=== PATIENT | male | born 1955 | race Caucasian/White ===

== ENCOUNTER → 2019-12-06 08:43 | Outpatient (CLI) | payer OTHER, SELFPAY ==
--- NOTE | ~2019-12-06 | CT_ITS ---
EXAMINATION: CT lung screening DATE: 12/06/2019 09:27 INDICATION: Personal history of tobacco dependence, prior smoker with 30 pack year history TECHNIQUE: Computed tomography (CT) of the chest was performed without intravenous contrast. The dose -length product (DLP) was 319.01 mGy-cm. Automated exposure control and iterative reconstruction tech [employer] were employed. COMPARISON: 01/05/2015 FINDINGS: There is mild emphysema. Multiple nodules are scattered throughout the lungs with an upper lobe predominance. The largest measures 4 mm in the right upper lobe on image 50. There is no pleural effusion or pneumothorax. No pathologically enlarged thoracic lymph nodes are identified. The heart size is normal. The gallbladder is surgically absent. A 1.5 cm area of low attenuation in the right u pper back has the appearance of a sebaceous cyst. There is mild thoracic spondylosis. IMPRESSION: 1. Lung-RADS category 2: Benign appearance or behavior. Continue annual screening with noncontrast lo w-dose chest CT in 12 months. Reviewed, dictated and finalized at location A. IMPRESSION: 1. Lung-RADS category 2: Benign appearance or behavior. Continue annual screeni ng with noncontrast low-dose chest CT in 12 months.
== END ==
PROVIDERS: PCP Internal Medicine; Visit Provider Internal Medicine
DX: Z12.2 Encounter for screening for malignant neoplasm of respiratory organs (principal); Z87.891 Personal history of nicotine dependence
CPT/HCPCS: G0297

== ENCOUNTER → 2020-08-29 13:18 | Outpatient (CLI) | payer OTHER, SELFPAY ==
--- NOTE | ~2020-08-29 | CT_ITS ---
EXAMINATION: CT lung screening DATE: 08/29/2020 13:42 INDICATION: Personal history of nicotine dependence, prior smoker with 30 pack year history TECHNIQUE: Computed tomography (CT) of the chest was performed without intravenous contrast. The dose -length product (DLP) was 250.87 mGy-cm. Automated exposure control and iterative reconstruction tech [employer] were employed. COMPARISON: 12/06/2019 FINDINGS: Again noted are multiple nodules scattered throughout the lungs with the largest measuring 4 mm in the right upper lobe on image 54. No new pulmonary nodule is identified. There is mild emphys janell. The lungs are free of focal airspace opacities. No pathologically enlarged thoracic lymph nodes are identified. The heart size is normal. Calcified coronary artery atherosclerosis is noted. There i s mild thoracic spondylosis. IMPRESSION: 1. Lung-RADS category 2: Benign appearance or behavior. Continue annual screening with noncontrast lo w-dose chest CT in 12 months. Reviewed, dictated and finalized at location B. IMPRESSION: 1. Lung-RADS category 2: Benign appearance or behavior. Continue annual screeni ng with noncontrast low-dose chest CT in 12 months.
== END ==
PROVIDERS: PCP Internal Medicine; Visit Provider Internal Medicine
DX: Z12.2 Encounter for screening for malignant neoplasm of respiratory organs (principal); Z87.891 Personal history of nicotine dependence
CPT/HCPCS: 71271

== ENCOUNTER → 2021-09-05 08:02 | Outpatient (CLI) | payer OTHER, SELFPAY ==
--- NOTE | ~2021-09-05 | CT_ITS ---
EXAMINATION: CT lung screening DATE: 09/05/2021 08:20 INDICATION: Personal history of nicotine dependence, current smoker with 45 pack year history TECHNIQUE: Computed tomography (CT) of the chest was performed without intravenous contrast. The dose -length product (DLP) was 259.54 mGy-cm. Automated exposure control and iterative reconstruction tech [employer] were employed. COMPARISON: 08/29/2020 FINDINGS: Multiple nodules are again seen scattered throughout the lungs. The largest measures 4 mm i n the right upper lobe. No new pulmonary nodules are identified. The lungs are free of acute opacitie s. No pleural effusion or pneumothorax. No pathologically enlarged thoracic lymph nodes are identifie d. The heart size is normal. Calcified coronary artery atherosclerosis is noted. The gallbladder is s urgically absent. There is mild thoracic spondylosis. IMPRESSION: 1. Lung-RADS category 2: Benign appearance or behavior. Continue annual screening with noncontrast lo w-dose chest CT in 12 months. Reviewed, dictated and finalized at location B. IMPRESSION: 1. Lung-RADS category 2: Benign appearance or behavior. Continue annual screeni ng with noncontrast low-dose chest CT in 12 months.
== END ==
PROVIDERS: PCP Internal Medicine; Visit Provider Internal Medicine
DX: Z12.2 Encounter for screening for malignant neoplasm of respiratory organs (principal); Z87.891 Personal history of nicotine dependence
CPT/HCPCS: 71271

== ENCOUNTER 2022-03-22 20:34 | Inpatient (IN) | payer MEDICARE, SELFPAY ==
--- NOTE | ~2022-03-22 | CT_ITS ---
EXAMINATION: CT abdomen pelvis w con DATE: 03/23/2022 06:42 INDICATION: Umbilical and lower abdominal pain. Fever. TECHNIQUE: Computed tomography (CT) of the abdomen and pelvis was performed with 100 mL Omnipaque 350 intravenous contrast. Automated exposure control and iterative reconstruction technique were employe d. The dose-length product was 1264.78 mGy-cm. COMPARISON: CT abdomen and pelvis 11/11/2014 FINDINGS: The visualized portions of the lung bases demonstrate minimal atelectasis. No pleural effus ion. The heart size is normal. No pericardial effusion. There are cysts in the liver measuring up to 8 mm. There are changes of cholecystectomy. The spleen, pancreas, and adrenal glands are normal. Ther e are cysts in the kidneys measuring up to 3.3 cm on the left. The prostate is mildly enlarged. There are scattered diverticula in the colon. There is wall thickening of the sigmoid colon with fat stran ding around a sigmoid diverticulum and foci of free intraperitoneal gas. There are no dilated loops o f bowel. The appendix is normal. There is an umbilical hernia containing fat. There is mild periporta l lymphadenopathy, likely reactive. There is a left inguinal hernia containing fat. There is no free intraperitoneal fluid. There is moderate thoracic spondylosis and mild lumbar spondylosis. IMPRESSION: 1. Sigmoid diverticulitis with microperforation. Reviewed, dictated and finalized at location A. [employer]
[2022-03-22 20:54] VITALS: BP 147/64; PULSE 118; RESP 18; TEMP 36.3; O2SAT 99
[2022-03-23] VITALS (21 sets, daily range): BP systolic 105–164; BP diastolic 57–91; PULSE 66–113; RESP 16–20; TEMP 36.7–37.1; O2SAT 93–100; BMI 33.2
[2022-03-23] MEDS: SODIUM CHLORIDE 0.9% IV 1,000 ML 999 ML IV CONT (04:40)
[2022-03-23 04:59] LABS: Basophils Absolute Auto 0.1 K/mm3 (0.0-0.1); Basophils Percent Auto 0.5 % (0.2-1.2); Eosinophils Absolute Auto 0.4 K/mm3 (0-0.3); Eosinophils Percent Auto 3.6 % (0-4.4); Hematocrit 42.3 % (42.0-52.0); Hemoglobin 14.4 g/dL (14.0-18.0); Immature Granulocyte Absolute 0.04 K/mm3 (0.00-0.031); Immature Granulocyte Percent A 0.3 % (0-0.5); Lymphocytes Absolute Auto 2.24 K/mm3 (0.9-3.2); Lymphocytes Percent Auto 19.5 % (18.3-44.2); Mean Corpuscular Hemoglobin 30.6 pg (26-34); Mean Platelet Volume 9.3 fl (7.4-10.4); Monocytes Absolute Auto 1.1 K/mm3 (0.1-0.6); Monocytes Percent Auto 9.5 % (2.6-8.5); Neutrophils Absolute Auto 7.7 K/mm3 (1.3-6.7); Neutrophils Percent Auto 66.6 % (45.5-73.1); Platelet Count Result 186 k/mm3 (150-375); Red Cell Distribution Width 12.6 % (11.5-14.5); White Blood Count 11.5 K/mm3 (4.5-10.0)
--- NOTE | 2022-03-23 05:04 | ED.GENADULT ---
HPI - General Adult General Chief complaint: Abdominal Pain <Rodolfo Galan MD - Last Filed: 03/23/22 05:06> Stated complaint: abd pain <Rodolfo Galan MD - Last Filed: 03/23/22 05:06> Time Seen by Provider: 03/23/22 04:20 <Rodolfo Galan MD - Last Filed: 03/23/22 05:06> History of Present Illness HPI narrative: Patient 67-year-old gentleman who presents to the emergency department with chief complaint of abdominal pain. The patient reports that on Thursday he went to get some blood drawn and reported that once he got back home he started having this generalized malaise the patient states that he started having periumbilical pain that then moved down to his lower quadrants and reports that he had some feeling as though he needed to urinate fairly rapidly the patient denies testicular pain denies flank pain. The patient reports he took 2 home COVID test that were negative the patient states that he was concerned that there may be appendicitis developing the patient does report that he has had a prior cholecystectomy. <Rodolfo Galan MD - Last Filed: 03/23/22 05:06> Related Data Allergies/adverse reactions: Allergies Allergy/AdvReac Type Severity Reaction Status Date / Time No Known Allergies Allergy Verified 03/22/22 20:35 <Rodolfo Galan MD - Last Filed: 03/23/22 05:06> Review of Systems Review of Systems: A 10 system review of systems was completed on the patient and is negative except for what is stated in the HPI. Nursing and ancillary documentation was reviewed. <Rodolfo Galan MD - Last Filed: 03/23/22 05:06> Exam Narrative: GENERAL: Well-appearing, well-nourished, and in no acute distress. HEAD: Normocephalic, atraumatic. EYES: PERRLA and EOMI. ENT: Nares clear, no rhinorrhea or epistaxis. Mucous membranes moist. NECK: Supple. CHEST: Clear to auscultation. No respiratory distress. HEART: Regular rate and rhythm. No murmur heard. Normal peripheral pulses. ABDOMEN: Soft, tenderness to palpation in the periumbilical area and lower quadrants of the abdomen., nondistended, normal active bowel sounds. EXTREMITIES: Normal range of motion. No edema. SKIN: Warm, dry, no rash. NEURO: No focal deficits. Alert and oriented x3. PSYCH: Normal mood and affect. <Rodolfo Galan MD - Last Filed: 03/23/22 05:06> Course Course Emergency Course: Patient informed of imaging results. I discussed the case with Dr. Cuba who is excepted the patient to his service. Patient will be kept n.p.o. with ice chips and will receive IV Zosyn. <Jose Alejandro Ramirez MD - Last Filed: 03/23/22 08:08> Vital Signs Vital signs: Vital Signs Temperature 97.4 F L 03/22/22 20:54 Pulse Rate 118 H 03/22/22 20:54 Respiratory Rate 18 03/22/22 20:54 Blood Pressure 147/64 H 03/22/22 20:54 Pulse Oximetry 99 03/22/22 20:54 Temperature 97.4 F L 03/22/22 20:54 Pulse Rate 82 03/23/22 07:48 Respiratory Rate 18 03/23/22 07:48 Blood Pressure 110/80 03/23/22 07:48 Pulse Oximetry 97 03/23/22 07:48 <Rodolfo Galan MD - Last Filed: 03/23/22 05:06> Vital Signs Temperature 97.4 F L 03/22/22 20:54 Pulse Rate 118 H 03/22/22 20:54 Respiratory Rate 18 03/22/22 20:54 Blood Pressure 147/64 H 03/22/22 20:54 Pulse Oximetry 99 03/22/22 20:54 Temperature 97.4 F L 03/22/22 20:54 Pulse Rate 82 03/23/22 07:48 Respiratory Rate 18 03/23/22 07:48 Blood Pressure 110/80 03/23/22 07:48 Pulse Oximetry 97 03/23/22 07:48 <Jose Alejandro Ramirez MD - Last Filed: 03/23/22 08:08> Medical Decision Making Vital Signs Vital Signs: Vital Signs Temperature 97.4 F L 03/22/22 20:54 Pulse Rate 118 H 03/22/22 20:54 Respiratory Rate 18 03/22/22 20:54 Blood Pressure 147/64 H 03/22/22 20:54 Pulse Oximetry 99 03/22/22 20:54 Temperature 97.4 F L 03/22/22 20:54 Pulse Rate 82
[2022-03-23 05:07] LABS: Lactic Acid Reflex 0.6 mmol/L (0.7-2.0)
[2022-03-23 05:23] LABS: Appearance Urine Clear (Clear); Bilirubin Urine 1+ (Negative); Blood Urine 2+ (Negative); Color Urine Yellow (Yellow); Glucose Urine UA Negative (Negative); Ketones Urine Negative (Negative); Leukocyte Esterase Ur Negative LEU/UL (Negative); Nitrate Urine Negative (Negative); Protein Urine Negative (Negative); Specific Grav Ur 1.015 (1.001-1.035); Urobilinogen Urine 0.2 mg/dL (<2.0); pH Urine 5.5 (5.0-9.0)
[2022-03-23 05:24] LABS: Influenza A QL RT-PCR Negative (Negative); Influenza B QL RT-PCR Negative (Negative); RSV RNA, RT-PCR Negative (Negative); SARS-CoV-2 RNA PCR Negative
[2022-03-23 05:30] LABS: Mucus Urine Few /lpf; WBC Urine 0-3 /hpf
[2022-03-23 05:57] LABS: Alanine Aminotransferase 18 U/L (6-50); Albumin Level 4.2 g/dL (3.5-5.1); Alkaline Phosphatase 56 U/L (38-126); Anion Gap 5 mmol/L (8-16); Aspartate Amino Transferase 17 U/L (17-59); Blood Urea Nitrogen 8 mg/dL (9-20); Calcium 8.3 mg/dL (8.4-10.2); Carbon Dioxide 25 mmol/L (22-30); Chloride 103 mmol/L (98-107); Estimated CRCL calculation 127 ml/min; Estimated Glomerular Filt Rate > 60; Glucose 120 mg/dL (65-110); Lipase 35 U/L (23-300); Potassium 3.6 mmol/L (3.4-5.0); Sodium 133 mmol/L (137-145)
[2022-03-23 05:58] LABS: Add Urine Microscopic? YES
--- NOTE | 2022-03-23 09:50 | PM.IMHP ---
H&P: HPI History of Present Illness Date/Time: 03/23/22 09:50 Chief Complaint: Abdominal pain Narrative: Patient is a 67-year-old man who 2 days ago went to get some blood drawn. Following this, he felt some periumbilical discomfort and a pressure to urinate. Later that day, he developed more severe abdominal pain going across the suprapubic area and both quadrants of the lower abdomen. He noted some fever and chills. He came to the emergency room last night. He was noted to have periumbilical and lower abdominal tenderness. His white blood cell count was elevated to 11,500. He had a CT scan which showed acute diverticulitis with several foci of free intraperitoneal air localized around the sigmoid colon but predominantly on the lower right side just anterior to the urinary bladder. He has received antibiotics and some analgesics in the emergency room. His pain is much better. He is admitted now for acute diverticulitis with perforation. No abscess is noted at present but this is high risk for development of an abscess. He has never had diverticulitis before. He has had colonoscopies in the past but not our facility. His last evaluation for malignancy was a negative Cologuard 2 years ago. He had surgery for a perforated ulcer many years ago through an upper abdominal midline incision. He has also had a laparoscopic cholecystectomy. He is admitted now for diverticulitis with perforation as noted above. He does smoke about a pack per day. Review of Systems Review of Systems: All systems reviewed & are unremarkable except as noted in HPI and below (HPI and those items noted below) Constitutional: Constitutional: Reports as per HPI, Reports body ache(s), Reports chills, Reports fever(s) and Reports malaise Cardiovascular: Cardiovascular: Denies chest pain, Denies diaphoresis, Denies dyspnea and Denies paroxysmal nocturnal dyspnea Respiratory: Respiratory: Denies chest congestion, Denies cough and Denies dyspnea Gastrointestinal: Gastrointestinal: Reports as per HPI, Reports abdominal pain and Reports GI cramping Genitourinary: Genitourinary: Reports as per HPI, Denies hematuria, Denies dysuria and Denies flank pain Integumentary/Breasts: Skin/Breast: Denies lesions and Denies rash [facility] Past Medical History Medical History (Updated 03/23/22 @ 10:04 by Cedric Cuba MD) Essential hypertension Hyperlipidemia Surgical History Surgical History (Updated 03/23/22 @ 10:04 by Cedric Cuba MD) History of laparoscopic cholecystectomy Peptic ulcer with perforation Surgery for perforated ulcer years ago, midline incision. Meds Home Medications and Allergies Home Medications Medication Instructions Recorded Confirmed Type atorvastatin 20 mg tablet 20 mg PO DAILY 03/23/22 03/23/22 History lansoprazole 30 mg capsule,delayed 30 mg PO DAILY 03/23/22 03/23/22 History release lisinopril 20 mg tablet 20 mg PO DAILY 03/23/22 03/23/22 History Allergies Allergy/AdvReac Type Severity Reaction Status Date / Time No Known Allergies Allergy Verified 03/22/22 20:35 Vital Signs Vital Signs - 24 hr 03/22/22 20:54 03/23/22 00:22 03/23/22 04:31 Temperature 36.3 C L Pulse Rate 118 H 113 H Respiratory Rate 18 16 Blood Pressure 147/64 H 164/85 H Pulse Oximetry 99 97 97 03/23/22 04:32 03/23/22 04:45 03/23/22 05:12 Temperature Pulse Rate 84 Respiratory Rate 17 Blood Pressure 108/77 133/75 Pulse Oximetry 97 96 94 03/23/22 05:15 03/23/22 05:30 03/23/22 05:52 Temperature Pulse Rate Respiratory Rate Blood Pressure Pulse Oximetry 97 98 100 03/23/22 06:00 03/23/22 06:01 03/23/22 06:15 Temperature Pulse Rate Respiratory Rate Blood Pressure 105/60 Pulse Oximetry 93 96 96 03/23/22 07:48 Temperature Pulse Rate 82 Respiratory Rate 18 Blood Pressure 110/80 Pulse Oximetry 97 Exam Const: General: cooperative, healthy appearing, comfortable, no a
[2022-03-23] MEDS: SODIUM CHLORIDE 0.9% IV 1,000 ML 125 ML IV CONT ×2 (10:17→17:34)
[2022-03-23] MEDS: MORPHINE SULFATE (*CRX) 4 MG/ML INJ IV PUSH (10:18)
[2022-03-23] MEDS: PANTOPRAZOLE SODIUM IV 40 MG VIAL IV PUSH (10:52)
[2022-03-23] MEDS: ENOXAPARIN 40 MG/0.4 ML SYRINGE SUB-Q (11:05)
--- NOTE | 2022-03-23 16:33 | ADMGEN ---
This patient, Onel Montero, was admitted to Medical Room 342-01. Patient/family oriented to hospital policies and general routines including ID bracelet, bed and alarms, visiting hours, pain management, procedures, bathroom and other care routines, personal items, smoking policy, room service/diet, and visiting hours. Information on how to activate the Rapid Response Team has been discussed. Patient/Family are encouraged to report perceived risks to care and to ask questions if they do not understand what they are told or what they should do.
[2022-03-23] MEDS: MORPHINE SULFATE (*CRX) 2 MG/ML INJ IV PUSH ×2 (17:40→20:51)
[2022-03-24] MEDS: SODIUM CHLORIDE 0.9% IV 1,000 ML 125 ML IV CONT ×3 (05:41→23:30)
[2022-03-24 05:57] LABS: Basophils Absolute Auto 0.1 K/mm3 (0.0-0.1); Basophils Percent Auto 0.7 % (0.2-1.2); Eosinophils Absolute Auto 0.6 K/mm3 (0-0.3); Eosinophils Percent Auto 5.6 % (0-4.4); Hematocrit 43.8 % (42.0-52.0); Hemoglobin 14.3 g/dL (14.0-18.0); Immature Granulocyte Absolute 0.04 K/mm3 (0.00-0.031); Immature Granulocyte Percent A 0.4 % (0-0.5); Lymphocytes Absolute Auto 2.66 K/mm3 (0.9-3.2); Lymphocytes Percent Auto 25.7 % (18.3-44.2); Mean Corpuscular HGB Conc 32.6 g/dl (32-36); Mean Corpuscular Hemoglobin 30.2 pg (26-34); Mean Corpuscular Volume 92.4 fl (80-100); Mean Platelet Volume 9.1 fl (7.4-10.4); Monocytes Percent Auto 9.7 % (2.6-8.5); Neutrophils Percent Auto 57.9 % (45.5-73.1); Platelet Count Result 197 k/mm3 (150-375); Red Blood Count 4.74 M/mm3 (4.6-6.20); Red Cell Distribution Width 12.4 % (11.5-14.5); White Blood Count 10.3 K/mm3 (4.5-10.0)
[2022-03-24 06:00] VITALS: BP 121/75; PULSE 76; RESP 18; TEMP 37; O2SAT 99
[2022-03-24 06:16] LABS: Anion Gap 5 mmol/L (8-16); Blood Urea Nitrogen 9 mg/dL (9-20); Calcium 8.2 mg/dL (8.4-10.2); Carbon Dioxide 28 mmol/L (22-30); Chloride 108 mmol/L (98-107); Estimated CRCL calculation 110 ml/min; Estimated Glomerular Filt Rate > 60; Glucose 93 mg/dL (65-110); Potassium 3.8 mmol/L (3.4-5.0); Sodium 141 mmol/L (137-145)
[2022-03-24] MEDS: PANTOPRAZOLE SODIUM IV 40 MG VIAL IV PUSH (08:43)
--- NOTE | 2022-03-24 09:07 | PC.NURSE ---
Pt refusing to walk halls because we have covid patients on this unit. Pt educated on the importance of getting up and walking. Dr. Cuba was just in and would like him up walking the halls. Pt states that he will walk around in his room only.
[2022-03-24 14:00] VITALS: BP 126/75; PULSE 69; RESP 20; TEMP 36.2; O2SAT 99
--- NOTE | 2022-03-24 16:41 | PM.PNGS ---
Progress Note: A&P Assessment and Plan (1) Diverticulitis of colon with perforation: Code(s): K57.20 - Diverticulitis of large intestine with perforation and abscess without bleeding Status: Acute Assessment and Plan: Greatly improved. Will go ahead and start low-fiber diet today. If pain does not recur, patient can probably go home tomorrow on low-fiber diet. Will need to be on oral antibiotics as well. I explained that looking at his CT scan, there is some risk of him developing an abscess. I explained the symptoms than an abscess may present with. I also explained that if an abscess were to present, CT-guided abscess percutaneous drainage would most likely be needed. (2) Smoker: Code(s): F17.200 - Nicotine dependence, unspecified, uncomplicated Status: Chronic Assessment and Plan: Advised to quit. Subjective Subjective Date/Time Seen: 03/24/22 08:41 Patient reports: feels better, pain is less (Pain is gone.), bowel movement and afebrile Review of Systems Review of Systems: All systems reviewed & are unremarkable except as noted in HPI and below (HPI and those items noted below) Constitutional: Constitutional: Denies chills and Denies fever(s) Cardiovascular: Cardiovascular: Denies chest pain, Denies diaphoresis, Denies dyspnea and Denies paroxysmal nocturnal dyspnea Respiratory: Respiratory: Denies chest congestion, Denies cough and Denies dyspnea Integumentary/Breasts: Skin/Breast: Denies lesions and Denies rash Exam Const: General: comfortable and no acute distress; No confusion Nutritional Appearance: overweight Orientation/consciousness: patient oriented x3 and No confusion GI: Inspection: normal to inspection, non-distended and obesity GI Palp: Yes Soft to palpation, No Tenderness to palpation present (GI), No Guarding due to palpation present (GI), No Palpable mass present and No Rebound tenderness present Auscultation: normal bowel sounds Neuro: General: patient oriented x3, no focal motor deficits and No confusion Extrem: General: no calf tenderness and no edema Psych: Affect: normal affect Insight: Good insight present (Psych) Judgement: Good judgement present (Psych) Objective Data Vital Signs Vital Signs: Vital Signs - 24 hr 03/23/22 21:39 03/24/22 06:00 03/24/22 08:00 Temperature 37.1 C 37.0 C Pulse Rate 66 76 Respiratory Rate 18 18 Blood Pressure 130/74 121/75 Pulse Oximetry 99 99 Oxygen Delivery Room Air 03/24/22 14:00 Temperature 36.2 C L Pulse Rate 69 Respiratory Rate 20 Blood Pressure 126/75 Pulse Oximetry 99 Oxygen Delivery Intake/Output Intake/Output: Intake & Output 03/21/22 03/22/22 03/23/22 03/24/22 23:59 23:59 23:59 23:59 Intake Total 2150 2340 Balance 2150 2340 Meds/Results Medications: Active Medications Generic Name Dose Route Start Last Admin Trade Name Freq PRN Reason Stop Dose Admin Acetaminophen 500 mg 03/24/22 12:41 Acetaminophen 500 Mg Tablet PO Q6H PRN Mild Pain (1-3) or Fever Hydrocodone Bitart/Acetaminophen 1 tab 03/24/22 12:41 Hydrocodone/Acetaminophen (*Crx) 5-325 Mg Tablet PO Q4H PRN Pain Rated 4-6 Hydrocodone Bitart/Acetaminophen 1 tab 03/24/22 12:41 Hydrocodone/Acetaminophen (*Crx) 10-325 Mg Tablet PO Q4H PRN Pain Rated 7-10 Albuterol 2 puff 03/24/22 12:38 Albuterol Sulfate (*Sp) Aerosol 1 Puff INHALATION Q6H PRN Shortness Of Breath Atorvastatin Calcium 20 mg 03/24/22 13:00 Atorvastatin 20 Mg Tablet PO DAILY [facility] Enoxaparin Sodium 40 mg 03/24/22 09:00 03/24/22 13:03 Enoxaparin 40 Mg/0.4 Ml Syringe SUB-Q Not Given DAILY [facility] Fluticasone Propionate 1 spray 03/24/22 12:38 Fluticasone Propionate 0.05% Na Spr 16 Gm Btl (*Bkc) NASAL DAILY PRN Sinus Symptoms Piperacillin/Tazobactam/Dextrose 3.375 gm in 50 mls @ 100 mls/hr 03/23/22 12:00 03/24/22 13:00 Zosyn 3.375 Gm/D5w 5
[2022-03-24] MEDS: ATORVASTATIN 20 MG TABLET PO (18:32)
[2022-03-24] MEDS: lisinopriL 20 MG TABLET PO (18:32)
[2022-03-24 20:00] VITALS: PULSE 69; RESP 20; O2SAT 99
[2022-03-24 21:45] VITALS: BP 127/80; PULSE 64; RESP 18; TEMP 36.7; O2SAT 97
[2022-03-25 05:59] LABS: Hematocrit 42.3 % (42.0-52.0); Hemoglobin 13.9 g/dL (14.0-18.0); Mean Corpuscular HGB Conc 32.9 g/dl (32-36); Mean Corpuscular Hemoglobin 30.2 pg (26-34); Mean Platelet Volume 8.9 fl (7.4-10.4); Platelet Count Result 197 k/mm3 (150-375); Red Cell Distribution Width 12.5 % (11.5-14.5); White Blood Count 8.6 K/mm3 (4.5-10.0)
[2022-03-25 06:00] VITALS: BP 122/68; PULSE 64; RESP 18; TEMP 36.7; O2SAT 97
[2022-03-25 06:10] LABS: Anion Gap 4 mmol/L (8-16); Blood Urea Nitrogen 6 mg/dL (9-20); Calcium 8.2 mg/dL (8.4-10.2); Carbon Dioxide 28 mmol/L (22-30); Chloride 103 mmol/L (98-107); Estimated CRCL calculation 110 ml/min; Estimated Glomerular Filt Rate > 60; Glucose 103 mg/dL (65-110); Potassium 3.7 mmol/L (3.4-5.0); Sodium 135 mmol/L (137-145)
[2022-03-25] MEDS: lisinopriL 20 MG TABLET PO (08:44)
[2022-03-25] MEDS: ATORVASTATIN 20 MG TABLET PO (08:44)
[2022-03-25] MEDS: ENOXAPARIN 40 MG/0.4 ML SYRINGE SUB-Q (08:44)
[2022-03-25] MEDS: PANTOPRAZOLE 40 MG TABLET PO (08:44)
[2022-03-25] MEDS: SODIUM CHLORIDE 0.9% IV 1,000 ML 125 ML IV CONT (11:09)
[2022-03-25 14:00] VITALS: BP 143/79; PULSE 68; RESP 18; TEMP 36.8; O2SAT 99
--- NOTE | 2022-03-25 14:03 | PM.DS ---
DS: Admitting Diagnosis Discharge Date 03/25/2022 Admitting Diagnosis Diverticulitis with perforation DS: Discharge Diagnosis Discharge Diagnosis (1) Diverticulitis of colon with perforation: Code(s): K57.20 - Diverticulitis of large intestine with perforation and abscess without bleeding Status: Acute Assessment and Plan: Exam benign, continue p.o. antibiotics, continue low fiber diet, follow-up with Dr. Cuba in 2 weeks DS: Summary Hospital Course Reason for hospitalization: Diverticulitis with perforation Hospital Course: The patient is a 67-year-old male presenting to the emergency department complaining of severe abdominal pain. Workup, including imaging, was significant for diverticulitis with micro perforation. The patient was subsequently admitted to the Surgical Service started on IV antibiotics and bowel rest. On hospital day 1., the patient's exam was much more and his diet was slowly advanced. He was out of bed and ambulating without difficulty. His pain was well controlled. By hospital day 2., the patient was tolerating a low fiber diet and his exam abdominal exam was completely benign. He will be discharged home at this time with continued p.o. antibiotics and a low-fiber diet. He will follow up with Dr. Cuba in 2 weeks. Status at Discharge Functional status at discharge: independent ambulation Overall status at discharge: patient is progressing back to baseline Time Spent with Patient Time attestation: Total time spent providing and/or coordinating discharge services: Time spent: Less than 30 minutes Exam Const: General: cooperative, comfortable and no acute distress Resp: Auscultation: clear to auscultation bilaterally Cardio: Rate: regular rate Rhythm: regular rhythm GI: Inspection: normal to inspection and distended GI Palp: No abdominal tenderness, Yes Soft to palpation, No Tenderness to palpation present (GI), No Guarding due to palpation present (GI) and No Rigid due to palpation DS: Data Data Completed and Pending Labs on day of discharge: Labs from last 24 hours 03/25/22 03/25/22 05:49 05:49 WBC 8.6 RBC 4.60 Hgb 13.9 L Hct 42.3 MCV 92.0 MCH 30.2 MCHC 32.9 RDW 12.5 Plt Count 197 MPV 8.9 Sodium 135 L Potassium 3.7 Chloride 103 Carbon Dioxide 28 Anion Gap 4 L BUN 6 L Creatinine 0.70 Estim Creat Clear Calc 110 Estimated GFR > 60 Glucose 103 Calcium 8.2 L Discharge Plan Discharge Attending physician on discharge: Cedric Cuba Discharging Clinician: Nati Franco Patient Disposition: Home, Self-Care Activity: may shower and as tolerated Diet: low fiber Discharge Instructions: Activity as tolerated Okay to drive. Ambulate 3-4 times per day and p.r.n.. Stay on low-fiber diet. Continue oral antibiotics as prescribed. May take Tylenol or ibuprofen p.r.n. for pain. See Dr. Cuba in 2 weeks. Patient Instructions: Antibiotic Form Stand Alone Forms: General Discharge Information Follow-up/Referrals: Cedric Cuba MD [Physician] - 2 Weeks Discharge Medications: New amoxicillin-pot clavulanate 875-125 mg tablet 1 tablet PO Q12H Qty: 14 0RF Continued atorvastatin 20 mg tablet 20 mg PO DAILY lisinopril 20 mg tablet 20 mg PO DAILY lansoprazole 30 mg capsule,delayed release(DR/EC) 30 mg PO DAILY albuterol sulfate 90 mcg/actuation HFA aerosol inhaler 2 puff INHALATION Q6H PRN (Reason: Shortness Of Breath) fluticasone propionate 50 mcg/actuation spray,suspension 1 spray INTRANASAL DAILY PRN (Reason: Sinus Symptoms) nisoldipine 8.5 mg tablet extended release 24 hr 8.5 mg PO DAILY Date of admission: 03/24/22 09:54 Primary Care Provider: Angel,Suzette Admitting Provider: Cedric Cuba Attending physician on admission: Cedric Cuba Condition: Improved
== END 2022-03-25 15:10 | disposition home or self-care (01) | DRG 392 ==
LOC: ANHED 03-23 08:07 → ANH3MEDSUR 03-23 10:09 → ANH3MED 03-23 14:55
PROVIDERS: Admitting Provider Surgery; Emergency Provider Emergency Medicine; PCP Internal Medicine; Visit Provider Surgery
DX: K57.20 Diverticulitis of large intestine with perforation and abscess without bleeding (principal); Z20.822 Contact with and (suspected) exposure to COVID-19; I10 Essential (primary) hypertension; E78.5 Hyperlipidemia, unspecified; F17.210 Nicotine dependence, cigarettes, uncomplicated; Z90.49 Acquired absence of other specified parts of digestive tract
CPT/HCPCS: 36415; 74177; 80048; 80053; 81001; 83605; 83690; 85025; 85027; 87637; 96361; 96365; 96366; 96372; 96375; 96376; 99285; A9270; C9113; G0378; J1650; J2270; J2543; J7030; Q9967

== ENCOUNTER 2022-05-26 00:36 | Day surgery (SDC) | payer MEDICARE, SELFPAY ==
[2022-05-12 15:17] VITALS: BMI 32.2
--- NOTE | 2022-05-23 14:01 | PM.HPGS ---
History of Present Illness History of Present Illness Consent: Risks, benefits, and alternatives have been discussed and questions answered. Patient agrees to proceed with procedure. Chief complaint: diverticulitis large intestine with perforation/ab Narrative: Onel Montero is a 67 year old male Who several weeks ago was hospitalized with acute diverticulitis. He improved with antibiotics. Colonoscopy is advised to ensure that there is not other pathology. Review of Systems Review of Systems: All systems reviewed & are unremarkable except as noted in HPI and below PMFSH Past Medical History Medical History Essential hypertension Hyperlipidemia Surgical History Surgical History History of laparoscopic cholecystectomy Peptic ulcer with perforation Surgery for perforated ulcer years ago, midline incision. Social History Social History Smoking packs per day: 1 Smoking cigarettes per day: 20.0 Smoking status: Former smoker Tobacco type: cigarettes Alcohol intake: former Drinks per week: 6 Alcohol use details: ON WEEKENDS, NONE SINCE 03/2022 Substance use: never Substance use type: does not use Lack of Transportation: No Lack of Food: Never True Current Housing: I Have Housing Concerned About Future Housing: No Difficulty Paying Gas/Electric Bills: No Difficulty Paying for Meds: No Currently Unemployed: No Education: Associate Degree Difficulty w/ Childcare or Family Care: No Living arrangements: with family Spiritual care concerns: No Meds Home Medications and Allergies Home Medications Medication Instructions Recorded Confirmed Type albuterol sulfate 90 mcg/actuation 2 puff inhalation Q6H PRN 03/23/22 05/26/22 History aerosol inhaler Shortness Of Breath atorvastatin 20 mg tablet 20 mg PO DAILY 03/23/22 05/26/22 History fluticasone propionate 50 1 spray intranasal DAILY PRN Sinus 03/23/22 05/26/22 History mcg/actuation nasal Symptoms spray,suspension lansoprazole 30 mg capsule,delayed 30 mg PO DAILY 03/23/22 05/26/22 History release lisinopril 20 mg tablet 20 mg PO DAILY 03/23/22 05/26/22 History nisoldipine 8.5 mg tablet,extended 8.5 mg PO DAILY 01/22/23 03/27/23 History release 24 hr Allergies Allergy/AdvReac Type Severity Reaction Status Date / Time No Known Allergies Allergy Verified 05/26/22 07:15 Exam Const: General: alert Orientation/consciousness: patient oriented x3 Resp: Auscultation: clear to auscultation bilaterally Cardio: Rhythm: regular rhythm GI: GI Palp: Yes Soft to palpation and No Tenderness to palpation present (GI) Neuro: General: patient oriented x3 Assessment and Plan Assessment and plan (1) Diverticulitis of colon with perforation: Code(s): K57.20 - Diverticulitis of large intestine with perforation and abscess without bleeding Status: Acute Assessment and Plan: Colonoscopy with possible biopsy or polypectomy or cautery or injection of substances.
[2022-05-26 07:20] VITALS: BP 108/71; PULSE 69; RESP 18; TEMP 35.9; O2SAT 99
[2022-05-26] MEDS: LACTATED RINGERS 1,000 ML 150 ML IV CONT (07:30)
--- NOTE | 2022-05-26 08:07 | WPDANESEPPF ---
Anes - Initial Pre Proc Eval Procedure: Operation Date: 05/26/22 08:30 Proposed Procedures p Colonoscopy - Adam Dias MD Date/Time: 05/26/22 08:07 Surgeon: Adam Dias MD Pre Op Diagnosis: diverticulitis large intestine with perforation/ab Patient Data Age: 67 Gender: M Height: 1.78 m Weight: 96.1 kg Last Vital Signs Temp 35.9 C L 05/26/22 07:20 Pulse 69 05/26/22 07:20 Resp 18 05/26/22 07:20 BP 108/71 05/26/22 07:20 Pulse Ox 99 05/26/22 07:20 O2 Del Method Room Air 05/26/22 07:20 Allergies Allergy/AdvReac Type Severity Reaction Status Date / Time No Known Allergies Allergy Verified 05/26/22 07:15 Home Medications Medication Instructions Recorded Confirmed Type albuterol sulfate 90 mcg/actuation 2 puff inhalation Q6H PRN 03/23/22 05/26/22 History aerosol inhaler Shortness Of Breath atorvastatin 20 mg tablet 20 mg PO DAILY 03/23/22 05/26/22 History fluticasone propionate 50 1 spray intranasal DAILY PRN Sinus 03/23/22 05/26/22 History mcg/actuation nasal Symptoms spray,suspension lansoprazole 30 mg capsule,delayed 30 mg PO DAILY 03/23/22 05/26/22 History release lisinopril 20 mg tablet 20 mg PO DAILY 03/23/22 05/26/22 History nisoldipine 8.5 mg tablet,extended 8.5 mg PO DAILY 03/23/22 05/26/22 History release 24 hr Patient hx anesthesia problems: none Family hx anesthesia problems: none Results Review: All pre-operative results and documents have been reviewed as part of the pre-operative evaluation. [facility] Past Medical History Medical History COPD (chronic obstructive pulmonary disease) Diverticulitis of colon with perforation Essential hypertension Hyperlipidemia Obesity EFREN on CPAP PUD (peptic ulcer disease) Smoker Surgical History Surgical History History of laparoscopic cholecystectomy Peptic ulcer with perforation Surgery for perforated ulcer years ago, midline incision. Social History Social History Smoking packs per day: 1 Smoking cigarettes per day: 20.0 Smoking status: Former smoker Tobacco type: cigarettes Alcohol intake: former Drinks per week: 6 Alcohol use details: ON WEEKENDS, NONE SINCE 03/2022 Substance use: never Substance use type: does not use Lack of Transportation: No Lack of Food: Never True Current Housing: I Have Housing Concerned About Future Housing: No Difficulty Paying Gas/Electric Bills: No Difficulty Paying for Meds: No Currently Unemployed: No Education: Associate Degree Difficulty w/ Childcare or Family Care: No Living arrangements: with family Spiritual care concerns: No Anes - Eval Final PreProcedure Day of Procedure 05/26/22 08:07 Patient weight: obese Heart: regular rate and rhythm Lungs: clear to auscultation and normal air movement Airway: Mallampati scale class II Neurological: alert and oriented Last oral intake: >/= 8 hours ASA classification: III Emergent: no Anesthetic plan: proceed Anesthesia type and monitoring: general GIVS Results Review: All pre-operative results and documents have been reviewed as part of the pre-operative evaluation. Informed Consent: The patient's anesthetic plan and its attendant risks and benefits were discussed with the patient/family/POA. Questions were solicited and answers provided to the satisfaction of the patient/family/POA.
[2022-05-26] MEDS: SIMETHICONE ORAL SUSPENSION 20 MG/0.3 ML 30 ML BOTTLE 0.6 ML IRRIGATION (08:41)
[2022-05-26 08:50] VITALS: BP 113/82; PULSE 73; RESP 18; O2SAT 99
[2022-05-26 09:00] VITALS: BP 122/78; PULSE 57; RESP 18; O2SAT 99
[2022-05-26 09:10] VITALS: BP 124/76; PULSE 70; RESP 20; O2SAT 99
== END 2022-05-26 09:15 | disposition home or self-care (01) ==
PROVIDERS: PCP Internal Medicine; Visit Provider Internal Medicine Gastroenterology
PROC: 0DJD8ZZ Inspection of Lower Intestinal Tract, Via Natural or Artificial Opening Endoscopic (ICD-10-PCS; CPT 45378; principal; 2022-05-26 08:30)
DX: Z09 Encounter for follow-up examination after completed treatment for conditions other than malignant neoplasm (principal); K57.30 Diverticulosis of large intestine without perforation or abscess without bleeding; K63.5 Polyp of colon; K64.8 Other hemorrhoids; Z87.19 Personal history of other diseases of the digestive system; J44.9 Chronic obstructive pulmonary disease, unspecified; I10 Essential (primary) hypertension; E78.5 Hyperlipidemia, unspecified; G47.33 Obstructive sleep apnea (adult) (pediatric); E66.9 Obesity, unspecified; Z68.30 Body mass index [BMI] 30.0-30.9, adult; Z87.891 Personal history of nicotine dependence; Z79.51 Long term (current) use of inhaled steroids
CPT/HCPCS: 45380; 88305; J2704; J7120

== ENCOUNTER → 2022-10-07 08:11 | Outpatient (CLI) | payer MEDICARE, SELFPAY ==
--- NOTE | ~2022-10-07 | CT_ITS ---
CT Scan of the Chest without Contrast: Clinical Indication: Lung cancer screening, personal history of nicotine dependence Technique: Contiguous sections were acquired throughout the chest without intravenous contrast. Dose reduction technique was used on this scan by utilizing automated exposure control and iterative recon struction technique. The dose-length product (DLP) was 173.89 mGy-cm. COMPARISON: 09/05/2021, 08/29/2020 Findings: There is no evidence of any significant mediastinal, hilar or axillary lymphadenopathy. The mediastin al soft tissues appear normal. There is no evidence of pleural or pericardial effusion. Several 3 mm groundglass pulmonary nodules are present in the right upper lobe, similar to prior exam s. Images through the upper abdomen reveal no abnormalities. Impression: Lung RADS 2: Benign appearance. 12 month follow-up screening CT advised. Reviewed, dictated and finalized at location . Impression: Lung RADS 2: Benign appearance. 12 month follow-up screening CT advised.
== END ==
PROVIDERS: PCP Internal Medicine; Visit Provider Internal Medicine
DX: Z12.2 Encounter for screening for malignant neoplasm of respiratory organs (principal); F17.210 Nicotine dependence, cigarettes, uncomplicated
CPT/HCPCS: 71271

== ENCOUNTER 2023-01-21 03:49 | Day surgery (SDC) | payer MEDICARE, SELFPAY ==
--- NOTE | 2023-01-13 15:25 | PC.NURSE ---
Report to the Outpatient Waiting Room, entrance under the green pavilion located off [facility], at time __829 on date _01/21/23 . Planned Procedure Time: 929 . Time changes happen often and if your time is changed the preop area will call you the afternoon before. - You and your visitor will be asked to self-screen and do not enter if you have any COVID symptoms. - A mask is optional within the hospital at this time. LIGHT BREAKFAST MORNING OF SURGERY Take the following medications with a SIP of water the morning of surgery: ____ALL ROUTINE MORNING MEDICATION DO NOT STOP ANY OF YOUR OTHER PRESCRIPTION MEDICATIONS PRIOR TO SURGERY ?EXCEPT THE FOLLOWING Medications to discontinue per physician NONE Date to take last dose Please no make-up, nail azeri, hairspray, perfume, deodorant, or body powder the day of surgery. No jewelry (including any body piercings) or valuables the day of surgery, leave them at home. Please take a shower or bath the night before, or the morning of, surgery with an antibacterial soap. Wear comfortable, loose fitting clothing. Children are encouraged to wear pajamas. - Jewelry must be removed prior to entering the operating room. Rings and piercings that are not removed may be cut off. - The hospital will not accept responsibility for valuables. - Please leave all valuables, including medications, at home the day of surgery. LOCAL ANESTHESIA MAY DRIVE YOURSELF HOME If you are going home after surgery, a licensed patrol driver must drive you home. - NO public transportation without another adult if you receive anesthesia. - We recommend that an adult stay with you for 24 hours following discharge. - We also recommend that you do not drive, make important decision, drink alcoholic beverages, or take any drugs that were not prescribed by your health care provider for at least 24 hours after your discharge time. For Pediatric surgeries, we recommend two adults accompany the child home. Follow any additional instructions given to you from your surgeon. If you or anyone in your household have experienced Covid symptoms in the past week, please notify your surgeon or the nurse liaison at the phone number below for possible testing. Telephone instructions given to PATIENT and asked if any additional questions and then verbalized understanding. Patient advised to call surgeon office or pre surgery nurse liaison [phone] if any additional questions.
[2023-01-13 15:40] VITALS: BMI 29.7
[2023-01-21] VITALS (7 sets, daily range): BP systolic 128–144; BP diastolic 56–81; PULSE 60–80; RESP 16; TEMP 36.2; O2SAT 96–99
--- NOTE | 2023-01-21 12:14 | W.PM.PROC2 ---
Procedure Note - Detailed Date of Procedure 01/21/23 Pre-op Diagnosis Skin Cyst Back Post-op Diagnosis Same Procedure Performed Excision 4 cm skin cyst of the back with no margin, 12 cm layered closure Surgeon Cedric Cuba MD Anesthesia Local (0.5% Marcaine with epinephrine) Indications Patient has a large subcutaneous nodule on the right upper back near his shoulder. It has been slowly enlarging for several years. It has the appearance of an inclusion cyst. He is taken to surgery now for excision. Findings Grossly appeared to be an inclusion cyst measuring 4 x 3 x 1.5 cm. The length of the wound after excision was 12 cm. Description of Procedure Patient was taken to surgery and placed in left lateral decubitus position. The area of the cyst had been marked on the skin as well as the anticipated incision in the preoperative area. Prep and drape was carried out. Local anesthetic was infiltrated in the area of the anticipated excision as well as in the subcutaneous tissue. Incision of the ellipse around the cyst was then carried out. Cautery was used for hemostasis. No entry into the cyst occurred. The cyst and the subcutaneous and overlying skin on either side of the cyst were removed without difficulty. The cyst was measured with findings as above. Cautery was used for hemostasis. The wound was measured as above as well. 3-0 Vicryl sutures were used to close Keily's fascia in interrupted fashion. Subcuticular interrupted 4-0 Vicryl skin stitches were used to loosely approximate the skin. Finally, running 4-0 Monocryl subcuticular skin closure was carried out. The wound was dressed with Exofin surgical adhesive. Patient returned to the transfer cart and was taken to outpatient surgery in good condition. Estimated Blood Loss -5 Drains No Packing No Pathology Yes (Skin cyst of the back) Complications No immediate complications Condition Stable Disposition Same day [facility] Billing Surgery - Charge Forward: Surgery Billing (Excision 4 cm skin cyst of the back with no margin, 12 cm layered closure.)
--- NOTE | 2023-01-23 16:18 | P.HPUP_ITS ---
History and Physical Update Update Date/Time: 01/21/23 10:18 a.m. History and Physical has been reviewed, including an updated exam of the patient. There are NO changes in the patient's condition. Risks, benefits, and alternatives have been discussed and questions answered. Kameron kathleen agrees to proceed with procedure.
== END 2023-01-21 12:20 | disposition home or self-care (01) ==
PROVIDERS: PCP Internal Medicine; Visit Provider Surgery
PROC: (CPT 11404; principal; 2023-01-21 11:00)
DX: L72.0 Epidermal cyst (principal); G47.33 Obstructive sleep apnea (adult) (pediatric); Z99.89 Dependence on other enabling machines and devices; J44.9 Chronic obstructive pulmonary disease, unspecified; I10 Essential (primary) hypertension; F17.210 Nicotine dependence, cigarettes, uncomplicated; E78.5 Hyperlipidemia, unspecified
CPT/HCPCS: 11404; 12034; 88305

== ENCOUNTER 2023-12-08 15:50 | Outpatient (CLI) | payer MEDICARE, SELFPAY ==
--- NOTE | ~2023-12-08 | CT_ITS ---
CT Scan of the Chest without Contrast: Clinical Indication: Lung cancer screening, nicotine dependence Technique: Contiguous sections were acquired throughout the chest without intravenous contrast. Dose reduction technique was used on this scan by utilizing automated exposure control and iterative recon struction technique. The dose-length product (DLP) was 205.70 mGy-cm. COMPARISON: 10/07/2022 Findings: There is no evidence of any significant mediastinal, hilar or axillary lymphadenopathy. The mediastin al soft tissues appear normal. There is no evidence of pleural or pericardial effusion. Several tiny 1-2 mm pulmonary nodules are present, unchanged. Mild emphysema noted. Images through the upper abdomen reveal no abnormalities. Impression: Lung RADS 2: Benign appearance. 12 month follow-up screening CT advised. Reviewed, dictated and finalized at location . Impression: Lung RADS 2: Benign appearance. 12 month follow-up screening CT advised.
== END 2023-12-08 15:51 | disposition home or self-care (01) ==
PROVIDERS: PCP Internal Medicine; Visit Provider Internal Medicine
DX: Z12.2 Encounter for screening for malignant neoplasm of respiratory organs (principal); Z87.891 Personal history of nicotine dependence
CPT/HCPCS: 71271

== ENCOUNTER 2023-12-24 17:54 | Inpatient (IN) | payer MEDICARE, SELFPAY ==
--- NOTE | ~2023-12-24 | CT_ITS ---
CT abdomen pelvis w con Ordering provider: Cedric Cuba MD History: 68 years Male with . R10.30 - Lower abdominal pain, unspecified . Comparison: None. Technique: CT abdomen and pelvis with IV and without oral contrast. Automated exposure control and it erative reconstruction technique were employed. The dose-length product was 866.04 mGy-cm. 100 mL Omn ipaque 350 was given IV. Findings: VISUALIZED LOWER CHEST: Normal. Trace of pericardial effusion. UPPER ABDOMINAL ORGANS: Liver: Multiple hypodensities most likely tiny cysts unchanged from previous examination. Gallbladder: Status post cholecystectomy. Spleen: Normal. Stomach/duodenum: Slightly thickened wall of the stomach. Clinical correlation advised. Pancreas: Normal. Adrenals: Normal. Kidneys: Cysts in the left kidney upper pole measuring 2.7 cm. Multiple small cysts in the right kidn ey. PELVIC ORGANS: The bladder is underfilled with slightly thickened wall. Prostatic calcifications. BOWEL AND MESENTERY: Colon: Thickened wall of the sigmoid colon with surrounding fat stranding suggestive of diverticuliti s. No definite abscess formation seen.Focal area of air is seen outside in the sigmoid colon. Normal appendix. Small Bowel: Normal. No obstruction. Peritoneum/mesentery: No free air or free fluid. No mesenteric lymphadenopathy. RETROPERITONEUM: Mild atheromatous disease of the abdominal aorta. No retroperitoneal lymphadenopat hy. MUSCULOSKELETAL: Superficial soft tissues: Bilateral fat containing inguinal hernias. Small fat-containing umbilical h ernia. Otherwise, The superficial soft tissues are normal. Bones: Age appropriate degenerative changes of the spine. Bilateral sacroiliitis. IMPRESSION: 1. Diverticulitis of the sigmoid colon with no abscess formation. Follow-up advised. 2. Bilateral fat containing inguinal hernias and umbilical hernia. 3. Hypodensities in the liver unchanged from previous examination. Reviewed, dictated and finalized at location A. IMPRESSION: 1. Diverticulitis of the sigmoid colon with no abscess formation. Follow-up ad vised. 2. Bilateral fat containing inguinal hernias and umbilical hernia. 3. Hypodensities in the liver unchanged from previous examination.
[2023-12-24 13:27] LABS: Estimated Glomerular Filt Rate 55
[2023-12-24 14:04] LABS: Hematocrit 42.6 % (42.0-52.0); Hemoglobin 14.3 g/dL (14.0-18.0); Mean Corpuscular HGB Conc 33.6 g/dl (32-36); Mean Corpuscular Hemoglobin 32.1 pg (26-34); Mean Corpuscular Volume 95.7 fl (80-100); Mean Platelet Volume 9.1 fl (7.4-10.4); Platelet Count Result 185 k/mm3 (150-375); Red Blood Count 4.45 M/mm3 (4.6-6.20); Red Cell Distribution Width 13.1 % (11.5-14.5); White Blood Count 23.5 K/mm3 (4.5-10.0)
[2023-12-24 14:12] LABS: Anion Gap 8 mmol/L (4-12); Blood Urea Nitrogen 21 mg/dL (9-20); Calcium 8.6 mg/dL (8.4-10.2); Carbon Dioxide 27 mmol/L (22-30); Chloride 101 mmol/L (98-107); Estimated Glomerular Filt Rate > 60; Glucose 103 mg/dL (65-110); Sodium 136 mmol/L (137-145)
[2023-12-24 14:53] LABS: Band Neutrophils Percent 13 % (0-6); Lymphocytes Absolute Manual 0.47 K/mm3 (1.1-4.5); Monocytes Absolute Manual 0.47 K/mm3 (0.1-0.90); Monocytes Percent Manual 2 % (3-9); Neutrophils Absolute Manual 22.56 K/mm3 (1.3-6.7); Neutrophils Percent Manual 83 % (46-73); Platelet Estimate Adequate (Adequate); Total Cells Counted 100
[2023-12-24 14:54] LABS: Schistocytes None Seen
[2023-12-24 20:42] VITALS: BMI 30.5
--- NOTE | 2023-12-24 20:48 | ADMGEN ---
This patient, Onel Montero, was admitted to [facility] Surg Room 310-01. Patient/family oriented to hospital policies and general routines including ID bracelet, bed and alarms, visiting hours, pain management, procedures, bathroom and other care routines, personal items, smoking policy, room service/diet, and visiting hours. Information on how to activate the Rapid Response Team has been discussed. Patient/Family are encouraged to report perceived risks to care and to ask questions if they do not understand what they are told or what they should do.
[2023-12-24] MEDS: MORPHINE SULFATE (*CRX) 2 MG/ML INJ IV PUSH (20:54)
[2023-12-24] MEDS: SODIUM CHLORIDE 0.9% IV 1,000 ML 100 ML IV CONT (20:56)
[2023-12-24] MEDS: PIPERACILLN/TAZ 3.375GM/NS50ML 3.375 GM/50 ML BAG IVPB (20:57)
[2023-12-24 21:20] VITALS: BP 129/66; PULSE 84; RESP 18; TEMP 36.9; O2SAT 98
[2023-12-24 22:00] VITALS: PULSE 84; RESP 21; O2SAT 98
[2023-12-24] MEDS: MORPHINE SULFATE (*CRX) 4 MG/ML INJ IV PUSH (23:23)
[2023-12-25 02:30] VITALS: RESP 17; O2SAT 98
[2023-12-25] MEDS: PIPERACILLN/TAZ 3.375GM/NS50ML 3.375 GM/50 ML BAG IVPB ×4 (04:35→20:38)
[2023-12-25] MEDS: MORPHINE SULFATE (*CRX) 4 MG/ML INJ IV PUSH (04:44)
[2023-12-25 05:25] VITALS: BP 121/67; PULSE 80; RESP 18; TEMP 36.6; O2SAT 94
[2023-12-25 07:23] LABS: Basophils Absolute Auto 0.1 K/mm3 (0.0-0.1); Basophils Percent Auto 0.5 % (0.2-1.2); Eosinophils Absolute Auto 0.2 K/mm3 (0-0.3); Eosinophils Percent Auto 1.4 % (0-4.4); Hematocrit 41.3 % (42.0-52.0); Hemoglobin 13.2 g/dL (14.0-18.0); Immature Granulocyte Absolute 0.07 K/mm3 (0.00-0.031); Immature Granulocyte Percent A 0.5 % (0-0.5); Lymphocytes Absolute Auto 0.48 K/mm3 (0.9-3.2); Lymphocytes Percent Auto 3.6 % (18.3-44.2); Mean Corpuscular Hemoglobin 31.5 pg (26-34); Mean Corpuscular Volume 98.6 fl (80-100); Mean Platelet Volume 9.4 fl (7.4-10.4); Monocytes Absolute Auto 0.7 K/mm3 (0.1-0.6); Monocytes Percent Auto 5.4 % (2.6-8.5); Neutrophils Absolute Auto 11.7 K/mm3 (1.3-6.7); Neutrophils Percent Auto 88.6 % (45.5-73.1); Platelet Count Result 142 k/mm3 (150-375); Red Blood Count 4.19 M/mm3 (4.6-6.20); Red Cell Distribution Width 13.1 % (11.5-14.5); White Blood Count 13.2 K/mm3 (4.5-10.0)
[2023-12-25 07:33] LABS: INR 1.2; Partial Thromboplastin Time 30.1 Seconds (22.3-36.8); Prothrombin Time 15.4 Seconds (11.1-14.7)
[2023-12-25 07:36] LABS: Alanine Aminotransferase 24 U/L (6-50); Albumin Level 3.7 g/dL (3.5-5.1); Alkaline Phosphatase 52 U/L (38-126); Anion Gap 4 mmol/L (4-12); Aspartate Amino Transferase 33 U/L (17-59); Bilirubin,Total 1.1 mg/dL (0.2-1.3); Blood Urea Nitrogen 23 mg/dL (9-20); Calcium 7.9 mg/dL (8.4-10.2); Carbon Dioxide 29 mmol/L (22-30); Chloride 101 mmol/L (98-107); Estimated CRCL calculation 68 ml/min; Estimated Glomerular Filt Rate > 60; Glucose 95 mg/dL (65-110); Potassium 4.1 mmol/L (3.4-5.0); Sodium 134 mmol/L (137-145)
--- NOTE | 2023-12-25 09:14 | PM.IMCN ---
Assessment and Plan Assessment and plan (1) EFREN on CPAP: Code(s): G47.33 - Obstructive sleep apnea (adult) (pediatric); Z99.89 - Dependence on other enabling machines and devices Status: Acute Assessment and Plan: continue home cpap (2) COPD (chronic obstructive pulmonary disease): Qualifiers: COPD type: unspecified COPD Qualified Code(s): J44.9 - Chronic obstructive pulmonary disease, unspecified Code(s): J44.9 - Chronic obstructive pulmonary disease, unspecified Status: Acute Assessment and Plan: albuterol PRN-will resume -doesnot take it at home often- will monitor (3) Smoker: Code(s): F17.200 - Nicotine dependence, unspecified, uncomplicated Status: Chronic (4) Hyperlipidemia: Code(s): E78.5 - Hyperlipidemia, unspecified Status: Acute Assessment and Plan: will hold statin (5) Hypertension: Code(s): I10 - Essential (primary) hypertension Status: Acute Assessment and Plan: takes at home lisinopril 20 mg - will hold it now since NPO - If bp start getting elevated, will order IV unil able to take PO HPI Date of Consult Consult date: 12/25/23 Requesting Physician: Cedric Cuba MD Primary Care Provider: Suzette Ortiz, Consult Narrative Reason for consult: medical mngmnt Narrative: Onel Montero is a 68 year old male admitted to surgery services. He is NPO with IV fluids- denies n/v/d. We were consulted for medical mngmnt Review of Systems Constitutional: Constitutional: Denies chills Eyes: Eyes: Denies blurry vision Cardiovascular: Cardiovascular: Denies chest pain Respiratory: Respiratory: Denies chest congestion Gastrointestinal: Gastrointestinal: Reports abdominal pain Musculoskeletal: Musculoskeletal: Denies back pain PMFSH Past Medical History Medical History COPD (chronic obstructive pulmonary disease) Diverticulitis of colon with perforation Essential hypertension Hyperlipidemia Obesity EFREN on CPAP PUD (peptic ulcer disease) Smoker Surgical History Surgical History (Updated 02/02/23 @ 09:02 by Kayla Muñoz, [facility]) History of laparoscopic cholecystectomy Hx of excision of mass excision 4 cm skin cyst of the back with no margin, 12 cm layered [id number]/22/23 TRE Peptic ulcer with perforation Surgery for perforated ulcer years ago, midline incision. Social History Social History Smoking packs per day: 0.75 Smoking cigarettes per day: 15.0 Years smoked: 40 Smoking pack-years: 30.00 Smoking status: Current some day smoker Tobacco type: cigarettes Additional smoking assessment comments: SMOKES 0.5 PPKS/DAY CURRENTLY Alcohol intake: current Drinks per week: 15 Alcohol use details: ON WEEKENDS, NONE SINCE 03/2022 Substance use: never Substance use type: does not use Do You Feel Safe in your Home?: Yes Lack of Transportation: No Lack of Food: Never True Current Housing: I Have Housing Concerned About Future Housing: No Difficulty Paying Gas/Electric Bills: No Difficulty Paying for Meds: No Currently Unemployed: No Education: High School Diploma/GED Difficulty w/ Childcare or Family Care: No Living arrangements: with family Spiritual care concerns: No Meds Home Medications and Allergies Home Medications Medication Instructions Recorded Confirmed Type albuterol sulfate 90 mcg/actuation 2 puff inhalation Q6H PRN 03/23/22 12/24/23 History aerosol inhaler Shortness Of Breath atorvastatin 20 mg tablet 20 mg PO DAILY 03/23/22 12/24/23 History fluticasone propionate 50 1 spray intranasal DAILY PRN Sinus 03/23/22 12/24/23 History mcg/actuation nasal Symptoms spray,suspension lansoprazole 30 mg capsule,delayed 30 mg PO DAILY 03/23/22 12/24/23 History release lisinopril 20 mg tablet 20 mg PO DAILY 03/23/22 12/24/23 History Allergies Allergy/AdvReac Type Severity Reaction Status Date / Time No Known Allergies Allergy Verified 02/02/23 09:01 Vital Signs Vital Signs - 24 hr 12/24/23 22:00 12/24/23 22:00 12/24/23 21:20 Temperature 98.5 F Pulse Rate 84 84 Respiratory Rate 21 H 18 Blood Pressure 129/66 Pulse Oximetry 98 98 Oxygen Delivery CPAP Room Air 12/25/23 02:30 12/25/23 05:25 12/25/23 08:00 Temperature 98 F Pulse Rate 80 Respiratory Rate 17 18 Blood Pressure 121/67 Pulse Oximetry 98 94 Oxygen Delivery CPAP Room Air Results Labs 12/25/23 07:00 12/25/23 07:00 Labs: Short CBC 12/24/23 12/25/23 Range/Units 13:54 07:00 WBC 23.5 H 13.2 H (4.5-10.0) K/mm3 Hgb 14.3 13.2 L (14.0-18.0) g/dL Hct 42.6 41.3 L (42.0-52.0) % Plt Count 185 142 L (150-375) k/mm3 BMP 12/24/23 12/24/23 12/25/23 13:26 13:54 07:00 Sodium 136 L 134 L Potassium 4.0 4.1 Chloride 101 101 Carbon Dioxide 27 29 BUN 21 H D 23 H Creatinine 1.30 1.20 1.10 Glucose 103 95 Calcium 8.6 7.9 L Liver Function 12/25/23 Range/Units 07:00 Total Bilirubin 1.1 (0.2-1.3) mg/dL AST 33 (17-59) U/L ALT 24 (6-50) U/L Alkaline Phosphatase 52 (38-126) U/L Albumin 3.7 (3.5-5.1) g/dL
[2023-12-25] MEDS: MORPHINE SULFATE (*CRX) 2 MG/ML INJ IV PUSH ×2 (09:41→20:39)
[2023-12-25] MEDS: SODIUM CHLORIDE 0.9% IV 1,000 ML 100 ML IV CONT ×2 (11:00→20:38)
[2023-12-25 14:00] VITALS: BP 137/69; PULSE 79; RESP 18; TEMP 36.6; O2SAT 96
--- NOTE | 2023-12-25 17:16 | PM.IMHP ---
H&P: HPI History of Present Illness Date/Time: 12/25/23 10:16 Patient seen at this time Chief Complaint: Abdominal pain, fever, chills Narrative: Patient is a 68-year-old man who call the office yesterday complaining of severe abdominal pain very similar to when he was hospitalized for diverticulitis with micro perforation in March of 2022. He also reports having chills and fever. This started very early in the morning and awakened him. He had some loss he a but did not vomit. He has been able to have a bowel movement. He called our office and a CT scan of the abdomen and pelvis as well as a CBC with differential, BMP were obtained. The BMP was normal. CBC showed an elevated white blood cell count of twenty-three thousand five hundred with a left shift. CT scan showed again diverticulitis with small pocket of free air and micro perforation. He was it directly admitted to the hospital last night and started on IV Zosyn antibiotics. He was still feeling about the same degree of abdominal pain as he had yesterday. He does have IV analgesics available. He is admitted now for acute diverticulitis with perforation. This is his 2nd episode. He did have a colonoscopy in April of 2022. It showed a benign transverse colon polyp, few diverticuli, and mild internal hemorrhoids. Review of Systems Review of Systems: All systems reviewed & are unremarkable except as noted in HPI and below (HPI) FOR[facility]LY [facility] Past Medical History Medical History COPD (chronic obstructive pulmonary disease) Diverticulitis of colon with perforation Essential hypertension Hyperlipidemia Obesity EFREN on CPAP PUD (peptic ulcer disease) Smoker Surgical History Surgical History History of laparoscopic cholecystectomy Hx of excision of mass excision 4 cm skin cyst of the back with no margin, 12 cm layered [id number] TRE Peptic ulcer with perforation Surgery for perforated ulcer years ago, midline incision. Social History Social History Smoking packs per day: 0.75 Smoking cigarettes per day: 15.0 Years smoked: 40 Smoking pack-years: 30.00 Smoking status: Current some day smoker Tobacco type: cigarettes Additional smoking assessment comments: SMOKES 0.5 PPKS/DAY CURRENTLY Alcohol intake: current Drinks per week: 15 Alcohol use details: ON WEEKENDS, NONE SINCE 03/2022 Substance use: never Substance use type: does not use Do You Feel Safe in your Home?: Yes Lack of Transportation: No Lack of Food: Never True Current Housing: I Have Housing Concerned About Future Housing: No Difficulty Paying Gas/Electric Bills: No Difficulty Paying for Meds: No Currently Unemployed: No Education: High School Diploma/GED Difficulty w/ Childcare or Family Care: No Living arrangements: with family Spiritual care concerns: No Meds Home Medications and Allergies Home Medications Medication Instructions Recorded Confirmed Type albuterol sulfate 90 mcg/actuation 2 puff inhalation Q6H PRN 03/23/22 12/24/23 History aerosol inhaler Shortness Of Breath atorvastatin 20 mg tablet 20 mg PO DAILY 03/23/22 12/24/23 History fluticasone propionate 50 1 spray intranasal DAILY PRN Sinus 03/23/22 12/24/23 History mcg/actuation nasal Symptoms spray,suspension lansoprazole 30 mg capsule,delayed 30 mg PO DAILY 03/23/22 12/24/23 History release lisinopril 20 mg tablet 20 mg PO DAILY 03/23/22 12/24/23 History Allergies Allergy/AdvReac Type Severity Reaction Status Date / Time No Known Allergies Allergy Verified 02/02/23 09:01 Vital Signs Vital Signs - 24 hr 12/24/23 22:00 12/24/23 22:00 12/24/23 21:20 Temperature 36.9 C Pulse Rate 84 84 Respiratory Rate 21 H 18 Blood Pressure 129/66 Pulse Oximetry 98 98 Oxygen Delivery CPAP Room Air 12/25/23 02:30 12/25/23 05:25 12/25/23 08:00 Temperature 36.6 C Pulse Rate 80 Respiratory Rate 17 18 Blood Pressure 121/67 Pulse Oximetry 98 94 Oxygen Delivery CPAP Room Air 12/25/23 14:00 Temperature 36.6 C Pulse Rate 79 Respiratory Rate 18 Blood Pressure 137/69 Pulse Oximetry 96 Oxygen Delivery Exam Const: General: comfortable, no acute distress, alert and awake HENMT: Head: normocephalic and atraumatic Mouth: Yes Normal oral and palatal mucosa present Eyes: Conjunctivae: conjunctivae normal Pupils: Equal, round and reactive pupils present EOM: EOMs intact bilaterally Neck: Neck: normal visual inspection, no lymphadenopathy and nontender Resp: Effort & Inspection: normal respiratory effort Auscultation: clear to auscultation bilaterally Cardio: Rate: regular rate Rhythm: regular rhythm Heart sounds: no gallops, no murmurs and no rubs GI: Inspection: non-distended and scar (Upper abdominal midline scar from repair perforated ulcer over 20 years ago) GI Palp: Yes Soft to palpation, Yes Tenderness to palpation present (GI) (Tender both lower quadrants right somewhat more so than the left with guard), Yes Guarding due to palpation present (GI), No Hepatomegaly present, No Splenomegaly present, No Hernia present, No Palpable mass present and No Ascites present Auscultation: Hypoactive bowel sounds present Skin: Lesions: no lesions Rashes: no rashes Neuro: General: no focal motor deficits and CN's II-XI intact bilaterally Cranial nerves: Yes Equal, round and reactive pupils present, Yes Bilaterally intact EOM present, Yes facial symmetry and Yes Midline tongue present Speech: normal speech Motor exam (neuro): 5/5 motor strength present throughout and Motor abnormalities not present Extrem: General: no clubbing, cyanosis or edema and edema Psych: Affect: normal affect Thought process: Normal thought process present Insight: Good insight present (Psych) H&P: Results Labs Labs: Short CBC 12/25/23 Range/Units 07:00 WBC 13.2 H (4.5-10.0) K/mm3 Hgb 13.2 L (14.0-18.0) g/dL Hct 41.3 L (42.0-52.0) % Plt Count 142 L (150-375) k/mm3 BMP 12/25/23 07:00 Sodium 134 L Potassium 4.1 Chloride 101 Carbon Dioxide 29 BUN 23 H Creatinine 1.10 Glucose 95 Calcium 7.9 L Liver Function 12/25/23 Range/Units 07:00 Total Bilirubin 1.1 (0.2-1.3) mg/dL AST 33 (17-59) U/L ALT 24 (6-50) U/L Alkaline Phosphatase 52 (38-126) U/L Albumin 3.7 (3.5-5.1) g/dL Assessment and Plan Assessment and plan (1) Diverticulitis of colon with perforation: Code(s): K57.20 - Diverticulitis of large intestine with perforation and abscess without bleeding Status: Acute Assessment and Plan: This is a 2nd episode. His 1st was in March of 2022. He had a negative colonoscopy in April of 2022. I discussed with him the management and usual improvement with bowel rest and IV antibiotics. I again explained that if he should require surgery while there is an active infection, he may well end up with a stoma. I also explained that, it should he heal as he did in 2022, he probably should think about elective laparoscopic sigmoidectomy. Currently his white blood cell count has decreased significantly. He is still pretty tender in the lower abdomen. I will continue NPO with ice chips and some meds with sips. Repeat labs and exam tomorrow. Hospitalist consultation for medical problems has been requested. (2) Smoker: Code(s): F17.200 - Nicotine dependence, unspecified, uncomplicated Status: Chronic Assessment and Plan: Advised to quit (3) COPD (chronic obstructive pulmonary disease): Qualifiers: COPD type: unspecified COPD Qualified Code(s): J44.9 - Chronic obstructive pulmonary disease, unspecified Code(s): J44.9 - Chronic obstructive pulmonary disease, unspecified Status: Chronic (4) Hypertension: Code(s): I10 - Essential (primary) hypertension Status: Chronic (5) EFREN on CPAP: Code(s): G47.33 - Obstructive sleep apnea (adult) (pediatric); Z99.89 - Dependence on other enabling machines and devices Status: Chronic Assessment and Plan: Has CPAP to sleep
[2023-12-25] MEDS: PANTOPRAZOLE SODIUM IV 40 MG VIAL IV PUSH (18:17)
[2023-12-25] MEDS: ENOXAPARIN 30 MG/0.3 ML SYRINGE SUB-Q (20:38)
[2023-12-25 21:16] VITALS: BP 125/70; PULSE 83; RESP 20; TEMP 36.9; O2SAT 96
[2023-12-25 22:50] VITALS: PULSE 82; RESP 20; O2SAT 98
[2023-12-26] MEDS: PIPERACILLN/TAZ 3.375GM/NS50ML 3.375 GM/50 ML BAG IVPB ×4 (03:21→20:29)
[2023-12-26 05:50] VITALS: BP 133/67; PULSE 76; RESP 18; TEMP 36.3; O2SAT 94
[2023-12-26 05:58] LABS: Basophils Percent Auto 0.4 % (0.2-1.2); Eosinophils Absolute Auto 0.4 K/mm3 (0-0.3); Eosinophils Percent Auto 3.5 % (0-4.4); Hematocrit 41.8 % (42.0-52.0); Hemoglobin 13.6 g/dL (14.0-18.0); Immature Granulocyte Absolute 0.05 K/mm3 (0.00-0.031); Immature Granulocyte Percent A 0.5 % (0-0.5); Lymphocytes Absolute Auto 0.73 K/mm3 (0.9-3.2); Lymphocytes Percent Auto 7.2 % (18.3-44.2); Mean Corpuscular HGB Conc 32.5 g/dl (32-36); Mean Corpuscular Hemoglobin 31.1 pg (26-34); Mean Corpuscular Volume 95.7 fl (80-100); Mean Platelet Volume 9.1 fl (7.4-10.4); Monocytes Absolute Auto 0.8 K/mm3 (0.1-0.6); Monocytes Percent Auto 8.2 % (2.6-8.5); Neutrophils Absolute Auto 8.1 K/mm3 (1.3-6.7); Neutrophils Percent Auto 80.2 % (45.5-73.1); Platelet Count Result 152 k/mm3 (150-375); Red Blood Count 4.37 M/mm3 (4.6-6.20); Red Cell Distribution Width 12.3 % (11.5-14.5); White Blood Count 10.1 K/mm3 (4.5-10.0)
[2023-12-26 06:09] LABS: Anion Gap 8 mmol/L (4-12); Blood Urea Nitrogen 14 mg/dL (9-20); Carbon Dioxide 26 mmol/L (22-30); Chloride 102 mmol/L (98-107); Estimated CRCL calculation 92 ml/min; Estimated Glomerular Filt Rate > 60; Glucose 83 mg/dL (65-110); Potassium 3.7 mmol/L (3.4-5.0); Sodium 136 mmol/L (137-145)
[2023-12-26] MEDS: PANTOPRAZOLE SODIUM IV 40 MG VIAL IV PUSH (08:48)
[2023-12-26] MEDS: ENOXAPARIN 30 MG/0.3 ML SYRINGE SUB-Q (08:49)
[2023-12-26] MEDS: SODIUM CHLORIDE 0.9% IV 1,000 ML 100 ML IV CONT (08:52)
--- NOTE | 2023-12-26 09:39 | PM.IMCN ---
Assessment and Plan Assessment and plan (1) EFREN on CPAP: Code(s): G47.33 - Obstructive sleep apnea (adult) (pediatric); Z99.89 - Dependence on other enabling machines and devices Status: Chronic Assessment and Plan: continue home cpap (2) COPD (chronic obstructive pulmonary disease): Qualifiers: COPD type: unspecified COPD Qualified Code(s): J44.9 - Chronic obstructive pulmonary disease, unspecified Code(s): J44.9 - Chronic obstructive pulmonary disease, unspecified Status: Chronic Assessment and Plan: albuterol PRN-will resume -doesnot take it at home often- will monitor (3) Smoker: Code(s): F17.200 - Nicotine dependence, unspecified, uncomplicated Status: Chronic (4) Hyperlipidemia: Code(s): E78.5 - Hyperlipidemia, unspecified Status: Acute Assessment and Plan: restarted statin (5) Hypertension: Code(s): I10 - Essential (primary) hypertension Status: Chronic Assessment and Plan: takes at home lisinopril 20 mg - ok to take meds with sips per surgery- will restart home med (6) Diverticulitis of colon with perforation: Code(s): K57.20 - Diverticulitis of large intestine with perforation and abscess without bleeding Status: Acute Assessment and Plan: surgery is primary mngment -notes revired: his is a 2nd episode. His 1st was in March of 2022. He had a negative colonoscopy in April of 2022. I discussed with him the management and usual improvement with bowel rest and IV antibiotics. I again explained that if he should require surgery while there is an active infection, he may well end up with a stoma. I also explained that, it should he heal as he did in 2022, he probably should think about elective laparoscopic sigmoidectomy. Currently his white blood cell count has decreased significantly. He is still pretty tender in the lower abdomen. I will continue NPO with ice chips and some meds with sips. Repeat labs and exam tomorrow. Hospitalist consultation for medical problems has been requested. - wbc trending down-10.1 today (down from 13.2 and 23.5) HPI Date of Consult Consult date: 12/26/23 Requesting Physician: Cedric Cuba MD Primary Care Provider: Suzette Ortiz, MD Consult Narrative Narrative: Onel Montero is a 68 year old male admitted for sever abd pain that was similar to the episode in march 2022 when he was hospitalized with diverticulitis with micro perforation. He called surgery office and a CT scan of the abdomen and pelvis as well as a CBC, BMP were obtained. The BMP was normal. CBC showed an elevated white blood cell count of twenty-three thousand five hundred with a left shift. CT scan showed again diverticulitis with small pocket of free air and micro perforation. He was admitted, NPO, IV fluids, antibiotics, justa and nausea control. 12/25- He denies chills this am, pain is well controlled, some nausea. He is on zosyn IV Review of Systems Constitutional: Constitutional: Denies chills Eyes: Eyes: Denies blurry vision Cardiovascular: Cardiovascular: Denies chest pain Respiratory: Respiratory: Denies chest congestion Gastrointestinal: Gastrointestinal: Reports abdominal pain Musculoskeletal: Musculoskeletal: Denies back pain PMFSH Past Medical History Medical History COPD (chronic obstructive pulmonary disease) Diverticulitis of colon with perforation Essential hypertension Hyperlipidemia Obesity EFREN on CPAP PUD (peptic ulcer disease) Smoker Surgical History Surgical History History of laparoscopic cholecystectomy Hx of excision of mass excision 4 cm skin cyst of the back with no margin, 12 cm layered [id number]/23 TRE Peptic ulcer with perforation Surgery for perforated ulcer years ago, midline incision. Social History Social History Smoking packs per day: 0.75 Smoking cigarettes per day: 15.0 Years smoked: 40 Smoking pack-years: 30.00 Smoking status: Current some day smoker Tobacco type: cigarettes Additional smoking assessment comments: SMOKES 0.5 PPKS/DAY CURRENTLY Alcohol intake: current Drinks per week: 15 Alcohol use details: ON WEEKENDS, NONE SINCE 03/2022 Substance use: never Substance use type: does not use Do You Feel Safe in your Home?: Yes Lack of Transportation: No Lack of Food: Never True Current Housing: I Have Housing Concerned About Future Housing: No Difficulty Paying Gas/Electric Bills: No Difficulty Paying for Meds: No Currently Unemployed: No Education: High School Diploma/GED Difficulty w/ Childcare or Family Care: No Living arrangements: with family Spiritual care concerns: No Meds Home Medications and Allergies Home Medications Medication Instructions Recorded Confirmed Type albuterol sulfate 90 mcg/actuation 2 puff inhalation Q6H PRN 03/23/22 12/24/23 History aerosol inhaler Shortness Of Breath atorvastatin 20 mg tablet 20 mg PO DAILY 03/23/22 12/24/23 History fluticasone propionate 50 1 spray intranasal DAILY PRN Sinus 03/23/22 12/24/23 History mcg/actuation nasal Symptoms spray,suspension lansoprazole 30 mg capsule,delayed 30 mg PO DAILY 03/23/22 12/24/23 History release lisinopril 20 mg tablet 20 mg PO DAILY 03/23/22 12/24/23 History Allergies Allergy/AdvReac Type Severity Reaction Status Date / Time No Known Allergies Allergy Verified 02/02/23 09:01 Vital Signs Vital Signs - 24 hr 12/25/23 14:00 12/25/23 20:00 12/25/23 21:16 Temperature 97.9 F 98.4 F Pulse Rate 79 83 Respiratory Rate 18 20 Blood Pressure 137/69 125/70 Pulse Oximetry 96 96 Oxygen Delivery Room Air 12/25/23 22:50 12/26/23 05:50 12/26/23 08:00 Temperature 97.4 F L Pulse Rate 82 76 Respiratory Rate 20 18 Blood Pressure 133/67 Pulse Oximetry 98 94 Oxygen Delivery CPAP Room Air Results Labs 12/26/23 05:43 12/26/23 05:43 Labs: Short CBC 12/26/23 Range/Units 05:43 WBC 10.1 H (4.5-10.0) K/mm3 Hgb 13.6 L (14.0-18.0) g/dL Hct 41.8 L (42.0-52.0) % Plt Count 152 (150-375) k/mm3 BMP 12/26/23 05:43 Sodium 136 L Potassium 3.7 Chloride 102 Carbon Dioxide 26 BUN 14 D Creatinine 0.80 Glucose 83 Calcium 8.0 L
[2023-12-26] MEDS: lisinopriL 20 MG TABLET PO (10:00)
[2023-12-26] MEDS: ATORVASTATIN 20 MG TABLET PO (10:00)
[2023-12-26 14:00] VITALS: BP 137/74; PULSE 69; RESP 18; TEMP 36.6; O2SAT 100
--- NOTE | 2023-12-26 14:08 | P.PNGS_ITS ---
Progress Note: A&P Assessment and Plan (1) Diverticulitis of colon with perforation: Code(s): K57.20 - Diverticulitis of large intestine with perforation and abscess without bleeding Status: Acute Assessment and Plan: * Continue IV Zosyn * Start full liquids, advance to low fiber as tolerated * Possibly home tomorrow if continuing to improve (2) Smoker: Code(s): F17.200 - Nicotine dependence, unspecified, uncomplicated Status: Chronic Assessment and Plan: Advised to quit. Subjective Subjective Date/Time Seen: 12/26/23 14:08 Interval history: Patient has minimal pain now. Hungry. Bowels moving. Up ambulating in halls. Exam GI: Inspection: non-distended GI Palp: Yes Soft to palpation, No Tenderness to palpation present (GI) and No Guarding due to palpation present (GI) Auscultation: normal bowel sounds Objective Data Vital Signs Vital Signs: Vital Signs - 24 hr 12/25/23 20:00 12/25/23 21:16 12/25/23 22:50 Temperature 98.4 F Pulse Rate 83 82 Respiratory Rate 20 20 Blood Pressure 125/70 Pulse Oximetry 96 98 Oxygen Delivery Room Air CPAP 12/26/23 05:50 12/26/23 08:00 Temperature 97.4 F L Pulse Rate 76 Respiratory Rate 18 Blood Pressure 133/67 Pulse Oximetry 94 Oxygen Delivery Room Air Intake/Output Intake/Output: Intake & Output 12/23/23 12/24/23 12/25/23 12/26/23 23:59 23:59 23:59 23:59 Intake Total 50 2263.3 1125 Balance 50 2263.3 1125 Meds/Results Medications: Active Medications Generic Name Dose Route Start Last Admin Trade Name Freq PRN Reason Stop Dose Admin Albuterol 2 puff 12/25/23 14:36 Albuterol Sulfate (*Sp) Aerosol 1 Puff INHALATION Q6H PRN Shortness Of Breath Atorvastatin Calcium 20 mg 12/27/23 09:00 Atorvastatin 20 Mg Tablet PO DAILY DOM Enoxaparin Sodium 30 mg 12/25/23 21:00 12/26/23 08:49 Enoxaparin 30 Mg/0.3 Ml Syringe SUB-Q 30 mg Q12HR DOM Administration Piperacillin/Tazobactam/Dextrose 3.375 gm in 50 mls @ 100 mls/hr 12/24/23 21:00 12/26/23 08:51 Zosyn 3.375 Gm/Ns 50 Ml IVPB 100 mls/hr Q6H DOM Administration Ibuprofen 800 mg in 200 mls @ 400 mls/hr 12/24/23 20:07 Caldolor 800 Mg/200 Ml IVPB Q6H PRN Pain Rated 1-3 Lisinopril 20 mg 12/27/23 09:00 Lisinopril 20 Mg Tablet PO DAILY DOM Morphine Sulfate 2 mg 12/24/23 20:09 12/25/23 20:39 Morphine Sulfate (*Crx) 2 Mg/Ml Inj IV PUSH 2 mg Q2HR PRN Administration Pain Rated 4-6 Morphine Sulfate 4 mg 12/24/23 20:10 12/25/23 04:44 Morphine Sulfate (*Crx) 4 Mg/Ml Inj IV PUSH 4 mg Q2HR PRN Administration Pain Rated 7-10 Pantoprazole Sodium 40 mg 12/26/23 09:00 12/26/23 08:48 Pantoprazole Sodium Iv 40 Mg Vial IV PUSH 40 mg QAM DOM Administration Radiology Results: ITS Impressions Abdomen/Pelvis CT 12/24/23 13:48 IMPRESSION: 1. Diverticulitis of the sigmoid colon with no abscess formation. Follow-up advised. 2. Bilateral fat containing inguinal hernias and umbilical hernia. 3. Hypodensities in the liver unchanged from previous examination. Labs Labs: Laboratory Results - last 24 hr 12/26/23 05:43 WBC 10.1 H RBC 4.37 L Hgb 13.6 L Hct 41.8 L MCV 95.7 MCH 31.1 MCHC 32.5 RDW 12.3 Plt Count 152 MPV 9.1 Immature Gran % (Auto) 0.5 Neut % (Auto) 80.2 H Lymph % (Auto) 7.2 L [place] % (Auto) 8.2 Eos % (Auto) 3.5 Baso % (Auto) 0.4 Lymph # (Auto) 0.73 L [place] # (Auto) 0.8 H Eos # (Auto) 0.4 H Baso # (Auto) 0.0 Abs Immat Gran (auto) 0.05 H Absolute Neuts (auto) 8.1 H Absolute Nucleated RBC 0.000 Nucleated RBC % 0.0 Sodium 136 L Potassium 3.7 Chloride 102 Carbon Dioxide 26 Anion Gap 8 BUN 14 D Creatinine 0.80 Estim Creat Clear Calc 92 Estimated GFR > 60 Glucose 83 Calcium 8.0 L
[2023-12-26 20:56] VITALS: BP 127/70; PULSE 72; RESP 20; TEMP 36.6; O2SAT 98
[2023-12-27] MEDS: PIPERACILLN/TAZ 3.375GM/NS50ML 3.375 GM/50 ML BAG IVPB ×2 (03:53→08:37)
--- NOTE | 2023-12-27 04:58 | PCRCNOTE ---
Pt refused using the hospital cpap last night, stating he has had diarrhea all day and it is too difficult to remove the mask.
[2023-12-27 06:00] VITALS: BP 137/76; PULSE 70; RESP 20; TEMP 36.4; O2SAT 98
[2023-12-27 06:47] LABS: Hematocrit 40.5 % (42.0-52.0); Hemoglobin 13.5 g/dL (14.0-18.0); Mean Corpuscular HGB Conc 33.3 g/dl (32-36); Mean Corpuscular Volume 93.1 fl (80-100); Mean Platelet Volume 9.5 fl (7.4-10.4); Platelet Count Result 161 k/mm3 (150-375); Red Blood Count 4.35 M/mm3 (4.6-6.20); Red Cell Distribution Width 12.3 % (11.5-14.5); White Blood Count 7.6 K/mm3 (4.5-10.0)
[2023-12-27 06:59] LABS: Anion Gap 8 mmol/L (4-12); Blood Urea Nitrogen 7 mg/dL (9-20); Calcium 8.2 mg/dL (8.4-10.2); Carbon Dioxide 25 mmol/L (22-30); Chloride 103 mmol/L (98-107); Estimated CRCL calculation 120 ml/min; Estimated Glomerular Filt Rate > 60; Glucose 104 mg/dL (65-110); Potassium 3.8 mmol/L (3.4-5.0); Sodium 136 mmol/L (137-145)
[2023-12-27] MEDS: ENOXAPARIN 30 MG/0.3 ML SYRINGE SUB-Q (08:36)
[2023-12-27] MEDS: lisinopriL 20 MG TABLET PO (08:37)
[2023-12-27] MEDS: PANTOPRAZOLE SODIUM IV 40 MG VIAL IV PUSH (08:37)
[2023-12-27] MEDS: ATORVASTATIN 20 MG TABLET PO (08:37)
--- NOTE | 2023-12-27 09:15 | P.CONIM_ITS ---
Assessment and Plan Assessment and plan (1) EFREN on CPAP: Code(s): G47.33 - Obstructive sleep apnea (adult) (pediatric); Z99.89 - Dependence on other enabling machines and devices Status: Chronic Assessment and Plan: continue home cpap (2) COPD (chronic obstructive pulmonary disease): Qualifiers: COPD type: unspecified COPD Qualified Code(s): J44.9 - Chronic obstructive pulmonary disease, unspecified Code(s): J44.9 - Chronic obstructive pulmonary disease, unspecified Status: Chronic Assessment and Plan: albuterol PRN-will resume -doesnot take it at home often- will monitor (3) Smoker: Code(s): F17.200 - Nicotine dependence, unspecified, uncomplicated Status: Chronic (4) Hyperlipidemia: Code(s): E78.5 - Hyperlipidemia, unspecified Status: Acute Assessment and Plan: restarted statin (5) Hypertension: Code(s): I10 - Essential (primary) hypertension Status: Chronic Assessment and Plan: takes at home lisinopril 20 mg - ok to take meds with sips per surgery- will restart home med - 12/26- VS reviewed- stable (6) Diverticulitis of colon with perforation: Code(s): K57.20 - Diverticulitis of large intestine with perforation and abscess without bleeding Status: Acute Assessment and Plan: surgery is primary mngment -notes reviewed: his is a 2nd episode. His 1st was in March of 2022. He had a negative colonoscopy in April of 2022. I discussed with him the management and usual improvement with bowel rest and IV antibiotics. I again explained that if he should require surgery while there is an active infection, he may well end up with a stoma. I also explained that, it should he heal as he did in 2022, he probably should think about elective laparoscopic sigmoidectomy. Currently his white blood cell count has decreased significantly. He is still pretty tender in the lower abdomen. I will continue NPO with ice chips and some meds with sips. Repeat labs and exam tomorrow. Hos pitalist consultation for medical problems has been requested. - wbc trending down-10.1 today (down from 13.2 and 23.5) 12/26- full liquid- advance to low fiber per surgery- possible discharge home t [place] if tolerated diet well and no other acute issues HPI Date of Consult Consult date: 12/27/23 Requesting Physician: Cedric Cuba MD Primary Care Provider: Suzette Ortiz, Consult Narrative Narrative: Pt is doing well. Per surgery- advancing diet to full liquid and low fiber after if tolerated full liquids well. Possible discharge today, 12/26 Review of Systems Constitutional: Constitutional: Denies chills Eyes: Eyes: Denies blurry vision Cardiovascular: Cardiovascular: Denies chest pain Respiratory: Respiratory: Denies chest congestion Gastrointestinal: Gastrointestinal: Reports abdominal pain Musculoskeletal: Musculoskeletal: Denies back pain FOR[facility]LY [facility] Past Medical History Medical History COPD (chronic obstructive pulmonary disease) Diverticulitis of colon with perforation Essential hypertension Hyperlipidemia Obesity EFREN on CPAP PUD (peptic ulcer disease) Smoker Surgical History Surgical History History of laparoscopic cholecystectomy Hx of excision of mass excision 4 cm skin cyst of the back with no margin, 12 cm layered [id number]/23 TRE Peptic ulcer with perforation Surgery for perforated ulcer years ago, midline incision. Social History Social History Smoking packs per day: 0.75 Smoking cigarettes per day: 15.0 Years smoked: 40 Smoking pack-years: 30.00 Smoking status: Current some day smoker Tobacco type: cigarettes Additional smoking assessment comments: SMOKES 0.5 PPKS/DAY CURRENTLY Alcohol intake: current Drinks per week: 15 Alcohol use details: ON WEEKENDS, NONE SINCE 03/2022 Substance use: never Substance use type: does not use Do You Feel Safe in your Home?: Yes Lack of Transportation: No Lack of Food: Never True Current Housing: I Have Housing Concerned About Future Housing: No Difficulty Paying Gas/Electric Bills: No Difficulty Paying for Meds: No Currently Unemployed: No Education: High School Diploma/GED Difficulty w/ Childcare or Family Care: No Living arrangements: with family Spiritual care concerns: No Meds Home Medications and Allergies Home Medications Medication Instructions Recorded Confirmed Type albuterol sulfate 90 mcg/actuation 2 puff inhalation Q6H PRN 03/23/22 12/24/23 History aerosol inhaler Shortness Of Breath atorvastatin 20 mg tablet 20 mg PO DAILY 03/23/22 12/24/23 History fluticasone propionate 50 1 spray intranasal DAILY PRN Sinus 03/23/22 12/24/23 History mcg/actuation nasal Symptoms spray,suspension lansoprazole 30 mg capsule,delayed 30 mg PO DAILY 03/23/22 12/24/23 History release lisinopril 20 mg tablet 20 mg PO DAILY 03/23/22 12/24/23 History Allergies Allergy/AdvReac Type Severity Reaction Status Date / Time No Known Allergies Allergy Verified 02/02/23 09:01 Vital Signs Vital Signs - 24 hr 12/26/23 14:00 12/26/23 20:56 12/26/23 20:10 Temperature 97.8 F 97.9 F Pulse Rate 69 72 Respiratory Rate 18 20 Blood Pressure 137/74 127/70 Pulse Oximetry 100 98 Oxygen Delivery Room Air 12/27/23 06:00 Temperature 97.6 F Pulse Rate 70 Respiratory Rate 20 Blood Pressure 137/76 Pulse Oximetry 98 Oxygen Delivery Results Labs 12/27/23 06:28 12/27/23 06:28 Labs: Short CBC 12/27/23 Range/Units 06:28 WBC 7.6 (4.5-10.0) K/mm3 Hgb 13.5 L (14.0-18.0) g/dL Hct 40.5 L (42.0-52.0) % Plt Count 161 (150-375) k/mm3 [facility] 12/27/23 06:28 Sodium 136 L Potassium 3.8 Chloride 103 Carbon Dioxide 25 BUN 7 L D Creatinine 0.60 L Glucose 104 Calcium 8.2 L
--- NOTE | 2023-12-27 13:37 | PM.DS ---
DS: Admitting Diagnosis Discharge Date 12/27/2023 Admitting Diagnosis Diverticulitis large intestine with perforation, smoker, hypertension DS: Discharge Diagnosis Discharge Diagnosis (1) Diverticulitis of colon with perforation: Code(s): K57.20 - Diverticulitis of large intestine with perforation and abscess without bleeding Status: Acute (2) Smoker: Code(s): F17.200 - Nicotine dependence, unspecified, uncomplicated Status: Chronic (3) Hypertension: Qualifiers: Hypertension type: primary hypertension Qualified Code(s): I10 - Essential (primary) hypertension Code(s): I10 - Essential (primary) hypertension Status: Chronic DS: Summary Hospital Course Reason for hospitalization: Diverticulitis Hospital Course: This is a 68-year-old man who presented with lower abdominal pain similar to prior episodes of diverticulitis. He had called Dr. Collado office on 12/[address] abdomen and pelvis was done along with CBC and BMP. He was found to have diverticulitis with microperforation on CT and was noted to have an elevated white blood count. He was directly admitted for further treatment on 12/24/2023. He was started on IV Zosyn and kept NPO except for ice chips. His white blood count had improved on 12/24. Hospitalist was consulted to help manage some of patient's multiple medical problems. His pain was gradually improving. On 12/26/2019 for his white blood count had normalized and he was started on a full liquid diet. His pain was almost completely resolved at that point. His diet was advanced to a low-fiber diet as tolerated. He remained hemodynamically stable and afebrile. On 12/27/2023, his pain was resolved and he was tolerating a low-fiber diet. He was discharged on 12/27/2023. Time spent discussing smoking cessation with patient: 3 to 10 minutes Status at Discharge Functional status at discharge: independent ambulation Overall status at discharge: patient is back to baseline Time Spent with Patient Time attestation: Total time spent providing and/or coordinating discharge services: Time spent: Less than 30 minutes Exam Const: General: comfortable and no acute distress Orientation/consciousness: patient oriented x3 Resp: Effort & Inspection: normal respiratory effort Auscultation: clear to auscultation bilaterally Cardio: Rate: regular rate Rhythm: regular rhythm Heart sounds: S1 normal heart sound present and S2 normal heart sound present GI: Inspection: non-distended GI Palp: Yes Soft to palpation, No Tenderness to palpation present (GI), No Guarding due to palpation present (GI) and No Rebound tenderness present Percussion: Yes normal to percussion Auscultation: normal bowel sounds DS: Data Data Completed and Pending Labs on day of discharge: Labs from last 24 hours 12/27/23 06:28 WBC 7.6 RBC 4.35 L Hgb 13.5 L Hct 40.5 L MCV 93.1 MCH 31.0 MCHC 33.3 RDW 12.3 Plt Count 161 MPV 9.5 Sodium 136 L Potassium 3.8 Chloride 103 Carbon Dioxide 25 Anion Gap 8 BUN 7 L D Creatinine 0.60 L Estim Creat Clear Calc 120 Estimated GFR > 60 Glucose 104 Calcium 8.2 L Discharge Plan Discharge Attending physician on discharge: Cedric Cuba Consulting providers: Mallory Bar Discharging Clinician: Damian Hanley Patient Disposition: Home, Self-Care Activity: may shower and unlimited Diet: low fiber Patient Instructions: Antibiotic Form, How to Stop Smoking (DC), High Fiber Diet (DC), Low Fiber Diet (DC) Stand Alone Forms: General Discharge Information Follow-up/Referrals: Cedric Cuba MD [Physician] - Call for Appointment Discharge Medications: New metronidazole 500 mg tablet 500 mg PO Q8H 10 Days Qty: 30 0RF amoxicillin-pot clavulanate 875-125 mg tablet 1 tablet PO Q12H 10 Days Qty: 20 0RF Continued atorvastatin 20 mg tablet 20 mg PO DAILY lisinopril 20 mg tablet 20 mg PO DAILY lansoprazole 30 mg capsule,delayed release(DR/EC) 30 mg PO DAILY albuterol sulfate 90 mcg/actuation HFA aerosol inhaler 2 puff INHALATION Q6H PRN (Reason: Shortness Of Breath) fluticasone propionate 50 mcg/actuation spray,suspension 1 spray INTRANASAL DAILY PRN (Reason: Sinus Symptoms) Date of admission: 12/24/23 20:01 Primary Care Provider: Angel,Suzette Admitting Provider: Cedric Cuba Attending physician on admission: Cedric Cuba Condition: Improved
== END 2023-12-27 14:20 | disposition home or self-care (01) | DRG 392 ==
LOC: ANH3MEDSUR 19:44
PROVIDERS: Admitting Provider Surgery; PCP Internal Medicine; Visit Provider Surgery
DX: K57.20 Diverticulitis of large intestine with perforation and abscess without bleeding (principal); I10 Essential (primary) hypertension; G47.33 Obstructive sleep apnea (adult) (pediatric); J44.9 Chronic obstructive pulmonary disease, unspecified; E78.5 Hyperlipidemia, unspecified; F17.210 Nicotine dependence, cigarettes, uncomplicated; E66.9 Obesity, unspecified; Z87.11 Personal history of peptic ulcer disease; Z68.30 Body mass index [BMI] 30.0-30.9, adult; Z90.49 Acquired absence of other specified parts of digestive tract
CPT/HCPCS: 36415; 74177; 80048; 80053; 85025; 85027; 85610; 85730; A9270; J1650; J2270; J2470; J2543; J7030; Q9967

== ENCOUNTER 2024-02-20 07:32 | Outpatient (CLI) | payer MEDICARE, SELFPAY ==
--- NOTE | ~2024-02-20 | US_ITS ---
EXAMINATION: [facility] DATE: 02/20/2024 08:24 INDICATION: Encounter for screening for cardiovascular disorders. TECHNIQUE: Grayscale, color Doppler, and pulsed Doppler images of the aorta and common iliac arteries were obtained. COMPARISON: None. FINDINGS: The aorta is normal in caliber. The right common iliac artery is normal in caliber. The left common i liac artery is normal in caliber. IMPRESSION: 1. No abdominal aortic aneurysm. Reviewed, dictated and finalized at location [facility]
--- OUTSIDE RECORDS SUMMARY | 2024-02-27 05:00 | XMS_ITS | Data Portability ---
Author Organization [place] [facility], Main Office Address [address] [place] [address] Care Team Providers Care Marine Geologist Name Role Phone SUZETTE ORTIZ Primary Care Provider SUZETTE ORTIZ Referring Provider Assessment Encounter Date Assessment Date Assessment LastModified by Organization Details LastModified Time 01/06/2023 01/06/2023 large cyst upper back. Options discussed with patient. We will schedule for excision under local anesthesia here in the office. Patient refuses sedation and would rather not go that route. Risks and benefits of the procedure discussed risks include bleeding infection and numbness [email or web address] Not available 01/06/2023 12:51:31 02/12/2023 02/12/2023 03/21/2022: PSA 0.3 07/22/2022: Lab Mike Gluc 116 A1c 5.8<-5.9 03/21/2022 02/02/2023: CBC: WNL Gluc 116 A1C 5.8 Not available 02/12/2023 09:50:50 08/13/2023 08/13/2023 08/05/2023: A1C 5.7 03/21/2022: PSA 0.3 07/22/2022: Lab Mike Gluc 116 A1c 5.8<-5.9 03/21/2022 02/02/2023: CBC: WNL Gluc 116 A1C 5.8 08/05/2023: A1C 5.7 Not available 08/13/2023 10:22:31 12/29/2023 12/29/2023 08/05/2023: A1C 5.7 03/21/2022: PSA 0.3 07/22/2022: Lab Mike Gluc 116 A1c 5.8<-5.9 03/21/2022 02/02/2023: CBC: WNL Gluc 116 A1C 5.8 08/05/2023: A1C 5.7 I have reconciled the patient's medications post their discharge from inpatient facility. Not available 12/29/2023 18:20:02 Plan of Treatment Reminders Order Date Submit Date Provider Last Modified By Organization Details Last Modified Time Details Appointments Any 15 2024 04:00P M Suzette mak MD Not available Not available Not available Lab glycohemo globin, total, blood [address] (Lab), [address] [place], [address], 08/12/2023 09:07:20 microalbu min, urine [address] (Lab), [address] [place], [address], 08/12/2023 09:07:20 lipid panel, serum [address] (Lab), [address] [place], [address], 08/12/2023 09:07:20 CBC w/ auto diff [address] (Lab), [address] [place], [address], 08/12/2023 09:07:20 CMP, serum or plasma [address] (Lab), [address] [place], [address], 08/12/2023 09:07:20 TSH, serum or plasma [address] (Lab), [address] [place], [address], 08/12/2023 09:07:20 glycohemo globin, total, blood [address] (Lab), [address] [place], [address], 02/11/2024 08:54:48 microalbu min, urine [address] (Lab), [address] [place], [address], 02/11/2024 08:54:48 lipid panel, serum [address] (Lab), [address] [place], [address], 02/11/2024 08:54:47 CBC w/ auto diff [address] (Lab), [address] [place], [address], 02/11/2024 08:54:47 CMP, serum or plasma [address] (Lab), [address] [place], [address], 02/11/2024 08:54:47 TSH, serum or plasma [address] (Lab), [address] [place], [address], 02/11/2024 08:54:47 glycohemo globin, total, blood [address] (Lab), [address] [place], [address], 12/29/2023 18:00:43 microalbu min, urine 2023 024 [email or web address] [facility] (Lab), [address] [place], [address], 12/29/2023 18:00:43 lipid panel, serum [address] (Lab), [address] [place], [address], 12/29/2023 18:00:41 CBC w/ auto diff 2023 [facility] (Lab), [address] [place], [address], 02/25/2024 05:49:36 CMP, serum or plasma [address] (Lab), [address] [place], [address], 12/29/2023 18:00:42 TSH, serum or plasma [address] (Lab), [address] [place], [address], 12/29/2023 18:00:42 Referral podiatris t referral 2022 023 [email or web address] Patrick Jj DPM, [address], [address], [place], [address], 02/08/2024 08:54:20 podiatris t referral 2023 024 [email or web address] Jj DPM, [address], [address], [place], [address], 02/11/2024 08:55:01 podiatris t referral - Please call patient to schedule. 2023 024 KOSTA Jj DPM, [address], [address], [place], [address], 02/27/2024 04:07:20 Procedures upper endoscopy procedure (EGD) (PROC) - Please call patient to schedule. 2023 [email or web address] Alyssa Yadav, [address] [facility] [address], [place], [address], 12/30/2023 18:54:51 Surgeries None recorded. Imaging XR, cervical spine, 2 or 3 view 2023 [facility] ([facility] Sched[facility]), [address] [place], [address], 06/17/2023 16:30:58 LDCT, chest, for lung cancer screening - No auth required 2023 024 [facility] ([facility] Scheduling), [address] [place], [address], 12/09/2023 07:44:27 US, abdominal aorta - No auth required [email or web address] [place] [address] ([facility] Scheduling), [address] [place], [address], 08/27/2023 09:04:13 US, abdominal aorta - Please call patient to schedule. 2023 024 [email or web address] [facility], [address], [place], [address], 02/22/2024 11:57:10 Medication Orders cyclobenz aprine 10 mg tablet 2023 024 [id number], [address] [place], [place], [id number], 12/29/2023 17:44:10 meloxicam 7.5 mg tablet 2023 024 [id number], [address] [place], [place], [id number], 12/29/2023 17:43:45 Patient TargetsNo targets recorded. Patient Instructions Encounter Date Encounter Id Patient Instructions Last Modified By Organization Details Last Modified Time 02/12/2023 [id number] diabetic eye exam* [email or web address] Not avail able 08/12/2023 08:30:16 08/13/2023 [id number] dementia rating scale-2* [email or web address] Not available 08/13/2023 13:29:12 alcohol misuse* Not available 08/13/2023 13:29:23 depression screening* [email or web address] Not available 08/13/2023 13:29:37 diabetic eye exam* [email or web address] Not availa ble 02/11/2024 08:53:59 multi-dimensiona l health assessment questionnaire* [email or web address] Not available 08/17/2023 15:51:36 advance directiv es: care instructions Not available 08/17/2023 18:39:41 [place] Advance Directives Not available 08/17/2023 18:39:41 advance care planning: care instructions Not available 08/17/2023 18:39:41 [facility] Plan and Screening Recommendations Advance Directives - Do you have one? You have indicated that you are capable of preparing your advance care directive Advance Directives - Do we have your advance directive on file in your health record? Primary Prevention/Interven tion (prevents or decreases the chance of common diseases from occurring) Smoking Risk: Refer to attached smoking cessation handouts Alcohol Misuse Screening: Negative Weight: Appropriate Overwei ght continue your current weight loss efforts try to lose 5% of your body weight try to lose 10% of your body weight Physical activity: Appropriate physical activity Nutrition: Good Average Refer to attached handout Heart-Healthy Diet: After Your Visit Refer to attached handout DASH Diet: After Your Visit Fall Risk (screened today): Low Refer to attached handout Preventing Falls: After your Visit Vaccines Pneumococcal: Ordered Recommended today Influenza: Chronic Disease Risks Stroke: Low Risk Intermediate Risk Heart Attack: Low risk Intermediate Risk Clogging of the Arteries: Low risk Intermediate Risk I have no recommendations Act katey diagnosis, Continue current treatment plan Diabetes: Secondary Prevention/Interven tion (detects treatable diseases before they may cause symptoms, disability, or ) Prostate Cancer Screening: Colon Cancer Screening: Colonoscopy Fecal Occult Blood Cologuard (DNA stool test) Date Screening Last Performed: Not done order Eye Disease Screening: Ordered Recommended today Dementia Risk: Low I have no recommendations Depression Screening: Negative Not available 08/13/2023 13:53:29 12/29/2023 [id number] diabetic eye exam* Not avail able 12/29/2023 18:00:44 Thank you for yo ur visit to our office today. We would like to request that you reach out to your referring or previous provider and request that they send us a Summary of Care in electronic form, so that we may have it on file in your medical record. At your visit, we had the medical records we needed to provide you with the best possible care; however, for insurance purposes, an electronic Summary of Care is beneficial. Thank you for your assistance in obtaining this information and we look forward to providing continued care to you. Please review your medication list from the Summary of Care for this visit. If there are any differences from what you are currently taking at home, please call us to discuss. [email or web address] Not available 12/29/2023 17:46:04 Homebound Status : {{Patient has an inability to leave the home without a taxing effort and assistance from another person Does not meet homebound status}} Required Home Health Services: {{none half-way, physical therapy, occupational therapy half-way, physical therapy half-way}} Durable Medical Equipment needed: {{cane walker walke r with seat manual wheelchair bedside commode oxygen}} Billing Guidelines CPT code 54690- Transitional Care Management services with moderate medical decision complexity (qpax-mc-ptxb visit within 14 days of discharge). CPT code 12972- Transitional Care Management services with high medical decision complexity (qxmi-am-zesl visit within 7 days of discharge). [email or web address] Not available 12/29/2023 17:46:04 Reason for Referral Framework Developer Referral for Type 2 diabetes mellitus without complication Referring Physician: Suzette Ortiz, Internal Medicine, Encounter Date: 02/12/2023 Framework Developer Referral for Type 2 diabetes mellitus without complication Referring Physician: Suzette Ortiz, Internal Medicine, Encounter Date: 08/13/2023 Framework Developer Referral for Type 2 diabetes mellitus without complication Please call patient to schedule. Referring Physician: Suzette Ortiz, Internal Medicine, Encounter Date: 12/29/2023 Results Created Date Observation Date Name Description Value Unit Range Abnormal Flag Note LastModifiedBy Organization Detail LastModifiedTime 07/31/2023 COLOG UARD cologuard result Cancel led - Order d not applic able Not Available [facility] (Cologuard Orders Only) [address], [place], [address], 07/31/2023 11:06:18 05/06/19 24 05/05/2023 imagi ng/lisa castillo tic resul t No observ ation record ed. [facility] [address], [place], [address], 05/06/2023 12:51:04 06/17/19 24 XR, cervi gildardo spine , 2 or 3 view [facility] [address] [place] [address] Patien t Name: ABISAI MONTERO Access ion #: [id number] Sex: M : 1955 7 Dictat ed By: Aj Coronado Attend ing Physic colby: MADALYN BOWSER Orderelio abraham Physic colby: MADALYN BOWSER Exam Date: 2023 15:02 PM Exam Name: XR C SPINE 2-3V Admitt ing Diagno sis(es ): INDICA TION: Neck pain. TECHNI QUE: 4 views of the cervic al spine were obtain ed. COMPAR CR: None. FINDIN GS: The cervic al spine is visual ized from C1-C7. There is loss of the normal cervic al lordos is which can be positi onal. No fractu res or sublux ations are identi fied. Degene rative change s of the spine most promin ent at C6-C7. Alignm ent appear s unrema rkable . Prever tebral soft tissue s are within normal limits . IMPRES RAND: 1. No eviden ce for fractu re or sublux ation. Electr onical ly Signed by: Aj Coronado at 2023 15:29: 43 PM Page 1 INTERFACE [facility] (Imaging) [address] [facility], [place], [address], 06/17/2023 16:30:58 12/09/19 24 12/08/2023 LDCT, chest , for lung cance r scree wanda No observ ation record ed. [facility] [address], [place], [address], 12/09/2023 07:44:27 12/24/19 24 12/24/2023 CT, abdom en + pelvi s, w/o contr ast No observ ation record ed. [email or web address], [place], [address], 02/01/2024 18:16:15 02/20/20 24 02/20/2024 US, abdom inal aorta No observ ation record ed. [address], [place], [address], 02/20/2024 09:46:13 Result Notes None recorded. Problems Name Problem SNOMED Code Status Onset Date Resolution Date Notes Provider Name and Address Organization Details Recorded Time Cellulitis 077251108 Active Not Available [facility] 3 06:45:12 Chronic back pain 814128126 Active Not Available [facility] 3 06:45:12 Nocturia 130396279 Active Not Available [facility] 3 06:45:12 Abdominal pain 18546028 Active Not Available [facility] 3 06:45:12 Chest pain 34957352 Active Not Available [facility] 3 06:45:12 Knee pain Active Not Available [facility] 3 06:45:12 Bronchitis 18985422 Active Not Available [facility] 3 06:45:12 Osteoarthriti s 303125824 Active Not Available [facility] 3 06:45:12 Hematochezia 379721423 Active Not Available [facility] 3 06:45:12 Gastritis 4760854 Active Not Available [facility] 3 06:45:12 Hyperlipidemi a 44528406 Active 2021 Not Available [facility] 3 06:45:12 Essential hypertension 94420646 Active Not Available [facility] 3 06:45:12 Prediabetes 753133626 Active 2020 Not Available [facility] 3 06:45:12 Sleep apnea 55656166 Active Not Available [facility] 3 06:45:13 Fatigue 87701631 Active Not Available [facility] 3 06:45:13 Gastroesophag eal reflux disease without esophagitis 792960084 Active 2022 Suzette ku MD [address], [address], [place], [address] , [place] [facility] 3 11:44:04 Low back pain 976801747 Active 2022 Suzette ku MD [address], [address], [place], [address] , [place] [facility] 3 11:44:09 Chronic obstructive pulmonary disease 59187367 Active 2022 Suzette ku MD [address], [address], [place], [address] , [place] [facility] 3 11:44:12 Cigarette smoker 82548250 Active 2022 Suzette ku MD [address], [address], [place], [address] , [place] [facility] 3 11:44:17 Type 2 diabetes mellitus without complication 332610020 Active 2022 Suzette ku MD [address], [address], [place], [address] , [facility] 3 11:44:22 Diverticuliti s 557523016 Active 2022 Suzette ku MD [address], [address], [place], [address] , [facility] 3 11:44:27 Leukocytosis 631330974 Active 2022 Suzette ku MD [address], [address], [place], [address] , [facility] 3 11:44:32 Obstructive sleep apnea syndrome 03799860 Active 2022 Suzette ku MD [address], [address], [place], [address] , [facility] 3 12:05:01 Lipoma of back 558719798 Active 2022 Suzette ku MD [address], [address], [place], [address] , [facility] 3 10:08:29 Epidermoid cyst of skin 780563076 Active 2022 Umer serna MD [address], [address], [place], [address] , [facility] 3 13:33:57 Neck pain 65028237 Active 2023 Suzette ku MD [address], [address], [place], [address] , [facility] 4 15:40:09 Coronary arteriosclero sis 77771120 Active 2023 Edward Dyer LPN null, [facility] 4 08:02:06 Problem Notes None recorded. Procedures Surgical History Date Name Laterality Status Provider Name and Address Organization Details Recorded Time 4 Transitional_Ca re_Management completed Suzette Ortiz MD [address], [place], [address], [place] [facility] 12/29/2023 18:19:51 4 Advanced Care Planning completed Edward Dyer DINING ROOM COORDINATOR [place] [facility] 08/13/2023 15:16:36 4 Medicare Wellness CPT Code, Initial completed Edward Dyer DINING ROOM COORDINATOR [place] [facility] 08/10/2023 19:06:32 3 colonoscopy completed Lanette Felton [facility] 08/13/2023 10:30:29 other completed Megan Blanco [place] [facility] 01/06/2023 11:57:56 Cyst Removal completed Lanette Felton [facility] 02/12/2023 09:47:14 Imaging Results Imaging Date Name Status LastModified by Organiz ation Details LastModified Time 05/05/2023 imaging/diagno stic result active [facility] [address], [place], [address], 05/06/2023 12:51:04 06/17/2023 XR, cervical spine, 2 or 3 view active INTERFACE [facility] (Imaging) [address], [place], [address], 06/17/2023 16:30:58 12/08/2023 LDCT, chest, for lung cancer screening active [facility] [address], [place], [address], 12/09/2023 07:44:27 12/24/2023 CT, abdomen + pelvis, w/o contrast completed [address], [place], [address], 02/01/2024 18:16:15 02/20/2024 US, abdominal aorta active [address], [place], [address], 02/20/2024 09:46:13 Procedure Notes None recorded. Medical Equipment None Reported. Allergies No known drug allergies Medications Name Sig Start Date Stop Date Status Note LastModified by Organization Details LastModified Time cyclobenzap rine 10 mg tablet TAKE 1 TABLET BY MOUTH EVERY DAY NEEDED 12/28 completed Not Available Not Available Not Available amoxicillin 500 mg capsule active Not Available Not Available Not Available atorvastati n 40 mg tablet TAKE 1 TABLET EVERY OTHER DAY active Not Available Not Available No t Available prednisone 10 mg tablet 3 x 2 days, 2 x 2 days, 1 x 2 days active Not Available Not Available No t Available atorvastati n 20 mg tablet TAKE 1 TABLET BY MOUTH ONCE DAILY active Not Available Not Available No t Available clindamycin HCl 300 mg capsule Take 1 capsule 3 times a day by oral route as directed for 6 days. active Not Available Not Available No t Available azithromyci n 250 mg tablet Take by oral route.2ta bs first day then 1 daily 08/30 completed Not Available Not Available Not Available benzonatate 200 mg capsule Take 1 capsule 3 times a day by oral route as needed. active Not Available Not Available No t Available valacyclovi r 1 gram tablet Take 1 tablet 3 times a day by oral route. active Not Available Not Available No t Available hydrocodone 5 mg-acetamin ophen 325 mg tablet TAKE 1 TABLET BY MOUTH EVERY 6 HOURS active Not Available Not Available No t Available Claritin 10 mg tablet Take 1 tablet every day by oral route as needed for 90 days. 01/03 completed Not Available Not Available Not Available lisinopril 20 mg tablet Take 1 tablet every day by oral route. active Not Available Not Available No t Available Viagra 50 mg tablet TAKE 1 TABLET BY MOUTH EVERY DAY active Not Available Not Available No t Available metronidazo le 500 mg tablet TAKE 1 TABLET BY MOUTH EVERY 8 HOURS FOR 10 DAYS active Not Available Not Available No t Available ciprofloxac in 500 mg tablet TK 1 T PO Q 12 H FOR 5 DAYS 11/30 completed Not Available Not Available Not Available sulfamethox azole 800 mg-trimetho prim 160 mg tablet active Not Available Not Available Not Available tramadol 50 mg tablet 06/23 completed Not Available Not Available Not Available meloxicam 7.5 mg tablet TAKE 1 TABLET BY MOUTH TWICE DAILY WITH MEALS FOR 15 DAYS NEEDED 12/28 completed Not Available Not Available Not Available oxycodone-a cetaminophe n 5 mg-325 mg tablet TAKE 1/2 TO 1 TABLET BY MOUTH EVERY 6 HOURS NEEDED FOR PAIN 02/12 completed Not Available Not Available Not Available alprazolam 0.25 mg tablet 1 or 2 at bedtime 06/23 completed Not Available Not Available Not Available ciprofloxac in 0.3 % eye drops active Not Available Not Available No t Available hydrocodone 7.5 mg-acetamin ophen 325 mg tablet TK 1 T PO TID PRN active Not Available Not Available No t Available lisinopril 10 mg tablet TAKE 1 TABLET DAILY 02/18 completed Not Available Not Available Not Available lansoprazol e 30 mg capsule,del ayed release TAKE 1 CAPSULE BY MOUTH ONCE DAILY NEEDED active Not Available Not Available No t Available hydrocodone 5 mg-acetamin ophen 500 mg tablet TAKE 1 TABLET BY MOUTH EVERY 6 HOURS active Not Available Not Available No t Available ibuprofen 600 mg tablet TAKE 1 TABLET BY MOUTH EVERY 6 HOURS NEEDED FOR PAIN 02/12 completed Not Available Not Available Not Available albuterol sulfate HFA 90 mcg/actuati on aerosol inhaler USE 2 INHALATIO NS BY MOUTH EVERY 4 HOURS NEEDED active Not Available Not Available No t Available fluticasone propionate 50 mcg/actuati on nasal spray,suspe nsion USE 1 SPRAY NASALLY DAILY active Not Available Not Available No t Available amoxicillin 875 mg-potassiu m clavulanate 125 mg tablet TAKE 1 TABLET BY MOUTH EVERY 12 HOURS FOR 10 DAYS active Not Available Not Available No t Available EpiPen 0.3 mg/0.3 mL injection, auto-inject or as directed active Not Available Not Available No t Available fenofibrate nanocrystal lized 145 mg tablet TAKE 1 TABLET DAILY DIRECTED 06/16 completed Not Available Not Available Not Available Symbicort 80 mcg-4.5 mcg/actuati on HFA aerosol inhaler INHALE ONE PUFF PO BID active Not Available Not Available No t Available nisoldipine ER 8.5 mg tablet,exte nded release 24 hr Take 1 tablet every day by oral route for 90 days. 07/31 completed Not Available Not Available Not Available Dulera 200 mcg-5 mcg/actuati on HFA aerosol inhaler Inhale 1 puff twice a day by inhalatio n route. active Not Available Not Available No t Available Fluvirin 45 mcg (15 mcg x 3)/0.5 mL intramuscul ar suspension ADM 0.5ML IM UTD 12/30 completed Not Available Not Available Not Available Afluria Qd 2018- (36 mos up)(PF)60 mcg (15 mcg x4)/0.5 mL IM syringe active Not Available Not Available N ot Available Fluzone Quad (PF) 60 mcg (15 mcg x 4)/0.5 mL IM syringe ADM 0.5ML IM UTD active Not Available Not Available No t Available Vitals Date Recorded Body height Body mass index (BMI) Body weight Body temperature Heart rate Provider Name and Address Organization Details Last Updated DateTime 01/06/2023 177.8 cm 28.7 kg/m2 29338.47 g 98.2 [degF] 86 /min Megan Blanco MA [facility] 3 11:56:31 Date Recorded Body height Body mass index (BMI) Body weight Body temperature Heart rate Systolic blood pressure Diastolic blood pressure Provider Name and Address Organization Details Last Updated DateTime 3 177.8 cm 30.3 kg/m2 33847.9 9 g 97.5 [degF] 72 /min 126 mm[Hg] 70 mm[Hg] TRESA Ragsdale [facility] 3 09:49:11 Date Recorded Body height Body mass index (BMI) Body weight Body temperature Heart rate Oxygen saturation Oxygen saturation in Arterial blood by Pulse oximetry Systolic blood pressure Diastolic blood pressure Provider Name and Address Organization Details Last Updated DateTime 4 177.8 cm 31.7 kg/m2 755678. 91 g 98 [degF] 78 /min 97 % 97 % 130 mm[Hg] 80 mm[Hg] Prisca Buchanan MA [facility] 4 15:23:01 Date Recorded Body height Body mass index (BMI) Body weight Body temperature Heart rate Oxygen saturation Oxygen saturation in Arterial blood by Pulse oximetry Systolic blood pressure Diastolic blood pressure Provider Name and Address Organization Details Last Updated DateTime 4 177.8 cm 31.7 kg/m2 165646. 91 g 98.2 [degF] 102 /min 98 % 98 % 140 mm[Hg] 72 mm[Hg] Prisca Buchanan MA [facility] [employer] [facility] 09:51:58 Date Recorded Body height Body mass index (BMI) Body weight Body temperature Heart rate Oxygen saturation Oxygen saturation in Arterial blood by Pulse oximetry Systolic blood pressure Diastolic blood pressure Provider Name and Address Organization Details Last Updated DateTime 4 177.8 cm 30.4 kg/m2 16660.5 8 g 96.4 [degF] 69 /min 97 % 97 % 122 mm[Hg] 60 mm[Hg] Prisca Buchanan MA [facility] [employer] [facility] 16:58:49 Social History Question Answer Notes LastModified by Organizat ion Details LastModified Time Tobacco Smoking Status Former Smoker Prisca Buchanan MA [facility] One Hour Translation [facility] 12/29/2023 17:00:58 Do You Have An Advance Directive? No [email or web address] Information not available 08/13/2023 What Is Your Level Of Alcohol Consumption? Occasional [id number] Information not available 04/30/2022 Are You Blind Or Do You Have Difficulty Seeing? No [email or web address] Information not available 08/13/2023 What Is Your Level Of Caffeine Consumption? Moderate [id number] Information not available 04/30/2022 How Much Tobacco Do You Chew? None [id number] Information not available 04/30/2022 In The 14 Days Before Symptom Onset, Have You Had Close Contact With A Laboratory-confi rmed COVID-19 While That Case Was Ill? No MIGRATION.[id number] Information not available 04/30/2022 In The 14 Days Before Symptom Onset, Have You Had Close Contact With A Person Who Is Under Investigation For COVID-19 While That Person Was Ill? No [id number] Information not available 04/30/2022 Are You Currently Employed? No [email or web address] Information not available 08/13/2023 Are You Deaf Or Do You Have Serious Difficulty Hearing? No [email or web address] Information not available 08/13/2023 What Type Of Diet Are You Following? REGULAR [id number] Information not available 04/30/2022 Which Illicit Or Recreational Drugs Have You Used? None MIGRATION.[id number] Information not available 04/30/2022 Do You Or Have You Ever Used E-cigarettes Or Vape? Never Used Electronic Cigarettes MIGRATION.03751 [id number] Information not available 04/30/2022 What Is The Highest Grade Or Level Of School You Have Completed Or The Highest Degree You Have Received? [id number] Information not available 08/13/2023 What Is Your Occupation? Retired MIGRATION.23129 [id number] Information not available 04/30/2022 Have There Been Any Changes To Your Family Or Social Situation? No [email or web address] Information not available 08/13/2023 What Is The Fluoride Status Of Your Home? Unknown [email or web address] Information not available 08/13/2023 Are There Any Guns Present In Your Home? Yes Information not available 08/13/2023 Do You Use Insect Repellent Routinely? No [email or web address] Information not available 08/13/2023 Where Do You Live? SingleLevelHouse [email or web address] Information not available 08/13/2023 Presence Of Domestic Violence No [email or web address] Information not available 08/13/2023 Are You Able To Care For Yourself? Yes [email or web address] Information not available 08/13/2023 Are You Blind Or Do Yo Have Difficulty Seeing? No [email or web address] Information not available 08/13/2023 Are You Deaf Or Do You Have Serious Difficulty Hearing? No [email or web address] Information not available 08/13/2023 General Stress Level? Low [email or web address] Information not available 08/13/2023 Live Alone Of With Others? With Others [email or web address] Information not available 08/13/2023 Do You Have A Medical Power Of Senior Ios Developer? No Information not available 08/13/2023 What Was The Date Of Your Most Recent Tobacco Screening? 08/13/2023 Information not available 08/13/2023 What Is Your Current Pack Years? 20-29packyears [email or web address] Information not available 08/13/2023 Have You Ever Been Counseled For Unhealthy Alcohol Use? No Information not available 08/13/2023 Do You Have Any Pets? No [email or web address] Information not available 08/13/2023 What Is Your Relationship Status? [email or web address] Information not available 08/13/2023 Do You Use Your Seat Belt Or Car Seat Routinely? Yes [email or web address] Information not available 07/31/2022 Do You Have Smoke And Carbon Monoxide Detectors In Your Home? Yes [email or web address] Information not available 08/13/2023 Are You Passively Exposed To Smoke? Yes [email or web address] Information not available 08/13/2023 Do You Or Have You Ever Used Smokeless Tobacco? Never Used Smokeless Tobacco MIGRATION.07714 45021 Information not available 04/30/2022 Are There Any Smokers In Your House? Yes [email or web address] Information not available 08/13/2023 How Much Tobacco Do You Smoke? 0.5 PPD [email or web address] Information not available 02/12/2023 Do You Feel Stressed (tense, Restless, Nervous, Or Anxious, Or Unable To Sleep At Night)? [id number] Information not available 06/17/2023 Do You Use Any Illicit Or Recreational Drugs? No [email or web address] Information not available 07/31/2022 Do You Use Sunscreen Routinely? No [email or web address] Information not available 08/13/2023 Has Tobacco Cessation Counseling Been Provided? Yes [email or web address] Information not available 08/13/2023 On What Date Was Tobacco Cessation Counseling Provided? 08/13/2023 Information not available 08/13/2023 Have You Recently Traveled Abroad? No MIGRATION.59468 76160 Information not available 04/30/2022 Do You Have Any Dietary Restrictions? No MIGRATION.70708 43967 Information not available 04/30/2022 Do You Or Have You Ever Used Any Other Forms Of Tobacco Or Nicotine? No [email or web address] Information not available 07/31/2022 How Many Days In The Past Year Have You Consumed 5 Or More Drinks? 0 Information not available 12/29/2023 Sex: Unknown Functional Status Question Answer Note LastModified by Organizat ion Details LastModified Time Do you have difficulty walking or climbing stairs? No [email or web address] Information not available 08/13/2023 Do you have transportation difficulties? No [email or web address] Information not available 08/13/2023 Are you able to walk? YESWOREST [email or web address] Information not available 08/13/2023 Do you have difficulty doing errands alone? No [email or web address] Information not available 08/13/2023 Are you able to care for yourself? Yes [email or web address] Information n ot available 08/13/2023 Do you have difficulty dressing or bathing? No [email or web address] Information not available 08/13/2023 What is your exercise level? Moderate [id number] Information not available 04/30/2022 Mental Status Question Answer Note LastModified by Organization D etails LastModified Time Do you have difficulty concentrating, remembering or making decisions? No [email or web address] Information no t available 08/13/2023 Family History Relationship Description Onset Age of this Age Resolved Age Notes LastModified by Organization Details LastModified Time Mother Diabetes mellitus [email or web address] Not available 2022 11:57:08 Father Diabetes mellitus ess37 Not available 2022 11:57:08 Medical History Condition Response DIVERTICULITIS Y BOWEL PROBLEMS Y HYPERTENSION Y HIGH CHOLESTEROL / HYPERLIPIDEMIA Y Immunizations Vaccine Type Date Status Note Provider Nam e and Address Organization Details Recorded Time Influenza, split virus, quadrivalent, preservative 1 completed Not Available [facility] 04/30/2022 06:49:24 COVID-19, mRNA, LNP-S, PF, 100 mcg/0.5mL dose or 50 mcg/0.25mL dose 1 completed Not Available [facility] 04/30/2022 06:49:24 COVID-19, mRNA, LNP-S, PF, 100 mcg/0.5mL dose or 50 mcg/0.25mL dose 1 completed Not Available [facility] 04/30/2022 06:49:24 Influenza, split virus, quadrivalent, preservative 6 completed Not Available [facility] 04/30/2022 06:49:24 Influenza, split virus, quadrivalent, preservative 0 completed Not Available [facility] 04/30/2022 06:49:24 Influenza, split virus, quadrivalent, PF 7 completed Not Available [facility] 04/30/2022 06:49:24 Influenza, split virus, quadrivalent, PF 8 completed Not Available [facility] 04/30/2022 06:49:24 Influenza, split virus, quadrivalent, PF 5 completed Not Available [facility] 04/30/2022 06:49:24 Influenza, split virus, quadrivalent, preservative 4 completed Not Available [facility] 04/30/2022 06:49:24 Influenza, split virus, trivalent, preservative 3 completed Not Available [facility] 04/30/2022 06:49:24 Past Encounters Encounter ID Performer Location Encounter Start Date Encounter Closed Date Diagnosis/Indication Diagnosis SNOMED-CT Code Diagnosis ICD10 Code [id number] [facility] [place] [address] [facility] , [facility] [place] [address] 05/14/2020 00:00:00 05/15/2020 14:15:21 [id number] [facility] Internal Med [facility] [address] [place] [address] , [address] [address] 08/14/2020 00:00:00 08/14/2020 09:36:06 [id number] [facility] [place] [address] [facility] [address] [place] [address] 09/06/2020 00:00:00 09/13/2020 09:07:56 [id number] [facility] Internal Med [facility] [address] [place] [address] [place] [address] 01/03/2021 00:00:00 01/03/2021 10:07:07 [id number] [facility] Internal Med [facility] [address] [place] [address] [address] [address] 04/11/2021 00:00:00 04/11/2021 09:49:16 [id number] [facility] Internal Med [facility] [address] [place] [address] [address] [address] 10/03/2021 00:00:00 10/03/2021 13:08:13 [id number] [facility] Internal Med [facility] [address] [place] [address] [place] [address] 03/27/2022 00:00:00 03/27/2022 14:24:33 [id number] Suzette ku MD [facility] Internal Med [facility] [address] [place] [address] 07/31/2022 09:35:10 07/31/2022 10:14:29 Screening - NAD 122402071 Z13.9 Essential hypertension 08941920 I10 Hyperlipidemia 34887015 E78.5 Gastroesop hageal reflux disease without esophagitis 238953928 K21.9 Low back pain 763195737 M54.50 Chronic ob structive pulmonary disease 99642983 J44.9 Cigarette smoker 6249814 7 F17.210 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 762975232 E11.9 Diverticulitis 966469420 K57.92 Leukocytosis 945381058 D 72.829 Obstructiv e sleep apnea syndrome 68218532 G47.33 Lipoma of back 616167912 D17.[id number] [facility] General Surgery [address] [place] [address] 01/06/2023 11:07:36 01/07/2023 16:28:47 Epidermoid cyst of skin 645173141 L72.0 [id number] Suzette ku MD [facility] Internal Med [facility] [address] [place] [address] 02/12/2023 09:36:14 02/12/2023 10:02:17 Screening - NAD 137133836 Z13.9 Essential hypertension 60426968 I10 Hyperlipidemia 57043436 E78.5 Gastroesop hageal reflux disease without esophagitis 754606836 K21.9 Low back pain 901696209 M54.50 Chronic ob structive pulmonary disease 67204621 J44.9 Cigarette smoker 6988213 7 F17.210 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 767551806 E11.9 Diverticulitis 533997081 K57.92 Leukocytosis 882516844 D 72.829 Obstructiv e sleep apnea syndrome 67470689 G47.33 Lipoma of back 656191457 D17.1 [id number] Suz[address] ku MD [facility] Internal Med [place] [address] [facility] [place] [address] 06/17/2023 15:13:40 06/17/2023 15:58:32 Neck pain 84410461 M54.2 [id number] Suz[address] ku MD [facility] Internal Med [facility] [address] [facility], [facility] [address] [place] [address] 08/13/2023 09:44:09 08/13/2023 10:23:14 Adult health examination 846545794 Z00.00 Screening for disorder 236386437 Z13.9 Neck pain 23983680 M54.2 Screening - NAD 31612978 3 Z13.9 Essential hypertension 39732275 I10 Hyperlipidemia 55402312 E78.5 Gastroesop hageal reflux disease without esophagitis 879144754 K21.9 Low back pain 076513916 M54.50 Chronic ob structive pulmonary disease 00166261 J44.9 Cigarette smoker 8990229 7 F17.210 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 864327015 E11.9 Diverticulitis 446117378 K57.92 Leukocytosis 874596268 D 72.829 Obstructiv e sleep apnea syndrome 84193073 G47.33 Lipoma of back 056658559 D17.1 [id number] Suz[address] ku MD [facility] Internal Med [facility] [address], [facility] [address] [place] [address] 12/29/2023 16:46:09 12/29/2023 18:08:22 Neck pain 28513545 M54.2 Screening - NAD 34681904 3 Z13.9 Essential hypertension 16961574 I10 Hyperlipidemia 56299160 E78.5 Gastroesop hageal reflux disease without esophagitis 486195844 K21.9 Low back pain 963058670 M54.50 Chronic ob structive pulmonary disease 58825697 J44.9 Cigarette smoker 4237999 7 F17.210 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 607569667 E11.9 Diverticulitis 373944054 K57.92 Obstructiv e sleep apnea syndrome 63566167 G47.33 Lipoma of back 085139948 D17.1 Transition of care 67265 55084 105 Z75.8 Abdominal aortic aneurysm screening 128958624 Z13.6 Health Concerns Section Related Observation LastModified by Organization Detai ls LastModified Time None Recorded Concern Status LastModified by Organization Details LastModified Time None Recorded Advance Directives Directive N: Payers Encounter Date Sequence Insurance Name Policy Number Policy Gardner Covered Member ID Gardner Member ID Guarantor Name 01/06/2023 1 [facility] (MEDICARE REPLACEMENT/A DVANTAGE - PPO) [id number] Onel Montero [id number] Onel Tahir Montero 02/12/2023 1 [facility] (MEDICARE REPLACEMENT/A DVANTAGE - PPO) [id number] Onel Tahir Montero [id number] Onel Tahir Montero 06/17/2023 1 [facility] (MEDICARE REPLACEMENT/A DVANTAGE - PPO) [id number] Onel Montero [id number] Onel Tahir Montero 08/13/2023 1 [facility] (MEDICARE REPLACEMENT/A DVANTAGE - PPO) [id number] Onel Montero [id number] Onel Tahir Montero 12/29/2023 1 [facility] (MEDICARE REPLACEMENT/A DVANTAGE - PPO) [id number] Onel Tahir Montero [id number] Onel Tahir Montero Notes Date Note Type Note Provider Name and Address Organization Details Recorded Time 01/06/2023 text/html patient complain s of lump in his right upper Back. Thinks he may be a fatty mass. It is becoming larger and occasionally tender. Umer Nam MD [address] [place] [address], [facility] [address], [place], [address], [facility] [employer] 01/06/2023 13:34:09 02/12/2023 text/html Here to amanda Rey Hx:InsmoniaLBPHTNGE RDReviewed social family surgical historyHe is here to get his labs and review the above, he states that he does rarely use the hydrocodone and the xanax but needs about 3 prescriptions a year, he states that the hhoids are well, no pain, no blood in the stoolC/o R knee since 2 months, and no acute or remote trauma, pain on the side and goes thru the knee, keeps him awake at night, has to limp, no xrays, mild swelling, mild poppingOV 05/14/2020:Here for his tele visitHe is agreeable to do the visitHe feels wellDoes c/o some sinus congestionNo fevers or chillsNo N/VNo chest pain or SOBNo rash, no wheezingOV 08/14/2020:Here for his routine aptHe feels wellHe did do the labs on 08/09/2020 OV 01/03/2021:Here for his routine aptHe is doing wellHe did do the labs on 12/31/2020 OV 04/11/2021:Here for his routine aptHe is doing wellHe did do the labs on 04/08/2021 OV 10/03/2021:Here for his routine apt, he states that he is doing well, but has put on 5 pounds as he has been eating gant a lot, he did do the labs on 09/05/2021 OV 03/27/2022:Here for his f/u apt, he is doing well, he did do the labs OV 07/31/2022:Here for his f/u apt, he is feeling well today, he did do the labs on 07/22/2022 OV 02/12/2023: Here for his f/u apt, he does well Suzette Ortiz MD [address] [place] [address], [facility] [address], [place], [address], [facility] [employer] [facility] 02/12/2023 10:38:07 06/17/2023 text/html Here to amanda Rey Hx:InsmoniaLBPHTNGE RDReviewed social family surgical historyHe is here to get his labs and review the above, he states that he does rarely use the hydrocodone and the xanax but needs about 3 prescriptions a year, he states that the hhoids are well, no pain, no blood in the stoolC/o R knee since 2 months, and no acute or remote trauma, pain on the side and goes thru the knee, keeps him awake at night, has to limp, no xrays, mild swelling, mild poppingOV 05/14/2020:Here for his tele visitHe is agreeable to do the visitHe feels wellDoes c/o some sinus congestionNo fevers or chillsNo N/VNo chest pain or SOBNo rash, no wheezingOV 08/14/2020:Here for his routine aptHe feels wellHe did do the labs on 08/09/2020 OV 01/03/2021:Here for his routine aptHe is doing wellHe did do the labs on 12/31/2020 OV 04/11/2021:Here for his routine aptHe is doing wellHe did do the labs on 04/08/2021 OV 10/03/2021:Here for his routine apt, he states that he is doing well, but has put on 5 pounds as he has been eating gant a lot, he did do the labs on 09/05/2021 OV 03/27/2022:Here for his f/u apt, he is doing well, he did do the labs OV 07/31/2022:Here for his f/u apt, he is feeling well today, he did do the labs on 07/22/2022 OV 02/12/2023: Here for his f/u apt, he does well OV 06/17/2023: ACVC/o R sided neck pain, he states that he may have lifted something heavy, ongoing since 4 weeks, no N/T or weakness in the UE or LE, states that in the past he has been told that he may have had a pinch nerve in the neck Suzette Ortiz MD [address] [facility], [facility] [address], [place], [address], [facility] [employer] [address] [employer] 06/17/2023 16:13:28 08/13/2023 text/html Here to amanda Rey Hx:InsmoniaLBPHTNGE RDReviewed social family surgical historyHe is here to get his labs and review the above, he states that he does rarely use the hydrocodone and the xanax but needs about 3 prescriptions a year, he states that the hhoids are well, no pain, no blood in the stoolC/o R knee since 2 months, and no acute or remote trauma, pain on the side and goes thru the knee, keeps him awake at night, has to limp, no xrays, mild swelling, mild poppingOV 05/14/2020:Here for his tele visitHe is agreeable to do the visitHe feels wellDoes c/o some sinus congestionNo fevers or chillsNo N/VNo chest pain or SOBNo rash, no wheezingOV 08/14/2020:Here for his routine aptHe feels wellHe did do the labs on 08/09/2020 OV 01/03/2021:Here for his routine aptHe is doing wellHe did do the labs on 12/31/2020 OV 04/11/2021:Here for his routine aptHe is doing wellHe did do the labs on 04/08/2021 OV 10/03/2021:Here for his routine apt, he states that he is doing well, but has put on 5 pounds as he has been eating gant a lot, he did do the labs on 09/05/2021 OV 03/27/2022:Here for his f/u apt, he is doing well, he did do the labs OV 07/31/2022:Here for his f/u apt, he is feeling well today, he did do the labs on 07/22/2022 OV 02/12/2023: Here for his f/u apt, he does well OV 06/17/2023: ACVC/o R sided neck pain, he states that he may have lifted something heavy, ongoing since 4 weeks, no N/T or weakness in the UE or LE, states that in the past he has been told that he may have had a pinch nerve in the neck OV 08/13/2023: Here for his f/u apt, he is here for his MWV, does well, he did do the labs, his neck pain is improved, he states that this is intermittent now, no N/T or weakness, but states that the flexerill helps, he is very active, now is going for melody Ortiz MD [address], [place], [address], [place] [facility] [employer] [facility] [employer] 08/17/2023 18:39:46 12/29/2023 text/html Here to amanda Rey Hx:InsmoniaLBPHTNGE RDReviewed social family surgical historyHe is here to get his labs and review the above, he states that he does rarely use the hydrocodone and the xanax but needs about 3 prescriptions a year, he states that the hhoids are well, no pain, no blood in the stoolC/o R knee since 2 months, and no acute or remote trauma, pain on the side and goes thru the knee, keeps him awake at night, has to limp, no xrays, mild swelling, mild poppingOV 05/14/2020:Here for his tele visitHe is agreeable to do the visitHe feels wellDoes c/o some sinus congestionNo fevers or chillsNo N/VNo chest pain or SOBNo rash, no wheezingOV 08/14/2020:Here for his routine aptHe feels wellHe did do the labs on 08/09/2020 OV 01/03/2021:Here for his routine aptHe is doing wellHe did do the labs on 12/31/2020 OV 04/11/2021:Here for his routine aptHe is doing wellHe did do the labs on 04/08/2021 OV 10/03/2021:Here for his routine apt, he states that he is doing well, but has put on 5 pounds as he has been eating gant a lot, he did do the labs on 09/05/2021 OV 03/27/2022:Here for his f/u apt, he is doing well, he did do the labs OV 07/31/2022:Here for his f/u apt, he is feeling well today, he did do the labs on 07/22/2022 OV 02/12/2023: Here for his f/u apt, he does well OV 06/17/2023: ACVC/o R sided neck pain, he states that he may have lifted something heavy, ongoing since 4 weeks, no N/T or weakness in the UE or LE, states that in the past he has been told that he may have had a pinch nerve in the neck OV 08/13/2023: Here for his f/u apt, he is here for his MWV, does well, he did do the labs, his neck pain is improved, he states that this is intermittent now, no N/T or weakness, but states that the flexerill helps, he is very active, now is going for camping OV 12/29/2023: Here for his post hospital f/u, s/p d/c from [facility] on 12/27/2023, for diverticulitis, is doing well now Suzette Ortiz MD [address] [place] [address], [place] [address], [place], [address], [place] [facility] 12/29/2023 18:23:20
--- OUTSIDE RECORDS SUMMARY | 2024-02-27 05:00 | XMS_ITS | Referral Summary ---
Author Organization [facility] [employer] [facility] Address [address] [place] [address] Care Team Providers Care Nuclear Equipment Operator Name Role Phone Suzette Ortiz MD Primary Care Provider Source Comments [facility],non-owned Affiliates and Associated Physician Practices is amultiple site organization consisting of ambulatory clinics and hospital sitesin [place], [place], [place] and [place]. This disclosure is being madepursuant to the Care Everywhere program and may not contain all information available regarding this patient. Last updated 17.[facility] Allergies Active Allergy Reactions Criticality Noted Date Comments Codeine Nausea Medium 07/28/2008 Medications * Be aware that medications may not be up to date on this document. Alwaysverify current medications with the patient. Medication Sig Dispensed Refills Start Date End Date Status nisoldipine CR 24hr (SULAR) 20 MG tablet Take 20 mg by mouth daily. Active lansoprazole (PREVACID) 30 MG capsule Take 30 mg by mouth daily before breakfast. Active hydrocodone-acetaminop hen (VICODIN) 5-500 MG tablet Take 1 Tab by mouth every 4 hours as needed for Pain. 1/2 tablet usually for Back pain Active methylPREDNISolone (MEDROL DOSEPAK) 4 MG tablet Take 1 Tab by mouth as directed. 21 0 07/28/2008 Active Active Problems Problem Noted Date Diagnosed Date Chest pain 07/28/2008 Social History Tobacco Use Types Packs/Day Years Used Date Smoking Tobacco: Former Cigarettes 1 04/28/1975 - 02/26/2008 Alcohol Use Standard Drinks/Week Comments Yes 5 (1 standard drink = 0.6 oz pur e alcohol) weekends only Sex and Gender Information Value Date Recorded Sex Assigned at Not on file Gender Identity Not on file Sexual Orientation Not on file Last Filed Vital Signs Vital Sign Reading Time Taken Comments Blood Pressure 131/71 07/28/2008 10:04 AM CDT Pulse 62 07/28/2008 10:04 AM CDT Temperature 36.7 ??C (98.1 ??F) 07/28/2008 9:20 AM CD T Respiratory Rate 18 07/28/2008 10:04 AM CDT Oxygen Saturation 97% 07/28/2008 10:04 AM CDT Inhaled Oxygen Concentration - - Weight 108.9 kg (240 lb) 07/28/2008 5:42 AM CDT Height 177.8 cm (5' 10 ) 07/28/2008 5:42 AM CDT Body Mass Index 34.44 07/28/2008 5:42 AM CDT Plan of Treatment Not on file Care Teams Nuclear Equipment Operator Relationship Specialty Start Date End Date Suzette Ortiz MD [address] [address] [facility] - General 06/17/22
--- OUTSIDE RECORDS SUMMARY | 2024-02-27 05:00 | XMS_ITS | Clinical Summary ---
Author Organization [facility] [employer] Address [address] [place] [address] Care Team Providers Care Gas Pumping Station Helper Name Role Phone Suzette Ortiz MD Primary Care Provider Source Comments [facility] [employer],non-owned Affiliates and Associated Physician Practices is amultiple site organization consisting of ambulatory clinics and hospital sitesin [place], [place], [place] and [place]. This disclosure is being madepursuant to the Care Everywhere program and may not contain all information available regarding this patient. Last updated 17.[facility] [employer] Allergies Active Allergy Reactions Criticality Noted Date [...] 07/28/2008 5:42 AM CDT Plan of Treatment Health Maintenance Due Date Last Done Comments COLOGUARD (AGES 45-75) - COL ON CA SCREENING 1957 COLON MONITORING 1957 COLONOSCOPY - COLON CA SCREENING 1957 CT COLONOGRAPHY - COLON CA SCREENING 1957 Colorectal Cancer Screening 1957 FIT - COLON CA SCREENING 1957 FLEX SIG - COLON CA SCREENING 1957 LIPID TESTING 1957 HEPATITIS C SCREENING 03/18/1975 DTAP/TDAP/TD VACCINES (1 - Tdap) 1976 ZOSTER VACCINE (1 of 2) 2007 AAA SCREENING 2022 PNEUMOCOCCAL VACCINE 65+ (1 of 1 - PCV) 2022 DEPRESSION SCREENING 03/02/2023 MEDICARE AWV ? CALENDAR YEAR 2023 COVID-19 VACCINE (1 - 2023-2 5 season) 2023 INFLUENZA VACCINE (#1) 2023 Respiratory Syncytial Virus (RSV) Vaccine Pt: or over 60 yrs (1 - 1-dose 75+ series) 2032 HEPATITIS B VACCINE Aged Out No longe r eligible based on patient's age to complete this topic HIB VACCINE Aged Out No longer eligi ble based on patient's age to complete this topic HPV VACCINE Aged Out No longer eligi ble based on patient's age to complete this topic MENINGOCOCCAL VACCINE Aged Out No parminder deedee eligible based on patient's age to complete this topic Care Teams Gas Pumping Station Helper Relationship Specialty Start Date End Date Suzette Ortiz MD [address] [address] PCP - General 06/17/22
--- OUTSIDE RECORDS SUMMARY | 2024-02-27 05:00 | XMS_ITS | Continuity of Care Document ---
Author Organization [place] [facility] [employer], [facility] [address] Address [address] [place] [address] Care Team Providers Care Manager Of Sustainability Name Role Phone SUZETTE ORTIZ Primary Care Provider SUZETTE ORTIZ Referring Provider [phone] Assessment Encounter Date Assessment Date Assessment LastModified by Organization Details LastModified Time 12/29/2023 12/29/2023 08/05/2023: A1C 5.7 03/21/2022: PSA [...] Time Details Appointments Any 15 2024 04:00P Jenna mak MD Not available Not available Not available Lab glycohemo globin, total, blood 2023 024 [email or web address] [facility] (Lab), [address] [place], [address], 12/29/2023 18:00:43 microalbu min, urine 2023 024 [facility] (Lab), [address] [place], [address], 12/29/2023 18:00:43 lipid panel, serum [address] (Lab), [address] [place], [address], 12/29/2023 18:00:41 CBC w/ auto diff 2023 [facility] (Lab), [address] [place], [address], 02/25/2024 05:49:36 CMP, serum or plasma [address] (Lab), [address] [place], [address], 12/29/2023 18:00:42 TSH, serum or plasma [address] (Lab), [address] [place], [address], 12/29/2023 18:00:42 Referral podiatris t referral - Please call patient to schedule. 2023 KOSTA Jj DPM, [address], [address], [place], [address], 02/27/2024 04:07:20 Procedures upper endoscopy procedure (EGD) (PROC) - Please call patient to schedule. 2023 [email or web address] Alyssa Yadav, [address] [facility] [address], [place], [address], 12/30/2023 18:54:51 Surgeries None recorded. Imaging US, abdominal aorta - Please call patient to schedule. 2023 [facility], [address], [place], [address], 02/22/2024 11:57:10 Medication Orders None recorded. Patient TargetsNo targets recorded. Patient Instructions Encounter Date Encounter Id Patient Instructions Last Modified By Organization Details Last Modified Time 12/29/2023 [id number] diabetic eye exam* [email or web address] Not available 12/29/2023 18:00:44 Thank you for your visit to our office today. We would [...] homebound status}} Required Home Health Services: {{none penitentiary, physical therapy, occupational therapy penitentiary, physical therapy penitentiary}} Durable Medical Equipment needed: {{cane walker wal ker with seat manual wheelchair bedsid e commode oxygen}} Billing Guidelines CPT code 43712- Transitional Care Management services with moderate medical decision complexity (lwwp-sw-qatw visit within 14 days of discharge). CPT code 77620- Transitional Care Management services with high medical decision complexity (hrxg-oe-vzoj visit within 7 days of discharge). [email or web address] Not available 12/29/2023 17:46:04 Reason for Referral National Sales Manager Referral for Type 2 diabetes mellitus without complication Please call patient to schedule. Referring Physician: Suzette Ortiz, Internal Medicine, Encounter Date: 12/29/2023 Results Created Date Observation Date Name Description Value Unit Range Abnormal Flag Note LastModifiedBy Organization Detail LastModifiedTime 12/09/19 24 12/08/2023 LDCT, chest , for lung sara muñoz No observ ation record ed. [facility] [address], [place], [address], 12/09/2023 07:44:27 12/24/1912/24/2023 CT, abdom en + pelvi s, w/o contr ast No observ ation record ed. [email or web address], [place], [address], 02/01/2024 18:16:15 02/20/20 24 02/20/2024 US, abdom inal aorta No observ ation record ed. [facility] [address], [place], [address], 02/20/2024 09:46:13 Result Notes None recorded. Problems Name Problem SNOMED Code Status Onset Date Resolution Date Notes Provider Name and Address Organization Details Recorded Time Cellulitis 424443347 Active Not Available [facility] 3 06:45:12 Chronic back pain 461116336 Active Not Available [facility] 3 06:45:12 Nocturia 140823688 Active Not Available [facility] 3 06:45:12 Abdominal pain 45246959 Active Not Available [facility] 3 06:45:12 Chest pain 40310042 Active Not Available [facility] 3 06:45:12 Knee pain Active Not Available [facility] 3 06:45:12 Bronchitis 35064995 Active Not Available [facility] 3 06:45:12 Osteoarthriti s 385006406 Active Not Available [facility] 3 06:45:12 Hematochezia 540949419 Active Not Available [facility] 3 06:45:12 Gastritis 8922280 Active Not Available [facility] 3 06:45:12 Hyperlipidemi a 89833504 Active 2021 Not Available [facility] 3 06:45:12 Essential hypertension 24509676 Active Not Available [facility] 3 06:45:12 Prediabetes 769518052 Active 2020 Not Available [facility] 3 06:45:12 Sleep apnea 62762703 Active Not Available [facility] 3 06:45:13 Fatigue 01164207 Active Not Available [facility] 3 06:45:13 Gastroesophag eal reflux disease without esophagitis 663092121 Active 2022 Suzette ku MD [address], [address], [place], [address] , [employer] [facility] 3 11:44:04 Low back pain 252924934 Active 2022 Suzette ku MD [address], [place], [address] , [employer] [facility] 3 11:44:09 Chronic obstructive pulmonary disease 28124233 Active 2022 Suzette ku MD [address], [place], [address] , [employer] [facility] 3 11:44:12 Cigarette smoker 91964122 Active 2022 Suzette ku MD [address], [address], [place], [address] , [employer] [facility] 3 11:44:17 Type 2 diabetes mellitus without complication 226451008 Active 2022 Suzette ku MD [address], [place], [address] , [employer] [facility] 3 11:44:22 Diverticuliti s 694161379 Active 2022 Suzette ku MD [address], [place], [address] , [employer] [facility] 3 11:44:27 Leukocytosis 737568477 Active 2022 Suzette ku MD [address], [place], [address] , [place] [facility] [place] [facility] 3 11:44:32 Obstructive sleep apnea syndrome 04380831 Active 2022 Suzette ku MD [address] [facility] [place] [address], [place], [address] , [place] [facility] [place] [facility] 3 12:05:01 Lipoma of back 326873430 Active 2022 Suzette ku MD [address], [place] [address], [place], [address] , [place] [facility] [employer] [facility] 3 10:08:29 Epidermoid cyst of skin 860101637 Active [address] Umer serna MD [address] [facility], [place] [address], [place], [address] , [place] [facility] [employer] [facility] 3 13:33:57 Neck pain 14106595 Active 2023 Suzette ku MD [address] [facility], [place] [address], [place], [address] , [place] [employer] [facility] 4 15:40:09 Coronary arteriosclero sis 33573650 Active 2023 IBAN Donohue, [place] [employer] [facility] 4 08:02:06 Problem Notes None recorded. Procedures Surgical History Date Name Laterality Status Provider Name and Address Organization Details Recorded Time 4 Transitional_Ca re_Management completed Suzette Ortiz MD [address], [facility] [address], [place], [address], [place] [facility] [place] [facility] 12/29/2023 18:19:51 4 Advanced Care Planning completed Edward Dyer LPN [place] [facility] [employer] [facility] 08/13/2023 15:16:36 4 Medicare Wellness CPT Code, Initial completed Edward Dyer LPN [place] [facility] [employer] [facility] [employer] 08/10/2023 19:06:32 3 colonoscopy completed TRESA Ragsdale [facility] 08/13/2023 10:30:29 other completed Megan Blanco MA [facility] 01/06/2023 11:57:56 Cyst Removal completed TRESA Ragsdale [facility] 02/12/2023 09:47:14 Imaging Results None recorded. Procedure Notes None recorded. Medical Equipment None [...] Available Not Available No t Available Fluvirin 9541-0708 45 mcg (15 mcg x 3)/0.5 mL [...] and Address Organization Details Last Updated DateTime 177.8 cm 30.4 kg/m2 69887.5 8 g 96.4 [degF] 69 /min 97 % 97 % 122 mm[Hg] 60 mm[Hg] Pricsa Buchanan MA [employer] 16:58:49 Social History Question Answer Notes LastModified by Organizat ion Details LastModified Time Tobacco Smoking Status Former Smoker Prisca Buchanan MA null, [employer] 12/29/2023 17:00:58 Do You Have An Advance Directive? No [email or web address] Information not available 08/13/2023 What Is Your Level Of Alcohol Consumption? Occasional [id number] Information not available 04/30/2022 Are You Blind Or Do You Have Difficulty Seeing? No [email or web address] Information not available 08/13/2023 What Is Your Level Of Caffeine Consumption? Moderate MIGRATION.23358 46325 Information not available 04/30/2022 How Much Tobacco Do You Chew? None MIGRATION.25963 92436 Information not available 04/30/2022 In The 14 Days Before Symptom Onset, Have You Had Close Contact With A Laboratory-confi rmed COVID-19 While That Case Was Ill? No MIGRATION.[id number] 00595 Information not available 04/30/2022 In The 14 Days Before Symptom Onset, Have You Had Close Contact With A Person Who Is Under Investigation For COVID-19 While That Person Was Ill? No MIGRATION.05121 26426 Information not available 04/30/2022 Are You Currently Employed? No Information not available 08/13/2023 Are You Deaf Or Do You Have Serious Difficulty Hearing? No Information not available 08/13/2023 What Type Of Diet Are You Following? REGULAR MIGRATION.36680 93683 Information not available 04/30/2022 Which Illicit Or Recreational Drugs Have You Used? None MIGRATION.38139 21424 Information not available 04/30/2022 Do You Or Have You Ever Used E-cigarettes Or Vape? Never Used Electronic Cigarettes MIGRATION.64896 69250 Information not available 04/30/2022 What Is The Highest Grade Or Level Of School You Have Completed Or The Highest Degree You Have Received? [id number] Information not available 08/13/2023 What Is Your Occupation? Retired MIGRATION.37175 37063 Information not available 04/30/2022 Have There Been Any Changes To Your Family Or Social Situation? No [email or web address] Information not available 08/13/2023 What Is The Fluoride Status Of Your Home? Unknown [email or web address] Information not available 08/13/2023 Are There Any Guns Present In Your Home? Yes [email or web address] Information not available 08/13/2023 Do You Use Insect Repellent Routinely? No [email or web address] Information not available 08/13/2023 Where Do You Live? SingleLevelHouse Information not available 08/13/2023 Presence Of Domestic Violence No [email or web address] Information not available 08/13/2023 Are You Able To Care For Yourself? Yes [email or web address] Information not available 08/13/2023 Are You Blind Or Do Yo Have Difficulty Seeing? No [email or web address] Information not available 08/13/2023 Are You Deaf Or Do You Have Serious Difficulty Hearing? No [email or web address] Information not available 08/13/2023 General Stress Level? Low [email or web address] Information not available 08/13/2023 Live Alone Of With Others? With Others [email or web address] Information not available 08/13/2023 Do You Have A Medical Power Of Brazer Crawler Torch? No [email or web address] Information not available 08/13/2023 What Was The Date Of Your Most Recent Tobacco Screening? 08/13/2023 Information not available 08/13/2023 What Is Your Current Pack Years? 20-29packyears [email or web address] Information not available 08/13/2023 Have You Ever Been Counseled For Unhealthy Alcohol Use? No Information not available 08/13/2023 Do You Have Any Pets? No Information not available 08/13/2023 What Is Your Relationship Status? [email or web address] Information not available 08/13/2023 Do You Use Your Seat Belt Or Car Seat Routinely? Yes [email or web address] Information not available 07/31/2022 Do You Have Smoke And Carbon Monoxide Detectors In Your Home? Yes [email or web address] Information not available 08/13/2023 Are You Passively Exposed To Smoke? Yes [email or web address] Information not available 08/13/2023 Do You Or Have You Ever Used Smokeless Tobacco? Never Used Smokeless Tobacco MIGRATION.90452 15342 Information not available 04/30/2022 Are There Any Smokers In Your House? Yes [email or web address] Information not available 08/13/2023 How Much Tobacco Do You Smoke? 0.5 PPD [email or web address] Information not available 02/12/2023 Do You Feel Stressed (tense, Restless, Nervous, Or Anxious, Or Unable To Sleep At Night)? DC1263-6 Information not available 06/17/2023 Do You Use Any Illicit Or Recreational Drugs? No [email or web address] Information not available 07/31/2022 Do You Use Sunscreen Routinely? No [email or web address] Information not available 08/13/2023 Has Tobacco Cessation Counseling Been Provided? Yes [email or web address] Information not available 08/13/2023 On What Date Was Tobacco Cessation Counseling Provided? 08/13/2023 [email or web address] Information not available 08/13/2023 Have You Recently Traveled Abroad? No MIGRATION.59325 15869 Information not available 04/30/2022 Do You Have Any Dietary Restrictions? No MIGRATION.65150 04758 Information not available 04/30/2022 Do You Or Have You Ever Used Any Other Forms Of Tobacco Or Nicotine? No [email or web address] Information not available 07/31/2022 How Many Days In The Past Year Have You Consumed 5 Or More Drinks? 0 Information not available 12/29/2023 Sex: Unknown Functional Status Question Answer Note LastModified by Organizat ion Details LastModified Time Do you have difficulty walking or climbing stairs? No [email or web address] Information not available 08/13/2023 Do you have transportation difficulties? No [email or web address] Information not available 08/13/2023 Are you able to walk? YESWOREST [email or web address] Information not available 08/13/2023 Do you have difficulty doing errands alone? No [email or web address] Information not available 08/13/2023 Are you able to care for yourself? Yes [email or web address] Information n ot available 08/13/2023 Do you have difficulty dressing or bathing? No Information not available 08/13/2023 What is your exercise level? Moderate MIGRATION.[id number] 026 Information not available 04/30/2022 Mental Status Question Answer Note LastModified by Organization D etails LastModified Time Do you have difficulty concentrating, remembering or making decisions? No [email or web address] Information no t available 08/13/2023 Family History Relationship Description Onset Age of this Age Resolved Age Notes LastModified by Organization Details LastModified Time Mother Diabetes mellitus [email or web address] Not available 2022 11:57:08 Father Diabetes mellitus [email or web address] Not available 2022 11:57:08 Medical History Condition Response DIVERTICULITIS Y HIGH CHOLESTEROL / HYPERLIPIDEMIA Y BOWEL PROBLEMS Y HYPERTENSION Y Immunizations Vaccine Type Date Status Note Provider Nam e and Address Organization Details Recorded Time Influenza, split virus, quadrivalent, preservative 1 completed Not Available [facility] 04/30/2022 06:49:24 COVID-19, mRNA, LNP-S, PF, 100 mcg/0.5mL dose or 50 mcg/0.25mL dose 1 completed Not Available [facility] 04/30/2022 06:49:24 COVID-19, mRNA, LNP-S, PF, 100 mcg/0.5mL dose or 50 mcg/0.25mL dose 1 completed Not Available [facility] 04/30/2022 06:49:24 Influenza, split virus, quadrivalent, preservative 6 completed Not Available [facility] 04/30/2022 06:49:24 Influenza, split virus, quadrivalent, preservative 0 completed Not Available [facility] 04/30/2022 06:49:24 Influenza, split virus, quadrivalent, PF 7 completed Not Available [facility] 04/30/2022 06:49:24 Influenza, split virus, quadrivalent, PF 8 completed Not Available [facility] 04/30/2022 06:49:24 Influenza, split virus, quadrivalent, PF 5 completed Not Available [facility] 04/30/2022 06:49:24 Influenza, split virus, quadrivalent, preservative 4 completed Not Available [facility] 04/30/2022 06:49:24 Influenza, split virus, trivalent, preservative 3 completed Not Available [facility] 04/30/2022 06:49:24 Past Encounters Encounter ID Performer Location Encounter Start Date Encounter Closed Date Diagnosis/Indication Diagnosis SNOMED-CT Code Diagnosis ICD10 Code [id number] Suzette ku MD [facility] [address] [facility] [address] [place] [address] 12/29/2023 16:46:09 12/29/2023 18:08:22 Neck pain 87110933 M54.2 Screening - NAD 00000799 3 Z13.9 Essential hypertension 79985015 I10 Hyperlipidemia 22511946 E78.5 Gastroesop hageal reflux disease without esophagitis 572117471 K21.9 Low back pain 923453278 M54.50 Chronic ob structive pulmonary disease 17643654 J44.9 Cigarette smoker 9015035 7 F17.210 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 389378479 E11.9 Diverticulitis 383724049 K57.92 Obstructiv e sleep apnea syndrome 77293863 G47.33 Lipoma of back 325549604 D17.1 Transition of care 89870 64138 105 Z75.8 Abdominal aortic aneurysm screening 218748947 Z13.6 Health Concerns Section Related Observation LastModified by Organization Detai ls LastModified Time None Recorded Concern Status LastModified by Organization Details LastModified Time None Recorded Payers Encounter Date Sequence Insurance Name Policy Number Policy Gardner Covered Member ID Gardner Member ID Guarantor Name 12/29/2023 1 [facility] (MEDICARE REPLACEMENT/A DVANTAGE - PPO) [id number] Onel Montero [id number] Onel Montero Notes Date Note Type Note Provider Name and Address Organization Details Recorded Time 12/29/2023 text/html Here to amanda Rey Hx:InsmoniaLBPHTNGE [...] his post hospital f/u, s/p d/c from [facility] on 12/27/2023, for diverticulitis, is doing well now Suzette Ortiz MD [address] [place] [address], [place] [address], [place], [address], [place] [facility] 12/29/2023 18:23:20
--- OUTSIDE RECORDS SUMMARY | 2024-02-27 05:00 | XMS_ITS | Patient Health Summary ---
Author Organization [facility] Address [address] [place] [address] Care Team Providers Care Pig Machine Operator Helper Name Role Phone Suzette Ortiz MD Primary Care Provider Note from [facility],non-owned Affiliates and Associated Physician Practices is amultiple site organization consisting of ambulatory clinics and hospital sitesin [place], [place], [place] and [place]. This disclosure is being madepursuant to the Care Everywhere program and may not contain all information available regarding this patient. Last updated 17.[facility] Allergies * Codeine(Nausea) -Medium Criticality Medications * Be aware that medications may not be up to date on this document. Alwaysverify current medications with the patient. * nisoldipine CR 24hr (SULAR) 20 MG tablet Take 20 mg by mouth daily. * lansoprazole (PREVACID) 30 MG capsule Take 30 mg by mouth daily before breakfast. * hydrocodone-acetaminophen (VICODIN) 5-500 MG tablet Take 1 Tab by mouth every 4 hours as needed for Pain. 1/2 tablet usually for Back pain * methylPREDNISolone (MEDROL DOSEPAK) 4 MG tablet(Started 07/28/2008) Take 1 Tab by mouth as directed. Active Problems Problem Noted Date Diagnosed Date [...] Mass Index 34.44 07/28/2008 5:42 AM CDT Procedures * CT SINUS WO CONTRAST(Performed 03/06/2011) Performed for Unspecified sinusitis (chronic) * CARDIAC EKG ORDER(Performed 07/31/2008) * CARDIAC EKG ORDER(Performed 07/31/2008) * CARDIAC EKG ORDER(Performed 07/29/2008) * PULSE OXIMETRY, CONTINUOUS(Performed 07/28/2008) * OXYGEN(Performed 07/28/2008) * GROSS + MICRO EXAM(Performed 07/28/2008) * GROSS + MICRO EXAM(Performed 07/28/2008) Performed for Vocal Cord Disease NEC * GROSS + MICRO EXAM(Performed 02/14/2008) Results * CT SINUS NON IV CONTRAST (03/06/2011 1:20 PM GRAPHICS MANAGER) Anatomical Region Laterality Modality Head Computed Tomogra phy 03/06/2011 1:26 PM GRAPHICS MANAGER Impressions 03/06/2011 1:39 PM GRAPHICS MANAGER Pansinus disease as described. Narrative 03/06/2011 1:[address] SINUSES NONCONTR[address] CT CORONAL RECONSTRUCTED IMAGES INDICATION: Sinus pain and sinusitis. TECHNIQUE: 2.5 mm axial images through the sinuses with coronal reconstructed images. FINDINGS: There is partial opacification and thickening in the left frontal sinus and right frontal sinus. There is partial opacification of both ethmoid sinuses. There is mucosal thickening in the bilateral maxillary sinuses, with mild thickening of the left sphenoid sinus. No bony destructive process is seen. Procedure Note Radu Herrera MD - 03/06/[address] CORONAL RECONSTRUCTED IMAGES INDICATION: Sinus pain and sinusitis. TECHNIQUE: 2.5 mm axial images through the sinuses with coronal reconstructed images. FINDINGS: There is partial opacification and thickening in the left frontal sinus and right frontal sinus. There is partial opacification of both ethmoid sinuses. There is mucosal thickening in the bilateral maxillary sinuses, with mild thickening of the left sphenoid sinus. No bony destructive process is seen. IMPRESSION Pansinus disease as described. Rajesh Ladd MD CT ORDERABLES * CARDIAC, EKG ORDER (07/31/2008 1:02 PM CDT) Only the most recent of3 resultswithin the time period is included. Narrative 07/31/2008 1:02 PM CDT Ordered by an unspecified provider. Transcriptions Document, Scanned - 07/28/2008 12:00 AM CDT Scanned Document CARDIAC SERVICES ORD ERABLES * GROSS + MICRO EXAM (07/28/2008 8:20 AM CDT) Only the most recent of3 resultswithin the time period is included. Result CASE NUMBER [id number] Comment: ORDERING PHYSICIAN ??RAJESH LADD SPECIMEN TYPE ?Vocal Cord DATE OF PROCEDURE ?07/28/2008 SPECIMEN LABELED ? 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 GROSS DESCRIPTION Two specimens are received in formalin from patient Onel Montero. Part A - left false vocal cord and consists of a tiny fragment of white soft tissue measuring 2 mm in the greatest diameter. The specimen is totally submitted in one cassette labeled A. Part B - right false vocal cord and consists of two small fragments of pink, white soft tissue each measuring approximately 2 mm in diameter. The specimen is totally submitted in one cassette labeled B. Dictated by ?S. Saifee, M.D. MICROSCOPIC DESCRIPTION The biopsy of the left false vocal cord (A) shows a small fragment of mucosa covered by benign squamous epithelium. There is no significant inflammation, epithelial atypia or any evidence of malignancy. Sections of the right false vocal cord biopsy (B) show two small fragments of mucosa covered by benign squamous epithelium. There is edema with vascular congestion and focal hemorrhage in the supporting stroma. No evidence of epithelial atypia or malignancy is noted. 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 Paraffin Plant Sweater Operator ? JOSH REYNA Electronically Signed By ? TOSHA MCCOY MISCELLANEOUS SAMPLES / Unknown 07/28/2008 8:20 AM CDT 07/28/2008 9:58 AM CDT Historical Provider LAB - PATHOLOGY/C YTOLOGY ORDERABLES Care Teams Pig Machine Operator Helper Relationship Specialty Start Date End Date Suzette Ortiz MD [address] [phone] PCP - General 06/17/22
--- OUTSIDE RECORDS SUMMARY | 2024-02-27 05:00 | XMS_ITS | Encounter Summary ---
Author Organization [facility] Address [address] [place] [address] Care Team Providers Care Digital Traffic Coordinator Name Role Phone Unknown, Provider Primary Care Provider Unavaila ble Encounter Details Date Type Department Care Team (Latest Contact Info) Description 03/06/2011 12:01 AM ENGAGEMENT SPECIALIST - 03/06/2011 11:59 PM [facility] Hospital Encounter [facility] Health Imaging Services - CT Scan [facility] [place] [address] Rajesh Ladd MD [address] [place], [place] [id number] Medical Outpatient Discharge Disposition: Home or Self Care Social History Tobacco Use Types Packs/Day Years Used Date Smoking Tobacco: Former Cigarettes 1 04/28/1975 - 02/26/2008 Alcohol Use Standard Drinks/Week Comments Yes 5 (1 standard drink = 0.6 oz pur e alcohol) weekends only Sex and Gender Information Value Date Recorded Sex Assigned at Not on file Gender Identity Not on file Sexual Orientation Not on file documented as of this encounter Medications at Time of Discharge Medication Sig Dispensed Refills Start Date End Date hydrocodone-acetaminophen (VICODIN) 5-500 MG tablet Take 1 Tab by mouth every 4 hours as needed for Pain. 1/2 tablet usually for Back pain lansoprazole (PREVACID) 30 MG capsule Take 30 mg by mouth daily before breakfast. methylPREDNISolone (MEDROL DOSEPAK) 4 MG tablet Take 1 Tab by mouth as directed. 21 0 07/28/2008 nisoldipine CR 24hr (SULAR) 20 MG tablet Take 20 mg by mouth daily. documented as of this encounter Plan of Treatment Not on file documented as of this encounter Visit Diagnoses Diagnosis Chronic maxillary sinusitis Unspecified sinusitis (chronic) documented in this encounter Care Teams Digital Traffic Coordinator Relationship Specialty Start Date End Date Unknown, Provider PCP - General 07/28/08 07/19/13 documented as of this encounter
--- OUTSIDE RECORDS SUMMARY | 2024-02-27 05:01 | XMS_ITS | Encounter Summary ---
Author Organization [facility] Address [address] [place] [address]. [place] [address] [place] [address] Care Team Providers Care Dining Service Supervisor Name Role Phone Unavailable Primary Care Provider Unavailabl e Encounter Details Date Type Department Care Team (Late st Contact Info) Description 10/21/2008 Abstract [facility] [address] 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
--- OUTSIDE RECORDS SUMMARY | 2024-02-27 05:01 | XMS_ITS | Encounter Summary ---
Author Organization [facility] Address [address] [place] [address] Care Team Providers Care Colorer Name Role Phone Unknown, Provider Primary Care Provider Unavaila ble Encounter Details Date Type Department Care Team (Latest Contact Info) Description 03/06/2011 1:00 PM MICROBIOLOGY LAB MANAGER - 03/06/2011 11:59 PM MICROBIOLOGY LAB MANAGER Hospital Encounter [facility] Health Imaging Services - CT Scan [address] [place] [id number] Discharge Disposition: Home or Self Care Social [...] mouth daily. documented as of this encounter Miscellaneous Notes * Miscellaneous Scans - Document, Scanned - 03/17/2011 6:36 PM CST OBIOLOGY LAB MANAGER * Miscellaneous Scans - Document, Scanned - 03/14/2011 5:15 PM CST OBIOLOGY LAB MANAGER documented in this encounter Plan of Treatment Not on file documented as of this encounter Procedures Procedure Name Priority Date/Time Associated Diagnosis Comments CT SINUS WO CONTRAST Routine 03/06/2011 1:20 PM MICROBIOLOGY LAB MANAGER Unspecified sinusitis (chronic) documented in this encounter Results * CT SINUS NON IV CONTRAST (03/06/2011 1:20 PM MICROBIOLOGY LAB MANAGER) Anatomical Region Laterality Modality Head Computed Tomogra phy 03/06/2011 1:26 PM MICROBIOLOGY LAB MANAGER Impressions 03/06/2011 1:39 PM MICROBIOLOGY LAB MANAGER Pansinus disease as described. Narrative 03/06/2011 1:[address] LAB MANA[address] CT SINUSES NONCONTRAST CT CORONAL RECONSTRUCTED [...] as described. Rajesh Ladd MD CT ORDERABLES documented in this encounter Visit Diagnoses Diagnosis Unspecified sinusitis (chronic) documented in this encounter Care Teams Colorer Relationship Specialty Start Date End Date Unknown, Provider PCP - General 07/28/08 07/19/13 documented as of this encounter
--- OUTSIDE RECORDS SUMMARY | 2024-02-27 05:01 | XMS_ITS | Encounter Summary ---
Author Organization [facility] Address [address] [place] [address] Care Team Providers Care Sign Language Interpreter Name Role Phone Unknown, Provider Primary Care Provider Unavaila ble Encounter Details Date Type Department Care Team (Late st Contact Info) Description 02/14/2008 Orders Only [facility] [address] [place] [id number] ProviderJolie MD Social History Tobacco Use Types Packs/Day Years Used Date Smoking Tobacco: Never Assessed Sex and Gender Information Value Date Recorded Sex Assigned at Not on file Gender Identity Not on file Sexual Orientation Not on file documented as of this encounter Plan of Treatment Not on file documented as of this encounter Procedures Procedure Name Priority Date/Time Associated Diagnosis Comments GROSS + MICRO EXAM [facility] 07/28/2008 8: 20 AM CDT GROSS + MICRO EXAM [facility] 02/14/2008 6: 17 PM COMPANY DRIVER documented in this encounter Results * GROSS + MICRO EXAM (07/28/2008 8:20 AM CDT) Result CASE NUMBER [id number] Comment: ORDERING PHYSICIAN ??JUDE CALLAHAN SPECIMEN TYPE ?Vocal Cord DATE OF PROCEDURE [...] in one cassette labeled B. Dictated by ?Poornima Mccoy M.D. MICROSCOPIC DESCRIPTION The biopsy of the [...] focal hemorrhage Dictated by ?Poornima Mccoy M.D. Public Relations Consultant ? JOSH REYNA Electronically Signed By ? TOSHA MCCOY MISCELLANEOUS SAMPLES / Unknown 07/28/2008 8:20 AM CDT 07/28/2008 9:58 AM CDT Historical Provider LAB - PATHOLOGY/C YTOLOGY ORDERABLES * GROSS + MICRO EXAM (02/14/2008 6:17 PM COMPANY DRIVER) Result CASE NUMBER [id number] Comment: ORDERING PHYSICIAN ??BRITTNY GALLAGHER SPECIMEN TYPE ?Gallbladder Date ? 02/15/2008 Physician ?Elia, T Gross Description ? The specimen is received in Formalin labeled with the patient's name, Onel Montero, and gallbladder. ??It consists of a 7 cm in length and up to 2.5 cm in diameter previously opened congested green giron gallbladder. ??The serosa is smooth with some attached fat. ??No lymph node appears associated with the specimen. ??The lumen contains green bile and a 3 x 2 x 1 mm aggregate of green black giron like possible calculi. ??The gallbladder wall ranges from 1-2 mm in thickness. ??The mucosa is congested dark green and smooth. ??Supervisor In Circuit Testing sections of the specimen, including the cystic duct margin, are submitted in a single cassette. LW georges Microscopic Exam ? Sections show gallbladder with focal mild chronic inflammation. Dysplasia or malignancy is not seen. MC/bk Diagnosis ? I. ?Gallbladder, cholecystectomy -- ?Cholelithiasis with mild chronic ?cholecystitis. MC/bk Public Relations Consultant ? bk Pathologist ?Ej Suárez M.D. [place]. ?02/16/2008 0930 <2> CPT code ? 78838 MISCELLANEOUS SAMPLES / Unknown 02/14/2008 6:17 PM COMPANY DRIVER 02/15/2008 7:47 AM COMPANY DRIVER Historical Provider LAB - PATHOLOGY/C YTOLOGY ORDERABLES documented in this encounter Visit Diagnoses Not on filedocumented in this encounter Care Teams Sign Language Interpreter Relationship Specialty Start Date End Date Unknown, Provider PCP - General 07/28/08 07/19/13 documented as of this encounter
--- OUTSIDE RECORDS SUMMARY | 2024-02-27 05:01 | XMS_ITS | Encounter Summary ---
Author Organization [facility] Address [address] [place] [address]. 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
--- OUTSIDE RECORDS SUMMARY | 2024-02-27 05:01 | XMS_ITS | Encounter Summary ---
Author Organization [facility] Address [address] [place] [address] Care Team Providers Care Tip Cementer Name Role Phone Unknown, Provider Primary Care Provider Unavaila ble Encounter Details Date Type Department Care Team (Latest Contact Info) Description 07/28/2008 12:01 AM CDT - 07/28/2008 10:40 AM CDT Hospital Encounter [facility]– [place]note 2[place] - [facility] [address] [place] [address] Rajesh Ladd MD [address] [facility] [address] [place], [place] [id number] Surgery General Discharge Disposition: Home or Self Care Social [...] on file documented as of this encounter Last Filed Vital Signs Vital Sign Reading [...] Mass Index 34.44 07/28/2008 5:42 AM CDT documented in this encounter Discharge Instructions * Discharge Instructions* Amy Hobson, RN - 07/28/2008 9:40 AM CDT Discharge Instructions for: Onel Montero UNREVIEWED medications nisoldipine CR 24hr (SULAR) 20 MG tablet Take 20 mg by mouth daily. lansoprazole (PREVACID) 30 MG capsule Take 30 mg by mouth daily before breakfast. hydrocodone-acetaminophen (VICODIN) 5-500 MG tablet Take 1 Tab by mouth every 4 hours as needed for Pain. 1/2 tablet usually for Back pain START taking these medications methylPREDNISolone (MEDROL DOSEPAK) 4 MG tablet Take 1 Tab by mouth as directed. Qty: 21 Refills: 0 propoxyphene napsylate-acetaminophen (DARVOCET N-100) 100-650 MG tablet Take 1 Tab by mouth every 4 hours as needed for Pain. Qty: 10 Refills: 0 Discharge Procedure Orders GENERAL ANESTHESIA /IV SEDATION INSTRUCTIONS For the remainder of the day, plan to relax. A feeling of dizziness, light- headedness or drowsinessis not unusual. Move cautiously, fast movements can make this feeling worse. If you have been lyingdown, sit up slowly and pause briefly before standing. We strongly suggest that a responsible adultbe with you until tomorrow AM for your comfort and safety. DISCHARGE ACTIVITY RESTRICTIONS Light activity. Increase activity tomorrow as tolerated. DO NOT DRIVE Do not drive or operate hazardous machinery for the next 24 hours or while taking prescription painmedication. Order Specific Question Answer Comments For how long? Three days RETURN TO WORK Order Specific Question Answer Comments after... Two days MEDICATION INSTRUCTIONS Take prescribed pain medications as needed. MEDICATION INSTRUCTIONS May take [id number] medication for relief of pain or discomfort. REGULAR DIET AT HOME Resume normal diet as tolerated. PATIENT TO CALL PHYSICIAN FOR APPOINTMENT See physician in 7-14 days. Bring all medications to next visit. CALL PHYSICIAN If you experience excessive or abnormal bleeding, increased redness around incision, persistant or increasing pain not relieved with medication, or foul smelling or unusual discharge from incision CALL PHYSICIAN For any perisistant nausea or vomiting, difficulty breathing, fever over 101.1 degrees, unstable blood pressure or agitation. NO ALCOHOLIC BEVERAGES For the next 24 hours or while taking pain medication. ADDITIONAL DRESSING INSTRUCTIONS Voice rest for ten days. Do not smoke. Avoid second hand smoke. The following belonging have been returned to you Clothing Clothing: Yes With Patient: Shirt;Pants;Footwear;Undergarments (with ) Jewelry Jewelry: None Electronics Electronic Items: None Dentures Dentures/Retainers: None Vision Visual Aids: None Hearing Aids Hearing Aids: None Equipment/Assistive Devices Equipment with Patient: None Equipment At Home: None Home Medications Home Medications: None Miscellaneous Belongings Miscellaneous Items: None Monetary Monetary Items: None WEIGHT MONITORING - If you have heart failure, weigh yourself every morning. Contact your physician if your weight increases by 3 pounds in 1 day OR 5 pounds in 1 week. WHAT TO DO IF SYMPTOMS WORSEN - Contact your physician if you have shortness of breath/difficulty breathing, or any swelling of your legs, ankles or feet. The discharge and medication instructions have been reveiwed with me and my questions have been answered. I have received a copy of the discharge instructions. 07/28/2008 * Discharge Instructions* Document, Scanned - 07/28/2008 12:00 AM CDT documented in this encounter Medications at Time of Discharge Medication Sig Dispensed Refills Start Date End Date hydrocodone-acetaminophe n (VICODIN) 5-500 MG tablet Take 1 Tab [...] tablet Take 20 mg by mouth daily. propoxyphene napsylate-acetaminophen (DARVOCET N-100) 100-650 MG tablet Take 1 Tab by mouth every 4 hours as needed for Pain. 10 0 07/28/2008 07/31/2008 documented as of this encounter Progress Notes * Angel Branch CRNA - 07/28/2008 7:08 AM CDT Awake Fiberoptic Intubation 07/28/2008 Fiberoptic equipment checked pre-procedure. Oxygen at 10 LPM per facemask prior to OR entry. To OR #4. Transferred to OR table. Full monitors applied. Lidocaine 4% gargle x 2. IV Versed and Propofol to titration. Spontaneous ventilations maintained. VSS throughout procedure. Ovasapian airway placed, 7.0 ETT lubricated and placed on adult FOB, FOB placed through airway and passed in hypopharynx. Initially, soft tissues obscured view so O2 was administered through suction channel to open airways. The FOB was then noted to be in the esophagus, was withdrawn and redirected more anteriorly. Vocal chords were seen and passed, and the mainstem bronchi visualized. The 7.0 ETT was then advanced using clockwise twisting to pass the chords. TheETT was secured approximately 2cm above leon, EtCO2 confirmed. BS=B. Sevoflurane agent on. Tube and Eyes taped. * Chadd Juarez MD - 07/28/2008 6:20 AM CDT Anesthesia Summary Onel Montero is a 53 y.o. male Purpose: Scheduled Procedure: Microlaryngoscopy with Biopsy [facility] Problem List There is no problem list on file for this patient. Allergies Codeine Past Medical History Diagnosis Date ??? Acid Reflux ??? HYPERTENSION was fluctuating ??? 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 Sleep Apnea ??? Sinus Trouble ??? Nasal Fracture History of ??? Low Back Pain Meds Prescriptions prior to admission Medication Sig Dispense Refill ??? nisoldipine CR 24hr (SULAR) 20 MG tablet Take 20 mg by mouth daily. ??? lansoprazole (PREVACID) 30 MG capsule Take 30 mg by mouth daily before breakfast. ??? hydrocodone-acetaminophen (VICODIN) 5-500 MG tablet Take 1 Tab by mouth every 4 hours as neededfor Pain. 1/2 tablet usually for Back pain Past Medical History Past Medical History Diagnosis Date ??? Acid Reflux ??? HYPERTENSION was fluctuating ??? 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 Sleep Apnea ??? Sinus Trouble ??? Nasal Fracture History of ??? Low Back Pain Past Surgical History Past Surgical History Procedure Date ??? Other surgery Surgery for stomach Ulcer that ruptured ??? Other surgery Skin graft on ankle ??? Colonoscopy ??? Egd 12/2007 ??? Cholecystectomy 02/14/2008 BP went high a couple times after that Past Social History History Social History ??? Marital Status: Spouse Name: N/A Number of Children: N/A ??? Years of Education: N/A Occupational History ??? Not on file. Social History Main Topics ??? Tobacco Use: Quit -- for 32 years Quit date: 02/26/2008 ??? Alcohol Use: 3 oz/week 6 drinks per week weekends only ??? Drug Use: No ??? Sexually Active: Not on file Other Topics Concern ??? Not on file Social History Narrative ??? No narrative on file Last Vital Signs VITAL SIGNS Temp: 98.2 ??F Pulse: 74 Resp: 16 BP: 151/97 mmHg Weight: 240 lb (108.863 kg) Height: 5' 10 (177.8 cm) SpO2: 100 % Pre-Eval Exam PREVIOUS REVIEW I reviewed previous documentation: Yes PHYSICAL EXAM NPO status: Since Midnight;Except Oral meds with H2O Heart Sounds: S1 S2 Respiratory Pattern/Effort: CTA Oriented x 3: Yes Teeth: Chipped Airway Class: III (presents with difficult airway letter suggesting FOI) ANESTHESIA ASA: II Anesthesia Choices: General Post-Op: PACU PRE-EVAL REVIEW I have reviewed all previously documented physician evaluations: (c/o CP this AM, likely anxiety, will check EKG prior to surg) Post-op Evaluation * Fallon Figueroa RN - 07/27/2008 1:31 PM CDT Notified Diamond in scheduling and Dr. Bosch of anesthesia about pt. History of awake fiberoptic intubation. At Dr. Bosch's request, called [phone] and anesthesia room personnel advised they will need tohave bronch/awake intubation cart in OR [address] Ladd's first case. documented in this encounter H&P Notes * Document, Scanned - 07/28/2008 12:00 AM CDT documented in this encounter Procedure Notes * Document, Scanned - 07/28/2008 12:00 AM CDTAssociated Order(s): CARDIAC, EKG ORDER * Document, Scanned - 07/28/2008 12:00 AM CDTAssociated Order(s): CARDIAC, EKG ORDER * Document, Scanned - 07/28/2008 12:00 AM CDTAssociated Order(s): CARDIAC, EKG ORDER documented in this encounter OR Notes * Operative - Rajesh Ladd MD - 07/28/2008 12:[facility] SURGERY DATE: 07/28/2008 SURGEON: Rajesh Ladd M.D. 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 ANESTHESIA: General. OPERATIVE NOTE: Informed consent was obtained. The patient was taken to the operating room, placed on the operating table in supine position, and was allowed to fall asleep with mask anesthesia. Repair was somewhat difficult, but controlled with a fiberoptic endoscopy by Anesthesia and intubated without significant difficulty and certainly no airway compromise. Once intubated, the tube was secured to the left. He was rotated in 90 degrees from the anesthesia monitors. He was prepped and draped in the usual sterile fashion. An upper tooth guard was placed. A Ara Storz laryngoscope was carefully inserted in the oral cavity without any teeth or surrounding structures. After careful bimanual examination, the upper leaf was placed into the vallecula. This was then suspended from a Storz suspension device and the tongue elevated anteriorly. The posterior arytenoids could easily be seen, but the glottic inlet that was somewhat difficult to visualize. Consequently, the remainder of the procedure was performed using endoscopes both 0 and 30 degree. The lesion in question was seen, which appeared to be polypoid emanating from the left ventricle and/or false vocal cord. There was high erythematous lesion on the right side as well. Using micro laryngeal instruments and the endoscope, these lesions were biopsied followed by placement of adrenaline on a neurosurgical pledgets. The glottic inlet was inspected as was the remainder of the piriform sinuses and hypopharynx. No masses or lesions were seen. Consequently, the scope was removed and without any teeth and surrounding soft tissue structures. He was returned back to Anesthesia and allowed to recover from anesthesia, and extubated and taken to PAR having tolerated the procedure well. IV fluids 900 mL. documented in this encounter Miscellaneous Notes * Miscellaneous Scans - Document, Scanned - 07/28/2008 12:00 AM CDT * Miscellaneous Scans - Document, Scanned - 07/28/2008 12:00 AM CDT * Miscellaneous Scans - Document, Scanned - 07/28/2008 12:00 AM CDT * Miscellaneous Scans - Document, Scanned - 07/28/2008 12:00 AM CDT * Miscellaneous Scans - Document, Scanned - 07/28/2008 12:00 AM CDT * Miscellaneous Scans - Document, Scanned - 07/28/2008 12:00 AM CDT * Miscellaneous Scans - Document, Scanned - 07/28/2008 12:00 AM CDT documented in this encounter Plan of Treatment Not on file documented as of this encounter Procedures Procedure Name Priority Date/Time Associated Diagnosis Comments CARDIAC EKG ORDER 07/31/2008 1:0 2 PM CDT CARDIAC EKG ORDER 07/31/2008 7:5 6 AM CDT CARDIAC EKG ORDER 07/29/2008 3:3 0 PM CDT OXYGEN Routine 07/28/2008 8:51 AM CDT PULSE OXIMETRY, CONTINUOUS Routine 07/28/2008 8:51 AM CDT GROSS + MICRO EXAM STAT 07/28/2008 8: 20 AM CDT Vocal Cord Disease NEC documented in this encounter Results * CARDIAC, EKG ORDER (07/31/2008 1:02 PM CDT) Narrative 07/31/2008 1:02 PM CDT Ordered by an unspecified provider. Transcriptions Document, Scanned - 07/28/2008 12:00 AM CDT Scanned Document CARDIAC SERVICES ORD ERABLES * CARDIAC, EKG ORDER (07/31/2008 7:56 AM CDT) Narrative 07/31/2008 7:56 AM CDT Ordered by an unspecified provider. Transcriptions Document, Scanned - 07/28/2008 12:00 AM CDT Scanned Document CARDIAC SERVICES ORD ERABLES * CARDIAC, EKG ORDER (07/29/2008 3:30 PM CDT) Narrative 07/29/2008 3:30 PM CDT Ordered by an unspecified provider. Transcriptions Document, Scanned - 07/28/2008 12:00 AM CDT Scanned Document CARDIAC SERVICES ORD ERABLES * GROSS + MICRO EXAM (07/28/2008 8:20 AM CDT) [facility] Date of Procedure 07/28/08 [facility] Specimen Labeled A)L false vocal cord, B) R false vocal cord [facility] Pre-Op Diagnosis Laryngeal mass [facility] Gross Description [facility] Comment: GROSS DESCRIPTION Two specimens are received in [...] in one cassette labeled B. Dictated by ?? Poornima Mccoy M.D. MICROSCOPIC DESCRIPTION The biopsy of [...] vascular congestion and focal hemorrhage Dictated by ?? Poornima Mccoy M.D. Industrial Twisting Machine Operator JOSH REYNA, [facility] Pathologist , [facility] Electronically Signed By TOSHA MCCOY, [facility] ENTIRE VOCAL CORD / Unknown 07/28/2008 8:20 AM CDT 07/28/2008 9:58 AM CDT Narrative [facility] - 07/29/2008 11:55 AM CDT Left False Biopsy Rajesh Ladd MD LAB - PATHOLOGY/CYTO LOGY ORDERABLES [facility] [address] [place] [address] documented in this encounter Visit Diagnoses Diagnosis Chest pain Chest pain, unspecified Vocal cord disease NEC Other diseases of vocal cords documented in this encounter Administered Medications Inactive Administered Medications - up to 3 most recent administrations Medication Order MAR Action Action Date Dose Rate Site lactated ringers infusion at 20 mL/hr, Intravenous, PRE-OP CONTINUOUS, Until 07/29/08 at 0104 $ Given 07/28/2008 5:45 AM CDT 20 mL/hr lidocaine (XYLOCAINE) 1 % injection Infiltration, PRE-OP ONCE, 1 dose, May be used (0.2 ml locally to anesthetize prior to insertion if patient has NKA to Lidocaine). Buffered with sodium bicarbonate (NaHCO3). $ Given 07/28/2008 5:45 AM CDT 20 mL documented in this encounter Active and Recently Administered Medications Times are shown in CDT. Scheduled Medication Order 07/26/2008 07/27/2008 07/28/2008 lidocaine (XYLOCAINE) 1 % injection (COMPLETED) Infiltration, PRE-OP ONCE, 1 dose, May be used (0.2 ml locally to anesthetize prior to insertion if patient has NKA to Lidocaine). Buffered with sodium bicarbonate (NaHCO3). 0545 ($ Given - Prov ider: Amy Hobson RN) Continuous Medication Order 07/26/2008 07/27/2008 07/28/2008 lactated ringers infusion (CANCELED) at 20 mL/hr, Intravenous, PRE-OP CONTINUOUS, Until 07/29/08 at 0104 0545 ($ Given - Prov ider: Amy Hobson RN) documented in this encounter Care Teams Tip Cementer Relationship Specialty Start Date End Date Unknown, Provider PCP - General 07/28/08 07/19/13 documented as of this encounter
--- OUTSIDE RECORDS SUMMARY | 2024-02-27 05:01 | XMS_ITS | Clinical Summary ---
Author Organization [facility] Address [facility] [facility]. [place], [place] [id number] [place] [id number] Care Team Providers Care Biscuitware Brusher Name Role Phone Unavailable Primary Care Provider Unavailabl e Social History Tobacco Use Types Packs/Day Years Used Date Smoking Tobacco: Never Assessed Sex and Gender Information Value Date Recorded Sex Assigned at Not on file Legal Sex Male 5:49 PM ATTENDING PHYSICIAN Gender Identity Not on file Sexual Orientation Not on file Plan of Treatment Health Maintenance Due Date Last Done Comments Colorectal Cancer Screening Colonoscopy (10 Years) 1957 Hepatitis C 1975 DTaP, Tdap and Td Vaccines ( 1 - Tdap) 1976 Zoster Vaccines (1 of 2) 2007 Pneumococcal Vaccine: 65+ Ye ars (1 of 1 - PCV) 2022 COVID-19 Vaccine ( - 2023-2 5 season) 2023 Influenza Adult (#1) 2023 RSV Immunization or 60+ Years (1 - 1-dose 75+ series) 2032 Meningococcal Vaccine Aged Out No parminder deedee eligible based on patient's age to complete this topic RSV Immunizations Under 20 Months Aged Out No longer eligible based on patient's age to complete this topic
--- OUTSIDE RECORDS SUMMARY | 2024-02-27 05:01 | XMS_ITS | CONTINUITY OF CARE DOCUMENT ---
Author Name snow adamson Address Unknown Organization [facility] Address [address] [place] [address] Phone [phone] Care Team Providers Care Business Continuity Analyst Name Role Phone Abraham Sears MD Unavailable [phone] REYNALDO TIERNEY, VANESSA Unavailable [phone] VANESSA JACOBS MD Unavailable PROBLEMS Condition Status Date Provider Notes Hypertension active Raquel Garcia Shortness of breath active Raquel Garcia Chest pain active Raquel Garcia Dyslipidemia active Abraham Sears MD GERD active Abraham Sears MD Obesity active Abraham Sears MD Tobacco abuse, quit active Abraham Sears MD SLEEP APNEA - ON CPAP active Abraham Sears MD Perforation of colon active Abraham Sears MD Coronary atherosclerosis, CA C score 5 active Abraham Sears MD Palpitations completed - Malick Mujica ENCOUNTERS Date Type Provider Location Encounter Diag nosis - In-person encounter Office Visit Abraham Sears MD [facility] - In-person encounter Office Visit Abraham Sears MD [facility] Tobacco abuse, quitPerforation of colonCoronary atherosclerosis, CAC score 5 - In-person encounter Office Visit Abraham Sears MD [facility] - In-person encounter Office Visit Abraham Sears MD [facility] - In-person encounter Office Visit Abraham Sears MD [facility] PalpitationsDyslipidemiaGERDObesityTobac co abuse, quitSLEEP APNEA - ON CPAP VITAL SIGNS Date Observation Value Provider Body Mass Index (Ratio) 31.13 kg/m2 Grah am Oni blood pressure, diastolic 82 mm[Hg] Li nkLogic blood pressure, systolic 148 mm[Hg] Mercedez kLogic pulse rate 66 /min Michael y blood pressure, cuff size regular Ja rret blood pressure, diastolic 82 mm[Hg] Ja rret blood pressure, systolic 148 mm[Hg] Jar ret oxygen saturation, oximetry 98 % respiratory rate E&M 12 /min weight E&M 217 [lb_av] Michael y height E&M 70 [in_i] Michael y Body Mass Index (Ratio) 33.00 kg/m2 Marcos Smith blood pressure, diastolic 80 mm[Hg] St ephanie Palatine blood pressure, systolic 118 mm[Hg] Bogdan phanie Kris blood pressure, cuff size large St ephanie oxygen saturation, oximetry 97 % Juliana Kris respiratory rate E&M 16 /min Eliecer lebron Palat[place] pulse rate 80 /min Juliana Fuentesma n weight E&M 230 [lb_av] Juliana Lohma n height E&M 70 [in_i] Juliana Lohma n Body Mass Index (Ratio) 34.00 kg/m2 Brit shilpi Jacobsmeyer blood pressure, diastolic 90 mm[Hg] Ri lela Jones blood pressure, systolic 163 mm[Hg] Duane sunny Jones blood pressure, cuff size large Ri lela Jones oxygen saturation, oximetry 96 % Tracey Jones respiratory rate E&M 16 /min Scottie Jones pulse rate 92 /min Tracey Navarro son weight E&M 237 [lb_av] Tracey Navarro son height E&M 70 [in_i] Tracey Navarro son Body Mass Index (Ratio) 33.86 kg/m2 Rod Alisha blood pressure, diastolic 93 mm[Hg] Li nkLogic blood pressure, systolic 165 mm[Hg] Mercedez kLogic blood pressure, diastolic 93 mm[Hg] Ke [facility] blood pressure, systolic 165 mm[Hg] Zahida ri [facility] blood pressure, cuff size large Ke rri [facility] oxygen saturation, oximetry 98 % Roberta Grvanessanenfbrightlook hospitaler respiratory rate E&M 16 /min Roberta G alciraenenfbrightlook hospitaler pulse rate 89 /min Roberta Gruenenfe er weight E&M 236 [lb_av] Roberta Gruenenfe er height E&M 70 [in_i] Roberta Gruenenfe er Body Mass Index (Ratio) 35.06 kg/m2 Jd Mujica blood pressure, resting Yes Zuleyma Bell blood pressure, diastolic, left arm 93 mm [Hg] Shanta Bell blood pressure, systolic, left arm 154 mm [Hg] Shanta Bell blood pressure, diastolic, right arm 88 m m[Hg] Shanta Bell blood pressure, systolic, right arm 145 m m[Hg] Shanta Bell blood pressure, diastolic 88 mm[Hg] Dori Bell blood pressure, systolic 145 mm[Hg] Karo Bell oxygen saturation, oximetry 98 % Shanta Bell respiratory rate E&M 20 /min Susan Bell pulse rate 84 /min ShantaAve gurrola weight E&M 244.4 [lb_av] Shanta lubin height E&M 70 [in_i] Shanta gurrola ALLERGIES No Known Drug Allergies RESULTS Date Observation Value Provider Reference Range Interpretation Location thyroid stimulating hormone, serum 1.850 u[IU]/mL [facility] thyroxine, serum, free 0.97 ng/dL [facility] triglyceride, serum, fasting 85 mg/dL [facility] HDL cholesterol, serum 49 mg/dL [facility] cholesterol, serum 159 mg/dL [facility] protein, total, serum 7.0 g/dL [facility] albumin, serum 4.3 g/dL [facility] bilirubin, serum, total 0.40 mg/dL [facility] alkaline phosphatase, serum 51 1/L [facility] alanine aminotransferase (SGPT), serum 23 1/L [facility] aspartate aminotransferase (SGOT), serum 23 1/L [facility] calcium, serum 9.1 mg/dL [facility] blood glucose, random 107 mg/dL [facility] creatinine, serum 0.65 mg/dL [facility] urea nitrogen, blood 15 mg/dL [facility] carbon dioxide, serum, total 28 mmol/L [facility] chloride, serum 106 mmol/L [facility] potassium, serum 4.5 mmol/L [facility] sodium, serum 143 mmol/L [facility] platelet count 256 10*3/uL [facility] red blood cell distribution width 13.2 % [facility] mean corpuscular hemoglobin concentration, RBC 32.7 g/dL [facility] mean corpuscular hemoglobin, RBC 30.4 pg [facility] mean corpuscular volume, RBC 92.9 fL [facility] hematocrit, blood 44.6 % [facility] hemoglobin, blood 14.6 g/dL [facility] erythrocyte (RBC) count 4.80 10*6/mm3 [facility] leukocyte count, blood 8.4 10*3/mm3 [facility] LDL cholesterol, serum 93 mg/dL [facility] pro brain natriuretic peptide 73 pg/mL Link[facility] 0-210 troponin I <0.01 ng/mL [facility] 0.00-0.04 HISTORY OF MEDICATION USE Medication Status Instructions Dates Provider Indications Com ments lisinopril 20 mg tablet active TAKE 1 TABLET BY MOUTH ONCE DAILY 1 Soheilaelmira Lange lisinopril 20 mg tablet completed Take 1 tablet by mouth once a day 5 - 1 Michael suzie nisoldipine 8.5 mg tablet extended release 24 hr completed - 2 Juliana Ponce atorvastatin 20 mg tablet completed Take 1 tablet by mouth every evening - 9 Natalia Jimenez Tricor 145 mg tablet completed Take 1 tablet by mouth once daily - 9 Natalia Jimenez Sular 8.5 mg tablet extended release 24 hr completed 1 tablet by mouth twice a day - 2 Abraham Sears MD Prevacid 30 mg capsule,delayed release(DR/EC) completed Take 1 tablet by mouth once a day - 9 Natalia Jimenez SOCIAL HISTORY Date Observation Value Provider number of years as a smoker 40 a Abraham Sears MD smoking history, tot al pack/day 1 Abraham Sears MD cigarette use yes Abraham Sears MD smoking status Former smoker Abraham Sears MD number of grandchildren Abraham Sears MD social history E&M S moking History: Kameron kathleen is a former smoker. Abraham Sears MD social history reviewed E&M revi ewed - no changes required Abraham Sears MD number of years as a smoker 40 a Juliana Ponce smoking history, tot al pack/day 1 Juliana Ponce cigarette use yes Juliana potts smoking status Former smoker Juliana patel social history E&M S moking History: P frannie currently smokes every day. P frannie has been counseled to quit. Abraham Sears MD social history reviewed E&M revi ewed - no changes required Abraham Sears MD smoking/tobacco cess ation, patient education and counseling yes Tracey Jones number of years as a smoker 40 a Tracey Jones smoking history, tot al pack/day 1 Tracey Jones cigarette use yes Tracey Marion mikael smoking status Current every day smoker R waldo Jones social history E&M S moking History: P frannie currently smokes every day. P frannie has been counseled to quit. Rod Brito social history reviewed E&M revi ewed - no changes required Rod Brito smoking/tobacco cess ation, patient education and counseling yes Roberta Lara number of years as a smoker 40 a Roberta Lara smoking history, tot al pack/day 1 Roberta Lara cigarette use yes Rboerta monterroso smoking status Current every day smoker K lucy Straussnenfelder social history E&M Smoking Histo ry: P frannie currently smokes every day. P frannie has been counseled to quit. Abraham Sears MD social history reviewed E&M revi ewed - no changes required Abraham Sears MD smoking/tobacco cess ation, patient education and counseling yes Abraham Sears MD number of years as a smoker 40 a Shanta Bell smoking history, tot al pack/day 1 Shanta Bell cigarette use yes Shanta Shi tristian smoking status Current every day smoker Jenna Estee Bell FUNCTIONAL STATUS Date Observation Value Provider HRA, CV Assess/Plan, Angina (inactive) Management Plan continue current therapy Everett Ramsayinari FAMILY HISTORY Family Member Condition Mother Family History of Di abetes: INSURANCE PROVIDERS Payer name Policy type / Coverage type [place] [employer] party ID U[employer] GRP MEDICARE ADVANTAGE PLAN (PPO) Medicare [id number] ADVANCE DIRECTIVES Name Date DISCUSSED - NO DECISION MADE TREATMENT PLAN Date Name Performer [id number],B, Patrick Smith [id number],S, T he pt is using CPAP machine at home. He underwent home sleep study while the machine was on, which showed a few events that did not constitute the diagnosis of EFREN, indicating that the treatment is effective. Patrick Smith [id number],S, H is updated medication list for this problem includes: Atorvastatin 20 Mg Tablet (Atorvastatin) Tricor 145 Mg Tablet (Fenofibrate nanocrystallized) ..... 1 tablet by mouth once a day Patrick Smith [id number],S, N o angina. The following medications were removed from the medication list: Sular 8.5 Mg Tablet Extended Release 24 Hr (Nisoldipine) ..... 1 tablet by mouth twice a day Nisoldipine 8.5 Mg Tablet Extended Release 24 Hr (Nisoldipine) His updated medication list for this problem includes: Lisinopril 20 Mg Tablet (Lisinopril) ..... Take 1 tablet by mouth once a day Patrick Smith [id number],B, B P today: 118/80 P rior BP: 163/90 (01/20/2022) The following medications were removed from the medication list: Sular 8.5 Mg Tablet Extended Release 24 Hr (Nisoldipine) ..... 1 tablet by mouth twice a day Nisoldipine 8.5 Mg Tablet Extended Release 24 Hr (Nisoldipine) His updated medication list for this problem includes: Lisinopril 20 Mg Tablet (Lisinopril) ..... Take 1 tablet by mouth once a day Patrick Smith [id number],C, W eight loss advised Abraham Sears MD [id number],C, P atient was advised to stop smoking. A AA was normal Abraham Sears MD [id number],C, H is updated medication list for this problem includes: Atorvastatin 20 Mg Tablet (Atorvastatin) Tricor 145 Mg Tablet (Fenofibrate nanocrystallized) ..... 1 tablet by mouth once a day Abraham Sears MD [id number],C,. Will increase Lisinopril to 20 mg daiy and may need to further increase for better BP control. B P today: 163/90 P rior BP: 165/93 (12/16/2021) Labs Reviewed: C reat: 0.65 (10/20/2018) C hol: 159 (10/20/2018) HDL: 49 (10/20/2018) LDL: 93 (10/20/2018) T (10/20/2018) His updated medication list for this problem includes: Lisinopril 20 Mg Tablet (Lisinopril) ..... Take 1 tablet by mouth every day Nisoldipine 8.5 Mg Tablet Extended Release 24 Hr (Nisoldipine) Sular 8.5 Mg Tablet Extended Release 24 Hr (Nisoldipine) ..... 1 tablet by mouth twice a day Abraham Sears MD [id number],C, Echo showed normal EF with dilated LA. CT coronary calcium score was 5. AAA duplex was negative. Will increase Lisinopril to 20 mg daiy and may need to further increase for better BP control. Abraham Sears MD [id number],C, Echo showed normal EF with dilated LA. CT coronary calcium score was 5. AAA duplex was negative. Will increase Lisinopril to 20 mg daiy and may need to further increase for better BP control. H is updated medication list for this problem includes: Lisinopril 20 Mg Tablet (Lisinopril) ..... Take 1 tablet by mouth every day Nisoldipine 8.5 Mg Tablet Extended Release 24 Hr (Nisoldipine) Sular 8.5 Mg Tablet Extended Release 24 Hr (Nisoldipine) ..... 1 tablet by mouth twice a day Abraham Sears MD [id number],C,T he pt is using CPAP machine at home. He underwent home sleep study while the machine was on, which showed a few events that did not constitute the diagnosis of EFREN, indicating that the treatment is effective. Abraham Sears MD [id number],C,P atient was advised to stop smoking. Check AAA Rod Brito [id number],C,C heck echo to assess EF. Calcium score to evaluate for CAD Rod Brito [id number],C,n o CP or SOB. Check echo to assess EF. Calcium score to evaluate for CAD Rod Brito [id number],C, Will enroll him in RPM to monitor his BP. D iscussion of benefits for remote patient monitoring took place. Patient gives consent for remote monitoring of physiologic parameters including, but not limited to, weight, blood pressure, pulse oximetry, respiratory flow rate. Rod Brito [id number],C,check in home sleep study Rod Rafaelelio Cardiology:No SOB H is updated medication list for this problem includes: Lisinopril 20 Mg Tablet (Lisinopril) ..... Take 1 tablet by mouth once daily Everett Bunn Cardiology: H is updated medication list for this problem includes: Atorvastatin 20 Mg Tablet (Atorvastatin) ..... Take 1 tablet by mouth every evening Tricor 145 Mg Tablet (Fenofibrate nanocrystallized) ..... Take 1 tablet by mouth once daily Everett Oni Cardiology:The patie nt is using CPAP on a regular basis. The patient has been benefiting from therapy and should continue use. [facility] [address] Cardiology:No CP or SOB. Overall doing well. He states BP is well controlled at home. Will obtain f/u echo. [facility] [address] Cardiology:He states BP is well controlled at home. B P today: 148/82 P rior BP: 118/80 (04/23/2022) Labs Reviewed: C reat: 0.65 (10/20/2018) C hol: 159 (10/20/2018) HDL: 49 (10/20/2018) LDL: 93 (10/20/2018) T (10/20/2018) His updated medication list for this problem includes: Lisinopril 20 Mg Tablet (Lisinopril) ..... Take 1 tablet by mouth once daily [facility] [address] Cardiology:No CP or SOB. Overall doing well. He states BP is well controlled at home. Will obtain f/u echo. [facility] [address] Cardiology Patrick Smith Cardiology: T he pt is using CPAP machine at home. He underwent home sleep study while the machine was on, which showed a few events that did not constitute the diagnosis of EFREN, indicating that the treatment is effective. Patrick Smith Cardiology: H is updated medication list for this problem includes: Atorvastatin 20 Mg Tablet (Atorvastatin) Tricor 145 Mg Tablet (Fenofibrate nanocrystallized) ..... 1 tablet by mouth once a day Patrick Smith Cardiology: N o angina. The following medications were removed from the medication list: Sular 8.5 Mg Tablet Extended Release 24 Hr (Nisoldipine) ..... 1 tablet by mouth twice a day Nisoldipine 8.5 Mg Tablet Extended Release 24 Hr (Nisoldipine) His updated medication list for this problem includes: Lisinopril 20 Mg Tablet (Lisinopril) ..... Take 1 tablet by mouth once a day Patrick Smith Cardiology: B P today: 118/80 P rior BP: 163/90 (01/20/2022) The following medications were removed from the medication list: Sular 8.5 Mg Tablet Extended Release 24 Hr (Nisoldipine) ..... 1 tablet by mouth twice a day Nisoldipine 8.5 Mg Tablet Extended Release 24 Hr (Nisoldipine) His updated medication list for this problem includes: Lisinopril 20 Mg Tablet (Lisinopril) ..... Take 1 tablet by mouth once a day Patrick Smith Cardiology: W eight loss advised Abraham Sears MD Cardiology: P atient was advised to stop smoking. A AA was normal Abraham Sears MD Cardiology: H is updated medication list for this problem includes: Atorvastatin 20 Mg Tablet (Atorvastatin) Tricor 145 Mg Tablet (Fenofibrate nanocrystallized) ..... 1 tablet by mouth once a day Abraham Sears MD Cardiology:. Will in crease Lisinopril to 20 mg daiy and may need to further increase for better BP control. B P today: 163/90 P rior BP: 165/93 (12/16/2021) Labs Reviewed: C reat: 0.65 (10/20/2018) C hol: 159 (10/20/2018) HDL: 49 (10/20/2018) LDL: 93 (10/20/2018) T (10/20/2018) His updated medication list for this problem includes: Lisinopril 20 Mg Tablet (Lisinopril) ..... Take 1 tablet by mouth every day Nisoldipine 8.5 Mg Tablet Extended Release 24 Hr (Nisoldipine) Sular 8.5 Mg Tablet Extended Release 24 Hr (Nisoldipine) ..... 1 tablet by mouth twice a day Abraham Sears MD Cardiology: Echo brittany wed normal EF with dilated LA. CT coronary calcium score was 5. AAA duplex was negative. Will increase Lisinopril to 20 mg daiy and may need to further increase for better BP control. Abraham Sears MD Cardiology: Echo brittany wed normal EF with dilated LA. CT coronary calcium score was 5. AAA duplex was negative. Will increase Lisinopril to 20 mg daiy and may need to further increase for better BP control. H is updated medication list for this problem includes: Lisinopril 20 Mg Tablet (Lisinopril) ..... Take 1 tablet by mouth every day Nisoldipine 8.5 Mg Tablet Extended Release 24 Hr (Nisoldipine) Sular 8.5 Mg Tablet Extended Release 24 Hr (Nisoldipine) ..... 1 tablet by mouth twice a day Abraham Sears MD Cardiology:The pt is using CPAP machine at home. He underwent home sleep study while the machine was on, which showed a few events that did not constitute the diagnosis of EFREN, indicating that the treatment is effective. Abraham Sears MD Cardiology:Patient w as advised to stop smoking. Check AAA Rod Brito Cardiology:Check ech o to assess EF. Calcium score to evaluate for CAD Rod Brito Cardiology:no CP or SOB. Check echo to assess EF. Calcium score to evaluate for CAD Rod Brito Cardiology: Will enr oll him in RPM to monitor his BP. D iscussion of benefits for remote patient monitoring took place. Patient gives consent for remote monitoring of physiologic parameters including, but not limited to, weight, blood pressure, pulse oximetry, respiratory flow rate. Rod Brito Cardiology:check in home sleep s regulo Rod Brito Cardiology:He has sl eep apnea treated by CPAP. Will perform home sleep study to see whether his CPAP settings are appropriate. Malick Mujica Cardiology:His updat ed medication list for this problem includes: Tricor 145 Mg Oral Tablet (Fenofibrate) ..... 1 tab once daily Malick Mujica Cardiology:BP is bo vated but he did not take the full dose of his medication. BP today: 145/88 His updated medication list for this problem includes: Sular 8.5 Mg Oral Tablet Extended Release 24 Hour (Nisoldipine) ..... 1 tab twice daily Malick Mujica Cardiology:Pt was li fting gas tanks and coughed and then felt pressure in the center of the chest. Lasted a few minutes. Still minimal pain now. He had a normal cardiac cath in 2005 and a normal myoview scan in 2017. Will obtain CT coronary calcium score, echo and stress myoview. Will check troponin and proBNP. Malick Mujica Cardiology:Pt was li fting gas tanks and coughed and then felt pressure in the center of the chest. Lasted a few minutes. Still minimal pain now. He had a normal cardiac cath in 2005 and a normal myoview scan in 2017. Will obtain CT coronary calcium score, echo and stress myoview. Will check troponin and proBNP. Malick Mujica Date Name Complete Echo CT, Coronary Calcium Score Aorta Duplex Ultraso und Complete Echo RPM (remote patient monitoring) Sleep Study Home PROBNP, N TERMINAL TROPONIN I CT, Coronary Calcium Score Sleep Study Home Stress Exercise Card iolite Complete Echo HISTORY OF PROCEDURES Procedure Date Procedure Name Provider Procedure Notes S tatus EKG Abraham Sears MD completed CT- Coronary CA score Abrhaam Sears MD completed EKG Abraham Sears MD completed Cardiolite, 2 units Abraham Sears MD c ompleted SPECT Images Abraham Sears MD complete d Stress EKG Abraham Sears MD completed EKG Abraham Sears MD completed Stress EKG Rafael Romero MD completed Cardiolite, 2 units Vladimir Gonzalez MD completed SPECT Images Crispin Alvarez MD com pleted
--- OUTSIDE RECORDS SUMMARY | 2024-02-27 05:01 | XMS_ITS | Encounter Summary ---
Author Organization [facility] Address [address] [place] [address]. [place] [address] [place] [address] Care Team Providers Care Machinery Cleaner Name Role Phone Unavailable Primary Care Provider Unavailabl e Encounter Details Date Type Department Care Team (Late st Contact Info) Description 11/03/2004 Abstract [facility] [address] [address] [place] [address] [place] [address] Social History Tobacco Use Types Packs/Day Years Used Date Smoking Tobacco: Never Assessed Sex and Gender Information Value Date Recorded Sex Assigned at Not on file Legal Sex Male 5:49 PM [employer] Gender Identity Not on file Sexual Orientation Not on file documented as of this encounter Plan of Treatment Not on file documented as of this encounter Visit Diagnoses Not on filedocumented in this encounter
== END 2024-02-20 07:33 | disposition home or self-care (01) ==
PROVIDERS: PCP Internal Medicine; Visit Provider Internal Medicine
DX: Z13.6 Encounter for screening for cardiovascular disorders (principal)
CPT/HCPCS: 76706

== ENCOUNTER 2024-05-06 07:55 | Outpatient (CLI) | payer MEDICARE, SELFPAY ==
--- NOTE | ~2024-05-06 | XR_ITS ---
EXAMINATION: XR chest 2V DATE: 05/06/2024 10:04 INDICATION: Diverticulitis of large intestine with perforation. TECHNIQUE: Frontal and lateral views of the chest were obtained. COMPARISON: CT abdomen and pelvis 12/24/2023 FINDINGS: There is no pneumonia, pleural effusion, or pneumothorax. The heart size is normal. IMPRESSION: 1. No acute cardiopulmonary disease. Reviewed, dictated and finalized at location A. [employer]
--- OUTSIDE RECORDS SUMMARY | 2024-05-06 08:06 | XMS_ITS | CONTINUITY OF CARE DOCUMENT ---
Author Name snow adamson Address Unknown Organization [facility] Address [address] [place] [address] Phone [phone] Care Team Providers Care Network Security Administrator Name Role Phone Abraham Sears MD Unavailable [phone] REYNALDO TIERNEY, VANESSA Unavailable REYNALDO TIERNEY, VANESSA Unavailable [phone] PROBLEMS Condition Status Date Provider Notes Hypertension active Raquel Garcia Shortness of breath active Raquel Garcia Chest pain active Raquel Jose Palpitations completed - Malick Mujica Dyslipidemia active Abraham Sears MD GERD active Abraham Sears MD Obesity active Abraham Sears MD Tobacco abuse, quit active Abraham Sears MD SLEEP APNEA - ON CPAP active Abraham Sears MD Perforation of colon active Abraham Sears MD Coronary atherosclerosis, CA C score 5 active Abraham Sears MD ENCOUNTERS Date Type Provider Location Encounter Diag nosis - In-person encounter Office Visit Abraham Sears MD [facility] - In-person encounter Office Visit Abraham Sears MD [facility] Tobacco abuse, quitPerforation of colonCoronary atherosclerosis, CAC score 5 - In-person encounter Office Visit Abraham Sears MD [facility] - In-person encounter Office Visit Abraham Sears MD [facility] - In-person encounter Office Visit Abraham Sears MD [facility] PalpitationsDyslipidemiaGERDObesityTobac co abuse, quitSLEEP APNEA - [...] blood pressure, diastolic 80 mm[Hg] [facility] Custar blood pressure, systolic 118 mm[Hg] Bogdan phanie Custar blood pressure, cuff size large [facility] oxygen saturation, oximetry 97 % Juliana Kris respiratory rate E&M 16 /min Eliecer lebron Kris pulse rate 80 /min Juliana Fuentesma n [...] blood pressure, diastolic 93 mm[Hg] [facility] blood [facility], systolic 165 mm[Hg] Zahida [facility] blood [facility], cuff size large Ke [facility]ri [facility] oxygen saturation, oximetry 98 % Roberta Grvanessanenfnorthwestern medical cente[facility] respiratory rate E&M 16 /min Roberta G alciraenenfnorthwestern medical cent[facility] pulse rate 89 /min Roberta Gruenenfe er [...] Location thyroid stimulating hormone, serum 1.850 u[IU]/mL [facility] thyroxine, serum, free 0.97 ng/dL [facility] triglyceride, serum, fasting 85 mg/dL [facility] HDL cholesterol, serum 49 mg/dL [facility] cholesterol, serum 159 mg/dL [facility] protein, total, serum 7.0 g/dL [facility] albumin, serum 4.3 g/dL [facility] bilirubin, serum, total 0.40 mg/dL [facility] alkaline phosphatase, serum 51 1/L [facility] alanine aminotransferase (SGPT), serum 23 1/L [facility] aspartate aminotransferase (SGOT), serum 23 1/L [facility] calcium, serum 9.1 mg/dL [facility] blood glucose, random 107 mg/dL [facility] creatinine, serum 0.65 mg/dL [facility] urea nitrogen, blood 15 mg/dL [facility] carbon dioxide, serum, total 28 mmol/L [facility] chloride, serum 106 mmol/L [facility] potassium, serum 4.5 mmol/L [facility] sodium, serum 143 mmol/L [facility] platelet count 256 10*3/uL [facility] red blood cell distribution width 13.2 % [facility] mean corpuscular hemoglobin concentration, RBC 32.7 g/dL [facility] mean corpuscular hemoglobin, RBC 30.4 pg [facility] mean corpuscular volume, RBC 92.9 fL [facility] hematocrit, blood 44.6 % [facility] hemoglobin, blood 14.6 g/dL [facility] erythrocyte (RBC) count 4.80 10*6/mm3 [facility] leukocyte count, blood 8.4 10*3/mm3 [facility] LDL cholesterol, serum 93 mg/dL [facility] pro brain natriuretic peptide 73 pg/mL [...] pack/day 1 Roberta Lara cigarette use yes Roberta monterroso smoking status Current every day smoker [...] Payer name Policy type / Coverage type [place] [employer] GRP MEDICARE ADVANTAGE PLAN (PPO) Medicare [id number] ADVANCE DIRECTIVES Name Date DISCUSSED - NO DECISION MADE TREATMENT PLAN Date Name Performer [id number],B, Patrick Smith [id number],S, T he pt is using CPAP machine at home. He underwent home sleep study while the machine was on, which showed a few events that did not constitute the diagnosis of EFREN, indicating that the treatment is effective. Patrick Smith [id number],S, H is updated medication list for this problem includes: Atorvastatin 20 Mg Tablet (Atorvastatin) Tricor 145 Mg Tablet (Fenofibrate nanocrystallized) ..... 1 tablet by mouth once a day Patrick Smith [id number],S, N o angina. The following medications were removed from the medication list: Sular 8.5 Mg Tablet Extended Release 24 Hr (Nisoldipine) ..... 1 tablet by mouth twice a day Nisoldipine 8.5 Mg Tablet Extended Release 24 Hr (Nisoldipine) His updated medication list for this problem includes: Lisinopril 20 Mg Tablet (Lisinopril) ..... Take 1 tablet by mouth once a day Patrick Smith [id number],B, B P today: 118/80 P rior BP: [...] by mouth once a day Patrick Smith [id number],C, W eight loss advised Abraham Sears MD [id number],C, P atient was advised to stop smoking. A AA was normal Abraham Sears MD [id number],C, H is updated medication list for this problem includes: Atorvastatin 20 Mg Tablet (Atorvastatin) Tricor 145 Mg Tablet (Fenofibrate nanocrystallized) ..... 1 tablet by mouth once a day Abraham Sears MD [id number],C,. Will increase Lisinopril to 20 mg daiy [...] mouth twice a day Abraham Sears MD [id number],C, Echo showed normal EF with dilated LA. CT coronary calcium score was 5. AAA duplex was negative. Will increase Lisinopril to 20 mg daiy and may need to further increase for better BP control. Abraham Sears MD [id number],C, Echo showed normal EF with dilated LA. [...] mouth twice a day Abraham Sears MD [id number],C,T he pt is using CPAP machine at home. He underwent home sleep study while the machine was on, which showed a few events that did not constitute the diagnosis of EFREN, indicating that the treatment is effective. Abraham Sears MD [id number],C,P atient was advised to stop smoking. Check AAA Rod Brito [id number],C,C heck echo to assess EF. Calcium score to evaluate for CAD Rod Brito [id number],C,n o CP or SOB. Check echo to assess EF. Calcium score to evaluate for CAD Rod Brtio [id number],C, Will enroll him in RPM to monitor his BP. D iscussion of benefits for remote patient monitoring took place. Patient gives consent for remote monitoring of physiologic parameters including, but not limited to, weight, blood pressure, pulse oximetry, respiratory flow rate. oRd Brito [id number],C,check in home sleep study Rod Rafaelelio Cardiology:No [...] benefiting from therapy and should continue use. [facility] Cardiology:No CP or SOB. Overall doing well. He states BP is well controlled at home. Will obtain f/u echo. [facility] Cardiology:He states BP is well controlled at home. B P today: 148/82 P rior BP: 118/80 (04/23/2022) Labs Reviewed: C reat: 0.65 (10/20/2018) C hol: 159 (10/20/2018) HDL: 49 (10/20/2018) LDL: 93 (10/20/2018) T (10/20/2018) His updated medication list for this problem includes: Lisinopril 20 Mg Tablet (Lisinopril) ..... Take 1 tablet by mouth once daily [facility] Cardiology:No CP or SOB. Overall doing well. He states BP is well controlled at home. Will obtain f/u echo. [facility] Cardiology Patrick Smith Cardiology: T he pt [...] Sears MD completed CT- Coronary CA score Abraham Sears MD completed EKG Abraham Sears MD completed Cardiolite, 2 units Abraham Sears MD c ompleted SPECT Images Abraham Sears MD complete d Stress EKG Abraham Sears MD completed EKG Abraham Seasr MD completed Stress EKG Rafael Romero MD completed Cardiolite, 2 units Vladimir Gonzalez MD completed SPECT Images Crispin Alvarez MD com pleted
--- OUTSIDE RECORDS SUMMARY | 2024-05-06 08:06 | XMS_ITS | Clinical Summary ---
Author Organization [facility] Address [address] [place] [address] Care Team Providers Care Evaporative Cooler Installer Name Role Phone Unavailable Primary Care Provider Unavailabl e Social History Tobacco Use Types Packs/Day Years Used Date Smoking Tobacco: Never Assessed Sex and Gender Information Value Date Recorded Sex Assigned at Not on file Legal Sex Male 5:49 PM TECHNICAL SPEC Gender Identity Not on file Sexual Orientation [...] (1 - 1-dose 75+ series) 2032 Meningococcal B Vaccine Aged Out No l onger eligible based on patient's age to complete this topic Meningococcal Vaccine Aged Out No parminder deedee eligible based on patient's age to complete this topic RSV Immunizations Under 20 Months Aged Out No longer eligible based on patient's age to complete this topic
--- OUTSIDE RECORDS SUMMARY | 2024-05-06 08:07 | XMS_ITS | Clinical Summary ---
Author Organization [facility] Address [address] [place] [address] Care Team Providers Care Gaming Associate Name Role Phone Suzette Ortiz MD Primary Care Provider Source Comments [facility],non-owned Affiliates and Associated Physician Practices is amultiple site organization consisting of ambulatory clinics and hospital sitesin [place], [place], [place] and [place]. This disclosure is being madepursuant to the Care Everywhere program and may not contain all information available regarding this patient. Last updated 17.[facility] Allergies Active Allergy Reactions Criticality Noted Date [...] 62 07/28/2008 10:04 AM CDT Temperature 36.7 C (98.1 F) 07/28/2008 9:20 AM CDT Respiratory Rate 18 07/28/2008 10:04 AM CDT [...] 03/18/1975 DTAP/TDAP/TD VACCINES (1 - Tdap) 1976 PNEUMOCOCCAL VACCINE 50+ (1 of 1 - PCV) 2007 ZOSTER VACCINE (1 of 2) 2007 AAA SCREENING 2022 COVID-19 VACCINE (1 - 2023-2 5 season) 2023 INFLUENZA VACCINE (#1) 2023 DEPRESSION SCREENING 03/02/2024 MEDICARE AWV CALENDAR YEAR 2024 Respiratory Syncytial Virus (RSV) Vaccine Pt: or [...] patient's age to complete this topic MENINGOCOCCAL (Group B) VACCINE Aged Out No longer eligible based on patient's age to complete this topic MENINGOCOCCAL VACCINE Aged Out No parminder deedee eligible based on patient's age to complete this topic Care Teams Gaming Associate Relationship Specialty Start Date End Date Suzette Ortiz MD [address] [phone] PCP - General 06/17/22
--- OUTSIDE RECORDS SUMMARY | 2024-05-06 08:07 | XMS_ITS | Referral Summary ---
Author Organization [facility] Address [address] [place] [address] Care Team Providers Care Tool And Die Repair Name Role Phone Suzette Ortiz MD Primary Care Provider Source Comments [facility],non-owned Affiliates and Associated Physician Practices is amultiple site organization consisting of ambulatory clinics and hospital sitesin [place], [place], [place] and [place]. This disclosure is being madepursuant to the Care Everywhere program and may not contain all information available regarding this patient. Last updated 17.[facility] Allergies Active Allergy Reactions Criticality Noted Date [...] of Treatment Not on file Care Teams Tool And Die Repair Relationship Specialty Start Date End Date Suzette Ortiz MD [address] [phone] PCP - General 06/17/22
--- OUTSIDE RECORDS SUMMARY | 2024-05-06 08:07 | XMS_ITS | Patient Health Summary ---
Author Organization [facility] [employer] Address [address] [place] [address] Care Team Providers Care Engineering Faculty Name Role Phone Suzette Ortiz MD Primary Care Provider Note from [facility],non-owned Affiliates and Associated Physician Practices is amultiple site organization consisting of ambulatory clinics and hospital sitesin [place], [place], [place] and [place]. This disclosure is being madepursuant to the Care Everywhere program and may not contain all information available regarding this patient. Last updated 17.[facility] Allergies * Codeine(Nausea) -Medium Criticality Medications * [...] SINUS NON IV CONTRAST (03/06/2011 1:20 PM RECYCLING SPECIALIST) Anatomical Region Laterality Modality Head Computed Tomogra phy 03/06/2011 1:26 PM RECYCLING SPECIALIST Impressions 03/06/2011 1:39 PM RECYCLING SPECIALIST Pansinus disease as described. 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 Dictated by Poornima Mccoy M.D. 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 Customer Program Specialist JOSH REYNA Electronically Signed By TOSHA MCCOY MISCELLANEOUS SAMPLES / Unknown 07/28/2008 8:20 AM CDT 07/28/2008 9:58 AM CDT Historical Provider MD LAB - PATHOLOGY/C YTOLOGY ORDERABLES Care Teams Engineering Faculty Relationship Specialty Start Date End Date Suzette Ortiz MD [address] [phone] PCP - General 06/17/22
--- OUTSIDE RECORDS SUMMARY | 2024-05-06 08:07 | XMS_ITS | Data Portability ---
Author Organization [place] [facility], Main Office Address [address] [place] [address] Care Team Providers Care Floral Designer Name Role Phone SUZETTE ORTIZ Primary Care Provider SUZETTE ORTIZ Referring Provider Assessment Encounter Date Assessment Date Assessment LastModified by Organization Details LastModified Time 02/12/2023 02/12/2023 03/21/2022: PSA 0.3 07/22/2022: Lab [...] from inpatient facility. Not available 12/29/2023 18:20:02 03/31/2024 03/31/2024 08/05/2023: A1C 5.7 03/21/2022: PSA 0.3 07/22/2022: Lab Mike Gluc 116 A1c 5.8<-5.9 03/21/2022 02/02/2023: CBC: WNL Gluc 116 A1C 5.8 08/05/2023: A1C 5.7 02/22/2025: A1C 5.9 03/12/2024: PSA 0.3 Not available 03/31/2024 17:50:05 Plan of Treatment Reminders Order Date Submit Date Provider Last Modified By Organization Details Last Modified Time Details Appointments Any 15 2024 04:00P Jenna mak MD Not available Not available Not available Lab glycohemo globin, total, blood [address] (Lab), [address] [place], [address], 03/31/2024 18:01:52 microalbu min, urine [address] (Lab), [address] [place], [address], 03/31/2024 18:01:53 lipid panel, serum [address] (Lab), [address] [place], [address], 03/31/2024 18:01:51 CBC w/ auto diff [address] (Lab), [address] [place], [address], 03/31/2024 18:01:51 CMP, serum or plasma [address] (Lab), [address] [place], [address], 03/31/2024 18:01:52 TSH, serum or plasma [address] (Lab), [address] [place], [address], 03/31/2024 18:01:52 urinalysi s, complete 2024 025 [facility], [address], [address], [place], [address], 04/28/2024 04:07:52 urinalysi s, complete 2024 025 [facility], [address], [address], [place], [address], 04/25/2024 02:10:57 glycohemo globin, total, blood [address] (Lab), [address] [place], [address], 12/29/2023 18:00:43 microalbu min, urine [address] (Lab), [address] [place], [address], 12/29/2023 18:00:43 lipid panel, serum [address] (Lab), [address] [place], [address], 12/29/2023 18:00:41 CBC w/ auto diff 2023 024 [facility] (Lab), [address] [place], [address], 02/25/2024 05:49:36 CMP, serum or plasma [address] (Lab), [address] [place], [address], 12/29/2023 18:00:42 TSH, serum or plasma [address] (Lab), [address] [place], [address], 12/29/2023 18:00:42 glycohemo globin, total, blood [address] (Lab), [address] [place], [address], 02/11/2024 08:54:48 microalbu min, urine [address] (Lab), [address] [place], [address], 02/11/2024 08:54:48 lipid panel, serum [address] (Lab), [address] [place], [address], 02/11/2024 08:54:47 CBC w/ auto diff [address] (Lab), [address] [place], [address], 02/11/2024 08:54:47 CMP, serum or plasma [address] (Lab), [address] [place], [address], 02/11/2024 08:54:47 TSH, serum or plasma [address] (Lab), [address] [place], [address], 02/11/2024 08:54:47 glycohemo globin, total, blood [address] (Lab), [address] [place], [address], 08/12/2023 09:07:20 microalbu min, urine [address] (Lab), [address] [place], [address], 08/12/2023 09:07:20 lipid panel, serum [address] (Lab), [address] [place], [address], 08/12/2023 09:07:20 CBC w/ auto diff [address] (Lab), [address] [place], [address], 08/12/2023 09:07:20 CMP, serum or plasma [address] (Lab), [address] [place], [address], 08/12/2023 09:07:20 TSH, serum or plasma [address] (Lab), [address] [place], [address], 08/12/2023 09:07:20 Referral urologist referral - Please call patient to schedule an appointme nt. Thank you. 2024 025 KOSTA Stahl MD, [address], [address], [place], [address], 05/05/2024 16:17:02 podiatris t referral - Please call patient to schedule an appointme nt. Thank you. 2024 025 KOSTA Jj DPM, [address], [address], [place], [address], 04/01/2024 13:14:50 podiatris t referral - Please call patient to schedule. 2023 024 [email or web address] Patrick Jj DPM, [address], [address], [place], [address], 03/03/2024 12:22:46 podiatris t referral 2023 024 [email or web address] Jj DPM, [address], [address], [place], [address], 02/11/2024 08:55:01 podiatris t referral 2022 023 [email or web address] Jj DPM, [address], [address], [place], [address], 02/08/2024 08:54:20 Procedures upper endoscopy procedure (EGD) (PROC) - Please call patient to schedule an appointme nt. Thank you. 2024 025 FELIPE Park MD, [address], [address], [place], [address], 04/01/2024 09:06:47 upper endoscopy procedure (EGD) (PROC) - Please call patient to schedule. 2023 024 [email or web address] Alyssa Yadav, [address], [place], [address], 03/03/2024 12:23:29 Surgeries None recorded. Imaging US, abdominal aorta - Please call patient to schedule. [address], [address], [place], [address], 02/22/2024 11:57:10 LDCT, chest, for lung cancer screening - No auth required 2023 024 [facility] ([facility] Sched[facility]), [address] [place], [address], 12/09/2023 07:44:27 US, abdominal aorta - No auth required 2023 024 [email or web address] [facility] ([facility] Scheduling), [address] [place], [address], 08/27/2023 09:04:13 XR, cervical spine, 2 or 3 view 2023 024 [facility] ([facility] Scheduling), [address] [place], [address], 06/17/2023 16:30:58 Medication Orders cyclobenz aprine 10 mg tablet 2023 024 [facility] [facility][id number], [address] [place], [id number], 12/29/2023 17:44:10 meloxicam 7.5 mg tablet 2023 024 [facility][id number], [address] [place], [place], [id number], 12/29/2023 17:43:45 Patient TargetsNo targets recorded. Patient Instructions Encounter Date Encounter Id Patient Instructions Last Modified By Organization Details Last Modified Time 02/12/2023 [id number] diabetic eye exam* Not avail able 08/12/2023 08:30:16 08/13/2023 [id number] dementia rating scale-2* [email or web address] Not available 08/13/2023 13:29:12 alcohol misuse* [email or web address] Not available 08/13/2023 13:29:23 depression screening* [email or web address] Not available 08/13/2023 13:29:37 diabetic eye exam* [email or web address] Not availa ble 02/11/2024 08:53:59 multi-dimensiona l health assessment questionnaire* [email or web address] Not available 08/17/2023 15:51:36 advance directiv es: care instructions [email or web address] Not available 08/17/2023 18:39:41 [place] Advance Directives [email or web address] Not available 08/17/2023 18:39:41 advance care planning: care instructions Not available 08/17/2023 18:39:41 Personalized Hea lth Plan and Screening Recommendations Advance Directives - Do you have one? No You have indicated that you are capable of preparing your advance care directive Advance Directives - Do we have your advance directive on file in your health record? Primary Prevention/Interven tion (prevents or decreases the chance of common diseases from occurring) Smoking Risk: Smoker Refer to attached smoking cessation handouts Alcohol [...] Visit Vaccines Pneumococcal: Ordered Recommended today Influenza: Your next one in the fall of this year Chronic Disease Risks Stroke: Low Risk Intermediate Risk Heart Attack: Low risk Intermediate Risk Clogging of the Arteries: Low risk Intermediate Risk I have no recommendations Act katey diagnosis, Continue current treatment plan Diabetes: High Risk Active diagnosis, Continue current treatment plan Secondary Prevention/Interven tion (detects treatable diseases before they may cause symptoms, disability, or ) Prostate Cancer Screening: Colon Cancer Screening: Colonoscopy Fecal Occult Blood Cologuard (DNA stool test) Date Screening Last Performed: Not done order Eye Disease Screening: Ordered Recommended today Dementia Risk: Low I have no recommendations Depression Screening: Negative [email or web address] Not available 08/13/2023 13:53:29 12/29/2023 [id number] diabetic eye exam* [email or web address] Not avail able 12/29/2023 18:00:44 Thank you [...] homebound status}} Required Home Health Services: {{none shelter, physical therapy, occupational therapy shelter, physical therapy shelter}} Durable Medical Equipment needed: {{cane walker walke r with seat manual wheelchair bedside commode oxygen}} Billing Guidelines CPT code 55607- Transitional Care Management services with moderate medical decision complexity (jgiq-fx-sger visit within 14 days of discharge). CPT code 26930- Transitional Care Management services with high medical decision complexity (ozpi-si-rvye visit within 7 days of discharge). [email or web address] Not available 12/29/2023 17:46:04 03/31/2024 [id number] diabetic eye exam* [email or web address] Not avail able 03/31/2024 18:02:39 Reason for Referral [employer] Referral for Type 2 diabetes mellitus without complication Referring Physician: Suzette Ortiz Internal Medicine, Encounter Date: 02/12/2023 [employer] Referral for Type 2 diabetes mellitus without complication Referring Physician: Suzette Ortiz Internal Medicine, Encounter Date: 08/13/2023 [employer] Referral for Type 2 diabetes mellitus without complication Please call patient to schedule. Referring Physician: Jeff Diamond Medicine, Encounter Date: 12/29/2023 [employer] Referral for Type 2 diabetes mellitus without complication Please call patient to schedule an appointment. Thank you. Referring Physician: Jeff Diamond Medicine, Encounter Date: 03/31/2024 Urologist Referral for Lehighton kim of testis Please call patient to schedule an appointment. Thank you. Referring Physician: Suzette Ortiz, Internal Medicine, Encounter Date: 03/31/2024 Results Created Date Observation Date Name Description Value Unit Range Abnormal Flag Note LastModifiedBy Organization Detail LastModifiedTime 07/31/19 24 07/31/2023 COLOG UARD cologuard result Cancel led - Order d not applic able Not Available [facility] (Cologuard Orders Only) [address], [place], [address], 07/31/2023 11:06:18 05/06/19 24 05/05/2023 imagi ng/lisa castillo tic resul t No observ ation record ed. [facility] [address], [place], [address], 05/06/2023 12:51:04 06/17/19 24 XR, cervi gildardo spine , 2 or 3 view [facility] [address] [place] [address] Patien t Name: ABISAI MONTERO Access ion #: [id number] Sex: M : 1955 7 Dictat [...] at 2023 15:29: 43 PM Page 1 [facility] (Imaging) [address] [facility], [place], [address], 06/17/2023 16:30:58 12/09/19 24 12/08/2023 LDCT, chest , for lung cance r scree wanda No observ ation record ed. [facility] [address], [place], [address], 12/09/2023 07:44:27 12/24/19 24 12/24/2023 CT, abdom en + pelvi s, w/o contr ast No observ ation record ed. [email or web address] [address], [place], [address], 02/01/2024 18:16:15 02/20/20 24 02/20/2024 US, abdom inal aorta No observ ation record ed. [facility] [address], [place], [address], 02/20/2024 09:46:13 Result Notes None recorded. Problems Name Problem SNOMED Code Status Onset Date Resolution Date Notes Provider Name and Address Organization Details Recorded Time Cellulitis 237795852 Active Not Available [facility] 3 06:45:12 Chronic back pain 570297285 Active Not Available [facility] 3 06:45:12 Nocturia 937631300 Active Not Available [facility] 3 06:45:12 Abdominal pain 71135510 Active Not Available [facility] 3 06:45:12 Chest pain 84773743 Active Not Available [facility] 3 06:45:12 Knee pain Active Not Available [facility] 3 06:45:12 Bronchitis 53246634 Active Not Available [facility] 3 06:45:12 Osteoarthriti s 831897669 Active Not Available [facility] 3 06:45:12 Hematochezia 862512036 Active Not Available [facility] 3 06:45:12 Gastritis 0945513 Active Not Available [facility] 3 06:45:12 Hyperlipidemi a 75831410 Active 2021 Not Available [facility] 3 06:45:12 Essential hypertension 13310421 Active Not Available [facility] 3 06:45:12 Prediabetes 290753929 Active 2020 Not Available [facility] 3 06:45:12 Sleep apnea 79741681 Active Not Available [facility] 3 06:45:13 Fatigue 27033787 Active Not Available [facility] 3 06:45:13 Gastroesophag eal reflux disease without esophagitis 248091543 Active 2022 Suzette ku MD [address], [address], [place], [address] , [facility] 3 11:44:04 Low back pain 690562217 Active 2022 Suzette ku MD [address], [address], [place], [address] , [facility] 3 11:44:09 Chronic obstructive pulmonary disease 86017799 Active 2022 Suzette ku MD [address], [place], [address] , [facility] 3 11:44:12 Cigarette smoker 56038384 Active 2022 Suzette ku MD [address], [place], [address] , [facility] 3 11:44:17 Type 2 diabetes mellitus without complication 191400717 Active 2022 Suzette ku MD [address], [address], [place], [address] , [place] [facility] 3 11:44:22 Diverticuliti s 425497108 Active 2022 Suzette ku MD [address], [address], [place], [address] , [place] [facility] 3 11:44:27 Leukocytosis 304743516 Active 2022 Suzette ku MD [address], [address], [place], [address] , [place] [facility] 3 11:44:32 Obstructive sleep apnea syndrome 71399313 Active 2022 Suzette ku MD [address], [address], [place], [address] , [place] [facility] 3 12:05:01 Lipoma of back 093067080 Active 2022 Suzette ku MD [address], [address], [place], [address] , [place] [facility] 3 10:08:29 Epidermoid cyst of skin 912051576 Active 2022 Umer serna MD [address], [address], [place], [address] , [place] [facility] 3 13:33:57 Neck pain 43509629 Active 2023 Suzette ku MD [address], [address], [place], [address] , [place] [facility] 4 15:40:09 Coronary arteriosclero sis 75706223 Active 2023 Edward Dyer LPN null, [place] [facility] 4 08:02:06 Disorder of prostate 10189401 Active 2024 Lázaro Fontaine CMA null, [place] [facility] 5 11:44:26 Blood in urine 64551989 Active 2024 Suzette ku MD [address], [address], [place], [address] , [place] [facility] 5 17:53:24 Hydrocele of testis 73786661 Active 2024 Suzette ku MD [address], [address], [place], [address] , [facility] 5 18:00:49 Problem Notes None recorded. Procedures Surgical History Date Name Laterality Status Provider Name and Address Organization Details Recorded Time 4 Transitional_Ca re_Management completed Suzette Ortiz MD [address], [address], [place], [address], [place] [facility] 12/29/2023 18:19:51 4 Advanced Care Planning completed Edward Dyer LPN [place] [facility] 08/13/2023 15:16:36 4 Medicare Wellness CPT Code, Initial completed Edward Dyer LPN [place] [facility] 08/10/2023 19:06:32 3 colonoscopy completed Lanette Felton [place] [facility] 08/13/2023 10:30:29 other completed Megan Blanco MA [place] [facility] 01/06/2023 11:57:56 Cyst Removal completed Lanette Felton [place] [facility] 02/12/2023 09:47:14 Imaging Results Imaging Date Name Status LastModified by Organ [facility] Details LastModified Time 05/05/2023 imaging/diagno stic result active [facility] [address], [place], [address], 05/06/2023 12:51:04 06/17/2023 XR, cervical spine, 2 or 3 view active [facility] (Imaging) [address] [place], [address], 06/17/2023 16:30:58 12/08/2023 LDCT, chest, for lung cancer screening active [facility] [address], [place], [address], 12/09/2023 07:44:27 12/24/2023 CT, abdomen + pelvis, w/o contrast completed [address], [place], [address], 02/01/2024 18:16:15 02/20/2024 US, abdominal aorta active [place] [address], [place], [address], 02/20/2024 09:46:13 Procedure Notes None recorded. Medical [...] MOUTH EVERY 8 HOURS FOR 10 DAYS 03/31 completed Not Available Not Available Not Available ciprofloxac in 500 mg tablet TK [...] 1 CAPSULE BY MOUTH ONCE DAILY NEEDED 2024 active Not Available Not Available Not Avai lable hydrocodone 5 mg-acetamin ophen 500 mg tablet [...] NS BY MOUTH EVERY 4 HOURS NEEDED 2024 active Not Available Not Available Not Avai lable fluticasone propionate 50 mcg/actuati on nasal spray,suspe nsion USE 1 SPRAY NASALLY DAILY active Not Available Not Available No t Available amoxicillin 875 mg-potmary anneiu m clavulanate 125 mg tablet TAKE 1 TABLET BY MOUTH EVERY 12 HOURS FOR 10 DAYS 03/31 completed Not Available Not Available Not Available EpiPen 0.3 mg/0.3 mL injection, auto-inject [...] Updated DateTime 3 177.8 cm 30.3 kg/m2 35613.9 9 g 97.5 [degF] 72 /min 126 mm[Hg] 70 mm[Hg] TRESA Ragsdale Reynaldo [place] [facility] 3 09:49:11 Date Recorded Body height Body mass index (BMI) Body weight Body temperature Heart rate Oxygen saturation Oxygen saturation in Arterial blood by Pulse oximetry Systolic blood pressure Diastolic blood pressure Provider Name and Address Organization Details Last Updated DateTime 4 177.8 cm 31.7 kg/m2 256309. 91 g 98 [degF] 78 /min 97 % 97 % 130 mm[Hg] 80 mm[Hg] Prisca Buchanan MA [place] [facility] 4 15:23:01 Date Recorded Body height Body mass index (BMI) Body weight Body temperature Heart rate Oxygen saturation Oxygen saturation in Arterial blood by Pulse oximetry Systolic blood pressure Diastolic blood pressure Provider Name and Address Organization Details Last Updated DateTime 4 177.8 cm 31.7 kg/m2 642292. 91 g 98.2 [degF] 102 /min 98 % 98 % 140 mm[Hg] 72 mm[Hg] Prisca Buchanan MA [facility] 4 09:51:58 Date Recorded Body height Body mass index (BMI) Body weight Body temperature Heart rate Oxygen saturation Oxygen saturation in Arterial blood by Pulse oximetry Pain severity - 0-10 verbal numeric rating [Score] - Reported Systolic blood pressure Diastolic blood pressure Provider Name and Address Organization Details Last Updated DateTime 4 177.8 cm 30.4 kg/m2 19725.5 8 g 96.4 [degF] 69 /min 97 % 97 % 0 122 mm[Hg] 60 mm[Hg] Prisca Buchanan [place] [facility] 4 16:58:49 Date Recorded Body height Body mass index (BMI) Body weight Body temperature Heart rate Oxygen saturation Oxygen saturation in Arterial blood by Pulse oximetry Pain severity - 0-10 verbal numeric rating [Score] - Reported Systolic blood pressure Diastolic blood pressure Provider Name and Address Organization Details Last Updated DateTime 5 177.8 cm 30.7 kg/m2 45990.7 7 g 98.4 [degF] 74 /min 99 % 99 % 2 136 mm[Hg] 76 mm[Hg] Prisca Buchanan [place] [facility] [facility] 5 16:55:34 Social History Question Answer Notes LastModified by Organizat ion Details LastModified Time Tobacco Smoking Status Former Smoker Prisca Buchanan MA [facility], [facility] 12/29/2023 17:00:58 Do You Have An Advance Directive? No [email or web address] Information not available 08/13/2023 What Is Your Level Of Alcohol Consumption? Occasional [id number] Information not available 04/30/2022 Are You Blind Or Do You Have Difficulty Seeing? No Information not available 08/13/2023 What Is Your Level Of Caffeine Consumption? Moderate [id number] Information not available 04/30/2022 How Much Tobacco Do You Chew? None [id number].01300 [id number] Information not available 04/30/2022 In The 14 Days Before Symptom Onset, Have You Had Close Contact With A Laboratory-confi rmed COVID-19 While That Case Was Ill? No [id number] Information not available 04/30/2022 In The 14 Days Before Symptom Onset, Have You Had Close Contact With A Person Who Is Under Investigation For COVID-19 While That Person Was Ill? No MIGRATION.53076 [id number] Information not available 04/30/2022 Are You Currently Employed? No [email or web address] Information not available 08/13/2023 Are You Deaf Or Do You Have Serious Difficulty Hearing? No [email or web address] Information not available 08/13/2023 What Type Of Diet Are You Following? REGULAR MIGRATION.23489 [id number] Information not available 04/30/2022 Which Illicit Or Recreational Drugs Have You Used? None [id number].[id number] Information not available 04/30/2022 Do You Or Have You Ever Used E-cigarettes Or Vape? Never Used Electronic Cigarettes MIGRATION.22970 [id number] Information not available 04/30/2022 What Is The Highest Grade Or Level Of School You Have Completed Or The Highest Degree You Have Received? AL46434-7 [email or web address] Information not available 08/13/2023 What Is Your Occupation? Retired MIGRATION.54827 [id number] Information not available 04/30/2022 Have There Been Any Changes To Your Family Or Social Situation? No [email or web address] Information not available 08/13/2023 What Is The Fluoride Status Of Your Home? Unknown Information not available 08/13/2023 Are There Any Guns Present In Your Home? Yes [email or web address] Information not available 08/13/2023 Do You Use Insect Repellent Routinely? No [email or web address] Information not available 08/13/2023 Where Do You Live? SingleLevelHouse [email or web address] Information not available 08/13/2023 Presence Of Domestic Violence No Information not available 08/13/2023 Are You Able To Care For Yourself? Yes [email or web address] Information not available 08/13/2023 Are You Blind Or Do Yo Have Difficulty Seeing? No [email or web address] Information not available 08/13/2023 Are You Deaf Or Do You Have Serious Difficulty Hearing? No [email or web address] Information not available 08/13/2023 General Stress Level? Low [email or web address] Information not available 08/13/2023 Live Alone Of With Others? With Others [email or web address] Information not available 08/13/2023 Do You Have A Medical Power Of Re Examiner? No [email or web address] Information not available 08/13/2023 What Was The Date Of Your Most Recent Tobacco Screening? 03/31/2024 Information not available 03/31/2024 What Is Your Current Pack Years? 20-29packyears [email or web address] Information not available 08/13/2023 Have You Ever Been Counseled For Unhealthy Alcohol Use? No [email or web address] Information not available 08/13/2023 Do You Have Any Pets? No [email or web address] Information not available 08/13/2023 What Is Your Relationship Status? Information not available 08/13/2023 Do You Use Your Seat Belt Or Car Seat Routinely? Yes [email or web address] Information not available 07/31/2022 Do You Have Smoke And Carbon Monoxide Detectors In Your Home? Yes [email or web address] Information not available 08/13/2023 Are You Passively Exposed To Smoke? Yes [email or web address] Information not available 08/13/2023 Do You Or Have You Ever Used Smokeless Tobacco? Never Used Smokeless Tobacco MIGRATION.42110 [id number] Information not available 04/30/2022 Are There Any Smokers In Your House? Yes Information not available 08/13/2023 How Much Tobacco Do You Smoke? 0.5 PPD [email or web address] Information not available 02/12/2023 Do You Feel Stressed (tense, Restless, Nervous, Or Anxious, Or Unable To Sleep At Night)? [id number] Information not available 06/17/2023 Do You Use Any Illicit Or Recreational Drugs? No [email or web address] Information not available 07/31/2022 Do You Use Sunscreen Routinely? No Information not available 08/13/2023 Has Tobacco Cessation Counseling Been Provided? Yes Information not available 08/13/2023 On What Date Was Tobacco Cessation Counseling Provided? 08/13/2023 [email or web address] Information not available 08/13/2023 Have You Recently Traveled Abroad? No [id number] Information not available 04/30/2022 Do You Have Any Dietary Restrictions? No [id number] Information not available 04/30/2022 Do You Or Have You Ever Used Any Other Forms Of Tobacco Or Nicotine? No [email or web address] Information not available 07/31/2022 How Many Days In The Past Year Have You Consumed 5 Or More Drinks? 0 Information not available 12/29/2023 Sex: Unknown Functional Status Question Answer Note LastModified by Organizat ion Details LastModified Time Do you have difficulty walking or climbing stairs? No [email or web address] Information not available 08/13/2023 Do you have transportation difficulties? No [email or web address] Information not available 08/13/2023 Are you able to walk? YESWOREST [email or web address] Information not available 08/13/2023 Do you have difficulty doing errands alone? No [email or web address] Information not available 08/13/2023 Are you able to care for yourself? Yes Information n ot available 08/13/2023 Do you have difficulty dressing or bathing? No Information not available 08/13/2023 What is your exercise level? Moderate [id number] Information not available 04/30/2022 Mental Status Question Answer Note LastModified by Organization D etails LastModified Time Do you have difficulty concentrating, remembering or making decisions? No [email or web address] Information no t available 08/13/2023 Family History [...] Recorded Time Influenza, split virus, quadrivalent, preservative completed Not Available [facility] 04/30/2022 06:49:24 COVID-19, mRNA, LNP-S, PF, 100 mcg/0.5mL dose or 50 mcg/0.25mL dose 1 completed Not Available [facility] 04/30/2022 06:49:24 COVID-19, mRNA, LNP-S, PF, 100 mcg/0.5mL dose or 50 mcg/0.25mL dose 1 completed Not Available [facility] 04/30/2022 06:49:24 Influenza, split virus, quadrivalent, preservative 6 completed Not Available [facility] 04/30/2022 06:49:24 Influenza, split virus, quadrivalent, preservative 0 completed Not Available [facility] 04/30/2022 06:49:24 Influenza, split virus, quadrivalent, PF 7 completed Not Available [facility] 04/30/2022 06:49:24 Influenza, split virus, quadrivalent, PF 8 completed Not Available [facility] 04/30/2022 06:49:24 Influenza, split virus, quadrivalent, PF 5 completed Not Available [facility] 04/30/2022 06:49:24 Influenza, split virus, quadrivalent, preservative 4 completed Not Available [facility] 04/30/2022 06:49:24 Influenza, split virus, trivalent, preservative 3 completed Not Available [facility] 04/30/2022 06:49:24 Past Encounters Encounter ID Performer Location Encounter Start Date Encounter Closed Date Diagnosis/Indication Diagnosis SNOMED-CT Code Diagnosis ICD10 Code Diagnosis Note [id number] [facility] [address] [facility] , [facility] [place] [address] 05/14/2020 00:00:00 05/15/2020 14:15:21 [id number] S_G Internal Med [facility] [address] , [facility] [address] [place] [address] 08/14/2020 00:00:00 08/14/2020 09:36:06 [id number] [facility] [place] [address] [facility] [address] [place] [address] 09/06/2020 00:00:00 09/13/2020 09:07:56 [id number] [facility] Internal Med [facility] [address] [place] [address] Ave[address] [address] 01/03/2021 00:00:00 01/03/2021 10:07:07 [id number] [facility] Internal Med [facility] [address] [place] [address] Ave[address] [address] 04/11/2021 00:00:00 04/11/2021 09:49:16 [id number] [facility] Internal Med [facility] [address] [place] [address] Ave[address] [address] 10/03/2021 00:00:00 10/03/2021 13:08:13 [id number] [facility] Internal Med [facility] [address] [place] [address] Ave[address] [address] 03/27/2022 00:00:00 03/27/2022 14:24:33 [id number] Suzette ku MD [facility] Internal Med [facility] [address] [place] [address] Ave[address] [address] 07/31/2022 09:35:10 07/31/2022 10:14:29 Screening - NAD 891029651 Z13.9 Cologuard: 09/27/2019 : Neg, ordered 07/31/2022 Did have c-scope in 04/[address] Dias, as per his history UTD on flu shotCan do TdapUTD on COVID 19 vaccineCan do shingrix vaccine Ex-smoker US AAA at age 67 years RTC in 4 monthsdo labsER if worsehe did verbalized his understand ing of the above Essential hypertension 82962850 I10 Did [address] Warner s test 12/03/18: neg ECHO 12/03/18: negSleep study: 12/05/2018 : negLDCT 09/05/2021 : CAD Not on nisoldipin e ER 8.5mg bid 07/31/2022 On lisinopril 10mg daily Hyperlipidemia 88749574 E78.5 On atorvastat in 20mg dailyDoes well Get labs Gastroesop hageal reflux disease without esophagitis 989170143 K21.9 On lansoprazo le does wellTake as needed only Low back pain 640738460 M54.50 XR LS spine 01/06/17: Was rec then to see spine surgeon, he wanted to keep seeing chiropract or Seen by Dr Narayan, does well No more apts with Dr Narayan Not taking the opiates Does well now Chronic ob structive pulmonary disease 59983635 J44.9 On proair, renewed 01/03/2021 On flonaseHe does take claritinDo es well on this Cigarette smoker 4425447 7 F17.210 LDCT 07/22/18: Emphysema, next in one yearLDCT 08/29/2020 : Next in one yearLDCT 09/05/2021 : Next in one year He has quit smoking Congratbrandie ronquillo! 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 831220218 E11.9 Declines any medication s again today States that he has been drinking beer, advised to wean off and stopDiet and exerciseGe t labs Dr Orozco 08/30/2020 , next in one yearDr Rammacher 09/06/2020 Diverticulitis 116344027 K57.92 Admitted and d/c [facility] 03/24- 03/25/2022 S/p CT A/P 03/23/2022 F/u with G surgery Dr Landry with augmentin On atorvastat in 20mg dailyOn lisinopril 20mg dailyOn lansaprazo le 30mg dailyNot on nisoldipin e 8.5mg dailyOn albuterolO n flonase Leukocytosis 375043282 D 72.829 Get labs Obstructiv e sleep apnea syndrome 11112526 G47.33 Does well Lipoma of back 799491260 D17.1 Noted on the R upper back, about 2 inch soft non tender, mobile, refer to G surgery [id number] Umer serna MD [facility] [address] , [address] [place] [address] 01/06/2023 11:07:36 01/07/2023 16:28:47 Epidermoid cyst of skin 162023654 L72.0 upper back [id number] Suzette ku MD [facility] Internal [facility] [address] [facility] [address] [place] [address] 02/12/2023 09:36:14 02/12/2023 10:02:17 Screening - NAD 895083705 Z13.9 Cologuard: 09/27/2019 : Neg, ordered 07/31/2022 Did have c-scope in 04/[address] Dias, as per his history Get yearly flu shotCan do TdapGet latest COVID 19 vaccineCan do shingrix vaccineGet PCV #20Get RSV vaccineHas declined all vaccines 02/12/2023 Ex-smoker US AAA at age 67 years RTC in 4 monthsdo labsER if worsehe did verbalized his understand ing of the above Essential hypertension 67212855 I10 Did [address] Warner s test 12/03/18: neg ECHO 12/03/18: negSleep study: 12/05/2018 : negLDCT 09/05/2021 : CAD Not on nisoldipin e ER 8.5mg bid 07/31/2022 On lisinopril 10mg daily Hyperlipidemia 36086160 E78.5 On atorvastat in 20mg dailyDoes well Get labs Gastroesop hageal reflux disease without esophagitis 672101405 K21.9 On lansoprazo le does wellTake as needed only Low back pain 539844626 M54.50 XR LS spine 01/06/17: Was rec then to see spine surgeon, he wanted to keep seeing chiropract or Seen by Dr Narayan, does well No more apts with Dr Narayan Not taking the opiates Does well now Chronic ob structive pulmonary disease 21482974 J44.9 On proair, renewed 01/03/2021 On flonaseHe does take claritinDo es well on this Cigarette smoker 8785827 7 F17.210 LDCT 07/22/18: Emphysema, next in one yearLDCT 08/29/2020 : Next in one yearLDCT 09/05/2021 : Next in one yearLDCT 10/07/2022 : Next in one year He has quit smoking Congratula shima! 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 734971807 E11.9 Declines any medication s again today States that he has been drinking beer, advised to wean off and stopDiet and exerciseGe t labs Dr Orozco 08/30/2020 , next in one yearDr Buckley 09/06/2020 Diverticulitis 468325419 K57.92 Admitted and d/c [facility] 03/24- 03/25/2022 S/p CT A/P 03/23/2022 F/u with G surgery Dr Landry with augmentin On atorvastat in 20mg dailyOn lisinopril 20mg dailyOn lansaprazo le 30mg dailyNot on nisoldipin e 8.5mg dailyOn albuterolO n flonase Leukocytosis 310505310 D 72.829 Get labs Obstructiv e sleep apnea syndrome 22732845 G47.33 Does well Lipoma of back 640588779 D17.1 Noted on the R upper back, about 2 inch soft non tender, mobile, refer to G surgery 01/06/2023 : Dr Warren [id number] Suztete ku MD [facility] Internal Med [facility] [address] [facility] [place] [address] 06/17/2023 15:13:40 06/17/2023 15:58:32 Neck pain 00106672 M54.2 Get Xray neck, also get on flexeril and meloxicamM ay need to get PTER if worse, he is very appreciati ve to this plan of care [id number] Suzette ku MD [facility] Internal Med [facility] [address] , [facility] [address] [place] [address] 08/13/2023 09:44:09 08/13/2023 10:23:14 Adult health examination 027268945 Z00.00 Screening for disorder 107989054 Z13.9 Neck pain 89694440 M54.2 Get Xray neck, also get on flexeril and meloxicamM ay need to get PTER if worse, he is very appreciati ve to this plan of care Xr c-spine 06/17/2023 : Ekta garsia PT has declined 08/13/2023 , states that he is very active and does go camping, the neck pain is now intermitte nt Screening - NAD 71366104 3 Z13.9 Cologuard: 09/27/2019 : Neg, ordered 07/31/2022 C-scope in 05/26/2022 Dr Dias Get yearly flu shotCan do TdapGet latest COVID 19 vaccineCan do shingrix vaccineGet PCV #20Get RSV vaccineHas declined all vaccines 02/12/2023 Ex-smoker US AAA at age 67 years RTC in 4 monthsdo labsER if worsehe did verbalized his understand ing of the above Essential hypertension 76149230 I10 Dr Sears 04/17/2023 , f/u in one yearStress test 12/03/18: neg ECHO 12/03/18: negSleep study: 12/05/2018 : negLDCT 09/05/2021 : CADECHO 05/05/2023 : EF 65% Not on nisoldipin e ER 8.5mg bid 07/31/2022 On lisinopril 20mg daily Hyperlipidemia 41310322 E78.5 On atorvastat in 20mg dailyDoes well Get labs Gastroesop hageal reflux disease without esophagitis 557586795 K21.9 On lansoprazo le does wellTake as needed only Low back pain 641658222 M54.50 XR LS spine 01/06/17: Was rec then to see spine surgeon, he wanted to keep seeing chiropract or Seen by Dr Narayan, does well No more apts with Dr Narayan Not taking the opiates Does well now Chronic ob structive pulmonary disease 46588454 J44.9 On proair, renewed 01/03/2021 On flonaseHe does take claritinDo es well on this Cigarette smoker 9390718 7 F17.210 LDCT 07/22/18: Emphysema, next in one yearLDCT 08/29/2020 : Next in one yearLDCT 09/05/2021 : Next in one yearLDCT 10/07/2022 : Next in one year He has quit smoking Congratula shima! 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 920956904 E11.9 Declines any medication s again today States that he has been drinking beer, advised to wean off and stopDiet and exerciseGe t labs Dr Orozco 08/30/2020 , next in one yearDr Rammacher 09/06/2020 Diverticulitis 077420304 K57.92 Admitted and d/c [facility] 03/24- 03/25/2022 S/p CT A/P 03/23/2022 F/u with G surgery Dr Landry with augmentin On atorvastat in 20mg dailyOn lisinopril 20mg dailyOn lansaprazo le 30mg dailyNot on nisoldipin e 8.5mg dailyOn albuterolO n flonase Leukocytosis 373035532 D 72.829 Get labs Obstructiv e sleep apnea syndrome 53285700 G47.33 Does well Lipoma of back 555455545 D17.1 Noted on the R upper back, about 2 inch soft non tender, mobile, refer to G surgery 01/06/2023 : Dr Warren [id number] Suzette ku MD S_G Internal Med [facility] [address] [facility], [address] [address] 12/29/2023 16:46:09 12/29/2023 18:08:22 Neck pain 53150898 M54.2 Get Xray neck, also get on flexeril and meloxicamM ay need to get PTER if worse, he is very appreciati ve to this plan of care Xr c-spine 06/17/2023 : ORLANDODCan do PT has declined 08/13/2023 , states that he is very active and does go camping, the neck pain is now intermitte nt Screening - NAD 14913588 3 Z13.9 Cologuard: 09/27/2019 : Neg, ordered 07/31/2022 C-scope in 05/26/2022 Dr Dias Get yearly flu shotCan do TdapGet latest COVID 19 vaccineCan do shingrix vaccineGet PCV #20Get RSV vaccineHas declined all vaccines 02/12/2023 Ex-smoker US AAA at age 67 years RTC in 4 monthsdo labsER if worsehe did verbalized his understand ing of the above Essential hypertension 72305358 I10 Dr Sears 04/17/2023 , f/u in one yearStress test 12/03/18: neg ECHO 12/03/18: negSleep study: 12/05/2018 : negLDCT 09/05/2021 : CADECHO 05/05/2023 : EF 65% Not on nisoldipin e ER 8.5mg bid 07/31/2022 On lisinopril 20mg daily Hyperlipidemia 09207651 E78.5 On atorvastat in 20mg dailyDoes well Get labs Gastroesop hageal reflux disease without esophagitis 827889447 K21.9 On lansoprazo le does wellTake as needed only Low back pain 302720912 M54.50 XR LS spine 01/06/17: Was rec then to see spine surgeon, he wanted to keep seeing chiropract or Seen by Dr Narayan, does well No more apts with Dr Narayan Not taking the opiates Does well now Chronic ob structive pulmonary disease 18077838 J44.9 On proairOn flonaseHe does take claritinDo es well on this Cigarette smoker 0186123 7 F17.210 LDCT 07/22/18: Emphysema, next in one yearLDCT 08/29/2020 : Next in one yearLDCT 09/05/2021 : Next in one yearLDCT 10/07/2022 : Next in one yearLDCT 12/08/2023 : Next in one year He has quit smoking Congratula shima! 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 102270526 E11.9 Declines any medication s again today States that he has been drinking beer, advised to wean off and stopDiet and exerciseGe t labs Dr Orozco 08/30/2020 , next in one yearDr Rammac 09/06/2020 Diverticulitis 562099283 K57.92 Admitted and d/c [facility] 03/24- 03/25/2022 S/p CT A/P 03/23/2022 F/u with G surgery Dr Landry with augmentin On atorvastat in 20mg dailyOn lisinopril 20mg dailyOn lansaprazo le 30mg dailyNot on nisoldipin e 8.5mg dailyOn albuterolO n yisele Admitted and d/c [facility] 12/27/2023 CT A/P 12/24/2023 Rx with zosynD/c on augmentin and flagylWBC 23.5 12/24/2023 -> 7.6 12/27/2023 Does well now Obstructiv e sleep apnea syndrome 53634079 G47.33 Does well Lipoma of back 905412458 D17.1 Noted on the R upper back, about 2 inch soft non tender, mobile, refer to G surgery 01/06/2023 : Dr Warren Transition of care 06571 44903 105 Z75.8 Abdominal aortic aneurysm screening 657150432 Z13.6 [id number] Suzette ku MD S_G Internal Med [facility] [address] [facility], [facility] [address] [place] [address] 03/31/2024 16:47:48 03/31/2024 18:05:52 Neck pain 91099176 M54.2 Get Xray neck, also get on flexeril and meloxicamM ay need to get PTER if worse, he is very appreciati ve to this plan of care Xr c-spine 06/17/2023 : Ekta garsia PT has declined 08/13/2023 , states that he is very active and does go camping, the neck pain is now intermitte nt Screening - NAD 18858136 3 Z13.9 Cologuard: 09/27/2019 : Neg, ordered 07/31/2022 C-scope in 05/26/2022 Dr Dias Get yearly flu shotCan do TdapGet latest COVID 19 vaccineCan do shingrix vaccineGet PCV #20Get RSV vaccineHas declined all vaccines 02/12/2023 , 03/31/2024 Ex-smoker US AAA at age 67 years RTC in 4 monthsdo labsER if worsehe did verbalized his understand ing of the above Essential hypertension 19902398 I10 Dr Sears 04/17/2023 Stress test 12/03/18: neg ECHO 12/03/18: negSleep study: 12/05/2018 : negLDCT 09/05/2021 : CADECHO 05/05/2023 : EF 65% Not on nisoldipin e ER 8.5mg bid 07/31/2022 On lisinopril 20mg dailyIs to sancho apt with Dr Sears Hyperlipidemia 20402958 E78.5 On atorvastat in 20mg dailyDoes well Get labs Gastroesop hageal reflux disease without esophagitis 994483009 K21.9 On lansoprazo le does wellTake as needed only Low back pain 233711902 M54.50 XR LS spine 01/06/17: Was rec then to see spine surgeon, he wanted to keep seeing chiropract or Seen by Dr Narayan, does well No more apts with Dr Narayan Not taking the opiates Does well now Chronic ob structive pulmonary disease 38706221 J44.9 On proairOn flonaseHe does take claritinDo es well on this Cigarette smoker 3413711 7 F17.210 LDCT 07/22/18: Emphysema, next in one yearLDCT 08/29/2020 : Next in one yearLDCT 09/05/2021 : Next in one yearLDCT 10/07/2022 : Next in one yearLDCT 12/08/2023 : Next in one year He has quit smoking Congratbrandie ronquillo! 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 793784738 E11.9 Declines any medication s again today States that he has been drinking beer, advised to wean off and stopDiet and exerciseGe t labs Dr Orozco 08/30/2020 , next in one yearDr Rammacher 09/06/2020 Diverticulitis 618746410 K57.92 Admitted and d/c [facility] 03/24- 03/25/2022 S/p CT A/P 03/23/2022 F/u with G surgery Dr CubaRx with augmentin On atorvastat in 20mg dailyOn lisinopril 20mg dailyOn lansaprazo le 30mg dailyNot on nisoldipin e 8.5mg dailyOn albuterolO n flonase Admitted and d/c [facility] 12/27/2023 CT A/P 12/24/2023 Rx with zosynD/c on augmentin and flagylWBC 23.5 12/24/2023 -> 7.6 12/27/2023 Does well now OV 03/31/2024 :Is to see Dr Cuba and he does need to stop smoking for him to get surgery on 05/02/2024 Obstructiv e sleep apnea syndrome 21325673 G47.33 Does well Lipoma of back 642886349 D17.1 Noted on the R upper back, about 2 inch soft non tender, mobile, refer to G surgery 01/06/2023 : Dr Warren Transition of care 77848 64147 105 Z75.8 Abdominal aortic aneurysm screening 250076693 Z13.6 02/20/2024 : Neg Blood in urine 77114788 R31.9 ResolvedHa d this as he thinks he lifted a statue on 02/22/2024 Will repeat a UA Hydrocele of testis 2661 4003 N43.3 Large fluctuant R sided non tender hydroceleG et a referral to urologist Health Concerns Section Related Observation LastModified by Organization Detai ls LastModified Time None Recorded Concern Status LastModified by Organization Details LastModified Time None Recorded Advance Directives Directive N: Payers Encounter Date Sequence Insurance Name Policy Number Policy Gardner Covered Member ID Gardner Member ID Guarantor Name 02/12/2023 1 [employer] (MEDICARE REPLACEMENT/A DVANTAGE - PPO) [id number] Onel Montero [id number] Onel Montero 06/17/2023 1 [facility] (MEDICARE REPLACEMENT/A DVANTAGE - PPO) [id number] Onel Montero [id number] Onel Montero 08/13/2023 1 [employer] (MEDICARE REPLACEMENT/A DVANTAGE - PPO) [id number] Onel Montero [id number] Onel Montero 12/29/2023 1 [facility] (MEDICARE REPLACEMENT/A DVANTAGE - PPO) [id number] Onel Montero [id number] Onel Montero 03/31/2024 1 [facility] (MEDICARE REPLACEMENT/A DVANTAGE - PPO) [id number] Onel Montero [id number] Onel Montero Notes Date Note Type Note Provider Name and Address Organization Details Recorded Time 02/12/2023 text/html Here to amanda Rey Hx:InsmoniaLBPHTNGE [...] apt, he does well Suzette Ortiz MD [address] [place] [address], [place] [address], [place], [address], [place] [facility] 02/12/2023 10:38:07 06/17/2023 text/html Here to amanda [...] nerve in the neck Suzette Ortiz MD [address] [place] [address], [facility] [address], [place], [address], [facility] [employer] 06/17/2023 16:13:28 08/13/2023 text/html Here to amanda [...] is going for melody Ortiz MD [address] [facility], [facility] [address], [place], [address], [facility] [employer] 08/17/2023 18:39:46 12/29/2023 text/html Here to amanda [...] his post hospital f/u, s/p d/c from [facility] on 12/27/2023, for diverticulitis, is doing well now Suzette Ortiz MD [address], [address], [place], [address], [place] [facility] 12/29/2023 18:23:20 03/31/2024 text/html Here to amanda Rey Hx:InsmoniaLBPHTNGE RDReviewed [...] his post hospital f/u, s/p d/c from [facility] on 12/27/2023, for diverticulitis, is doing well now OV 03/31/2024: Here for his f/u apt, he is doing well, he did have some blood in the urine, also has ER sided long standing swelling in the testes, he did do the labs Suzette Ortiz MD [address], [address], [place], [address], [place] - [facility] 03/31/2024 19:16:10
--- NOTE | 2024-05-06 09:02 | ECG_ITS ---
Test Date: 2024-05-06 09:17:46 Measurements Intervals [place] Rate: 71 P: 64 NE: 145 QRS: 44 QRSD: 97 T: 49 QT: 362 QTc: 394 Interpretive Statements SINUS RHYTHM No previous ECG available for comparison Electronically Signed On 05-06-2024 16:32:12 WINDOWS MIGRATION TECHNICIAN by Sabrina Peralta M.D.
[2024-05-06 09:36] LABS: Basophils Absolute Auto 0.1 K/mm3 (0.0-0.1); Basophils Percent Auto 1.2 % (0.2-1.2); Eosinophils Absolute Auto 0.4 K/mm3 (0-0.3); Hematocrit 42.8 % (42.0-52.0); Immature Granulocyte Absolute 0.01 K/mm3 (0.00-0.031); Immature Granulocyte Percent A 0.1 % (0-0.5); Lymphocytes Absolute Auto 1.85 K/mm3 (0.9-3.2); Lymphocytes Percent Auto 27.2 % (18.3-44.2); Mean Corpuscular HGB Conc 32.7 g/dl (32-36); Mean Corpuscular Hemoglobin 31.2 pg (26-34); Mean Corpuscular Volume 95.3 fl (80-100); Mean Platelet Volume 9.1 fl (7.4-10.4); Monocytes Absolute Auto 0.7 K/mm3 (0.1-0.6); Monocytes Percent Auto 9.9 % (2.6-8.5); Neutrophils Absolute Auto 3.8 K/mm3 (1.3-6.7); Neutrophils Percent Auto 55.6 % (45.5-73.1); Platelet Count Result 214 k/mm3 (150-375); Red Blood Count 4.49 M/mm3 (4.6-6.20); Red Cell Distribution Width 12.6 % (11.5-14.5); White Blood Count 6.8 K/mm3 (4.5-10.0)
[2024-05-06 09:49] LABS: Anion Gap 10 mmol/L (4-12); Blood Urea Nitrogen 15 mg/dL (9-20); Calcium 9.1 mg/dL (8.4-10.2); Carbon Dioxide 25 mmol/L (22-30); Chloride 105 mmol/L (98-107); Estimated Glomerular Filt Rate > 60; Glucose 102 mg/dL (65-110); Potassium 4.4 mmol/L (3.4-5.0); Sodium 140 mmol/L (137-145)
[2024-05-06 10:01] LABS: Add Urine Microscopic? YES; Appearance Urine Clear (Clear); Bacteria Urine None Seen /hpf; Bilirubin Urine Negative (Negative); Blood Urine Trace (Negative); Color Urine Yellow (Yellow); Glucose Urine UA Negative (Negative); Ketones Urine Negative (Negative); Leukocyte Esterase Ur 1+ LEU/UL (Negative); Need Manual Microscopic Reviewed; Nitrate Urine Negative (Negative); Non Pathogenic Casts 0-2; Protein Urine Negative (Negative); Specific Grav Ur 1.017 (1.001-1.035); Squamous Epithelial Cell Urine None Seen /hpf (Few); Urobilinogen Urine 0.2 mg/dL (<2.0); WBC Urine 0-5 /hpf (0-3); pH Urine 6.5 (5.0-9.0)
== END 2024-05-06 07:56 | disposition home or self-care (01) ==
PROVIDERS: PCP Internal Medicine; Visit Provider Surgery
DX: K57.20 Diverticulitis of large intestine with perforation and abscess without bleeding (principal)
CPT/HCPCS: 36415; 71046; 80048; 81001; 85025; 86850; 86900; 86901; 87086; 93005

== ENCOUNTER 2024-05-19 18:14 | Inpatient (IN) | payer MEDICARE, SELFPAY ==
--- NOTE | 2024-05-06 08:01 | PC.NURSE ---
Report to the Outpatient Waiting Room, entrance under the green pavilion located off [facility], at time _10 AM on date _05/19/24 . Planned Procedure Time: _1200 NOON .? Time changes happen often and if your time is changed the preop area will call you the afternoon before. - You and your visitor will be asked to self-screen and do not enter if you have any COVID symptoms. Please call surgeon if you need to reschedule. - A mask is optional within the hospital at this time. Patients may have clear liquids (water, carbonated beverages, clear teas, apple juice) until 3 hours prior to surgery ( 9 AM)with a maximum of 20 ounces. - No food from midnight until time of surgery and no smoking, or chewing tobacco (or any form of nicotine). No chewing gum, candy or mints. - Take only the following medications with a SIP of water on the morning of surgery: ____INHALER IF NEEDED DO NOT STOP ANY OF YOUR OTHER PRESCRIPTION MEDICATIONS PRIOR TO SURGERY EXCEPT THE FOLLOWING ENSURE BUNDLE PACK PER DR SPEARS BOWEL PREP PER DR SANDS Hold all vitamins and supplements for 3 days per anesthesiologist. Medications to discontinue per physician NONE HIBICLENS SHOWER DAY BEFORE SURGERY AND MORNING OF SURGERY Please no make-up, nail bulgarian, hairspray, perfume, deodorant, or body powder the day of surgery.? No jewelry (including any body piercings) or valuables the day of surgery, leave them at home.? Please take a shower or bath the night before, or the morning of, surgery with an antibacterial soap.? Wear comfortable, loose fitting clothing.? Children are encouraged to wear pajamas. - Jewelry must be removed prior to entering the operating room.? Rings and piercings that are not removed may be cut off. - The hospital will not accept responsibility for valuables.? - Please leave all valuables, including medications, at home the day of surgery. If you are going home after surgery, a licensed medical driver must drive you home.? - NO public transportation without another adult if you receive anesthesia. - We recommend that an adult stay with you for 24 hours following discharge. - We also recommend that you do not drive, make important decision, drink alcoholic beverages, or take any drugs that were not prescribed by your health care provider for at least 24 hours after your discharge time. Follow any additional instructions given to you from your surgeon. VERBAL AND WRITTEN instructions given to __PATIENT and asked if any additional questions and then verbalized understanding. Patient advised to call surgeon office or pre surgery nurse liaison [phone] if any additional questions.
[2024-05-06 08:06] VITALS: BMI 31.1
[2024-05-06 08:58] VITALS: BP 155/76; PULSE 65; RESP 18; TEMP 36.9; O2SAT 98
[2024-05-19] VITALS (10 sets, daily range): BP systolic 115–139; BP diastolic 61–89; PULSE 78–87; RESP 12–20; TEMP 36.1–36.9; O2SAT 90–99
--- NOTE | ~2024-05-19 | XR_ITS ---
Exam: Abdomen 1V HISTORY: Stent Placement COMPARISON: Reference is made to a CT examination of the abdomen and pelvis dated 12/24/2023. TECHNIQUE: Supine AP image of the abdomen, without visualization of the deep pelvis. FINDINGS: Bowel gas pattern is non-obstructive. There is no free air or deep sulci. No pathologic calcifications are seen. Lung bases are unremarkable. Clips within the right upper quadrant consistent with prior cholecystectomy. Left-sided double-J stent is identified within the proximal pigtail coursing through the projected re gion of the left kidney without deployment of the pigtail mechanism. Radiopaque marker is identified projecting over the suspected interpolar region of the left kidney, w ith the proximal portion (with multiple holes) projecting over the upper pole of the left kidney. The distal portion of the double-J stent is off the submitted image, incompletely evaluated. Wire projects over the left hemipelvis, presumably external to the patient. IMPRESSION: Nonspecific, nonobstructive bowel gas pattern. Double-J stent, as detailed above. Reviewed, dictated and finalized at location A.
--- OUTSIDE RECORDS SUMMARY | 2024-05-19 01:15 | XMS_ITS | CONTINUITY OF CARE DOCUMENT ---
Author Name snow adamson Address Unknown Organization [facility] Address [address] [place] [address] Phone [phone] Care Team Providers Care Hooker Off Name Role Phone Abraham Sears MD Unavailable [phone] REYNALDO TIERNEY, VANESSA Unavailable [phone] REYNALDO TIERNEY, VANESSA Unavailable [phone] PROBLEMS Condition Status Date Provider Notes Hypertension active Raquel Garcia Shortness of breath active Raquel Garcia Chest pain active Raquel Garcia Palpitations completed - Malick Mujica Dyslipidemia active Abraham Sears MD GERD active Abraham Sears MD Obesity active Abraham Saers MD Tobacco abuse, quit active Abraham Sears MD SLEEP APNEA - ON CPAP active Abraham Sears MD Perforation of colon active Abraham Sears MD Coronary atherosclerosis, CA C score 5 active Abraham Sears MD ENCOUNTERS Date Type Provider Location Encounter Diag nosis - In-person encounter Office Visit Abraham Sears MD [facility] - In-person encounter Office Visit Abraham Sears MD [facility] Tobacco abuse, quitPerforation of colonCoronary atherosclerosis, CAC score 5 - In-person encounter Office Visit Abraham Sears MD [facility] - In-person encounter Office Visit Abraham Sears MD [facility] - In-person encounter Office Visit Abraham Sears MD [facility] PalpitationsDyslipidemiaGERDObesityTobac co abuse, quitSLEEP APNEA - [...] blood pressure, diastolic 80 mm[Hg] [facility] blood pressure, systolic 118 mm[Hg] Bogdan phanie White blood pressure, cuff size large [facility] ephanie [...] blood pressure, diastolic 93 mm[Hg] [facility], systolic 165 mm[Hg] [facility] blood [facility], cuff size large Ke [facility] oxygen saturation, oximetry 98 % Roberta [facility] respiratory rate E&M 16 /min Roberta G [facility] pulse rate 89 /min Roberta [...] systolic, right arm 145 m m[Hg] Shanta eBll blood pressure, diastolic 88 mm[Hg] Dori Bell [...] Location thyroid stimulating hormone, serum 1.850 u[IU]/mL [facility] thyroxine, serum, free 0.97 ng/dL [facility] triglyceride, serum, fasting 85 mg/dL [facility] HDL cholesterol, serum 49 mg/dL [facility] cholesterol, serum 159 mg/dL [facility] protein, total, serum 7.0 g/dL [facility] albumin, serum 4.3 g/dL [facility] bilirubin, serum, total 0.40 mg/dL [facility] alkaline phosphatase, serum 51 1/L [facility] alanine aminotransferase (SGPT), serum 23 1/L [facility] aspartate aminotransferase (SGOT), serum 23 1/L [facility] calcium, serum 9.1 mg/dL [facility] blood glucose, random 107 mg/dL [facility] creatinine, serum 0.65 mg/dL [facility] urea nitrogen, blood 15 mg/dL [facility] carbon dioxide, serum, total 28 mmol/L [facility] chloride, serum 106 mmol/L [facility] potassium, serum 4.5 mmol/L [facility] sodium, serum 143 mmol/L [facility] platelet count 256 10*3/uL [facility] red blood cell distribution width 13.2 % [facility] mean corpuscular hemoglobin concentration, RBC 32.7 g/dL [facility] mean corpuscular hemoglobin, RBC 30.4 pg [facility] mean corpuscular volume, RBC 92.9 fL [facility] hematocrit, blood 44.6 % [facility] hemoglobin, blood 14.6 g/dL [facility] erythrocyte (RBC) count 4.80 10*6/mm3 [facility] leukocyte count, blood 8.4 10*3/mm3 [facility] LDL cholesterol, serum 93 mg/dL [facility] pro brain natriuretic peptide 73 pg/mL [...] Payer name Policy type / Coverage type [employer] ID [employer] GRP MEDICARE ADVANTAGE PLAN (PPO) Medicare [id number] ADVANCE DIRECTIVES Name Date DISCUSSED - NO DECISION MADE TREATMENT PLAN Date Name Performer [id number],B, Patrick Smith [id number],S, T he pt is using CPAP machine at home. He underwent home sleep study while the machine was on, which showed a few events that did not constitute the diagnosis of EFREN, indicating that the treatment is effective. Patrick Smith [id number],S, H is updated medication list for this problem includes: Atorvastatin 20 Mg Tablet (Atorvastatin) Tricor 145 Mg Tablet (Fenofibrate nanocrystallized) ..... 1 tablet by mouth once a day Patrick Smith [id number],S, N o angina. The following medications were removed from the medication list: Sular 8.5 Mg Tablet Extended Release 24 Hr (Nisoldipine) ..... 1 tablet by mouth twice a day Nisoldipine 8.5 Mg Tablet Extended Release 24 Hr (Nisoldipine) His updated medication list for this problem includes: Lisinopril 20 Mg Tablet (Lisinopril) ..... Take 1 tablet by mouth once a day Patrick Smith [id number],B, B P today: 118/80 P rior BP: [...] by mouth once a day Patrick Smith [id number],C, W eight loss advised Abraham Sears MD [id number],C, P atient was advised to stop smoking. A AA was normal Abraham Sears MD [id number],C, H is updated medication list for this problem includes: Atorvastatin 20 Mg Tablet (Atorvastatin) Tricor 145 Mg Tablet (Fenofibrate nanocrystallized) ..... 1 tablet by mouth once a day Abraham Sears MD [id number],C,. Will increase Lisinopril to 20 mg daiy [...] mouth twice a day Abraham Sears MD [id number],C, Echo showed normal EF with dilated LA. CT coronary calcium score was 5. AAA duplex was negative. Will increase Lisinopril to 20 mg daiy and may need to further increase for better BP control. Abraham Sears MD [id number],C, Echo showed normal EF with dilated LA. [...] mouth twice a day Abraham Sears MD [id number],C,T he pt is using CPAP machine at home. He underwent home sleep study while the machine was on, which showed a few events that did not constitute the diagnosis of EFREN, indicating that the treatment is effective. Abraham Sears MD [id number],C,P atient was advised to stop smoking. Check AAA Rod Brito [id number],C,C heck echo to assess EF. Calcium score to evaluate for CAD Rod Brito [id number],C,n o CP or SOB. Check echo to assess EF. Calcium score to evaluate for CAD Rod Brito [id number],C, Will enroll him in RPM to monitor his BP. D iscussion of benefits for remote patient monitoring took place. Patient gives consent for remote monitoring of physiologic parameters including, but not limited to, weight, blood pressure, pulse oximetry, respiratory flow rate. Rod Brito [id number],C,check in home sleep study Rod Rafaelelio Cardiology:No [...] benefiting from therapy and should continue use. [facility] Cardiology:No CP or SOB. Overall doing well. He states BP is well controlled at home. Will obtain f/u echo. [facility] Cardiology:He states BP is well controlled at home. B P today: 148/82 P rior BP: 118/80 (04/23/2022) Labs Reviewed: C reat: 0.65 (10/20/2018) C hol: 159 (10/20/2018) HDL: 49 (10/20/2018) LDL: 93 (10/20/2018) T (10/20/2018) His updated medication list for this problem includes: Lisinopril 20 Mg Tablet (Lisinopril) ..... Take 1 tablet by mouth once daily [facility] Cardiology:No CP or SOB. Overall doing well. He states BP is well controlled at home. Will obtain f/u echo. [facility] Cardiology Patrick Smith Cardiology: T he pt [...]
--- OUTSIDE RECORDS SUMMARY | 2024-05-19 01:15 | XMS_ITS | Clinical Summary ---
Author Organization 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
--- OUTSIDE RECORDS SUMMARY | 2024-05-19 01:15 | XMS_ITS | Data Portability ---
Author Organization [place] [facility] [employer], Main Office Address [address] [place] [address] Care Team Providers Care Customer Support Associate Name Role Phone SUZETTE ORTIZ Primary Care [...] Lab glycohemo globin, total, blood [address] (Lab), [address] [place], [address], 03/31/2024 18:01:52 microalbu min, urine [address] (Lab), [address] [place], [address], 03/31/2024 18:01:53 lipid panel, serum [address] (Lab), [address] [place], [address], 03/31/2024 18:01:51 CBC w/ auto diff 2024 025 KOSTA [facility] (Lab), [address] [place], [address], 05/06/2024 13:42:59 CMP, serum or plasma [address] (Lab), [address] [place], [address], 03/31/2024 18:01:52 TSH, serum or plasma [address] (Lab), [address] [place], [address], 03/31/2024 18:01:52 urinalysi s, complete 2024 025 [place] [address] [facility], [address], [address], [place], [address], 05/18/2024 09:12:58 urinalysi s, complete 2024 025 KOSTA [facility], [address], [address], [place], [address], 04/25/2024 02:10:57 glycohemo globin, total, blood [address] (Lab), [address] [place], [address], 12/29/2023 18:00:43 microalbu min, urine [address] (Lab), [address] [place], [address], 12/29/2023 18:00:43 lipid panel, serum [address] (Lab), [address] [place], [address], 12/29/2023 18:00:41 CBC w/ auto diff 2023 024 [facility] (Lab), [address] [place], [address], 02/25/2024 05:49:36 CMP, serum or plasma [address] (Lab), [address] [place], [address], 12/29/2023 18:00:42 TSH, serum or plasma [address] (Lab), [address] [place], [address], 12/29/2023 18:00:42 glycohemo globin, total, blood [address] (Lab), [address] [place], [address], 02/11/2024 08:54:48 microalbu min, urine [address] (Lab), [address] [place], [address], 02/11/2024 08:54:48 lipid panel, serum [address] (Lab), [address] [place], [address], 02/11/2024 08:54:47 CBC w/ auto diff [address] (Lab), [address] [place], [address], 02/11/2024 08:54:47 CMP, serum or plasma [address] (Lab), [address] [place], [address], 02/11/2024 08:54:47 TSH, serum or plasma [address] (Lab), [address] [place], [address], 02/11/2024 08:54:47 glycohemo globin, total, blood [address] (Lab), [address] [place], [address], 08/12/2023 09:07:20 microalbu min, urine [address] (Lab), [address] [place], [address], 08/12/2023 09:07:20 lipid panel, serum [address] (Lab), [address] [place], [address], 08/12/2023 09:07:20 CBC w/ auto diff [address] (Lab), [address] [place], [address], 08/12/2023 09:07:20 CMP, serum or plasma [address] (Lab), [address] [place], [address], 08/12/2023 09:07:20 TSH, serum or plasma [address] (Lab), [address] [place], [address], 08/12/2023 09:07:20 Referral urologist referral - Please call patient to schedule an appointme nt. Thank you. 2024 025 KOSTA Stahl MD, [address] [facility] [address], [address], [place], [address], 05/05/2024 16:17:02 podiatris t referral - Please call patient to schedule an appointme nt. Thank you. 2024 025 KOSTA Jj DPM, [address], [address], [place], [address], 04/01/2024 13:14:50 podiatris t referral - Please call patient to schedule. 2023 024 Patrick Jj DPM, [address], [address], [place], [address], 03/03/2024 12:22:46 podiatris t referral 2023 024 [email or web address] Jj DPM, [address], [address], [place], [address], 02/11/2024 08:55:01 podiatris t referral 2022 023 [email or web address] Jj DPM, [address], [address], [place], [address], 02/08/2024 08:54:20 Procedures upper endoscopy procedure (EGD) (PROC) - Please call patient to schedule an appointme nt. Thank you. 2024 025 FELIPE Park MD, [address], [address], [place], [address], 04/01/2024 09:06:47 upper endoscopy procedure (EGD) (PROC) - Please call patient to schedule. 2023 024 [email or web address] Alyssa Yadav, [address], [place], [address], 03/03/2024 12:23:29 Surgeries None recorded. Imaging US, abdominal aorta - Please call patient to schedule. [address], [address], [place], [address], 02/22/2024 11:57:10 LDCT, chest, for lung cancer screening - No auth required 2023 024 [facility] ([facility]), [address] [place], [address], 12/09/2023 07:44:27 US, abdominal aorta - No auth required 2023 024 5 [facility] ([facility] Scheduling), [address] [place], [address], 08/27/2023 09:04:13 XR, cervical spine, 2 or 3 view 2023 024 [facility] ([facility]), [address] [place], [address], 06/17/2023 16:30:58 Medication Orders cyclobenz aprine 10 mg tablet 2023 024 [id number], [address], [id number], 12/29/2023 17:44:10 meloxicam 7.5 mg tablet 2023 024 [facility] #[id number], [address], [place], [id number], 12/29/2023 17:43:45 Patient TargetsNo targets recorded. Patient Instructions Encounter Date Encounter Id Patient Instructions Last Modified By Organization Details Last Modified Time 02/12/2023 [id number] diabetic eye exam* [email or web address] Not avail able 08/12/2023 08:30:16 08/13/2023 [id number] dementia rating scale-2* Not available 08/13/2023 13:29:12 alcohol misuse* [email or web address] Not available 08/13/2023 13:29:23 depression screening* Not available 08/13/2023 13:29:37 diabetic eye exam* [email or web address] Not availa ble 02/11/2024 08:53:59 multi-dimensiona l health assessment questionnaire* [email or web address] Not available 08/17/2023 15:51:36 advance directiv es: care instructions luis Not available 08/17/2023 18:39:41 [place] Advance Directives luis Not available 08/17/2023 18:39:41 [...] I have no recommendations Depression Screening: Negative [email or web address] Not available 08/13/2023 13:53:29 12/29/2023 [id number] diabetic eye exam* Not avail able 12/29/2023 [...] homebound status}} Required Home Health Services: {{none detention, physical therapy, occupational therapy detention, physical therapy detention}} Durable Medical Equipment needed: {{cane walker walke r with seat manual wheelchair bedside commode oxygen}} Billing Guidelines CPT code 04718- Transitional Care Management services with moderate medical decision complexity (cxsu-oc-xecu visit within 14 days of discharge). CPT code 44495- Transitional Care Management services with high medical decision complexity (yhsc-ca-scfu visit within 7 days of discharge). [email or web address] Not available 12/29/2023 17:46:04 03/31/2024 [id number] diabetic eye exam* [email or web address] Not avail able 03/31/2024 18:02:39 Reason for Referral Transportation Refrigeration Technician Referral for Type 2 diabetes mellitus without complication Referring Physician: Suzette Ortiz Internal Medicine, Encounter Date: 02/12/2023 Transportation Refrigeration Technician Referral for Type 2 diabetes mellitus without complication Referring Physician: Suzette Ortiz Internal Medicine, Encounter Date: 08/13/2023 Transportation Refrigeration Technician Referral for Type 2 diabetes mellitus without complication Please call patient to schedule. Referring Physician: Jeff Diamond Medicine, Encounter Date: 12/29/2023 Transportation Refrigeration Technician Referral for Type 2 diabetes mellitus without complication Please call patient to schedule an appointment. Thank you. Referring Physician: Jeff Diamond Medicine, Encounter Date: 03/31/2024 Urologist Referral for [place] kim of testis Please call patient to [...] Only) [address], [place], [address], 07/31/2023 11:06:18 05/06/19 24 05/05/2023 imagi ng/lisa castillo tic resul t No observ ation record ed. [facility] [address], [place], [address], 05/06/2023 12:51:04 06/17/19 24 XR, cervi gildardo spine , 2 or 3 view [facility] [address] [place] [address] Patien t Name: ABISAI MONTERO Access ion #: [id number] Sex: M : 1955 7 Dictat [...] at 2023 15:29: 43 PM Page 1 [facility] (Imaging) [address] [facility], [place], [address], 06/17/2023 16:30:58 12/09/19 24 12/08/2023 LDCT, chest , for lung cance r scree wanda No observ ation record ed. [facility] [address], [place], [address], 12/09/2023 07:44:27 12/24/19 24 12/24/2023 CT, abdom en + pelvi s, w/o contr ast No observ ation record ed. [email or web address], [place], [address], 02/01/2024 18:16:15 02/20/20 24 02/20/2024 US, abdom inal aorta No observ ation record ed. [address], [place], [address], 02/20/2024 09:46:13 05/07/19 25 05/06/2024 imagi ng/di agnos tic resul t No observ ation record ed. [address], [place], [address], 05/06/2024 11:08:52 Result Notes None recorded. Problems Name Problem SNOMED Code Status Onset Date Resolution Date Notes Provider Name and Address Organization Details Recorded Time Cellulitis 957393704 Active Not Available [facility] 3 06:45:12 Chronic back pain 956480361 Active Not Available [facility] 3 06:45:12 Nocturia 009673973 Active Not Available [facility] 3 06:45:12 Abdominal pain 16719246 Active Not Available [facility] 3 06:45:12 Chest pain 57155534 Active Not Available [facility] 3 06:45:12 Knee pain Active Not Available [facility] 3 06:45:12 Bronchitis 74602339 Active Not Available [facility] 3 06:45:12 Osteoarthriti s 090557762 Active Not Available [facility] 3 06:45:12 Hematochezia 425198008 Active Not Available [facility] 3 06:45:12 Gastritis 8706147 Active Not Available [facility] 3 06:45:12 Hyperlipidemi a 19453638 Active 2021 Not Available [facility] 3 06:45:12 Essential hypertension 48654997 Active Not Available [facility] 3 06:45:12 Prediabetes 516413564 Active 2020 Not Available [facility] 3 06:45:12 Sleep apnea 26318196 Active Not Available [facility] 3 06:45:13 Fatigue 27671927 Active Not Available [facility] 3 06:45:13 Gastroesophag eal reflux disease without esophagitis 753973734 Active 2022 Suzette ku MD [address], [address], [address] , [facility] 3 11:44:04 Low back pain 639041865 Active 2022 Suzette ku MD [address], [place] [address], [place], [address] , [facility] 3 11:44:09 Chronic obstructive pulmonary disease 68590751 Active 2022 Suzette ku MD [address], [place], [address] , [facility] 3 11:44:12 Cigarette smoker 03054546 Active 2022 Suzette uk MD [address], [place], [address] , [place] [facility] 3 11:44:17 Type 2 diabetes mellitus without complication 319054782 Active 2022 Suzette ku MD [address], [address], [place], [address] , [place] [facility] 3 11:44:22 Diverticuliti s 502901363 Active 2022 Suzette ku MD [address], [address], [place], [address] , [facility] 3 11:44:27 Leukocytosis 682952656 Active 2022 Szuette ku MD [address], [address], [place], [address] , [place] [facility] 3 11:44:32 Obstructive sleep apnea syndrome 86864670 Active 2022 Suzette ku MD [address], [address], [place], [address] , [place] [facility] 3 12:05:01 Lipoma of back 796475699 Active 2022 Suzette ku MD [address], [address], [place], [address] , [place] [facility] 3 10:08:29 Epidermoid cyst of skin 497306355 Active 2022 Umer serna MD [address], [address], [place], [address] , [facility] 3 13:33:57 Neck pain 50293191 Active 2023 Suzette ku MD [address], [address], [place], [address] , [place] [facility] 4 15:40:09 Coronary arteriosclero sis 44358168 Active 2023 Edward Dyer LPN null, [facility] 4 08:02:06 Disorder of prostate 47714102 Active 2024 Lázaro Fontaine CMA null, [place] [facility] 5 11:44:26 Blood in urine 44170437 Active 2024 Suzette ku MD [address] [facility], [address], [place], [address] , [facility] 5 17:53:24 Hydrocele of testis 42891392 Active 2024 Suzette ku MD [address] [facility], [facility] [address], [place], [address] , [facility] 5 18:00:49 Problem Notes None recorded. Procedures Surgical History Date Name Laterality Status Provider Name and Address Organization Details Recorded Time 4 Transitional_Ca re_Management completed Suzette Ortiz MD [address] [facility], [address], [place], [address], [facility] 12/29/2023 18:19:51 4 Advanced Care Planning completed Edward Dyer LPN [facility] 08/13/2023 15:16:36 4 Medicare Wellness CPT Code, Initial completed Edward Dyer LPN [facility] 08/10/2023 19:06:32 3 colonoscopy completed TRESA Ragsdale [facility] 08/13/2023 10:30:29 other completed Megan Blanco MA [facility] 01/06/2023 11:57:56 Cyst Removal completed TRESA Ragsdale [place] [facility] 02/12/2023 09:47:14 Imaging Results Imaging Date Name Status LastModified by Organiz [facility] Details LastModified Time 05/05/2023 imaging/diagno stic result active [facility] [address], [place], [address], 05/06/2023 12:51:04 06/17/2023 XR, cervical spine, 2 or 3 view active INTERFACE [facility] (Imaging) [address] [facility], [place], [address], 06/17/2023 16:30:58 12/08/2023 LDCT, chest, for lung cancer screening active [facility] [address], [place], [address], 12/09/2023 07:44:27 12/24/2023 CT, abdomen + pelvis, w/o contrast completed [address], [place], [address], 02/01/2024 18:16:15 02/20/2024 US, abdominal aorta active [address], [place], [address], 02/20/2024 09:46:13 05/06/2024 imaging/diagno stic result active [address], [place], [address], 05/06/2024 11:08:52 Procedure Notes None recorded. Medical Equipment None [...] Available Not Available No t Available Fluvirin [id number] 45 mcg (15 mcg x 3)/0.5 mL [...] Updated DateTime 3 177.8 cm 30.3 kg/m2 41325.9 9 g 97.5 [degF] 72 /min 126 mm[Hg] 70 mm[Hg] JUAN RagsdaleEladia CT [employer] [facility] [employer] [facility] 3 09:49:11 Date Recorded Body height Body mass index (BMI) Body weight Body temperature Heart rate Oxygen saturation Oxygen saturation in Arterial blood by Pulse oximetry Systolic blood pressure Diastolic blood pressure Provider Name and Address Organization Details Last Updated DateTime 4 177.8 cm 31.7 kg/m2 771595. 91 g 98 [degF] 78 /min 97 % 97 % 130 mm[Hg] 80 mm[Hg] Prisca Buchanan MA [facility] [employer] [facility] [employer] 4 15:23:01 Date Recorded Body height Body mass index (BMI) Body weight Body temperature Heart rate Oxygen saturation Oxygen saturation in Arterial blood by Pulse oximetry Systolic blood pressure Diastolic blood pressure Provider Name and Address Organization Details Last Updated DateTime 4 177.8 cm 31.7 kg/m2 290717. 91 g 98.2 [degF] 102 /min 98 % 98 % 140 mm[Hg] 72 mm[Hg] Prisca Buchanan MA [facility] [employer] 4 09:51:58 Date Recorded Body height Body mass index (BMI) Body weight Body temperature Heart rate Oxygen saturation Oxygen saturation in Arterial blood by Pulse oximetry Pain severity - 0-10 verbal numeric rating [Score] - Reported Systolic blood pressure Diastolic blood pressure Provider Name and Address Organization Details Last Updated DateTime 4 177.8 cm 30.4 kg/m2 44951.5 8 g 96.4 [degF] 69 /min 97 % 97 % 0 122 mm[Hg] 60 mm[Hg] ORACIO Lin [facility] [employer] [facility] 4 16:58:49 Date Recorded Body height Body mass index (BMI) Body weight Body temperature Heart rate Oxygen saturation Oxygen saturation in Arterial blood by Pulse oximetry Pain severity - 0-10 verbal numeric rating [Score] - Reported Systolic blood pressure Diastolic blood pressure Provider Name and Address Organization Details Last Updated DateTime 5 177.8 cm 30.7 kg/m2 40731.7 7 g 98.4 [degF] 74 /min 99 % 99 % 2 136 mm[Hg] 76 mm[Hg] Prisca Buchanan MA [facility] [employer] 16:55:34 Social History Question Answer Notes LastModified by Organizat ion Details LastModified Time Tobacco Smoking Status Former Smoker Prisca Buchanan MA null, [email or web address] 12/29/2023 17:00:58 Do You Have An Advance Directive? No Information not available 08/13/2023 What Is Your Level Of Alcohol Consumption? Occasional [id number] Information not available 04/30/2022 Are You Blind Or Do You Have Difficulty Seeing? No [email or web address] Information not available 08/13/2023 What Is Your Level Of Caffeine Consumption? Moderate [id number] Information not available 04/30/2022 How Much Tobacco Do You Chew? None MIGRATION.60238 [id number] Information not available 04/30/2022 In The 14 Days Before Symptom Onset, Have You Had Close Contact With A Laboratory-confi rmed COVID-19 While That Case Was Ill? No [id number] Information not available 04/30/2022 In The 14 Days Before Symptom Onset, Have You Had Close Contact With A Person Who Is Under Investigation For COVID-19 While That Person Was Ill? No MIGRATION.[id number] Information not available 04/30/2022 Are You Currently Employed? No [email or web address] Information not available 08/13/2023 Are You Deaf Or Do You Have Serious Difficulty Hearing? No [email or web address] Information not available 08/13/2023 What Type Of Diet Are You Following? REGULAR MIGRATION.[id number] [id number] Information not available 04/30/2022 Which Illicit Or Recreational Drugs Have You Used? None MIGRATION.50316 60629 Information not available 04/30/2022 Do You Or Have You Ever Used E-cigarettes Or Vape? Never Used Electronic Cigarettes MIGRATION.96074 60671 Information not available 04/30/2022 What Is The Highest Grade Or Level Of School You Have Completed Or The Highest Degree You Have Received? [id number] Information not available 08/13/2023 What Is Your Occupation? Retired MIGRATION.44473 20770 Information not available 04/30/2022 Have There Been Any Changes To Your Family Or Social Situation? No [email or web address] Information not available 08/13/2023 What Is The Fluoride Status Of Your Home? Unknown [email or web address] Information not available 08/13/2023 Are There Any Guns Present In Your Home? Yes [email or web address] Information not available 08/13/2023 Do You Use Insect Repellent Routinely? No [email or web address] Information not available 08/13/2023 Where Do You Live? SingleLevelHouse [email or web address] Information not available 08/13/2023 Presence Of Domestic Violence No [email or web address] Information not available 08/13/2023 Are You Able To Care For Yourself? Yes [email or web address] Information not available 08/13/2023 Are You Blind Or Do Yo Have Difficulty Seeing? No [email or web address] Information not available 08/13/2023 Are You Deaf Or Do You Have Serious Difficulty Hearing? No [email or web address] Information not available 08/13/2023 General Stress Level? Low [email or web address] Information not available 08/13/2023 Live Alone Of With Others? With Others [email or web address] Information not available 08/13/2023 Do You Have A Medical Power Of Sql Database Administrator? No Information not available 08/13/2023 What Was The Date Of Your Most Recent Tobacco Screening? 03/31/2024 Information not available 03/31/2024 What Is Your Current Pack Years? 20-29packyears [email or web address] Information not available 08/13/2023 Have You Ever Been Counseled For Unhealthy Alcohol Use? No Information not available 08/13/2023 Do You Have Any Pets? No [email or web address] Information not available 08/13/2023 What Is Your Relationship Status? [email or web address] Information not available 08/13/2023 Do You Use Your Seat Belt Or Car Seat Routinely? Yes [email or web address] Information not available 07/31/2022 Do You Have Smoke And Carbon Monoxide Detectors In Your Home? Yes [email or web address] Information not available 08/13/2023 Are You Passively Exposed To Smoke? Yes [email or web address] Information not available 08/13/2023 Do You Or Have You Ever Used Smokeless Tobacco? Never Used Smokeless Tobacco MIGRATION.05118 [id number] Information not available 04/30/2022 Are There Any Smokers In Your House? Yes [email or web address] Information not available 08/13/2023 How Much Tobacco Do You Smoke? 0.5 PPD [email or web address] Information not available 02/12/2023 Do You Feel Stressed (tense, Restless, Nervous, Or Anxious, Or Unable To Sleep At Night)? [id number] Information not available 06/17/2023 Do You Use Any Illicit Or Recreational Drugs? No [email or web address] Information not available 07/31/2022 Do You Use Sunscreen Routinely? No [email or web address] Information not available 08/13/2023 Has Tobacco Cessation Counseling Been Provided? Yes [email or web address] Information not available 08/13/2023 On What Date Was Tobacco Cessation Counseling Provided? 08/13/2023 [email or web address] Information not available 08/13/2023 Have You Recently Traveled Abroad? No [id number] [id number] Information not available 04/30/2022 Do You Have Any Dietary Restrictions? No MIGRATION.20512 76829 Information not available 04/30/2022 Do You Or Have You Ever Used Any Other Forms Of Tobacco Or Nicotine? No [email or web address] Information not available 07/31/2022 How Many Days In The Past Year Have You Consumed 5 Or More Drinks? 0 Information not available 12/29/2023 Sex: Unknown Functional Status Question Answer Note LastModified by Organizat ion Details LastModified Time Do you have difficulty walking or climbing stairs? No [email or web address] Information not available 08/13/2023 Do you have transportation difficulties? No [email or web address] Information not available 08/13/2023 Are you able to walk? YESWOREST [email or web address] Information not available 08/13/2023 Do you have difficulty doing errands alone? No [email or web address] Information not available 08/13/2023 Are you able to care for yourself? Yes Information n ot available 08/13/2023 Do you have difficulty dressing or bathing? No [email or web address] Information not available 08/13/2023 What is your exercise level? Moderate [id number] Information not available 04/30/2022 Mental Status Question Answer Note LastModified by Organization D etails LastModified Time Do you have difficulty concentrating, remembering or making decisions? No [email or web address] Information no t available 08/13/2023 Family History [...] virus, quadrivalent, preservative 1 completed Not Available [facility] 04/30/2022 06:49:24 COVID-19, mRNA, LNP-S, PF, 100 mcg/0.5mL dose or 50 mcg/0.25mL dose 1 completed Not Available [facility] 04/30/2022 06:49:24 COVID-19, mRNA, LNP-S, PF, 100 mcg/0.5mL dose or 50 mcg/0.25mL dose 1 completed Not Available [facility] 04/30/2022 06:49:24 Influenza, split virus, quadrivalent, preservative 6 completed Not Available [facility] 04/30/2022 06:49:24 Influenza, split virus, quadrivalent, preservative 0 completed Not Available [facility] 04/30/2022 06:49:24 Influenza, split virus, quadrivalent, PF 7 completed Not Available [facility] 04/30/2022 06:49:24 Influenza, split virus, quadrivalent, PF 8 completed Not Available [facility] 04/30/2022 06:49:24 Influenza, split virus, quadrivalent, PF 5 completed Not Available [facility] 04/30/2022 06:49:24 Influenza, split virus, quadrivalent, preservative 4 completed Not Available [facility] 04/30/2022 06:49:24 Influenza, split virus, trivalent, preservative 3 completed Not Available [facility] 04/30/2022 06:49:24 Past Encounters Encounter ID Performer Location Encounter Start Date Encounter Closed Date Diagnosis/Indication Diagnosis SNOMED-CT Code Diagnosis ICD10 Code Diagnosis Note [id number] [facility] Internal Med [facility] [address] [place] [address] 05/14/2020 00:00:00 05/15/2020 14:15:21 [id number] [facility] Internal Med [facility] [address] [facility] 15 [place] [address] 08/14/2020 00:00:00 08/14/2020 09:36:06 [id number] [facility] Podiatry [facility] [address] [place] [address] 09/06/2020 00:00:00 09/13/2020 09:07:56 [id number] [facility] Internal Med [facility] [address] [facility] 15 [place] [address] 01/03/2021 00:00:00 01/03/2021 10:07:07 [id number] [facility] Internal Med [facility] [address] [address] 04/11/2021 00:00:00 04/11/2021 09:49:16 [id number] [facility] Internal Med [facility] [address] [place] [address] [place]., [address] [address] 10/03/2021 00:00:00 10/03/2021 13:08:13 [id number] [facility] Internal Med [facility] [address] [place] [address] [place]., [address] [address] 03/27/2022 00:00:00 03/27/2022 14:24:33 [id number] Suzette ku MD [facility] Internal Med [facility] [address] [place] [address] [place]., [address] [address] 07/31/2022 09:35:10 07/31/2022 10:14:29 Screening - NAD 884322129 Z13.9 Cologuard: 09/27/2019 : Neg, ordered 07/31/2022 Did have c-scope in 04/[address] Dias, as per his history UTD on flu shotCan do TdapUTD on COVID 19 vaccineCan do shingrix vaccine Ex-smoker US AAA at age 67 years RTC in 4 monthsdo labsER if worsehe did verbalized his understand ing of the above Essential hypertension 75667736 I[address] Warner s test 12/03/18: neg ECHO 12/03/18: negSleep study: 12/05/2018 : negLDCT 09/05/2021 : CAD Not on nisoldipin e ER 8.5mg bid 07/31/2022 On lisinopril 10mg daily Hyperlipidemia 43927850 E78.5 On atorvastat in 20mg dailyDoes well Get labs Gastroesop hageal reflux disease without esophagitis 598315267 K21.9 On lansoprazo le does wellTake as needed only Low back pain 587330265 M54.50 XR LS spine 01/06/17: Was rec then to see spine surgeon, he wanted to keep seeing chiropract or Seen by Dr Narayan, does well No more apts with Dr Narayan Not taking the opiates Does well now Chronic ob structive pulmonary disease 11369380 J44.9 On proair, renewed 01/03/2021 On flonaseHe does take claritinDo es well on this Cigarette smoker 1610930 7 F17.210 LDCT 07/22/18: Emphysema, next in one yearLDCT 08/29/2020 : Next in one yearLDCT 09/05/2021 : Next in one year He has quit smoking Congratula shima! 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 008554433 E11.9 Declines any medication s again today States that he has been drinking beer, advised to wean off and stopDiet and exerciseGe t labs Dr Orozco 08/30/2020 , next in one yearDr Rammacher 09/06/2020 Diverticulitis 055938296 K57.92 Admitted and d/c [facility] 03/24- 03/25/2022 S/p CT A/P 03/23/2022 F/u with G surgery Dr Landry with augmentin On atorvastat in 20mg dailyOn lisinopril 20mg dailyOn lansaprazo le 30mg dailyNot on nisoldipin e 8.5mg dailyOn albuterolO n flonase Leukocytosis 735813386 D 72.829 Get labs Obstructiv e sleep apnea syndrome 48314716 G47.33 Does well Lipoma of back 311426399 D17.1 Noted on the R upper back, about 2 inch soft non tender, mobile, refer to G surgery [id number] Umer serna MD [facility] General Surgery [address] [place] [address] 01/06/2023 11:07:36 01/07/2023 16:28:47 Epidermoid cyst of skin 301884814 L72.0 upper back [id number] Suzette ku MD [facility] Internal Med [place] [address] [address] [place] [address] 02/12/2023 09:36:14 02/12/2023 10:02:17 Screening - NAD 123876487 Z13.9 Cologuard: 09/27/2019 : Neg, ordered 07/31/2022 [...] understand ing of the above Essential hypertension 83873758 I[address] Warner s test 12/03/18: neg ECHO 12/03/18: negSleep study: 12/05/2018 : negLDCT 09/05/2021 : CAD Not on nisoldipin e ER 8.5mg bid 07/31/2022 On lisinopril 10mg daily Hyperlipidemia 57903163 E78.5 On atorvastat in 20mg dailyDoes well Get labs Gastroesop hageal reflux disease without esophagitis 762237661 K21.9 On lansoprazo le does wellTake as needed only Low back pain 702197414 M54.50 XR LS spine 01/06/17: Was rec then to see spine surgeon, he wanted to keep seeing chiropract or Seen by Dr Narayan, does well No more apts with Dr Narayan Not taking the opiates Does well now Chronic ob structive pulmonary disease 53341822 J44.9 On proair, renewed 01/03/2021 On flonaseHe does take claritinDo es well on this Cigarette smoker 5909937 7 F17.210 LDCT 07/22/18: Emphysema, next in one yearLDCT 08/29/2020 : Next in one yearLDCT 09/05/2021 : Next in one yearLDCT 10/07/2022 : Next in one year He has quit smoking Congratula shima! 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 806266813 E11.9 Declines any medication s again today States that he has been drinking beer, advised to wean off and stopDiet and exerciseGe t labs Dr Orozco 08/30/2020 , next in one yearDr Marcio 09/06/2020 Diverticulitis 706146773 K57.92 Admitted and d/c [facility] 03/24- 03/25/2022 S/p CT A/P 03/23/2022 F/u with G surgery Dr Landry with augmentin On atorvastat in 20mg dailyOn lisinopril 20mg dailyOn lansaprazo le 30mg dailyNot on nisoldipin e 8.5mg dailyOn albuterolO n flonase Leukocytosis 497803326 D 72.829 Get labs Obstructiv e sleep apnea syndrome 57926316 G47.33 Does well Lipoma of back 430770814 D17.1 Noted on the R upper back, about 2 inch soft non tender, mobile, refer to G surgery 01/06/2023 : Dr Warren [id number] Suzette ku MD [facility] Internal Med [facility] [address] [facility] [address] [facility] [place] [place] [address] 06/17/2023 15:13:40 06/17/2023 15:58:32 Neck pain 51667585 M54.2 Get Xray neck, also get on flexeril and meloxicamM ay need to get PTER if worse, he is very appreciati ve to this plan of care [id number] Suzette ku MD S_[facility] Internal Med [facility] [address] , [facility] 15 [place] [address] 08/13/2023 09:44:09 08/13/2023 10:23:14 Adult health examination 808357158 Z00.00 Screening for disorder 845596464 Z13.9 Neck pain 43303771 M54.2 Get Xray neck, also get on flexeril and meloxicamM ay need to get PTER if worse, he is very appreciati ve to this plan of care Xr c-spine 06/17/2023 : Ekta garsia PT has declined 08/13/2023 , states that he is very active and does go camping, the neck pain is now intermitte nt Screening - NAD 02332154 3 Z13.9 Cologuard: 09/27/2019 : Neg, ordered 07/31/2022 C-scope in 05/26/2022 Dr Dias Get yearly flu shotCan do TdapGet latest COVID 19 vaccineCan do shingrix vaccineGet PCV #20Get RSV vaccineHas declined all vaccines 02/12/2023 Ex-smoker US AAA at age 67 years RTC in 4 monthsdo labsER if worsehe did verbalized his understand ing of the above Essential hypertension 83496310 I10 Dr Sears 04/17/2023 , f/u in one yearStress test 12/03/18: neg ECHO 12/03/18: negSleep study: 12/05/2018 : negLDCT 09/05/2021 : CADECHO 05/05/2023 : EF 65% Not on nisoldipin e ER 8.5mg bid 07/31/2022 On lisinopril 20mg daily Hyperlipidemia 07800855 E78.5 On atorvastat in 20mg dailyDoes well Get labs Gastroesop hageal reflux disease without esophagitis 097978466 K21.9 On lansoprazo le does wellTake as needed only Low back pain 240621003 M54.50 XR LS spine 01/06/17: Was rec then to see spine surgeon, he wanted to keep seeing chiropract or Seen by Dr Narayan, does well No more apts with Dr Narayan Not taking the opiates Does well now Chronic ob structive pulmonary disease 42217659 J44.9 On proair, renewed 01/03/2021 On flonaseHe does take claritinDo es well on this Cigarette smoker 0861453 7 F17.210 LDCT 07/22/18: Emphysema, next in one yearLDCT 08/29/2020 : Next in one yearLDCT 09/05/2021 : Next in one yearLDCT 10/07/2022 : Next in one year He has quit smoking Congratula shima! 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 951859235 E11.9 Declines any medication s again today States that he has been drinking beer, advised to wean off and stopDiet and exerciseGe t labs Dr Orozco 08/30/2020 , next in one yearDr Rammac 09/06/2020 Diverticulitis 925412530 K57.92 Admitted and d/c [facility] 03/24- 03/25/2022 S/p CT A/P 03/23/2022 F/u with G surgery Dr Landry with augmentin On atorvastat in 20mg dailyOn lisinopril 20mg dailyOn lansaprazo le 30mg dailyNot on nisoldipin e 8.5mg dailyOn albuterolO n flonase Leukocytosis 523281938 D 72.829 Get labs Obstructiv e sleep apnea syndrome 38199188 G47.33 Does well Lipoma of back 294270359 D17.1 Noted on the R upper back, about 2 inch soft non tender, mobile, refer to G surgery 01/06/2023 : Dr Warren [id number] Suzette ku MD [facility] Internal Med [facility] 15 [address] [facility], [facility] 15 [place] [address] 12/29/2023 16:46:09 12/29/2023 18:08:22 Neck pain 59131852 M54.2 Get Xray neck, also get on flexeril and meloxicamM ay need to get PTER if worse, he is very appreciati ve to this plan of care Xr c-spine 06/17/2023 : Ekta garsia PT has declined 08/13/2023 , states that he is very active and does go camping, the neck pain is now intermitte nt Screening - NAD 71420705 3 Z13.9 Cologuard: 09/27/2019 : Neg, ordered 07/31/2022 C-scope in 05/26/2022 Dr Dias Get yearly flu shotCan do TdapGet latest COVID 19 vaccineCan do shingrix vaccineGet PCV #20Get RSV vaccineHas declined all vaccines 02/12/2023 Ex-smoker US AAA at age 67 years RTC in 4 monthsdo labsER if worsehe did verbalized his understand ing of the above Essential hypertension 61300797 I10 Dr Sears 04/17/2023 , f/u in one yearStress test 12/03/18: neg ECHO 12/03/18: negSleep study: 12/05/2018 : negLDCT 09/05/2021 : CADECHO 05/05/2023 : EF 65% Not on nisoldipin e ER 8.5mg bid 07/31/2022 On lisinopril 20mg daily Hyperlipidemia 91136686 E78.5 On atorvastat in 20mg dailyDoes well Get labs Gastroesop hageal reflux disease without esophagitis 458710895 K21.9 On lansoprazo le does wellTake as needed only Low back pain 654470719 M54.50 XR LS spine 01/06/17: Was rec then to see spine surgeon, he wanted to keep seeing chiropract or Seen by Dr Narayan, does well No more apts with Dr Narayan Not taking the opiates Does well now Chronic ob structive pulmonary disease 79737743 J44.9 On proairOn flonaseHe does take claritinDo es well on this Cigarette smoker 7234081 7 F17.210 LDCT 07/22/18: Emphysema, next in one yearLDCT 08/29/2020 : Next in one yearLDCT 09/05/2021 : Next in one yearLDCT 10/07/2022 : Next in one yearLDCT 12/08/2023 : Next in one year He has quit smoking Congratula shima! 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 351199590 E11.9 Declines any medication s again today States that he has been drinking beer, advised to wean off and stopDiet and exerciseGe t labs Dr Orozco 08/30/2020 , next in one yearDr Rammacher 09/06/2020 Diverticulitis 829644459 K57.92 Admitted and d/c [facility] 03/24- 03/25/2022 S/p CT A/P 03/23/2022 F/u with G surgery Dr Landry with augmentin On atorvastat in 20mg dailyOn lisinopril 20mg dailyOn lansaprazo le 30mg dailyNot on nisoldipin e 8.5mg dailyOn albuterolO n flonase Admitted and d/c [facility] 12/27/2023 CT A/P 12/24/2023 Rx with zosynD/c on augmentin and flagylWBC 23.5 12/24/2023 -> 7.6 12/27/2023 Does well now Obstructiv e sleep apnea syndrome 85740357 G47.33 Does well Lipoma of back 836590496 D17.1 Noted on the R upper back, about 2 inch soft non tender, mobile, refer to G surgery 01/06/2023 : Dr Warren Transition of care 84610 56876 105 Z75.8 Abdominal aortic aneurysm screening 722850637 Z13.6 [id number] Suzette ku MD [facility] Internal Med [facility] 15 [address] [facility], [facility] 15 [place] [address] 03/31/2024 16:47:48 03/31/2024 18:05:52 Neck pain 66710396 M54.2 Get Xray neck, also get on flexeril and meloxicamM ay need to get PTER if worse, he is very appreciati ve to this plan of care Xr c-spine 06/17/2023 : ORLANDODCan do PT has declined 08/13/2023 , states that he is very active and does go camping, the neck pain is now intermitte nt Screening - NAD 75269957 3 Z13.9 Cologuard: 09/27/2019 : Neg, ordered 07/31/2022 C-scope in 05/26/2022 Dr Dias Get yearly flu shotCan do TdapGet latest COVID 19 vaccineCan do shingrix vaccineGet PCV #20Get RSV vaccineHas declined all vaccines 02/12/2023 , 03/31/2024 Ex-smoker US AAA at age 67 years RTC in 4 monthsdo labsER if worsehe did verbalized his understand ing of the above Essential hypertension 83803112 I10 Dr Sears 04/17/2023 Stress test 12/03/18: neg ECHO 12/03/18: negSleep study: 12/05/2018 : negLDCT 09/05/2021 : CADECHO 05/05/2023 : EF 65% Not on nisoldipin e ER 8.5mg bid 07/31/2022 On lisinopril 20mg dailyIs to sancho apt with Dr Sears Hyperlipidemia 34665490 E78.5 On atorvastat in 20mg dailyDoes well Get labs Gastroesop hageal reflux disease without esophagitis 983650423 K21.9 On lansoprazo le does wellTake as needed only Low back pain 545341139 M54.50 XR LS spine 01/06/17: Was rec then to see spine surgeon, he wanted to keep seeing chiropract or Seen by Dr Narayan, does well No more apts with Dr Narayan Not taking the opiates Does well now Chronic ob structive pulmonary disease 86632464 J44.9 On proairOn flonaseHe does take claritinDo es well on this Cigarette smoker 0855098 7 F17.210 LDCT 07/22/18: Emphysema, next in one yearLDCT 08/29/2020 : Next in one yearLDCT 09/05/2021 : Next in one yearLDCT 10/07/2022 : Next in one yearLDCT 12/08/2023 : Next in one year He has quit smoking Congrdarlene ronquillo! 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5 12/24/2023 -> 7.6 12/27/2023 Does well now OV 03/31/2024 :Is to see Dr Cuba and he does need to stop smoking for him to get surgery on 05/02/2024 Obstructiv e sleep apnea syndrome 41912975 G47.33 Does well Lipoma of back 208154810 D17.1 Noted on the R upper back, about 2 inch soft non tender, mobile, refer to G surgery 01/06/2023 : Dr Warren Transition of care 93009 47742 105 Z75.8 Abdominal aortic aneurysm screening 484004667 Z13.6 02/20/2024 : Neg Blood in urine 24083055 R31.9 ResolvedHa d this as he thinks [...] Gardner Member ID Guarantor Name 02/12/2023 1 [facility] (MEDICARE REPLACEMENT/A DVANTAGE - PPO) [id number] Onel Montero [id number] Onel Montero 06/17/2023 1 [facility] (MEDICARE REPLACEMENT/A DVANTAGE - PPO) [id number] Onel Montero [id number] Onel Montero 08/13/2023 1 [facility] (MEDICARE REPLACEMENT/A DVANTAGE - PPO) [id number] Onel Montero [id number] Onel Montero 12/29/2023 1 [facility] (MEDICARE REPLACEMENT/A DVANTAGE - PPO) [id number] Onel Montero [id number] Onel Montero 03/31/2024 1 [facility] (MEDICARE REPLACEMENT/A DVANTAGE - PPO) [id number] Onel Montero [id number] Onel Montero Notes Date Note Type Note Provider Name and Address Organization Details Recorded Time 02/12/2023 text/html Here to establis h carePast Hx:KaterinaiaLMIRINGE MAYevseth social family surgical historyHe is here to [...] apt, he does well Suzette Ortiz MD [address] [place] [address], [facility] [address], [place], [address], [facility] 02/12/2023 10:38:07 06/17/2023 text/html Here to amanda Rey Hx:ConneraleksandraiaLMIRINGAlisha OLVERAevseth [facility] family surgical historyHe is here to get [...] in the neck Suzette Ortiz MD [address], [facility] [address], [place], [address], [place] [facility] [employer] 06/17/2023 16:13:28 08/13/2023 text/html Here to amanda [...] going for melody Ortiz MD [address], [facility] [address], [place], [address], [facility] 08/17/2023 18:39:46 12/29/2023 text/html Here to amanda [...] his post hospital f/u, s/p d/c from [facility] on 12/27/2023, for diverticulitis, is doing well now Suzette Ortiz MD [address] [facility], [address], [place], [address], [facility] [employer] 12/29/2023 18:23:20 03/31/2024 text/html Here to amanda [...] his post hospital f/u, s/p d/c from [facility] on 12/27/2023, for diverticulitis, is doing well now OV 03/31/2024: Here for his f/u apt, he is doing well, he did have some blood in the urine, also has ER sided 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
--- OUTSIDE RECORDS SUMMARY | 2024-05-19 01:16 | XMS_ITS | Clinical Summary ---
Author Organization [facility] [employer] Address [address] [place] [address] Care Team Providers Care Building Construction Contractor Name Role Phone Suzette Ortiz MD Primary Care Provider Source Comments [facility] [employer],non-owned Affiliates and Associated Physician Practices is amultiple site organization consisting of ambulatory clinics and hospital sitesin [place], [place] and [place]. This disclosure is being madepursuant to the Care Everywhere program and may not contain all information available regarding this patient. Last updated 17.[facility] [employer] Allergies Active Allergy Reactions Criticality Noted Date [...] to complete this topic MENINGOCOCCAL (Group B) VACC INE SHARED DECISION-MAKING Aged Out No longer eligibl e based on patient's age to complete this topic MENINGOCOCCAL GROUPS A/C/Y/W VACCINE Aged Out No longer eligible b ased on patient's age to complete this topic Care Teams Building Construction Contractor Relationship Specialty Start Date End Date Suzette Ortiz MD [address] [address] PCP - General 06/17/22
[2024-05-19] MEDS: ACETAMINOPHEN 500 MG TABLET 1000 MG PO (10:45)
[2024-05-19] MEDS: ALVIMOPAN 12 MG CAPSULE PO (10:45)
[2024-05-19] MEDS: KETOROLAC 15 MG/ML VIAL (*BKC) IV PUSH (10:45)
[2024-05-19] MEDS: LACTATED RINGERS 1,000 ML 30 ML IV CONT ×2 (11:00→16:55)
--- NOTE | 2024-05-19 11:12 | P.PNAN_ITS ---
Anes - Initial Pre Proc Eval Procedure: Operation Date: 05/19/24 12:00 Proposed Procedures p Hand Assisted Laparoscopic Sigmoidectomy - Cedric Cuba MD Date/Time: 05/19/24 11:12 Surgeon: Cedric Cuba MD Pre Op Diagnosis: Diverticulitis with Abscess Patient Data Age: 69 Gender: M Height: 1.78 m Weight: 93.5 kg Last Vital Signs Temp 36.1 C L 05/19/24 10:45 Pulse 78 05/19/24 10:45 Resp 14 05/19/24 10:45 BP 138/80 05/19/24 10:45 Pulse Ox 99 05/19/24 10:45 O2 Del Method Room Air 05/19/24 10:45 Allergies Allergy/AdvReac Type Severity Reaction Status Date / Time codeine AdvReac Unknown Itching Verified 05/19/24 11:00 Home Medications ?Medication ?Instructions ?Recorded ?Confirmed ?Type albuterol sulfate 90 mcg/actuation 2 puff inhalation Q6H PRN 03/23/22 05/08/24 History aerosol inhaler Shortness Of Breath atorvastatin 20 mg tablet 20 mg PO DAILY 03/23/22 05/19/24 History fluticasone propionate 50 1 spray intranasal DAILY PRN Sinus 03/23/22 05/08/24 History mcg/actuation nasal Symptoms spray,suspension lansoprazole 30 mg capsule,delayed 30 mg PO DAILY 03/23/22 05/19/24 History release lisinopril 20 mg tablet 20 mg PO DAILY 03/23/22 05/19/24 History ciprofloxacin HCl 500 mg tablet 500 mg PO .COMPLEX #1 tablet 05/02/24 05/19/24 Rx metronidazole 500 mg tablet 500 mg PO .COMPLEX #3 tabs 05/02/24 05/19/24 Rx Patient hx anesthesia problems: none Family hx anesthesia problems: none Results Review: All pre-operative results and documents have been reviewed as part of the pre- operative evaluation. [facility] Past Medical History Medical History Obesity PUD (peptic ulcer disease) EFREN on CPAP COPD (chronic obstructive pulmonary disease) Essential hypertension Hyperlipidemia Smoker Diverticulitis of colon with perforation Surgical History Surgical History Hx of excision of mass excision 4 cm skin cyst of the back with no margin, 12 cm layered wqroxeq91/22/23 TRE History of laparoscopic cholecystectomy Peptic ulcer with perforation Surgery for perforated ulcer years ago, midline incision. Social History Social History Smoking packs per day: 0.75 Smoking cigarettes per day: 15.0 Years smoked: 40 Smoking pack-years: 30.00 Smoking status: Current some day smoker Tobacco type: cigarettes Additional smoking assessment comments: SMOKES 0.5 PPKS/DAY CURRENTLY Alcohol intake: current Drinks per week: 15 Alcohol use details: ON WEEKENDS, NONE SINCE 03/2022 Substance use: never Substance use type: does not use Current Housing: Decline to Answer Concerned About Future Housing: Decline to Answer Difficulty Paying Gas/Electric Bills: Decline to Answer Difficulty Paying for Meds: Decline to Answer Currently Unemployed: Decline to Answer Education: Decline to Answer Difficulty w/ Childcare or Family Care: Decline to Answer Living arrangements: with family Spiritual care concerns: No Anes - Eval Final PreProcedure Day of Procedure 05/19/24 11:12 Patient weight: overweight Heart: regular rate and rhythm Lungs: clear to auscultation Airway: Mallampati scale class II Neurological: alert and oriented Last oral intake: >/= 8 hours ASA classification: III Emergent: no Anesthetic plan: proceed Anesthesia type and monitoring: general ETT and standard monitoring Results Review: All pre-operative results and documents have been reviewed as part of the pre- operative evaluation. Informed Consent: The patient's anesthetic plan and its attendant risks and benefits were discussed with the patient/family/POA. Questions were solicited and answers provided to the satisfaction of the patient/family/POA.
--- NOTE | 2024-05-19 11:50 | WPDHPUPDATE1 ---
History and Physical Update Update Date/Time: 05/19/24 11:50 History and Physical has been reviewed, including an updated exam of the patient. There are NO changes in the patient's condition. Risks, benefits, and alternatives have been discussed and questions answered. Patient agrees to proceed with procedure.
[2024-05-19] MEDS: ceFAZolin 2 GM/D5W 50 ML 2 GM/50 ML BAG IVPB (12:05)
[2024-05-19] MEDS: metroNIDAZOLE 500 MG/ISO 100ML 500 MG/100 ML BAG 100 MG IVPB (12:05)
[2024-05-19] MEDS: BUPIVACAINE/EPINEPHRINE 0.5% 50 ML VIAL 60 ML INFILTRATE (12:51)
[2024-05-19] MEDS: ceFAZolin SODIUM 1 GM VIAL 2 GM IV PUSH (16:40)
[2024-05-19] MEDS: fentaNYL CITRATE INJ (*CRX) 100 MCG/2 ML VIAL 25 MCG IV PUSH ×3 (17:18→17:31)
[2024-05-19] MEDS: ONDANSETRON INJ 4 MG/2 ML VIAL IV PUSH (17:18)
--- NOTE | 2024-05-19 17:21 | WPDURCON ---
Urology Consult Note HPI Date Seen: 05/19/24 Requesting Physician: Cedric Cuba MD Primary Care Provider: Suzette Ortiz, Consult Narrative Narrative: Onel Montero is a 69 year old male who I was asked to see as an intraoperative consultation at the request of Dr. Marte he laid for evaluation and management of a left ureteral injury during the course of a sigmoid colectomy. Patient is unknown to our practice and not known to have significant prior urological history. He has no history of no urological surgeries and no history of pelvic or abdominal radiation. [facility] Past Medical History Medical History Obesity PUD (peptic ulcer disease) EFREN on CPAP COPD (chronic obstructive pulmonary disease) Essential hypertension Hyperlipidemia Smoker Diverticulitis of colon with perforation Surgical History Surgical History Hx of excision of mass excision 4 cm skin cyst of the back with no margin, 12 cm layered [id number] TRE History of laparoscopic cholecystectomy Peptic ulcer with perforation Surgery for perforated ulcer years ago, midline incision. Social History Social History Smoking packs per day: 0.75 Smoking cigarettes per day: 15.0 Years smoked: 40 Smoking pack-years: 30.00 Smoking status: Current some day smoker Tobacco type: cigarettes Additional smoking assessment comments: SMOKES 0.5 PPKS/DAY CURRENTLY Alcohol intake: current Drinks per week: 15 Alcohol use details: ON WEEKENDS, NONE SINCE 03/2022 Substance use: never Substance use type: does not use Current Housing: Decline to Answer Concerned About Future Housing: Decline to Answer Difficulty Paying Gas/Electric Bills: Decline to Answer Difficulty Paying for Meds: Decline to Answer Currently Unemployed: Decline to Answer Education: Decline to Answer Difficulty w/ Childcare or Family Care: Decline to Answer Living arrangements: with family Spiritual care concerns: No Meds Home Medications and Allergies Home Medications ?Medication ?Instructions ?Recorded ?Confirmed ?Type albuterol sulfate 90 mcg/actuation 2 puff inhalation Q6H PRN 03/23/22 05/08/24 History aerosol inhaler Shortness Of Breath atorvastatin 20 mg tablet 20 mg PO DAILY 03/23/22 05/19/24 History fluticasone propionate 50 1 spray intranasal DAILY PRN Sinus 03/23/22 05/08/24 History mcg/actuation nasal Symptoms spray,suspension lansoprazole 30 mg capsule,delayed 30 mg PO DAILY 03/23/22 05/19/24 History release lisinopril 20 mg tablet 20 mg PO DAILY 03/23/22 05/19/24 History ciprofloxacin HCl 500 mg tablet 500 mg PO .COMPLEX #1 tablet 05/02/24 05/19/24 Rx metronidazole 500 mg tablet 500 mg PO .COMPLEX #3 tabs 05/02/24 05/19/24 Rx Allergies Allergy/AdvReac Type Severity Reaction Status Date / Time codeine AdvReac Unknown Itching Verified 05/19/24 11:00 Vital Signs Vital Signs - 24 hr 05/19/24 10:45 05/19/24 16:55 05/19/24 17:10 Temperature 97 F L 97.7 F Pulse Rate 78 84 82 Respiratory Rate 14 20 20 Blood Pressure 138/80 139/79 131/84 Pulse Oximetry 99 98 99 Oxygen Delivery Room Air Simple Face Mask Simple Face Mask Oxygen Flow Rate 6 8
--- NOTE | 2024-05-19 17:22 | W.PM.PROC2 ---
Procedure Note - Detailed Date of Procedure 05/19/24 Pre-op Diagnosis Diverticulitis with Abscess Post-op Diagnosis Other (1. Diverticulitis with abscess 2. Left ureteral transection) Procedure Performed Left ureteroneocystostomy Surgeon Malcolm Stahl MD Survival Specialist Cedric Cuba MD, August Kessler, OPTICAL COATING TECHNICIAN Anesthesia General Findings Transected left ureter proximally 4-5 cm below the left iliac vessels Description of Procedure Was to see patient is an intraoperative consultation for management of a transected left ureter. Dr. Cuba has completed his sigmoid colectomy and exposed the left ureter nicely. There is a clean transection approximately 4-5 cm below the left iliac vessels. The ureter seemed quite viable with good blood flow and preservation of the [place] ureteral tissue. I made a cursory attempt to identify the distal ureter without success. Given this low point of transection decision was made to proceed with ureteral israel cystotomy which could be undertaken without any tension at the site of anastomosis. I did mobilize the right pelvic attachments of the bladder to the pelvic sidewall so as to provide some mobility. Again the it was obvious we could obtain a tension-free anastomosis with the bladder in Situ, without a need for a psoas hitch. I excise the very distal most portion of the left ureter so as to provide a fresh edge. I spatula later the ureter. The bladder was filled with saline and a vesicostomy was taken near the dome. A ureteral vesicle anastomosis was undertaken in a refluxing fashion with a combination of interrupted and running 4-0 Vicryl sutures across a 6 F variable length stent. A small Hebert drain was secured in the pelvis and Dr. Cuba was not available for incision closure. I will plan to leave the Gallo catheter were in place for 1 week and arrange for cystogram prior to removal. I will plan to leave the left ureteral stent in place for 6 weeks. Postoperative KUB in PACU showed the stent to be in good position with a proximal coil in an upper pole calyx and the distal coil in the bladder. Drains Yes Pathology None sent Complications No immediate complications Condition Stable Disposition PACU
--- NOTE | 2024-05-19 17:44 | P.OP_ITS ---
Procedure Note - Detailed Date of Procedure 05/19/24 Pre-op Diagnosis Diverticulitis with perforation Post-op Diagnosis Same (Diverticulitis with perforation, left ureteral injury) Procedure Performed Hand access laparoscopic sigmoidectomy with stapled colorectal anastomosis Surgeon Cedric Cuba MD Mirror Inspector Margie Terry SAS ARCHITECT Anesthesia General and Local Indications Patient has had 2 different episodes of acute diverticulitis with perforation that have resulted in hospitalization. He had a colonoscopy which did not show any sign of malignancy. He was very concerned about this happening further. After several discussions in the office, he is taken to surgery now for hand acc ess laparoscopic sigmoidectomy for recurrent cases of diverticulitis with perforation. Findings Sigmoid colon scarring consistent with previous diverticulitis but no abscess or more stricture noted. Distal left ureter was injured during the sigmoid resection. Dr. Stahl was consulted. He came to the operating room and performed ureteroneocystostomy. He dictated his consultation and operation in a separate dictation. Although the sigmoid resection was done through a hand access incision, this had to be enlarged to provide the ureteral repair although the incision did remain completely by below the umbilicus. Description of Procedure Patient was taken to surgery and induced into general anesthesia. Gallo catheter was placed. Rectal irrigation and rectal tube were placed. Patient was in Alan stirrups in lithotomy. Prep and drape was carried out. Hand access port incision was marked on the skin below the umbilicus in the midline. Local was infiltrated into the skin and the deeper subcutaneous. Incision was made dissection was carried down between the rectus muscle and to the p eritoneum. Peritoneum was opened the length of the wound. The area around the incision was explored and no significant adhesions were found. The Macario was then placed followed by the GelPort. A left mid abdominal 10 11 port was then placed using local and with the surgeon's hand in the abdomen to protect from any injury. Under direct visualization a mid abdominal supraumbilical 10 11 port was placed as well as a right lower quadrant 12 mm port. Patient was placed in Trendelenburg. There were adhesions to the anterior abdominal wall and the anterior lateral pelvis of the sigmoid colon. These were taken down using the LigaSure. The sigmoid and most of the descending colon were freed from lateral peritoneal attachments using the LigaSure. I then continued the dissection the sigmoid colon from the lateral pelvic wall on distally. At this point, I exposed the iliac vessels. I dissected and found the ureter. To protect the ureter, I dissected it out circumferentially and placed a red vessel loop around the ureter clipping the 2 ends so that it could be easily reach checked. I dissected distal and proximal to the ureter. There was quite a bit of distal inflammation associated with the ureter. I then completely mobilized the sigmoid colon on the patient's left side. I then went to the right side of the sigmoid colon mesentery. Starting in the area of the s acral promontory, I used the LigaSure to divide a bare area in the mesentery to the distal sigmoid and upper rectum. I had a hand on the left side of the mesentery and continued this dissection on to the sacral promontory. I found an area of upper rectum that was pliable and would be suitable for the anastomosis. I divided the mesentery of the distal sigmoid up to the proximal rectum that I had identified earlier. This was done with the LigaSure. I freed the mesenteric fat around the bowel in anticipation of resection here. I then went back to the sigmoid mesentery. I dissected through the sigmoid mesentery, dividing the superior rectal artery. I found a proximal area of distal descending colon that would be suitable for anastomosis. Fortunately there was quite a bit of extra left colon such that I would not need to mobilize the splenic flexure. The ureter was checked and recheck. I divided additional mesentery to the sigmoid colon using the LigaSure and taking care to stay away from the ureter. Eventually the mesentery to the area of sigmoid colon containing the diverticular disease was divided. I also divided the mesentery up to the distal descending colon that was the planned site of the proximal resection. At this point, we stopped CO2 insufflation and removed the GelPort. I brought the sigmoid colon out the hand access port. I was able to see the proximal rectum that had been previously dissected. I did some additional freeing of mesentery using the cautery. I then used the contour stapler and divided the upper rectum from the sigmoid colon. I then removed some additional fatty tissue from the stapled end of the rectum in anticipation of stapled anastomosis. I then turned my attention to the sigmoid colon and distal descending colon. In similar fashion, I used the LigaSure and then the cautery to free additional mesentery and colonic fatty tissue from the area where we planned to divide the bowel. I then used a TLC 75 stapler to divide the sigmoid colon from the distal descending colon. The sigmoid colon was passed off as a specimen labeled appropriately. I then removed some of the fatty tissue from around the staple line from the distal descending colon in anticipation of anastomosis. There was plenty of length on the distal descending colon. I used the disposable pursestring suture device and created a pursestring suture around the end of the distal descending colon. I removed the staple line and opened the bowel. Pursestring suture was in good position. I placed some additional 4-0 silk suture to keep the colon edges adherent to the pursestring suture. I then used the EEA sizers. A number 33 Sizer fit well which was the largest we have available. I placed the 33 EEA anvil in the into the distal descending colon and tied down the pursestring suture. All looked good. store administrative assistant then went to the rectum and removed the rectal tube. The dilators were then serially passed from the rectum up to the area of the staple line. The 33 EEA was then passed from the rectum up to the rectal staple line. The EEA prong was then advanced just below the staple line. The anvil was attached to the prong and the 2 ends of bowel were brought into proximity and an anastomosis was created. Once the EEA was removed, there were 2 complete donuts of colon seen. store administrative assistant placed the proctoscope in the rectum and blew air into the colon. Leak test was negative. I then went to the rectum myself and performed proctoscopy. I was able to see the staple line which looked good. There was no bleeding or other untoward findings. store administrative assistant and I then went back into the surgical field. We replaced the GelPort and re-insufflated. The areas of dissection looked good with no sign of bleeding or other problems. The anastomosis looked very good with no tension and good vascularity to both ends of bowel. I then looked more carefully at the ureter. It appeared to be injured in the distal aspect beyond the bifurcation of the iliac. I stopped insufflation and removed the GelPort. I examined the area of ureter more closely. It did appear to be injured probably with the LigaSure. I asked to have Dr. Stahl come and consult during the surgery. I removed the Macario and enlarged the hand access incision both towards the pubis and towards the umbilicus. Dr. Stahl came promptly and agreed there was an injury. After evaluation and performed ureteroneocystostomy. He has dictated his consultation and procedure in a separate dictation. A 15 Maori Hebert drain was placed in the pelvis and out the left lower quadrant. It was sutured to the skin with 2-0 silk. The surgical team then changed gown and gloves and a clean closure tray was used. The peritoneum was closed with running 0 chromic suture. The fascia was closed with bidirectional 0 PDS suture. The subcutaneous was closed with interrupted 3-0 Vicryl suture. The skin was loosely approximated with subcuticular interrupted 4-0 Vicryl suture. The laparoscopy ports were closed with running 4-0 Monocryl skin suture. The laparoscopy wounds were dressed with Exofin surgical adhesive. The drain was placed to bulb suction. A drain sponge was placed. Xeroform gauze was placed over the lower abdominal incision followed by fluffs and Medipore tape. The patient was awakened and taken to recovery in good condition. Gallo catheter was left in place. Sponge and needle counts were correct x2. Estimated Blood Loss -100 Drains Yes (Left lower quadrant Hebert drain) Packing No Pathology Yes (Sigmoid colon) Complications Other complications (Left ureteral injury) Condition Stable Disposition PACU [facility] Billing Surgery - Charge Forward: Surgery Billing (Hand access laparoscopic sigmoidectomy with colorectal stapled anastomosis)
--- NOTE | 2024-05-19 18:32 | ADMGEN ---
This patient, Onel Montero, was admitted to 2 Medical Room 259-. Patient/family oriented to hospital policies and general routines including ID bracelet, bed and alarms, visiting hours, pain management, procedures, bathroom and other care routines, personal items, smoking policy, room service/diet, and visiting hours. Information on how to activate the Rapid Response Team has been discussed. Patient/Family are encouraged to report perceived risks to care and to ask questions if they do not understand what they are told or what they should do.
[2024-05-19] MEDS: LACTATED RINGERS 1,000 ML 125 ML IV CONT (19:00)
[2024-05-19] MEDS: diphenhydrAMINE HCl INJ 50 MG/ML VIAL IV PUSH (19:00)
[2024-05-19] MEDS: oxyCODONE/ACETAMINOPHEN (*CRX) 10-325 MG TABLET 1 TAB PO (20:43)
[2024-05-19] MEDS: FAMOTIDINE 20 MG/2 ML VIAL IV PUSH (20:44)
[2024-05-19 21:13] LABS: Glucose Point of Care 126 mg/dl (65-105)
[2024-05-20] MEDS: LACTATED RINGERS 1,000 ML 125 ML IV CONT (02:54)
[2024-05-20] MEDS: oxyCODONE/ACETAMINOPHEN (*CRX) 5-325 MG TABLET 1 TABLET PO (02:55)
[2024-05-20 03:55] VITALS: BP 122/66; PULSE 73; RESP 12; TEMP 36.8; O2SAT 96
[2024-05-20 05:17] LABS: Hematocrit 39.8 % (42.0-52.0); Mean Corpuscular HGB Conc 32.7 g/dl (32-36); Mean Corpuscular Hemoglobin 31.1 pg (26-34); Mean Corpuscular Volume 95.2 fl (80-100); Mean Platelet Volume 9.2 fl (7.4-10.4); Platelet Count Result 184 k/mm3 (150-375); Red Blood Count 4.18 M/mm3 (4.6-6.20); Red Cell Distribution Width 12.2 % (11.5-14.5); White Blood Count 12.7 K/mm3 (4.5-10.0)
[2024-05-20 05:28] LABS: Anion Gap 8 mmol/L (4-12); Blood Urea Nitrogen 10 mg/dL (9-20); Calcium 8.4 mg/dL (8.4-10.2); Carbon Dioxide 27 mmol/L (22-30); Chloride 100 mmol/L (98-107); Estimated CRCL calculation 92 ml/min; Estimated Glomerular Filt Rate > 60; Glucose 126 mg/dL (65-110); Potassium 4.4 mmol/L (3.4-5.0); Sodium 135 mmol/L (137-145)
[2024-05-20] MEDS: oxyCODONE/ACETAMINOPHEN (*CRX) 10-325 MG TABLET 1 TAB PO ×3 (06:18→18:43)
--- NOTE | 2024-05-20 07:05 | P.PNUR_ITS ---
Progress Note: A&P Assessment and Plan (1) History of diverticulitis: Code(s): Z87.19 - Personal history of other diseases of the digestive system Status: Acute (2) Left ureteral injury: Code(s): S37.10XA - Unspecified injury of ureter, initial encounter Status: Acute Assessment and Plan: * Minimal YADIRA drainage. * Tolerating catheter well. I had long discussion with pt. about plan for indwelling catheter x1 week/cystogram prior to removal. Additionally, we discussed indwelling ureteral stent x6-weeks. Subjective Subjective Date/Time Seen: 05/20/24 07:05 Interval history: Comfortable, tolerating catheter Review of Systems Cardiovascular: Cardiovascular: Denies chest pain, Denies lightheadedness, Denies palpitations and Denies dyspnea Respiratory: Respiratory: Denies dyspnea Gastrointestinal: Gastrointestinal: Denies diarrhea, Denies nausea and Denies vomiting Genitourinary: Genitourinary: Denies hematuria and Denies dysuria Endocrine: Endocrine: Denies palpitations Exam Const: General: no acute distress Resp: Effort & Inspection: normal respiratory effort GI: Inspection: non-distended GI Palp: No abdominal tenderness and No Guarding due to palpation present (GI) Auscultation: Hypoactive bowel sounds present Other: incision dressed/dry Urinary Catheter: Urinary Catheter: patent and draining and urine clear Objective Data Vital Signs Vital Signs: Vital Signs - 24 hr 05/19/24 10:45 05/19/24 16:55 05/19/24 17:10 Temperature 97 F L 97.7 F Pulse Rate 78 84 82 Respiratory Rate 14 20 20 Blood Pressure 138/80 139/79 131/84 Pulse Oximetry 99 98 99 Oxygen Delivery Room Air Simple Face Mask Simple Face Mask Oxygen Flow Rate 6 8 05/19/24 17:25 05/19/24 17:40 05/19/24 17:55 Temperature 97.4 F L Pulse Rate 87 80 Respiratory Rate 18 12 15 Blood Pressure 125/89 115/61 121/65 Pulse Oximetry 94 96 94 Oxygen Delivery Room Air Room Air Room Air Oxygen Flow Rate 05/19/24 18:40 05/19/24 18:55 05/19/24 19:24 Temperature 97.7 F 98.4 F 97.4 F L Pulse Rate 82 83 81 Respiratory Rate 16 16 12 Blood Pressure 134/77 126/70 133/70 Pulse Oximetry 98 98 90 Oxygen Delivery Oxygen Flow Rate 05/19/24 23:59 05/20/24 03:55 Temperature 98.3 F 98.2 F Pulse Rate 82 73 Respiratory Rate 16 12 Blood Pressure 122/81 122/66 Pulse Oximetry 98 96 Oxygen Delivery Oxygen Flow Rate Intake/Output Intake/Output: Intake & Output 05/17/24 05/18/24 05/19/24 05/20/24 23:59 23:59 23:59 23:59 Intake Total 300 2187.5 Output Total 175 1810 Balance 125 377.5 Meds/Results Medications: Active Medications Generic Name Dose Route Start Last Admin Trade Name Freq PRN Reason Stop Dose Admin Acetaminophen 500 mg 05/19/24 18:14 Acetaminophen 500 Mg Tablet PO Q6H PRN Pain Rated 1-3 Albuterol 2 puff 05/19/24 18:14 Albuterol Sulfate (*Sp) Aerosol 1 Puff INHALATION Q6H PRN Shortness Of Breath Alvimopan 12 mg 05/20/24 21:00 Alvimopan 12 Mg Capsule PO 05/27/24 20:59 Q12HR DOM Atorvastatin Calcium 20 mg 05/20/24 09:00 Atorvastatin 20 Mg Tablet PO DAILY DOM Diphenhydramine HCl 50 mg 05/19/24 18:14 05/19/24 19:00 Diphenhydramine Hcl Inj 50 Mg/Ml Vial IV PUSH 50 mg Q4H PRN Administration Itching Enoxaparin Sodium 40 mg 05/20/24 09:00 Enoxaparin 40 Mg/0.4 Ml Syringe SUB-Q DAILY DOM Famotidine 20 mg 05/19/24 21:00 05/19/24 20:44 Famotidine 20 Mg/2 Ml Vial IV PUSH 20 mg Q12HR DOM Administration Fluticasone Propionate 1 spray 05/19/24 18:14 Fluticasone Propionate 0.05% Na Spr 16 Gm Btl (*Bkc) NASAL DAILY PRN Sinus Symptoms Lactated Ringer's 1,000 mls @ 125 mls/hr 05/19/24 18:14 05/20/24 02:54 Lr - Lactated Ringers Iv IV CONT 125 mls/hr .Q8H DOM Administration Ibuprofen 800 mg in 200 mls @ 400 mls/hr 05/19/24 18:14 Caldolor 800 Mg/200 Ml IVPB Q6H PRN Breakthrough Pain Rated 1-3 or NPO Lisinopril 20 mg 05/20/24 09:00 Lisinopril 20 Mg Tablet PO DAILY DOM Morphine Sulfate 2 mg 05/19/24 18:14 Morphine Sulfate (*Crx) 2 Mg/Ml Inj IV PUSH Q2H PRN Breakthrough Pain Rated 4-6 or NPO Morphine Sulfate 4 mg 05/19/24 18:14 Morphine Sulfate (*Crx) 4 Mg/Ml Inj IV PUSH Q2H PRN Breakthrough Pain Rated 7-10 or NPO Naloxone HCl 0.1 mg 05/19/24 18:14 Naloxone Hcl 0.4 Mg/Ml Vial IV PUSH Q2M PRN Opiate Reversal Ondansetron HCl 4 mg 05/19/24 18:14 Ondansetron Inj 4 Mg/2 Ml Vial IV PUSH Q4H PRN Nausea And Vomiting Oxycodone/Acetaminophen 1 tablet 05/19/24 18:14 05/20/24 02:55 Oxycodone/Acetaminophen (*Crx) 5-325 Mg Tablet PO 1 tablet Q4H PRN Administration Pain Rated 4-6 Oxycodone/Acetaminophen 1 tab 05/19/24 18:14 05/20/24 06:18 Oxycodone/Acetaminophen (*Crx) 10-325 Mg Tablet PO 1 tab Q6H PRN Administration Pain Rated 7-10 Radiology Results: ITS Impressions Abdomen X-Ray 05/19/24 17:28 IMPRESSION: Nonspecific, nonobstructive bowel gas pattern. Double-J stent, as detailed above. Labs Labs: Laboratory Results - last 24 hr 05/19/24 05/20/24 20:56 04:47 WBC 12.7 H RBC 4.18 L Hgb 13.0 L Hct 39.8 L MCV 95.2 MCH 31.1 MCHC 32.7 RDW 12.2 Plt Count 184 MPV 9.2 Sodium 135 L Potassium 4.4 Chloride 100 Carbon Dioxide 27 Anion Gap 8 BUN 10 D Creatinine 0.69 L Estim Creat Clear Calc 92 Estimated GFR > 60 Glucose 126 H POC Capillary Glucose 126 H Calcium 8.4
[2024-05-20 08:11] VITALS: BP 129/64; PULSE 66; RESP 12; TEMP 36.4; O2SAT 99
[2024-05-20 08:31] LABS: Glucose Point of Care 97 mg/dl (65-105)
[2024-05-20] MEDS: FAMOTIDINE 20 MG/2 ML VIAL IV PUSH (08:31)
[2024-05-20] MEDS: ENOXAPARIN 40 MG/0.4 ML SYRINGE SUB-Q (08:31)
[2024-05-20] MEDS: ATORVASTATIN 20 MG TABLET PO (08:31)
[2024-05-20] MEDS: IBUPROFEN IV 800 MG/200 ML 800 MG/200 ML BAG 400 MG IVPB ×2 (10:44→20:37)
[2024-05-20 11:41] VITALS: BP 132/69; PULSE 72; RESP 16; TEMP 36.7; O2SAT 96
[2024-05-20] MEDS: LACTATED RINGERS 1,000 ML 80 ML IV CONT (12:00)
[2024-05-20 12:11] LABS: Glucose Point of Care 106 mg/dl (65-105)
--- NOTE | 2024-05-20 12:53 | P.PNGS_ITS ---
Progress Note: A&P Assessment and Plan (1) Diverticulitis of colon with perforation: Code(s): K57.20 - Diverticulitis of large intestine with perforation and abscess without bleeding Status: Chronic Assessment and Plan: Patient is already had some bowel function. He is tolerating liquids well. He has been up out of bed at least a couple of times. I will advance him to full liquids and then low-fiber diet as he desires. Follow labs and exam. Start daily dressing changes (2) Left ureteral injury: Qualifiers: Encounter type: subsequent encounter Qualified Code(s): S37.10XD - Unspecified injury of ureter, subsequent encounter Code(s): S37.10XA - Unspecified injury of ureter, initial encounter Status: Acute Assessment and Plan: Repaired intraoperatively by Dr. Stahl. Seems to be doing well. Urine is blood tinged and good urine output in the Gallo catheter. YADIRA drain looks somewhat bloody and will continue to watch. 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 He has been taking oral analgesics. I explained to the patient as he was leaving the recovery room that his left ureter had been injured during the surgery and repaired by . I had also explained this to his when I called her after the surgery. I went over this again this morning with him. Exam Const: General: comfortable, no acute distress, alert, awake and well nourished Orientation/consciousness: patient oriented x3 GI: Inspection: incision (Dry and healing.), no visible herniation and other (YADIRA drain shows bloody drainage, 100 cc yesterday, only 10 cc since midnight) GI Palp: Yes Soft to palpation, Yes Tenderness to palpation present (GI) (Incisional tenderness), No Guarding due to palpation present (GI) and No Rebound tenderness present Urinary Catheter: Urinary Catheter: patent and draining and urine red (Blood- tinged urine) Neuro: General: patient oriented x3 and no focal motor deficits Extrem: General: no calf tenderness and no edema Psych: Affect: normal affect Insight: Good insight present (Psych) Judgement: Good judgement present (Psych) Objective Data Vital Signs Vital Signs: Vital Signs - 24 hr 05/19/24 16:55 05/19/24 17:10 05/19/24 17:25 Temperature 36.5 C Pulse Rate 84 82 87 Respiratory Rate 20 20 18 Blood Pressure 139/79 131/84 125/89 Pulse Oximetry 98 99 94 Oxygen Delivery Simple Face Mask Simple Face Mask Room Air Oxygen Flow Rate 6 8 05/19/24 17:40 05/19/24 17:55 05/19/24 18:40 Temperature 36.3 C L 36.5 C Pulse Rate 80 82 Respiratory Rate 12 15 16 Blood Pressure 115/61 121/65 134/77 Pulse Oximetry 96 94 98 Oxygen Delivery Room Air Room Air Oxygen Flow Rate 05/19/24 18:55 05/19/24 19:24 05/19/24 23:59 Temperature 36.9 C 36.3 C L 36.8 C Pulse Rate 83 81 82 Respiratory Rate 16 12 16 Blood Pressure 126/70 133/70 122/81 Pulse Oximetry 98 90 98 Oxygen Delivery Oxygen Flow Rate 05/20/24 03:55 05/20/24 08:11 05/20/24 08:30 Temperature 36.8 C 36.4 C Pulse Rate 73 66 Respiratory Rate 12 12 Blood Pressure 122/66 129/64 Pulse Oximetry 96 99 Oxygen Delivery Room Air Oxygen Flow Rate 05/20/24 11:41 Temperature 36.7 C Pulse Rate 72 Respiratory Rate 16 Blood Pressure 132/69 Pulse Oximetry 96 Oxygen Delivery Oxygen Flow Rate Intake/Output Intake/Output: Intake & Output 05/17/24 05/18/24 05/19/24 05/20/24 23:59 23:59 23:59 23:59 Intake Total 300 4387.5 Output Total 175 4760 Balance 125 -372.5 Meds/Results Medications: Active Medications Generic Name Dose Route Start Last Admin Trade Name Freq PRN Reason Stop Dose Admin Acetaminophen 500 mg 05/19/24 18:14 Acetaminophen 500 Mg Tablet PO Q6H PRN Pain Rated 1-3 Albuterol 2 puff 05/19/24 18:14 Albuterol Sulfate (*Sp) Aerosol 1 Puff INHALATION Q6H PRN Shortness Of Breath Alvimopan 12 mg 05/20/24 21:00 Alvimopan 12 Mg Capsule PO 05/22/24 20:59 Q12HR DOM Atorvastatin Calcium 20 mg 05/20/24 09:00 05/20/24 08:31 Atorvastatin 20 Mg Tablet PO 20 mg DAILY DOM Administration Diphenhydramine HCl 50 mg 05/19/24 18:14 05/19/24 19:00 Diphenhydramine Hcl Inj 50 Mg/Ml Vial IV PUSH 50 mg Q4H PRN Administration Itching Enoxaparin Sodium 40 mg 05/20/24 09:00 05/20/24 08:31 Enoxaparin 40 Mg/0.4 Ml Syringe SUB-Q 40 mg DAILY DOM Administration Famotidine 20 mg 05/20/24 21:00 Famotidine 20 Mg Tablet PO Q12HR DOM Fluticasone Propionate 1 spray 05/19/24 18:14 Fluticasone Propionate 0.05% Na Spr 16 Gm Btl (*Bkc) NASAL DAILY PRN Sinus Symptoms Lactated Ringer's 1,000 mls @ 80 mls/hr 05/19/24 18:14 05/20/24 12:00 Lr - Lactated Ringers Iv IV CONT 80 mls/hr .[id number] DOM Administration Ibuprofen 800 mg in 200 mls @ 400 mls/hr 05/19/24 18:14 05/20/24 11:14 Caldolor 800 Mg/200 Ml IVPB Infused Q6H PRN Infusion Breakthrough Pain Rated 1-3 or NPO Lisinopril 20 mg 05/20/24 09:00 05/20/24 08:32 Lisinopril 20 Mg Tablet PO Not Given DAILY DOM Morphine Sulfate 2 mg 05/19/24 18:14 Morphine Sulfate (*Crx) 2 Mg/Ml Inj IV PUSH Q2H PRN Breakthrough Pain Rated 4-6 or NPO Morphine Sulfate 4 mg 05/19/24 18:14 Morphine Sulfate (*Crx) 4 Mg/Ml Inj IV PUSH Q2H PRN Breakthrough Pain Rated 7-10 or NPO Naloxone HCl 0.1 mg 05/19/24 18:14 Naloxone Hcl 0.4 Mg/Ml Vial IV PUSH Q2M PRN Opiate Reversal Ondansetron HCl 4 mg 05/19/24 18:14 Ondansetron Inj 4 Mg/2 Ml Vial IV PUSH Q4H PRN Nausea And Vomiting Oxycodone/Acetaminophen 1 tablet 05/19/24 18:14 05/20/24 02:55 Oxycodone/Acetaminophen (*Crx) 5-325 Mg Tablet PO 1 tablet Q4H PRN Administration Pain Rated 4-6 Oxycodone/Acetaminophen 1 tab 05/19/24 18:14 05/20/24 12:18 Oxycodone/Acetaminophen (*Crx) 10-325 Mg Tablet PO 1 tab Q6H PRN Administration Pain Rated 7-10 Radiology Results: ITS Impressions Abdomen X-Ray 05/19/24 17:28 IMPRESSION: Nonspecific, nonobstructive bowel gas pattern. Double-J stent, as detailed above. Labs Labs: Laboratory Results - last 24 hr 05/19/24 05/20/24 05/20/24 20:56 04:47 08:10 WBC 12.7 H RBC 4.18 L Hgb 13.0 L Hct 39.8 L MCV 95.2 MCH 31.1 MCHC 32.7 RDW 12.2 Plt Count 184 MPV 9.2 Sodium 135 L Potassium 4.4 Chloride 100 Carbon Dioxide 27 Anion Gap 8 BUN 10 D Creatinine 0.69 L Estim Creat Clear Calc 92 Estimated GFR > 60 Glucose 126 H POC Capillary Glucose 126 H 97 Calcium 8.4 05/20/24 11:40 WBC RBC Hgb Hct MCV MCH MCHC RDW Plt Count MPV Sodium Potassium Chloride Carbon Dioxide Anion Gap BUN Creatinine Estim Creat Clear Calc Estimated GFR Glucose POC Capillary Glucose 106 H Calcium
[2024-05-20] MEDS: HYDROGEN PEROXIDE 3% TOPICAL SOLUTION 118 ML BOTTLE IRRIGATION (15:08)
[2024-05-20 16:10] VITALS: BP 143/73; PULSE 67; RESP 16; TEMP 36.5; O2SAT 99
[2024-05-20 17:03] LABS: Glucose Point of Care 76 mg/dl (65-105)
[2024-05-20 19:59] VITALS: BP 136/73; PULSE 69; RESP 16; TEMP 36.4; O2SAT 98
[2024-05-20] MEDS: FAMOTIDINE 20 MG TABLET PO (20:27)
[2024-05-20] MEDS: ALVIMOPAN 12 MG CAPSULE PO (20:27)
[2024-05-21] VITALS (8 sets, daily range): BP systolic 127–147; BP diastolic 65–86; PULSE 70–85; RESP 12–20; TEMP 36.4–37.7; O2SAT 96–100
[2024-05-21] MEDS: oxyCODONE/ACETAMINOPHEN (*CRX) 10-325 MG TABLET 1 TAB PO ×4 (00:24→18:34)
[2024-05-21] MEDS: ALBUTEROL SULFATE (*SP) AEROSOL 1 PUFF 2 PUFF INHALATION ×2 (00:43→17:12)
[2024-05-21 05:36] LABS: Hematocrit 38.7 % (42.0-52.0); Hemoglobin 12.9 g/dL (14.0-18.0); Mean Corpuscular HGB Conc 33.3 g/dl (32-36); Mean Corpuscular Hemoglobin 31.5 pg (26-34); Mean Corpuscular Volume 94.6 fl (80-100); Mean Platelet Volume 9.1 fl (7.4-10.4); Platelet Count Result 175 k/mm3 (150-375); Red Blood Count 4.09 M/mm3 (4.6-6.20); Red Cell Distribution Width 12.2 % (11.5-14.5); White Blood Count 10.1 K/mm3 (4.5-10.0)
[2024-05-21 05:55] LABS: Anion Gap 4 mmol/L (4-12); Blood Urea Nitrogen 7 mg/dL (9-20); CRP 4.5 mg/dL (<1.0); Calcium 8.5 mg/dL (8.4-10.2); Carbon Dioxide 30 mmol/L (22-30); Chloride 104 mmol/L (98-107); Estimated CRCL calculation 99 ml/min; Estimated Glomerular Filt Rate > 60; Glucose 101 mg/dL (65-110); Potassium 3.9 mmol/L (3.4-5.0); Sodium 138 mmol/L (137-145)
[2024-05-21] MEDS: ALVIMOPAN 12 MG CAPSULE PO ×2 (09:06→20:51)
[2024-05-21] MEDS: ATORVASTATIN 20 MG TABLET PO (09:06)
[2024-05-21] MEDS: lisinopriL 20 MG TABLET PO (09:06)
[2024-05-21] MEDS: FAMOTIDINE 20 MG TABLET PO ×2 (09:06→20:51)
[2024-05-21] MEDS: ENOXAPARIN 40 MG/0.4 ML SYRINGE SUB-Q (09:08)
--- NOTE | 2024-05-21 10:35 | PM.PNGS ---
Progress Note: A&P Assessment and Plan (1) Diverticulitis of large intestine with abscess without bleeding: Code(s): K57.20 - Diverticulitis of large intestine with perforation and abscess without bleeding Status: Acute Assessment and Plan: status post sigmoid colectomy, doing well, continue drain for now, advance diet as tolerated, encourage out of bed, incentive spirometer use (2) Left ureteral injury: Qualifiers: Encounter type: subsequent encounter Qualified Code(s): S37.10XD - Unspecified injury of ureter, subsequent encounter Code(s): S37.10XA - Unspecified injury of ureter, initial encounter Status: Acute Assessment and Plan: continue Gallo, management per urology Subjective Subjective Date/Time Seen: 05/21/24 10:35 Interval history: no acute issues, mild incisional soreness, tolerating full liquid diet Review of Systems Review of Systems: All systems reviewed & are unremarkable except as noted in HPI and below Exam Const: General: cooperative, comfortable and no acute distress Resp: Auscultation: clear to auscultation bilaterally Cardio: Rate: regular rate Rhythm: regular rhythm GI: Inspection: normal to inspection, distended and incision GI Palp: Yes abdominal tenderness, Yes Soft to palpation, Yes Tenderness to palpation present (GI), No Guarding due to palpation present (GI) and No Rigid due to palpation Other: incision clean dry and intact, YADIRA with moderate serosanguineous drainage, fully with blood-tinged urine Objective Data Vital Signs Vital Signs: Vital Signs - 24 hr 05/20/24 11:41 05/20/24 16:10 05/20/24 19:59 Temperature 36.7 C 36.5 C 36.4 C Pulse Rate 72 67 69 Respiratory Rate 16 16 16 Blood Pressure 132/69 143/73 H 136/73 Pulse Oximetry 96 99 98 Oxygen Delivery 05/20/24 20:30 05/21/24 04:44 Temperature 36.4 C Pulse Rate 70 Respiratory Rate 16 Blood Pressure 127/69 Pulse Oximetry 97 Oxygen Delivery Room Air Intake/Output Intake/Output: Intake & Output 05/18/24 05/19/24 05/20/24 05/21/24 23:59 23:59 23:59 23:59 Intake Total 300 6027.5 1140 Output Total 175 7275 1550 Balance 125 -1247.5 -410 Meds/Results Medications: Active Medications Generic Name Dose Route Start Last Admin Trade Name Freq PRN Reason Stop Dose Admin Acetaminophen 500 mg 05/19/24 18:14 Acetaminophen 500 Mg Tablet PO Q6H PRN Pain Rated 1-3 Albuterol 2 puff 05/19/24 18:14 05/21/24 00:43 Albuterol Sulfate (*Sp) Aerosol 1 Puff INHALATION 2 puff Q6H PRN Administration Shortness Of Breath Alvimopan 12 mg 05/20/24 21:00 05/21/24 09:06 Alvimopan 12 Mg Capsule PO 05/22/24 20:59 12 mg Q12HR DOM Administration Atorvastatin Calcium 20 mg 05/20/24 09:00 05/21/24 09:06 Atorvastatin 20 Mg Tablet PO 20 mg DAILY DOM Administration Diphenhydramine HCl 50 mg 05/19/24 18:14 05/19/24 19:00 Diphenhydramine Hcl Inj 50 Mg/Ml Vial IV PUSH 50 mg Q4H PRN Administration Itching Enoxaparin Sodium 40 mg 05/20/24 09:00 05/21/24 09:08 Enoxaparin 40 Mg/0.4 Ml Syringe SUB-Q 40 mg DAILY DOM Administration Famotidine 20 mg 05/20/24 21:00 05/21/24 09:06 Famotidine 20 Mg Tablet PO 20 mg Q12HR DOM Administration Fluticasone Propionate 1 spray 05/19/24 18:14 Fluticasone Propionate 0.05% Na Spr 16 Gm Btl (*Bkc) NASAL DAILY PRN Sinus Symptoms Ibuprofen 800 mg in 200 mls @ 400 mls/hr 05/19/24 18:14 05/20/24 21:07 Caldolor 800 Mg/200 Ml IVPB Infused Q6H PRN Infusion Breakthrough Pain Rated 1-3 or NPO Lisinopril 20 mg 05/20/24 09:00 05/21/24 09:06 Lisinopril 20 Mg Tablet PO 20 mg DAILY DOM Administration Morphine Sulfate 2 mg 05/19/24 18:14 Morphine Sulfate (*Crx) 2 Mg/Ml Inj IV PUSH Q2H PRN Breakthrough Pain Rated 4-6 or NPO Morphine Sulfate 4 mg 05/19/24 18:14 Morphine Sulfate (*Crx) 4 Mg/Ml Inj IV PUSH Q2H PRN Breakthrough Pain Rated 7-10 or NPO Naloxone HCl 0.1 mg 05/19/24 18:14 Naloxone Hcl 0.4 Mg/Ml Vial IV PUSH Q2M PRN Opiate Reversal Ondansetron HCl 4 mg 05/19/24 18:14 Ondansetron Inj 4 Mg/2 Ml Vial IV PUSH Q4H PRN Nausea And Vomiting Oxycodone/Acetaminophen 1 tablet 05/19/24 18:14 05/20/24 02:55 Oxycodone/Acetaminophen (*Crx) 5-325 Mg Tablet PO 1 tablet Q4H PRN Administration Pain Rated 4-6 Oxycodone/Acetaminophen 1 tab 05/19/24 18:14 05/21/24 06:23 Oxycodone/Acetaminophen (*Crx) 10-325 Mg Tablet PO 1 tab Q6H PRN Administration Pain Rated 7-10 Radiology Results: ITS Impressions Abdomen X-Ray 05/19/24 17:28 IMPRESSION: Nonspecific, nonobstructive bowel gas pattern. Double-J stent, as detailed above. Labs Labs: Laboratory Results - last 24 hr 05/20/24 05/20/24 05/21/24 11:40 16:50 05:12 WBC 10.1 H RBC 4.09 L Hgb 12.9 L Hct 38.7 L MCV 94.6 MCH 31.5 MCHC 33.3 RDW 12.2 Plt Count 175 MPV 9.1 Sodium 138 Potassium 3.9 Chloride 104 Carbon Dioxide 30 Anion Gap 4 BUN 7 L Creatinine 0.64 L Estim Creat Clear Calc 99 Estimated GFR > 60 Glucose 101 POC Capillary Glucose 106 H 76 Calcium 8.5 C-Reactive Protein 4.5 H
--- NOTE | 2024-05-21 15:23 | P.PNUR_ITS ---
Progress Note: A&P Assessment and Plan (1) Left ureteral injury: Qualifiers: Encounter type: subsequent encounter Qualified Code(s): S37.10XD - Unspecified injury of ureter, subsequent encounter Code(s): S37.10XA - Unspecified injury of ureter, initial encounter Status: Acute Plan * Minimal YADIRA drainage. If remains low, plan to remoe tomorrow prior to discharge * Plan for indwelling catheter x1 week/cystogram prior to removal. * Keep indwelling ureteral stent x6-weeks. Subjective Subjective Date/Time Seen: 05/21/24 15:23 Interval history: No overnight events. Feeling well. Catheter draining. Exam Narrative: Patient is awake alert in no acute distress. His abdomen is soft nontender nondistended. YADIRA was serosanguineous fluid. Gallo catheter with yellow urine Objective Data Vital Signs Vital Signs: Vital Signs - 24 hr 05/20/24 16:10 05/20/24 19:59 05/20/24 20:30 Temperature 36.5 C 36.4 C Pulse Rate 67 69 Respiratory Rate 16 16 Blood Pressure 143/73 H 136/73 Pulse Oximetry 99 98 Oxygen Delivery Room Air 05/21/24 04:44 05/21/24 08:00 05/21/24 09:08 Temperature 36.4 C 36.8 C Pulse Rate 70 75 Respiratory Rate 16 18 16 Blood Pressure 127/69 136/86 Pulse Oximetry 97 96 97 Oxygen Delivery Room Air 05/21/24 11:50 Temperature 36.8 C Pulse Rate 85 Respiratory Rate 18 Blood Pressure 138/73 Pulse Oximetry 98 Oxygen Delivery Intake/Output Intake/Output: Intake & Output 05/18/24 05/19/24 05/20/24 05/21/24 23:59 23:59 23:59 23:59 Intake Total 300 6027.5 1500 Output Total 175 7275 1550 Balance 125 -1247.5 -50 Meds/Results Medications: Active Medications Generic Name Dose Route Start Last Admin Trade Name Freq PRN Reason Stop Dose Admin Acetaminophen 500 mg 05/19/24 18:14 Acetaminophen 500 Mg Tablet PO Q6H PRN Pain Rated 1-3 Albuterol 2 puff 05/19/24 18:14 05/21/24 00:43 Albuterol Sulfate (*Sp) Aerosol 1 Puff INHALATION 2 puff Q6H PRN Administration Shortness Of Breath Alvimopan 12 mg 05/20/24 21:00 05/21/24 09:06 Alvimopan 12 Mg Capsule PO 05/22/24 20:59 12 mg Q12HR DOM Administration Atorvastatin Calcium 20 mg 05/20/24 09:00 05/21/24 09:06 Atorvastatin 20 Mg Tablet PO 20 mg DAILY DOM Administration Diphenhydramine HCl 50 mg 05/19/24 18:14 05/19/24 19:00 Diphenhydramine Hcl Inj 50 Mg/Ml Vial IV PUSH 50 mg Q4H PRN Administration Itching Enoxaparin Sodium 40 mg 05/20/24 09:00 05/21/24 09:08 Enoxaparin 40 Mg/0.4 Ml Syringe SUB-Q 40 mg DAILY DOM Administration Famotidine 20 mg 05/20/24 21:00 05/21/24 09:06 Famotidine 20 Mg Tablet PO 20 mg Q12HR DOM Administration Fluticasone Propionate 1 spray 05/19/24 18:14 Fluticasone Propionate 0.05% Na Spr 16 Gm Btl (*Bkc) NASAL DAILY PRN Sinus Symptoms Ibuprofen 800 mg in 200 mls @ 400 mls/hr 05/19/24 18:14 05/20/24 21:07 Caldolor 800 Mg/200 Ml IVPB Infused Q6H PRN Infusion Breakthrough Pain Rated 1-3 or NPO Lisinopril 20 mg 05/20/24 09:00 05/21/24 09:06 Lisinopril 20 Mg Tablet PO 20 mg DAILY DOM Administration Morphine Sulfate 2 mg 05/19/24 18:14 Morphine Sulfate (*Crx) 2 Mg/Ml Inj IV PUSH Q2H PRN Breakthrough Pain Rated 4-6 or NPO Morphine Sulfate 4 mg 05/19/24 18:14 Morphine Sulfate (*Crx) 4 Mg/Ml Inj IV PUSH Q2H PRN Breakthrough Pain Rated 7-10 or NPO Naloxone HCl 0.1 mg 05/19/24 18:14 Naloxone Hcl 0.4 Mg/Ml Vial IV PUSH Q2M PRN Opiate Reversal Ondansetron HCl 4 mg 05/19/24 18:14 Ondansetron Inj 4 Mg/2 Ml Vial IV PUSH Q4H PRN Nausea And Vomiting Oxycodone/Acetaminophen 1 tablet 05/19/24 18:14 05/20/24 02:55 Oxycodone/Acetaminophen (*Crx) 5-325 Mg Tablet PO 1 tablet Q4H PRN Administration Pain Rated 4-6 Oxycodone/Acetaminophen 1 tab 05/19/24 18:14 05/21/24 12:25 Oxycodone/Acetaminophen (*Crx) 10-325 Mg Tablet PO 1 tab Q6H PRN Administration Pain Rated 7-10 Radiology Results: ITS Impressions Abdomen X-Ray 05/19/24 17:28 IMPRESSION: Nonspecific, nonobstructive bowel gas pattern. Double-J stent, as detailed above. Labs Labs: Laboratory Results - last 24 hr 05/20/24 05/21/24 16:50 05:12 WBC 10.1 H RBC 4.09 L Hgb 12.9 L Hct 38.7 L MCV 94.6 MCH 31.5 MCHC 33.3 RDW 12.2 Plt Count 175 MPV 9.1 Sodium 138 Potassium 3.9 Chloride 104 Carbon Dioxide 30 Anion Gap 4 BUN 7 L Creatinine 0.64 L Estim Creat Clear Calc 99 Estimated GFR > 60 Glucose 101 POC Capillary Glucose 76 Calcium 8.5 C-Reactive Protein 4.5 H
[2024-05-22] MEDS: oxyCODONE/ACETAMINOPHEN (*CRX) 10-325 MG TABLET 1 TAB PO ×4 (00:22→18:20)
[2024-05-22 05:34] VITALS: BP 137/82; PULSE 70; RESP 12; TEMP 37.4; O2SAT 96
[2024-05-22 06:00] LABS: Hematocrit 39.7 % (42.0-52.0); Mean Corpuscular HGB Conc 32.7 g/dl (32-36); Mean Corpuscular Hemoglobin 31.4 pg (26-34); Mean Corpuscular Volume 95.9 fl (80-100); Platelet Count Result 205 k/mm3 (150-375); Red Blood Count 4.14 M/mm3 (4.6-6.20); Red Cell Distribution Width 12.1 % (11.5-14.5); White Blood Count 9.9 K/mm3 (4.5-10.0)
[2024-05-22 06:11] LABS: Anion Gap 8 mmol/L (4-12); Blood Urea Nitrogen 6 mg/dL (9-20); Calcium 8.8 mg/dL (8.4-10.2); Carbon Dioxide 32 mmol/L (22-30); Chloride 99 mmol/L (98-107); Estimated CRCL calculation 92 ml/min; Estimated Glomerular Filt Rate > 60; Glucose 107 mg/dL (65-110); Potassium 3.9 mmol/L (3.4-5.0); Sodium 139 mmol/L (137-145)
[2024-05-22] MEDS: ALBUTEROL SULFATE (*SP) AEROSOL 1 PUFF 2 PUFF INHALATION ×2 (06:34→21:06)
[2024-05-22 06:35] VITALS: RESP 18
[2024-05-22] MEDS: ATORVASTATIN 20 MG TABLET PO (08:53)
[2024-05-22] MEDS: ALVIMOPAN 12 MG CAPSULE PO (08:53)
[2024-05-22] MEDS: ENOXAPARIN 40 MG/0.4 ML SYRINGE SUB-Q (08:53)
[2024-05-22] MEDS: FAMOTIDINE 20 MG TABLET PO ×2 (08:53→20:30)
[2024-05-22] MEDS: lisinopriL 20 MG TABLET PO (08:53)
--- NOTE | 2024-05-22 09:37 | P.PNUR_ITS ---
Progress Note: A&P Assessment and Plan (1) Left ureteral injury: Qualifiers: Encounter type: subsequent encounter Qualified Code(s): S37.10XD - Unspecified injury of ureter, subsequent encounter Code(s): S37.10XA - Unspecified injury of ureter, initial encounter Status: Acute Plan * YADIRA output appears to have gone up overnight based on recorded drainage, however the nurse reports that this may be inaccurate. We will plan to send YADIRA output for creatinine this morning. Plan YADIRA removal if equal to serum level * Plan for indwelling catheter x1 week/cystogram prior to removal. * Keep indwelling ureteral stent x6-weeks Subjective Subjective Date/Time Seen: 05/22/24 09:37 Interval history: Patient feeling well. He is tolerating diet. States normal bowel movements. Exam Narrative: Patient is awake alert. He is acute distress. Breathing unlabored. Abdomen soft. YADIRA with serosanguineous fluid. Urine in Gallo catheter is clear Objective Data Vital Signs Vital Signs: Vital Signs - 24 hr 05/21/24 11:50 05/21/24 16:00 05/21/24 17:12 Temperature 36.8 C 36.5 C Pulse Rate 85 74 Respiratory Rate 18 18 20 Blood Pressure 138/73 147/76 H Pulse Oximetry 98 100 Oxygen Delivery 05/21/24 20:03 05/21/24 20:50 05/22/24 05:34 Temperature 37.7 C H 37.4 C Pulse Rate 72 72 70 Respiratory Rate 12 12 12 Blood Pressure 133/65 137/82 Pulse Oximetry 97 97 96 Oxygen Delivery Room Air 05/22/24 06:35 Temperature Pulse Rate Respiratory Rate 18 Blood Pressure Pulse Oximetry Oxygen Delivery Intake/Output Intake/Output: Intake & Output 05/19/24 05/20/24 05/21/24 05/22/24 23:59 23:59 23:59 23:59 Intake Total 300 6027.5 3240 1050 Output Total 175 7275 5240 1850 Balance 524 -8697.5 -2000 -800 Meds/Results Medications: Active Medications Generic Name Dose Route Start Last Admin Trade Name Freq PRN Reason Stop Dose Admin Acetaminophen 500 mg 05/19/24 18:14 Acetaminophen 500 Mg Tablet PO Q6H PRN Pain Rated 1-3 Albuterol 2 puff 05/19/24 18:14 05/22/24 06:34 Albuterol Sulfate (*Sp) Aerosol 1 Puff INHALATION 2 puff Q6H PRN Administration Shortness Of Breath Alvimopan 12 mg 05/20/24 21:00 05/22/24 08:53 Alvimopan 12 Mg Capsule PO 05/22/24 20:59 12 mg Q12HR DOM Administration Atorvastatin Calcium 20 mg 05/20/24 09:00 05/22/24 08:53 Atorvastatin 20 Mg Tablet PO 20 mg DAILY DOM Administration Diphenhydramine HCl 50 mg 05/19/24 18:14 05/19/24 19:00 Diphenhydramine Hcl Inj 50 Mg/Ml Vial IV PUSH 50 mg Q4H PRN Administration Itching Enoxaparin Sodium 40 mg 05/20/24 09:00 05/22/24 08:53 Enoxaparin 40 Mg/0.4 Ml Syringe SUB-Q 40 mg DAILY DOM Administration Famotidine 20 mg 05/20/24 21:00 05/22/24 08:53 Famotidine 20 Mg Tablet PO 20 mg Q12HR DOM Administration Fluticasone Propionate 1 spray 05/19/24 18:14 Fluticasone Propionate 0.05% Na Spr 16 Gm Btl (*Bkc) NASAL DAILY PRN Sinus Symptoms Ibuprofen 800 mg in 200 mls @ 400 mls/hr 05/19/24 18:14 05/20/24 21:07 Caldolor 800 Mg/200 Ml IVPB Infused Q6H PRN Infusion Breakthrough Pain Rated 1-3 or NPO Lisinopril 20 mg 05/20/24 09:00 05/22/24 08:53 Lisinopril 20 Mg Tablet PO 20 mg DAILY DOM Administration Morphine Sulfate 2 mg 05/19/24 18:14 Morphine Sulfate (*Crx) 2 Mg/Ml Inj IV PUSH Q2H PRN Breakthrough Pain Rated 4-6 or NPO Morphine Sulfate 4 mg 05/19/24 18:14 Morphine Sulfate (*Crx) 4 Mg/Ml Inj IV PUSH Q2H PRN Breakthrough Pain Rated 7-10 or NPO Naloxone HCl 0.1 mg 05/19/24 18:14 Naloxone Hcl 0.4 Mg/Ml Vial IV PUSH Q2M PRN Opiate Reversal Ondansetron HCl 4 mg 05/19/24 18:14 Ondansetron Inj 4 Mg/2 Ml Vial IV PUSH Q4H PRN Nausea And Vomiting Oxycodone/Acetaminophen 1 tablet 05/19/24 18:14 05/20/24 02:55 Oxycodone/Acetaminophen (*Crx) 5-325 Mg Tablet PO 1 tablet Q4H PRN Administration Pain Rated 4-6 Oxycodone/Acetaminophen 1 tab 05/19/24 18:14 05/22/24 06:23 Oxycodone/Acetaminophen (*Crx) 10-325 Mg Tablet PO 1 tab Q6H PRN Administration Pain Rated 7-10 Radiology Results: ITS Impressions Abdomen X-Ray 05/19/24 17:28 IMPRESSION: Nonspecific, nonobstructive bowel gas pattern. Double-J stent, as detailed above. Labs Labs: Laboratory Results - last 24 hr 05/22/24 05:44 WBC 9.9 RBC 4.14 L Hgb 13.0 L Hct 39.7 L MCV 95.9 MCH 31.4 MCHC 32.7 RDW 12.1 Plt Count 205 MPV 9.0 Sodium 139 Potassium 3.9 Chloride 99 Carbon Dioxide 32 H Anion Gap 8 BUN 6 L Creatinine 0.69 L Estim Creat Clear Calc 92 Estimated GFR > 60 Glucose 107 Calcium 8.8
--- NOTE | 2024-05-22 10:05 | PC.NURSE ---
[facility] has no in-house ability to test peritoneal fluid from the YADIRA drain for creatinine. Keara said the only way to test the fluid for CR is to order as urine CR. Ordered as per Keara in Lab.
[2024-05-22 10:53] LABS: Creatinine Urine < 3.2 mg/dL
--- NOTE | 2024-05-22 12:20 | PM.PNGS ---
Progress Note: A&P Assessment and Plan (1) Diverticulitis of large intestine with abscess without bleeding: Code(s): K57.20 - Diverticulitis of large intestine with perforation and abscess without bleeding Status: Acute Assessment and Plan: doing well, will take drain out tomorrow if output continues to be low, continue to encourage out of bed and incentive spirometer use, likely home tomorrow (2) Left ureteral injury: Qualifiers: Encounter type: subsequent encounter Qualified Code(s): S37.10XD - Unspecified injury of ureter, subsequent encounter Code(s): S37.10XA - Unspecified injury of ureter, initial encounter Status: Acute Assessment and Plan: management per urology Subjective Subjective Date/Time Seen: 05/22/24 12:20 Interval history: no acute issues, feels pretty good, +bowel fxn Review of Systems Review of Systems: All systems reviewed & are unremarkable except as noted in HPI and below Exam Const: General: cooperative, comfortable and no acute distress Resp: Auscultation: clear to auscultation bilaterally Cardio: Rate: regular rate Rhythm: regular rhythm GI: Inspection: normal to inspection, distended and incision GI Palp: Yes abdominal tenderness, Yes Soft to palpation, Yes Tenderness to palpation present (GI), No Guarding due to palpation present (GI) and No Rigid due to palpation Other: YADIRA c mod s/s drainage Objective Data Vital Signs Vital Signs: Vital Signs - 24 hr 05/21/24 16:00 05/21/24 17:12 05/21/24 20:03 Temperature 36.5 C 37.7 C H Pulse Rate 74 72 Respiratory Rate 18 20 12 Blood Pressure 147/76 H 133/65 Pulse Oximetry 100 97 Oxygen Delivery 05/21/24 20:50 05/22/24 05:34 05/22/24 06:35 Temperature 37.4 C Pulse Rate 72 70 Respiratory Rate 12 12 18 Blood Pressure 137/82 Pulse Oximetry 97 96 Oxygen Delivery Room Air Intake/Output Intake/Output: Intake & Output 05/19/24 05/20/24 05/21/24 05/22/24 23:59 23:59 23:59 23:59 Intake Total 300 6027.5 3240 1290 Output Total 175 6797 5240 1850 Balance 125 -9127.5 -2000 -560 Meds/Results Medications: Active Medications Generic Name Dose Route Start Last Admin Trade Name Freq PRN Reason Stop Dose Admin Acetaminophen 500 mg 05/19/24 18:14 Acetaminophen 500 Mg Tablet PO Q6H PRN Pain Rated 1-3 Albuterol 2 puff 05/19/24 18:14 05/22/24 06:34 Albuterol Sulfate (*Sp) Aerosol 1 Puff INHALATION 2 puff Q6H PRN Administration Shortness Of Breath Alvimopan 12 mg 05/20/24 21:00 05/22/24 08:53 Alvimopan 12 Mg Capsule PO 05/22/24 20:59 12 mg Q12HR DOM Administration Atorvastatin Calcium 20 mg 05/20/24 09:00 05/22/24 08:53 Atorvastatin 20 Mg Tablet PO 20 mg DAILY DOM Administration Diphenhydramine HCl 50 mg 05/19/24 18:14 05/19/24 19:00 Diphenhydramine Hcl Inj 50 Mg/Ml Vial IV PUSH 50 mg Q4H PRN Administration Itching Enoxaparin Sodium 40 mg 05/20/24 09:00 05/22/24 08:53 Enoxaparin 40 Mg/0.4 Ml Syringe SUB-Q 40 mg DAILY DOM Administration Famotidine 20 mg 05/20/24 21:00 05/22/24 08:53 Famotidine 20 Mg Tablet PO 20 mg Q12HR DOM Administration Fluticasone Propionate 1 spray 05/19/24 18:14 Fluticasone Propionate 0.05% Na Spr 16 Gm Btl (*Bkc) NASAL DAILY PRN Sinus Symptoms Ibuprofen 800 mg in 200 mls @ 400 mls/hr 05/19/24 18:14 05/20/24 21:07 Caldolor 800 Mg/200 Ml IVPB Infused Q6H PRN Infusion Breakthrough Pain Rated 1-3 or NPO Lisinopril 20 mg 05/20/24 09:00 05/22/24 08:53 Lisinopril 20 Mg Tablet PO 20 mg DAILY DOM Administration Morphine Sulfate 2 mg 05/19/24 18:14 Morphine Sulfate (*Crx) 2 Mg/Ml Inj IV PUSH Q2H PRN Breakthrough Pain Rated 4-6 or NPO Morphine Sulfate 4 mg 05/19/24 18:14 Morphine Sulfate (*Crx) 4 Mg/Ml Inj IV PUSH Q2H PRN Breakthrough Pain Rated 7-10 or NPO Naloxone HCl 0.1 mg 05/19/24 18:14 Naloxone Hcl 0.4 Mg/Ml Vial IV PUSH Q2M PRN Opiate Reversal Ondansetron HCl 4 mg 05/19/24 18:14 Ondansetron Inj 4 Mg/2 Ml Vial IV PUSH Q4H PRN Nausea And Vomiting Oxycodone/Acetaminophen 1 tablet 05/19/24 18:14 05/20/24 02:55 Oxycodone/Acetaminophen (*Crx) 5-325 Mg Tablet PO 1 tablet Q4H PRN Administration Pain Rated 4-6 Oxycodone/Acetaminophen 1 tab 05/19/24 18:14 05/22/24 06:23 Oxycodone/Acetaminophen (*Crx) 10-325 Mg Tablet PO 1 tab Q6H PRN Administration Pain Rated 7-10 Radiology Results: ITS Impressions Abdomen X-Ray 05/19/24 17:28 IMPRESSION: Nonspecific, nonobstructive bowel gas pattern. Double-J stent, as detailed above. Labs Labs: Laboratory Results - last 24 hr 05/22/24 05/22/24 05:44 10:12 WBC 9.9 RBC 4.14 L Hgb 13.0 L Hct 39.7 L MCV 95.9 MCH 31.4 MCHC 32.7 RDW 12.1 Plt Count 205 MPV 9.0 Sodium 139 Potassium 3.9 Chloride 99 Carbon Dioxide 32 H Anion Gap 8 BUN 6 L Creatinine 0.69 L Estim Creat Clear Calc 92 Estimated GFR > 60 Glucose 107 Calcium 8.8 Urine Creatinine < 3.2
[2024-05-22 20:30] VITALS: PULSE 69; RESP 16; O2SAT 98
[2024-05-22 20:48] VITALS: BP 151/73; PULSE 69; RESP 16; TEMP 36.8; O2SAT 98
[2024-05-23] MEDS: oxyCODONE/ACETAMINOPHEN (*CRX) 10-325 MG TABLET 1 TAB PO ×3 (00:21→13:00)
[2024-05-23 04:52] VITALS: BP 135/70; PULSE 66; RESP 18; TEMP 37; O2SAT 99
[2024-05-23 05:36] LABS: Hemoglobin 12.3 g/dL (14.0-18.0); Mean Corpuscular HGB Conc 32.4 g/dl (32-36); Mean Corpuscular Hemoglobin 30.7 pg (26-34); Mean Corpuscular Volume 94.8 fl (80-100); Platelet Count Result 202 k/mm3 (150-375); Red Blood Count 4.01 M/mm3 (4.6-6.20); Red Cell Distribution Width 11.9 % (11.5-14.5); White Blood Count 8.7 K/mm3 (4.5-10.0)
[2024-05-23 05:43] LABS: Anion Gap 5 mmol/L (4-12); Blood Urea Nitrogen 9 mg/dL (9-20); Calcium 8.9 mg/dL (8.4-10.2); Carbon Dioxide 33 mmol/L (22-30); Chloride 100 mmol/L (98-107); Estimated CRCL calculation 88 ml/min; Estimated Glomerular Filt Rate > 60; Glucose 135 mg/dL (65-110); Potassium 4.1 mmol/L (3.4-5.0); Sodium 138 mmol/L (137-145)
[2024-05-23] MEDS: lisinopriL 20 MG TABLET PO (08:33)
[2024-05-23] MEDS: ATORVASTATIN 20 MG TABLET PO (08:33)
[2024-05-23] MEDS: FAMOTIDINE 20 MG TABLET PO (08:33)
[2024-05-23] MEDS: ENOXAPARIN 40 MG/0.4 ML SYRINGE SUB-Q (08:34)
--- NOTE | 2024-05-23 12:00 | WPDUROPN2 ---
Progress Note: A&P Assessment and Plan (1) Left ureteral injury: Qualifiers: Encounter type: subsequent encounter Qualified Code(s): S37.10XD - Unspecified injury of ureter, subsequent encounter Code(s): S37.10XA - Unspecified injury of ureter, initial encounter Status: Acute Assessment and Plan: Minimal YADIRA drainage / fluid c/w serum. Will remove drain today. Home with Gallo catheter. Will arrange f/u cystogram for ./Thu. -> my office will contact. Subjective Subjective Date/Time Seen: 05/23/24 12:00 Interval history: Comfortable, tolerating diet Review of Systems Cardiovascular: Cardiovascular: Denies chest pain, Denies lightheadedness, Denies palpitations and Denies dyspnea Respiratory: Respiratory: Denies dyspnea Gastrointestinal: Gastrointestinal: Denies diarrhea, Denies nausea and Denies vomiting Genitourinary: Genitourinary: Denies hematuria and Denies dysuria Endocrine: Endocrine: Denies palpitations Exam Const: General: no acute distress Resp: Effort & Inspection: normal respiratory effort GI: Inspection: non-distended GI Palp: No abdominal tenderness and No Guarding due to palpation present (GI) Auscultation: normal bowel sounds Objective Data Vital Signs Vital Signs: Vital Signs - 24 hr 05/22/24 20:30 05/22/24 20:48 05/23/24 04:52 Temperature 98.3 F 98.6 F Pulse Rate 69 69 66 Respiratory Rate 16 16 18 Blood Pressure 151/73 H 135/70 Pulse Oximetry 98 98 99 Oxygen Delivery Room Air 05/23/24 08:30 Temperature Pulse Rate Respiratory Rate Blood Pressure Pulse Oximetry Oxygen Delivery Room Air Intake/Output Intake/Output: Intake & Output 05/20/24 05/21/24 05/22/24 05/23/24 23:59 23:59 23:59 23:59 Intake Total 6027.5 3240 1770 1320 Output Total 7203 3106 3630 3100 [facility] -1247.5 -2000 -1860 -1780 Meds/Results Medications: Active Medications Generic Name Dose Route Start Last Admin Trade Name Freq PRN Reason Stop Dose Admin Acetaminophen 500 mg 05/19/24 18:14 Acetaminophen 500 Mg Tablet PO Q6H PRN Pain Rated 1-3 Albuterol 2 puff 05/19/24 18:14 05/22/24 21:06 Albuterol Sulfate (*Sp) Aerosol 1 Puff INHALATION 2 puff Q6H PRN Administration Shortness Of Breath Atorvastatin Calcium 20 mg 05/20/24 09:00 05/23/24 08:33 Atorvastatin 20 Mg Tablet PO 20 mg DAILY DOM Administration Diphenhydramine HCl 50 mg 05/19/24 18:14 05/19/24 19:00 Diphenhydramine Hcl Inj 50 Mg/Ml Vial IV PUSH 50 mg Q4H PRN Administration Itching Enoxaparin Sodium 40 mg 05/20/24 09:00 05/23/24 08:34 Enoxaparin 40 Mg/0.4 Ml Syringe SUB-Q 40 mg DAILY DOM Administration Famotidine 20 mg 05/20/24 21:00 05/23/24 08:33 Famotidine 20 Mg Tablet PO 20 mg Q12HR DOM Administration Fluticasone Propionate 1 spray 05/19/24 18:14 Fluticasone Propionate 0.05% Na Spr 16 Gm Btl (*Bkc) NASAL DAILY PRN Sinus Symptoms Ibuprofen 800 mg in 200 mls @ 400 mls/hr 05/19/24 18:14 05/20/24 21:07 Caldolor 800 Mg/200 Ml IVPB Infused Q6H PRN Infusion Breakthrough Pain Rated 1-3 or NPO Lisinopril 20 mg 05/20/24 09:00 05/23/24 08:33 Lisinopril 20 Mg Tablet PO 20 mg DAILY DOM Administration Morphine Sulfate 2 mg 05/19/24 18:14 Morphine Sulfate (*Crx) 2 Mg/Ml Inj IV PUSH Q2H PRN Breakthrough Pain Rated 4-6 or NPO Morphine Sulfate 4 mg 05/19/24 18:14 Morphine Sulfate (*Crx) 4 Mg/Ml Inj IV PUSH Q2H PRN Breakthrough Pain Rated 7-10 or NPO Naloxone HCl 0.1 mg 05/19/24 18:14 Naloxone Hcl 0.4 Mg/Ml Vial IV PUSH Q2M PRN Opiate Reversal Ondansetron HCl 4 mg 05/19/24 18:14 Ondansetron Inj 4 Mg/2 Ml Vial IV PUSH Q4H PRN Nausea And Vomiting Oxycodone/Acetaminophen 1 tablet 05/19/24 18:14 05/20/24 02:55 Oxycodone/Acetaminophen (*Crx) 5-325 Mg Tablet PO 1 tablet Q4H PRN Administration Pain Rated 4-6 Oxycodone/Acetaminophen 1 tab 05/19/24 18:14 05/23/24 06:22 Oxycodone/Acetaminophen (*Crx) 10-325 Mg Tablet PO 1 tab Q6H PRN Administration Pain Rated 7-10 Radiology Results: ITS Impressions Abdomen X-Ray 05/19/24 17:28 IMPRESSION: Nonspecific, nonobstructive bowel gas pattern. Double-J stent, as detailed above. Labs Labs: Laboratory Results - last 24 hr 05/23/24 04:53 WBC 8.7 RBC 4.01 L Hgb 12.3 L Hct 38.0 L MCV 94.8 MCH 30.7 MCHC 32.4 RDW 11.9 Plt Count 202 MPV 9.0 Sodium 138 Potassium 4.1 Chloride 100 Carbon Dioxide 33 H Anion Gap 5 BUN 9 Creatinine 0.73 Estim Creat Clear Calc 88 Estimated GFR > 60 Glucose 135 H Calcium 8.9
--- NOTE | 2024-05-23 12:34 | P.DS_ITS ---
DS: Admitting Diagnosis Discharge Date 05/23/2024 Admitting Diagnosis * Diverticulitis with perforation * Essential hypertension * Obstructive sleep apnea on CPAP * COPD DS: Discharge Diagnosis Discharge Diagnosis (1) Diverticulitis of colon with perforation: Code(s): K57.20 - Diverticulitis of large intestine with perforation and abscess without bleeding Status: Chronic (2) Left ureteral injury: Qualifiers: Encounter type: subsequent encounter Qualified Code(s): S37.10XD - Unspecified injury of ureter, subsequent encounter Code(s): S37.10XA - Unspecified injury of ureter, initial encounter Status: Acute (3) COPD (chronic obstructive pulmonary disease): Qualifiers: COPD type: unspecified COPD Qualified Code(s): J44.9 - Chronic obstructive pulmonary disease, unspecified Code(s): J44.9 - Chronic obstructive pulmonary disease, unspecified Status: Chronic (4) EFREN on CPAP: Code(s): G47.33 - Obstructive sleep apnea (adult) (pediatric); Z99.89 - Dependence on other enabling machines and devices Status: Chronic (5) Essential hypertension: Code(s): I10 - Essential (primary) hypertension Status: Chronic DS: Summary Hospital Course Reason for hospitalization: Elective sigmoidectomy for recurrent diverticulitis Hospital Course: Patient had 2 different episodes of acute diverticulitis with perforation requiring hospitalization. He had colonoscopy which did not show any evidence of malignancy. After discussion during 2 or 3 office visits, he has decided to proceed with hand access laparoscopic sigmoidectomy. He was taken to surgery on the day of admission, 05/19/2024. Hand access laparoscopic sigmoidectomy was performed. Thirty-three EEA colorectal anastomosis was performed. Pathology on the sigmoid colon showed diverticulosis. During the dissection of the sigmoid colon, there was quite a bit of scar tissue and adherence to the left lower quadrant. Although the left ureter was identified and encircled with a vessel loop during the surgery, the left ureter was injured during the operation. The injury was noted to be in the distal ureter and was found at the end conclusion of the sigmoidectomy. Dr. Stahl was consulted and came promptly to the operating room. After assessing the situation, he performed left u reteroneocystostomy with placement of a stent. A YADIRA drain in the left lower quadrant was also placed. Postoperatively, the patient's urinary catheter was left in the entire length of the hospital stay and will stay an after discharge. Plans are to have cystogram in 3 or 4 days. Catheter may be removed after cystogram. Patient had minimal postoperative pain. He was taking oral analgesics even on postop day 1. His wounds were healing well. His diet was gradually advanced from liquids to low-fiber and then to regular diet. He had bowel movements even the night of surgery. Creatinine on the YADIRA drain fluid was less than 3.2. YADIRA drain was removed on the day of discharge. Patient was ambulating independently and was requiring minimal oral analgesics on the day of discharge 05/23/2024. He is discharged in good condition at this time. Status at Discharge Functional status at discharge: independent ambulation Overall status at discharge: patient is progressing back to baseline Time Spent with Patient Time attestation: Total time spent providing and/or coordinating discharge services: Time spent: Less than 30 minutes DS: Data Data Completed and Pending Completed studies during hospitalization: Pending at discharge 05/19/24 14:09 Surgical [PTH] Routine Labs on day of discharge: Labs from last 24 hours 05/23/24 04:53 WBC 8.7 RBC 4.01 L Hgb 12.3 L Hct 38.0 L MCV 94.8 MCH 30.7 MCHC 32.4 RDW 11.9 Plt Count 202 MPV 9.0 Sodium 138 Potassium 4.1 Chloride 100 Carbon Dioxide 33 H Anion Gap 5 BUN 9 Creatinine 0.73 Estim Creat Clear Calc 88 Estimated GFR > 60 Glucose 135 H Calcium 8.9 Discharge Plan Discharge Attending physician on discharge: Cedric Cuba Consulting providers: Malcolm Stahl Discharging Clinician: Cedric Cuba Anticipated Discharge Date/Time: 05/23/24 12:22 Patient Disposition: Home, Self-Care Activity: may shower and as tolerated Diet: regular Wound Care Instructions: keep dressing dry, remove dressing to shower and change dressing daily Discharge Instructions: * Ambulate 3-4 x per day and as tolerated. * No lifting over 15-20lbs. * May bathe or shower. * Stairs are OK. * May drive a car in 3 days. * Remove any dressings before shower and replace after. * May discontinue dressing changes to abdominal incision and drain site on 05/26/2024 * Follow-up with Dr. Cuba on 05/30/2024-call to make appointment. * Call Dr. Cuba or go to the emergency room if experience severe abdominal pain, persistent vomiting, wound bleeding, temp over 101?, other significant change in condition. * Urinary catheter, outpatient cystogram, removal of left lower quadrant YADIRA drain per Dr. Stahl. Patient Instructions: Antibiotic Form Patient Language: Occitan Stand Alone Forms: General Discharge Information Follow-up/Referrals: Cedric Cuba MD [Physician] - 05/30/24 (Call Dr. Collado office to schedule appointment) Malcolm Stahl MD [Physician] - (Call to make appointment) Discharge Medications: New oxycodone-acetaminophen [Percocet] 5-325 mg tablet 0.5 - 1 tablet PO Q4H PRN (Reason: pain) Qty: 14 0RF Continued atorvastatin 20 mg tablet 20 mg PO DAILY lisinopril 20 mg tablet 20 mg PO DAILY lansoprazole 30 mg capsule,delayed release(DR/EC) 30 mg PO DAILY albuterol sulfate 90 mcg/actuation HFA aerosol inhaler 2 puff INHALATION Q6H PRN (Reason: Shortness Of Breath) fluticasone propionate 50 mcg/actuation spray,suspension 1 spray INTRANASAL DAILY PRN (Reason: Sinus Symptoms) Discontinued ciprofloxacin HCl 500 mg tablet 500 mg PO .COMPLEX Qty: 1 0RF Rx Instructions: 500 mg orally at 2:00pm the day before surgery; metronidazole 500 mg tablet 500 mg PO .COMPLEX Qty: 3 0RF Rx Instructions: 500 mg orally at 1:00pm, 2:00pm, and 11:00pm the day before surgery; Date of admission: 05/19/24 18:14 [facility] Admitting Provider: Cedric Cuba Attending physician on admission: Cedric Cuba Condition: Improved
[2024-05-23 13:43] VITALS: BP 143/77; PULSE 71; RESP 14; TEMP 37.3; O2SAT 100
== END 2024-05-23 14:40 | disposition home or self-care (01) | DRG 330 ==
LOC: ANH2MED 18:17
PROVIDERS: Urology; Admitting Provider Surgery; PCP Internal Medicine; Visit Provider Surgery
PROC: 0D1E4Z4 Bypass Large Intestine to Cutaneous, Percutaneous Endoscopic Approach (ICD-10-PCS; principal; 2024-05-19 12:00)
DX: K57.20 Diverticulitis of large intestine with perforation and abscess without bleeding (principal); N99.71 Accidental puncture and laceration of a genitourinary system organ or structure during a genitourinary system procedure; K57.30 Diverticulosis of large intestine without perforation or abscess without bleeding; K42.9 Umbilical hernia without obstruction or gangrene; E66.9 Obesity, unspecified; E78.5 Hyperlipidemia, unspecified; G47.33 Obstructive sleep apnea (adult) (pediatric); I10 Essential (primary) hypertension; Z87.891 Personal history of nicotine dependence; Z99.89 Dependence on other enabling machines and devices; Z90.49 Acquired absence of other specified parts of digestive tract
CPT/HCPCS: 36415; 74018; 80048; 82570; 82948; 85027; 86140; 88307; 94640; A9270; C1729; C1769; C2617; J0330; J0690; J1100; J1171; J1200; J1650; J1741; J1836; J1885; J2003; J2405; J2704; J3010; J7120

== ENCOUNTER 2024-05-27 09:53 | Outpatient (CLI) | payer MEDICARE, SELFPAY ==
--- NOTE | ~2024-05-27 | XR_ITS ---
EXAMINATION: XR cystogram DATE: 05/27/2024 10:32 INDICATION: Gross hematuria. TECHNIQUE: Water-soluble contrast was gravity-infused through the patient's Gallo catheter. Multiple fluoroscopic images were obtained. Fluoroscopy exposure time was 0.4 minutes. The total number of aurelio ges was 9. COMPARISON: CT abdomen and pelvis 12/24/2023 FINDINGS: There is a left internal ureteral stent in expected position. There are surgical changes of the bladder. There is no extraluminal leakage of contrast. IMPRESSION: 1. No extraluminal leakage of contrast. Reviewed, dictated and finalized at location A.
--- OUTSIDE RECORDS SUMMARY | 2024-05-27 10:40 | XMS_ITS | Clinical Summary ---
Author Organization [facility] Address [address] [place] [id number] Care Team Providers Care Supervisor [employer] Name Role Phone Unavailable Primary Care Provider Unavailabl e Social History Tobacco Use Types Packs/Day Years Used Date Smoking Tobacco: Never Assessed Sex and Gender Information Value Date Recorded Sex Assigned at Not on file Legal Sex Male 5:49 PM [employer]ANT [employer] Gender Identity Not on file Sexual Orientation [...]
--- OUTSIDE RECORDS SUMMARY | 2024-05-27 10:40 | XMS_ITS | Clinical Summary ---
Author Organization [facility] Address [address] [place] [address] Care Team Providers Care Meals On Wheels Driver Name Role Phone Suzette Ortiz MD Primary Care Provider Source Comments [facility],non-owned Affiliates and Associated Physician Practices is amultiple site organization consisting of ambulatory clinics and hospital sitesin [place], [place], [place] and [place]. This disclosure is being madepursuant to the Care Everywhere program and may not contain all information available regarding this patient. Last updated 17.[facility] Allergies Active Allergy Reactions Criticality Noted Date [...] age to complete this topic Care Teams Meals On Wheels Driver Relationship Specialty Start Date End Date Suzette Ortiz MD [address] [id number] PCP - General 06/17/22
--- OUTSIDE RECORDS SUMMARY | 2024-05-27 10:40 | XMS_ITS | CONTINUITY OF CARE DOCUMENT ---
Author Name snow adamson Address Unknown Organization [facility] Address [address] [place] [address] Phone [phone] Care Team Providers Care Social Media Senior Associate Name Role Phone Abraham Sears MD Unavailable [phone] REYNALDO TIERNEY, VANESSA Unavailable REYNALDO TIERNEY, VANESSA Unavailable PROBLEMS Condition Status Date Provider Notes [...] In-person encounter Office Visit Abraham Sears MD [facility] - In-person encounter Office Visit Abraham Sears MD [facility] Tobacco abuse, quitPerforation of colonCoronary atherosclerosis, CAC score 5 - In-person encounter Office Visit Abraham Sears MD [facility] - In-person encounter Office Visit Abraham Sears MD [facility] - In-person encounter Office Visit Abraham Sears MD [facility] PalpitationsDyslipidemiaGERDObesityTobac co abuse, quitSLEEP APNEA - [...] blood pressure, diastolic 80 mm[Hg] [facility] [place] blood pressure, systolic 118 mm[Hg] Bogdan phanie [place] blood pressure, cuff size large St ephanie [...] blood pressure, diastolic 93 mm[Hg] [facility] blood pressure, systolic 165 mm[Hg] Zahida ri [facility] blood pressure, cuff size large Ke rri [facility] oxygen saturation, oximetry 98 % Roberta Grvanessanenfspringfield hospitaler respiratory rate E&M 16 /min Roberta G alciraenenfspringfield hospitaler pulse rate 89 /min Roberta Gruenenfe [...] Location thyroid stimulating hormone, serum 1.850 u[IU]/mL [facility] thyroxine, serum, free 0.97 ng/dL [facility] triglyceride, serum, fasting 85 mg/dL [facility] HDL cholesterol, serum 49 mg/dL [facility] cholesterol, serum 159 mg/dL [facility] protein, total, serum 7.0 g/dL [facility] albumin, serum 4.3 g/dL [facility] bilirubin, serum, total 0.40 mg/dL [facility] alkaline phosphatase, serum 51 1/L [facility] alanine aminotransferase (SGPT), serum 23 1/L [facility] aspartate aminotransferase (SGOT), serum 23 1/L [facility] calcium, serum 9.1 mg/dL [facility] blood glucose, random 107 mg/dL [facility] creatinine, serum 0.65 mg/dL [facility] urea nitrogen, blood 15 mg/dL [facility] carbon dioxide, serum, total 28 mmol/L [facility] chloride, serum 106 mmol/L [facility] potassium, serum 4.5 mmol/L [facility] sodium, serum 143 mmol/L [facility] platelet count 256 10*3/uL [facility] red blood cell distribution width 13.2 % [facility] mean corpuscular hemoglobin concentration, RBC 32.7 g/dL [facility] mean corpuscular hemoglobin, RBC 30.4 pg [facility] mean corpuscular volume, RBC 92.9 fL [facility] hematocrit, blood 44.6 % [facility] hemoglobin, blood 14.6 g/dL [facility] erythrocyte (RBC) count 4.80 10*6/mm3 [facility] leukocyte count, blood 8.4 10*3/mm3 [facility] LDL cholesterol, serum 93 mg/dL [facility] pro brain natriuretic peptide 73 pg/mL [...] Payer name Policy type / Coverage type [place] red libertarian ID [employer] GRP MEDICARE ADVANTAGE PLAN (PPO) Medicare [id number] ADVANCE DIRECTIVES Name Date DISCUSSED - NO DECISION MADE TREATMENT PLAN Date Name Performer [id number],B, Patrick Smith [id number],S, T he pt is using CPAP machine at home. He underwent home sleep study while the machine was on, which showed a few events that did not constitute the diagnosis of EFREN, indicating that the treatment is effective. Patrick Smiht [id number],S, H is updated medication list for this problem includes: Atorvastatin 20 Mg Tablet (Atorvastatin) Tricor 145 Mg Tablet (Fenofibrate nanocrystallized) ..... 1 tablet by mouth once a day Patrick Smith [id number],S, N o angina. The following medications were removed from the medication list: Sular 8.5 Mg Tablet Extended Release 24 Hr (Nisoldipine) ..... 1 tablet by mouth twice a day Nisoldipine 8.5 Mg Tablet Extended Release 24 Hr (Nisoldipine) His updated medication list for this problem includes: Lisinopril 20 Mg Tablet (Lisinopril) ..... Take 1 tablet by mouth once a day Patrick Smith [id number],B, B P today: 118/80 P rior BP: [...] by mouth once a day Patrick Smith [id number],C, W eight loss advised Abraham Sears MD [id number],C, P atient was advised to stop smoking. A AA was normal Abraham Sears MD [id number],C, H is updated medication list for this problem includes: Atorvastatin 20 Mg Tablet (Atorvastatin) Tricor 145 Mg Tablet (Fenofibrate nanocrystallized) ..... 1 tablet by mouth once a day Abraham Sears MD [id number],C,. Will increase Lisinopril to 20 mg daiy [...] mouth twice a day Abraham Sears MD [id number],C, Echo showed normal EF with dilated LA. CT coronary calcium score was 5. AAA duplex was negative. Will increase Lisinopril to 20 mg daiy and may need to further increase for better BP control. Abraham Sears MD [id number],C, Echo showed normal EF with dilated LA. [...] mouth twice a day Abraham Sears MD [id number],C,T he pt is using CPAP machine at home. He underwent home sleep study while the machine was on, which showed a few events that did not constitute the diagnosis of EFREN, indicating that the treatment is effective. Abraham Sears MD [id number],C,P atient was advised to stop smoking. Check AAA Rod Brito [id number],C,C heck echo to assess EF. Calcium score to evaluate for CAD Rod Brito [id number],C,n o CP or SOB. Check echo to assess EF. Calcium score to evaluate for CAD Rod Brito [id number],C, Will enroll him in RPM to monitor his BP. D iscussion of benefits for remote patient monitoring took place. Patient gives consent for remote monitoring of physiologic parameters including, but not limited to, weight, blood pressure, pulse oximetry, respiratory flow rate. Rod Brito [id number],C,check in home sleep study Rod Rafaelelio Cardiology:No [...] benefiting from therapy and should continue use. [facility] Cardiology:No CP or SOB. Overall doing well. He states BP is well controlled at home. Will obtain f/u echo. [facility] Cardiology:He states BP is well controlled at home. B P today: 148/82 P rior BP: 118/80 (04/23/2022) Labs Reviewed: C reat: 0.65 (10/20/2018) C hol: 159 (10/20/2018) HDL: 49 (10/20/2018) LDL: 93 (10/20/2018) T (10/20/2018) His updated medication list for this problem includes: Lisinopril 20 Mg Tablet (Lisinopril) ..... Take 1 tablet by mouth once daily [facility] Cardiology:No CP or SOB. Overall doing well. He states BP is well controlled at home. Will obtain f/u echo. [facility] Cardiology Patrick Smith Cardiology: T he [...]
--- OUTSIDE RECORDS SUMMARY | 2024-05-27 10:40 | XMS_ITS | Data Portability ---
Author Organization [place] [employer], Main Office Address [address] [place] [address] Care Team Providers Care Heating Unit Mechanic Name Role Phone SUZETTE ORTIZ Primary Care Provider [phone] SUZETTE ORTIZ Referring Provider [phone] Assessment Encounter Date Assessment Date Assessment LastModified [...] Lab glycohemo globin, total, blood [address] (Lab), [address] [place], [address], 03/31/2024 18:01:52 microalbu min, urine [address] (Lab), [address] [place], [address], 03/31/2024 18:01:53 lipid panel, serum [address] (Lab), [address] [place], [address], 03/31/2024 18:01:51 CBC w/ auto diff 2024 025 [facility] (Lab), [address] [place], [address], 05/06/2024 13:42:59 CMP, serum or plasma [address] (Lab), [address] [place], [address], 03/31/2024 18:01:52 TSH, serum or plasma [address] (Lab), [address] [place], [address], 03/31/2024 18:01:52 urinalysi s, complete 2024 025 [place] [address] [facility], [address], [address], [place], [address], 05/18/2024 09:12:58 urinalysi s, complete 2024 025 KOSTA [facility], [address], [address], [place], [address], 04/25/2024 02:10:57 glycohemo globin, total, blood [address] (Lab), [address] [place], [address], 12/29/2023 18:00:43 microalbu min, urine [address] (Lab), [address] [place], [address], 12/29/2023 18:00:43 lipid panel, serum [address] (Lab), [address] [place], [address], 12/29/2023 18:00:41 CBC w/ auto diff 2023 024 [facility] (Lab), [address] [place], [address], 02/25/2024 05:49:36 CMP, serum or plasma [address] (Lab), [address] [place], [address], 12/29/2023 18:00:42 TSH, serum or plasma [address] (Lab), [address] [place], [address], 12/29/2023 18:00:42 glycohemo globin, total, blood [address] (Lab), [address] [place], [address], 02/11/2024 08:54:48 microalbu min, urine [address] (Lab), [address] [place], [address], 02/11/2024 08:54:48 lipid panel, serum [address] (Lab), [address] [place], [address], 02/11/2024 08:54:47 CBC w/ auto diff [address] (Lab), [address] [place], [address], 02/11/2024 08:54:47 CMP, serum or plasma [address] (Lab), [address] [place], [address], 02/11/2024 08:54:47 TSH, serum or plasma [address] (Lab), [address] [place], [address], 02/11/2024 08:54:47 glycohemo globin, total, blood [address] (Lab), [address] [place], [address], 08/12/2023 09:07:20 microalbu min, urine [address] (Lab), [address] [place], [address], 08/12/2023 09:07:20 lipid panel, serum [address] (Lab), [address] [place], [address], 08/12/2023 09:07:20 CBC w/ auto diff [address] (Lab), [address] [place], [address], 08/12/2023 09:07:20 CMP, serum or plasma [address] (Lab), [address] [place], [address], 08/12/2023 09:07:20 TSH, serum or plasma [address] (Lab), [address] [place], [address], 08/12/2023 09:07:20 Referral urologist referral - Please call patient to schedule an appointme nt. Thank you. 2024 025 KOSTA Stahl MD, [address] [facility] [address], [address], [place], [address], 05/05/2024 16:17:02 podiatris t referral - Please call patient to schedule an appointme nt. Thank you. 2024 025 KOSTA Jj DPM, [address], [address], [place], [address], 04/01/2024 13:14:50 podiatris t referral - Please call patient to schedule. 2023 024 [email or web address] Patrick Jj DPM, [address], [address], [place], [address], 03/03/2024 12:22:46 podiatris t referral 2023 024 [email or web address] Jj DPM, [address], [address], [place], [address], 02/11/2024 08:55:01 podiatris t referral 2022 023 [email or web address] Jj DPM, [address], [address], [place], [address], 02/08/2024 08:54:20 Procedures upper endoscopy procedure (EGD) (PROC) - Please call patient to schedule an appointme nt. Thank you. 2024 025 FELIPE Park MD, [address], [address], [place], [address], 04/01/2024 09:06:47 upper endoscopy procedure (EGD) (PROC) - Please call patient to schedule. 2023 024 [email or web address] Alyssa Yadav, [address], [place], [address], 03/03/2024 12:23:29 Surgeries None recorded. Imaging US, abdominal aorta - Please call patient to schedule. [address], [address], [place], [address], 02/22/2024 11:57:10 LDCT, chest, for lung cancer screening - No auth required 2023 024 [facility] ([facility] Sched[facility]), [address] [place], [address], 12/09/2023 07:44:27 US, abdominal aorta - No auth required 2023 024 [email or web address] 5 [facility] ([facility] Call Scheduling), [address] [place], [address], 08/27/2023 09:04:13 XR, cervical spine, 2 or 3 view 2023 024 [facility] ([facility] Sched[facility]), [address] [place], [address], 06/17/2023 16:30:58 Medication Orders cyclobenz aprine 10 mg tablet 2023 024 [facility] #[id number], [address] [place], [place], [id number], 12/29/2023 17:44:10 meloxicam 7.5 mg tablet 2023 024 [facility] #[id number], [address] [place], [place], [id number], 12/29/2023 17:43:45 Patient TargetsNo targets recorded. Patient Instructions Encounter Date Encounter Id Patient Instructions Last Modified By Organization Details Last Modified Time 02/12/2023 [id number] diabetic eye exam* [email or web address] Not avail able 08/12/2023 08:30:16 08/13/2023 [id number] dementia rating scale-2* [email or web address] Not available 08/13/2023 13:29:12 alcohol misuse* [email or web address] Not available 08/13/2023 13:29:23 depression screening* [email or web address] Not available 08/13/2023 13:29:37 diabetic eye exam* [email or web address] Not availa ble 02/11/2024 08:53:59 multi-dimensiona l health assessment questionnaire* [email or web address] Not available 08/17/2023 15:51:36 advance directiv es: care instructions [email or web address] Not available 08/17/2023 18:39:41 [place] Advance Directives luis Not available 08/17/2023 18:39:41 [...] I have no recommendations Depression Screening: Negative [email or web address] Not available 08/13/2023 13:53:29 12/29/2023 [id number] diabetic eye exam* [email or web address] Not avail able 12/29/2023 18:00:44 Thank you [...] homebound status}} Required Home Health Services: {{none custodial, physical therapy, occupational therapy custodial, physical therapy custodial}} Durable Medical Equipment needed: {{cane walker walke r with seat manual wheelchair bedside commode oxygen}} Billing Guidelines CPT code 39595- Transitional Care Management services with moderate medical decision complexity (uknt-vw-bzvp visit within 14 days of discharge). CPT code 45201- Transitional Care Management services with high medical decision complexity (vvzt-mj-pnzp visit within 7 days of discharge). [email or web address] Not available 12/29/2023 17:46:04 03/31/2024 [id number] diabetic eye exam* [email or web address] Not avail able 03/31/2024 18:02:39 Reason for Referral Public Health Dietitian Referral for Type 2 diabetes mellitus without complication Referring Physician: Suzette Ortiz Internal Medicine, Encounter Date: 02/12/2023 Public Health Dietitian Referral for Type 2 diabetes mellitus without complication Referring Physician: Suzette Ortiz Internal Medicine, Encounter Date: 08/13/2023 Public Health Dietitian Referral for Type 2 diabetes mellitus without complication Please call patient to schedule. Referring Physician: Jeff Diaomnd Medicine, Encounter Date: 12/29/2023 Public Health Dietitian Referral for Type 2 diabetes mellitus without complication Please call patient to schedule an appointment. Thank you. Referring Physician: Jeff Diamond Medicine, Encounter Date: 03/31/2024 Urologist Referral for Black kim of testis Please call patient to [...] Only) [address], [place], [address], 07/31/2023 11:06:18 05/06/19 24 05/05/2023 imagi ng/lisa castillo tic resul t No observ ation record ed. [facility] [address], [place], [address], 05/06/2023 12:51:04 06/17/19 24 XR, cervi gildardo spine , 2 or 3 view [facility] [address] [place] [address] Patien t Name: ABISAI MONTERO Access ion #: [id number] Sex: M : 1955 7 Dictat [...] at 2023 15:29: 43 PM Page 1 [facility] (Imaging) [address] [facility], [place], [address], 06/17/2023 16:30:58 12/09/19 24 12/08/2023 LDCT, chest , for lung cance r scree wanda No observ ation record ed. [facility] [address], [place], [address], 12/09/2023 07:44:27 12/24/19 24 12/24/2023 CT, abdom en + pelvi s, w/o contr ast No observ ation record ed. [address] [address], [place], [address], 02/01/2024 18:16:15 02/20/20 24 02/20/2024 US, abdom inal aorta No observ ation record ed. [address] [address], [place], [address], 02/20/2024 09:46:13 05/07/19 25 05/06/2024 imagi ng/di agnos tic resul t No observ ation record ed. [address] [address], [place], [address], 05/06/2024 11:08:52 05/20/19 25 05/19/2024 imagi ng/di agnos tic resul t No observ ation record ed. [address], [address], 05/19/2024 18:35:38 Result Notes None recorded. Problems Name Problem SNOMED Code Status Onset Date Resolution Date Notes Provider Name and Address Organization Details Recorded Time Cellulitis 411992847 Active Not Available [facility] 3 06:45:12 Chronic back pain 916919758 Active Not Available [facility] 3 06:45:12 Nocturia 368232643 Active Not Available [facility] 3 06:45:12 Abdominal pain 54675397 Active Not Available [facility] 3 06:45:12 Chest pain 43676440 Active Not Available [facility] 3 06:45:12 Knee pain Active Not Available [facility] 3 06:45:12 Bronchitis 37534015 Active Not Available [facility] 3 06:45:12 Osteoarthriti s 426018043 Active Not Available [facility] 3 06:45:12 Hematochezia 825027934 Active Not Available [facility] 3 06:45:12 Gastritis 4392035 Active Not Available [facility] 3 06:45:12 Hyperlipidemi a 45235198 Active 2021 Not Available [facility] 3 06:45:12 Essential hypertension 40580358 Active Not Available [facility] 3 06:45:12 Prediabetes 355178795 Active 2020 Not Available [facility] 3 06:45:12 Sleep apnea 02193336 Active Not Available [facility] 3 06:45:13 Fatigue 45161350 Active Not Available [facility] 3 06:45:13 Gastroesophag eal reflux disease without esophagitis 570273440 Active 2022 MD [address], [address], [place], [address] , [facility] 3 11:44:04 Low back pain 123751240 Active 2022 Suzette ku MD [address], [place], [address] , [facility] 3 11:44:09 Chronic obstructive pulmonary disease 39986525 Active 2022 MD [address], [place], [address] , [place] [facility] 3 11:44:12 Cigarette smoker 84392105 Active 2022 Suzette ku MD [address], [address], [place], [address] , [place] [facility] 3 11:44:17 Type 2 diabetes mellitus without complication 644263459 Active 2022 Suzette ku MD [address], [address], [place], [address] , [place] [facility] 3 11:44:22 Diverticuliti s 538066487 Active 2022 Suzette ku MD [address], [address], [place], [address] , [place] [facility] 3 11:44:27 Leukocytosis 252396522 Active 2022 Suzette ku MD [address], [address], [place], [address] , [place] [facility] 3 11:44:32 Obstructive sleep apnea syndrome 49930848 Active 2022 Suzette ku MD [address], [address], [place], [address] , [place] [facility] 3 12:05:01 Lipoma of back 493539499 Active 2022 Suzette ku MD [address], [address], [place], [address] , [place] [facility] 3 10:08:29 Epidermoid cyst of skin 783211011 Active 2022 Umer serna MD [address], [address], [place], [address] , [place] [facility] 3 13:33:57 Neck pain 34736861 Active 2023 Suzette ku MD [address], [address], [place], [address] , [place] [facility] 4 15:40:09 Coronary arteriosclero sis 42882483 Active 2023 Edward Dyer LPN null, [place] [facility] 4 08:02:06 Disorder of prostate 01824370 Active 2024 Lázaro Fontaine CMA null, [place] [facility] 5 11:44:26 Blood in urine 58529086 Active 2024 Suzette ku MD [address], [address], [place], [address] , [facility] 5 17:53:24 Hydrocele of testis 65289104 Active 2024 Suzette ku MD [address], [address], [place], [address] , [facility] 5 18:00:49 Problem Notes None recorded. Procedures Surgical History Date Name Laterality Status Provider Name and Address Organization Details Recorded Time 4 Transitional_Ca re_Management completed Suzette Ortiz MD [address], [address], [place], [address], [facility] 12/29/2023 18:19:51 4 Advanced Care Planning completed Edward Dyer LPN [place] [facility] 08/13/2023 15:16:36 4 Medicare Wellness CPT Code, Initial completed Edward Dyer LPN [place] [facility] 08/10/2023 19:06:32 3 colonoscopy completed TRESA Ragsdale [place] [facility] 08/13/2023 10:30:29 other completed Megan Blanco MA [facility] 01/06/2023 11:57:56 Cyst Removal completed TRESA Ragsdale [place] [facility] 02/12/2023 09:47:14 Imaging Results Imaging Date Name Status LastModified by Organiz ation Details LastModified Time 05/05/2023 imaging/diagno stic result active [facility] [address], [place], [address], 05/06/2023 12:51:04 06/17/2023 XR, cervical spine, 2 or 3 view active [facility] (Imaging) [address], [place], [address], 06/17/2023 16:30:58 12/08/2023 LDCT, chest, for lung cancer screening active [facility] [address] [facility], [place], [address], 12/09/2023 07:44:27 12/24/2023 CT, abdomen + pelvis, w/o contrast completed [address] [place] [address], [address], 02/01/2024 18:16:15 02/20/2024 US, abdominal aorta active [address] [place] [address], [address], 02/20/2024 09:46:13 05/06/2024 imaging/diagno stic result active [address] [place] [address], [address], 05/06/2024 11:08:52 05/19/2024 imaging/diagno stic result active [address] [place] [address], [address], 05/19/2024 18:35:38 Procedure Notes None recorded. Medical Equipment None [...] Available Not Available No t Available Fluvirin 9065-0048 45 mcg (15 mcg x 3)/0.5 mL [...] Updated DateTime 3 177.8 cm 30.3 kg/m2 01045.9 9 g 97.5 [degF] 72 /min 126 mm[Hg] 70 mm[Hg] TRESA Ragsdale [employer] 3 09:49:11 Date Recorded Body height Body mass index (BMI) Body weight Body temperature Heart rate Oxygen saturation Oxygen saturation in Arterial blood by Pulse oximetry Systolic blood pressure Diastolic blood pressure Provider Name and Address Organization Details Last Updated DateTime 4 177.8 cm 31.7 kg/m2 361977. 91 g 98 [degF] 78 /min 97 % 97 % 130 mm[Hg] 80 mm[Hg] Prisca Buchanan MA [employer] 4 15:23:01 Date Recorded Body height Body mass index (BMI) Body weight Body temperature Heart rate Oxygen saturation Oxygen saturation in Arterial blood by Pulse oximetry Systolic blood pressure Diastolic blood pressure Provider Name and Address Organization Details Last Updated DateTime 4 177.8 cm 31.7 kg/m2 494050. 91 g 98.2 [degF] 102 /min 98 % 98 % 140 mm[Hg] 72 mm[Hg] Prisca Buchanan MA [employer] 4 09:51:58 Date Recorded Body height Body mass index (BMI) Body weight Body temperature Heart rate Oxygen saturation Oxygen saturation in Arterial blood by Pulse oximetry Pain severity - 0-10 verbal numeric rating [Score] - Reported Systolic blood pressure Diastolic blood pressure Provider Name and Address Organization Details Last Updated DateTime 4 177.8 cm 30.4 kg/m2 98394.5 8 g 96.4 [degF] 69 /min 97 % 97 % 0 122 mm[Hg] 60 mm[Hg] Prisca Buchanan MA [employer] 4 16:58:49 Date Recorded Body height Body mass index (BMI) Body weight Body temperature Heart rate Oxygen saturation Oxygen saturation in Arterial blood by Pulse oximetry Pain severity - 0-10 verbal numeric rating [Score] - Reported Systolic blood pressure Diastolic blood pressure Provider Name and Address Organization Details Last Updated DateTime 5 177.8 cm 30.7 kg/m2 87561.7 7 g 98.4 [degF] 74 /min 99 % 99 % 2 136 mm[Hg] 76 mm[Hg] Prisca Bcuhanan MA [employer] 5 16:55:34 Social History Question Answer Notes LastModified by Organizat ion Details LastModified Time Tobacco Smoking Status Former Smoker Prisca Buchanan MA [facility], [employer] 12/29/2023 17:00:58 Do You Have An Advance Directive? No [email or web address] Information not available 08/13/2023 What Is Your Level Of Alcohol Consumption? Occasional [id number] Information not available 04/30/2022 Are You Blind Or Do You Have Difficulty Seeing? No [email or web address] Information not available 08/13/2023 What Is Your Level Of Caffeine Consumption? Moderate [id number].92030 [id number] Information not available 04/30/2022 How Much Tobacco Do You Chew? None MIGRATION.81361 [id number] Information not available 04/30/2022 In The 14 Days Before Symptom Onset, Have You Had Close Contact With A Laboratory-confi rmed COVID-19 While That Case Was Ill? No [id number] Information not available 04/30/2022 In The 14 Days Before Symptom Onset, Have You Had Close Contact With A Person Who Is Under Investigation For COVID-19 While That Person Was Ill? No MIGRATION.72195 [id number] Information not available 04/30/2022 Are You Currently Employed? No [email or web address] Information not available 08/13/2023 Are You Deaf Or Do You Have Serious Difficulty Hearing? No [email or web address] Information not available 08/13/2023 What Type Of Diet Are You Following? REGULAR MIGRATION.84440 [id number] Information not available 04/30/2022 Which Illicit Or Recreational Drugs Have You Used? None MIGRATION.09303 [id number] Information not available 04/30/2022 Do You Or Have You Ever Used E-cigarettes Or Vape? Never Used Electronic Cigarettes MIGRATION.93541 08865 Information not available 04/30/2022 What Is The Highest Grade Or Level Of School You Have Completed Or The Highest Degree You Have Received? [id number] Information not available 08/13/2023 What Is Your Occupation? Retired MIGRATION.42799 92756 Information not available 04/30/2022 Have There Been Any Changes To Your Family Or Social Situation? No [email or web address] Information not available 08/13/2023 What Is The Fluoride Status Of Your Home? Unknown Information not available 08/13/2023 Are There Any Guns Present In Your Home? Yes [email or web address] Information not available 08/13/2023 Do You Use Insect Repellent Routinely? No Information not available 08/13/2023 Where Do You Live? SingleLevelHouse [email or web address] Information not available 08/13/2023 Presence Of Domestic Violence No [email or web address] Information not available 08/13/2023 Are You Able To Care For Yourself? Yes Information not available 08/13/2023 Are You Blind Or Do Yo Have Difficulty Seeing? No [email or web address] Information not available 08/13/2023 Are You Deaf Or Do You Have Serious Difficulty Hearing? No [email or web address] Information not available 08/13/2023 General Stress Level? Low [email or web address] Information not available 08/13/2023 Live Alone Of With Others? With Others [email or web address] Information not available 08/13/2023 Do You Have A Medical Power Of Bus Company Manager? No [email or web address] Information not available 08/13/2023 What Was The Date Of Your Most Recent Tobacco Screening? 03/31/2024 Information not available 03/31/2024 What Is Your Current Pack Years? 20-29packyears Information not available 08/13/2023 Have You Ever Been Counseled For Unhealthy Alcohol Use? No [email or web address] Information not available 08/13/2023 Do You Have Any Pets? No [email or web address] Information not available 08/13/2023 What Is Your Relationship Status? [email or web address] Information not available 08/13/2023 Do You Use Your Seat Belt Or Car Seat Routinely? Yes [email or web address] Information not available 07/31/2022 Do You Have Smoke And Carbon Monoxide Detectors In Your Home? Yes [email or web address] Information not available 08/13/2023 Are You Passively Exposed To Smoke? Yes [email or web address] Information not available 08/13/2023 Do You Or Have You Ever Used Smokeless Tobacco? Never Used Smokeless Tobacco MIGRATION.24235 64076 Information not available 04/30/2022 Are There Any Smokers In Your House? Yes [email or web address] Information not available 08/13/2023 How Much Tobacco Do You Smoke? 0.5 PPD [email or web address] Information not available 02/12/2023 Do You Feel Stressed (tense, Restless, Nervous, Or Anxious, Or Unable To Sleep At Night)? [id number] Information not available 06/17/2023 Do You Use Any Illicit Or Recreational Drugs? No [email or web address] Information not available 07/31/2022 Do You Use Sunscreen Routinely? No [email or web address] Information not available 08/13/2023 Has Tobacco Cessation Counseling Been Provided? Yes [email or web address] Information not available 08/13/2023 On What Date Was Tobacco Cessation Counseling Provided? 08/13/2023 [email or web address] Information not available 08/13/2023 Have You Recently Traveled Abroad? No MIGRATION.13237 [id number] Information not available 04/30/2022 Do You Have Any Dietary Restrictions? No MIGRATION.82341 30411 Information not available 04/30/2022 Do You Or Have You Ever Used Any Other Forms Of Tobacco Or Nicotine? No [email or web address] Information not available 07/31/2022 How Many Days In The Past Year Have You Consumed 5 Or More Drinks? 0 Information not available 12/29/2023 Sex: Unknown Functional Status Question Answer Note LastModified by Organizat ion Details LastModified Time Do you have difficulty walking or climbing stairs? No [email or web address] Information not available 08/13/2023 Do you have transportation difficulties? No Information not available 08/13/2023 Are you able to walk? YESWOREST [email or web address] Information not available 08/13/2023 Do you have difficulty doing errands alone? No [email or web address] Information not available 08/13/2023 Are you able to care for yourself? Yes [email or web address] Information n ot available 08/13/2023 Do you have difficulty dressing or bathing? No Information not available 08/13/2023 What is your exercise level? Moderate MIGRATION.[id number] Information not available 04/30/2022 Mental Status Question Answer Note LastModified by Organization D etails LastModified Time Do you have difficulty concentrating, remembering or making decisions? No [email or web address] Information no t available 08/13/2023 Family History Relationship Description Onset Age of this Age Resolved Age Notes LastModified by Organization Details LastModified Time Mother Diabetes mellitus [email or web address] Not available 2022 11:57:08 Father Diabetes mellitus ess37 Not available 2022 11:57:08 Medical History Condition Response BOWEL PROBLEMS Y DIVERTICULITIS Y HYPERTENSION Y HIGH CHOLESTEROL / HYPERLIPIDEMIA Y Immunizations Vaccine Type Date Status Note Provider Nam e and Address Organization Details Recorded Time Influenza, split virus, quadrivalent, preservative 1 completed Not Available [facility] 04/30/2022 06:49:24 COVID-19, mRNA, LNP-S, PF, 100 mcg/0.5mL dose or 50 mcg/0.25mL dose 1 completed Not Available [facility] 04/30/2022 06:49:24 COVID-19, mRNA, LNP-S, PF, 100 mcg/0.5mL dose or 50 mcg/0.25mL dose 1 completed Not Available [facility] 04/30/2022 06:49:24 Influenza, split virus, quadrivalent, preservative 6 completed Not Available [facility] 04/30/2022 06:49:24 Influenza, split virus, quadrivalent, preservative 0 completed Not Available [facility] 04/30/2022 06:49:24 Influenza, split virus, quadrivalent, PF 7 completed Not Available [facility] 04/30/2022 06:49:24 Influenza, split virus, quadrivalent, PF 8 completed Not Available [facility] 04/30/2022 06:49:24 Influenza, split virus, quadrivalent, PF 5 completed Not Available [facility] 04/30/2022 06:49:24 Influenza, split virus, quadrivalent, preservative 4 completed Not Available [facility] 04/30/2022 06:49:24 Influenza, split virus, trivalent, preservative 3 completed Not Available [facility] 04/30/2022 06:49:24 Past Encounters Encounter ID Performer Location Encounter Start Date Encounter Closed Date Diagnosis/Indication Diagnosis SNOMED-CT Code Diagnosis ICD10 Code Diagnosis Note [id number] [facility] [place] [address] [facility] , [facility] [place] [address] 05/14/2020 00:00:00 05/15/2020 14:15:21 [id number] [facility] [address] [place] [address] , [address] [address] 08/14/2020 00:00:00 08/14/2020 09:36:06 [id number] [facility] [place] [address] [facility] [address] [place] [address] 09/06/2020 00:00:00 09/13/2020 09:07:56 [id number] [facility] [address] [address] 01/03/2021 00:00:00 01/03/2021 10:07:07 [id number] [facility] [address] [place] [address] [place]., [address] [address] 04/11/2021 00:00:00 04/11/2021 09:49:16 [id number] [facility] [address] [place] [address] [place] [address] 10/03/2021 00:00:00 10/03/2021 13:08:13 [id number] [facility] [address] [place] [address] [place]., [address] [address] 03/27/2022 00:00:00 03/27/2022 14:24:33 [id number] Suzette ku MD [facility] [address] [facility] [address] [place] [address] 07/31/2022 09:35:10 07/31/2022 10:14:29 Screening - NAD 701947856 Z13.9 Cologuard: 09/27/2019 : Neg, ordered 07/31/2022 Did have c-scope in 04/[address] Dias, as per his history UTD on flu shotCan do TdapUTD on COVID 19 vaccineCan do shingrix vaccine Ex-smoker US AAA at age 67 years RTC in 4 monthsdo labsER if worsehe did verbalized his understand ing of the above Essential hypertension [id number] I[address] Warner s test 12/03/18: neg ECHO 12/03/18: negSleep study: 12/05/2018 : negLDCT 09/05/2021 : CAD Not on nisoldipin e ER 8.5mg bid 07/31/2022 On lisinopril 10mg daily Hyperlipidemia 13733807 E78.5 On atorvastat in 20mg dailyDoes well Get labs Gastroesop hageal reflux disease without esophagitis 890519345 K21.9 On lansoprazo le does wellTake as needed only Low back pain 782923633 M54.50 XR LS spine 01/06/17: Was rec then to see spine surgeon, he wanted to keep seeing chiropract or Seen by Dr Narayan, does well No more apts with Dr Narayan Not taking the opiates Does well now Chronic ob structive pulmonary disease 69773556 J44.9 On proair, renewed 01/03/2021 On flonaseHe does take claritinDo es well on this Cigarette smoker 4138343 7 F17.210 LDCT 07/22/18: Emphysema, next in one yearLDCT 08/29/2020 : Next in one yearLDCT 09/05/2021 : Next in one year He has quit smoking Congratula shima! 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 [id number] E11.9 Declines any medication s again today States that he has been drinking beer, advised to wean off and stopDiet and exerciseGe t labs Dr Orozco 08/30/2020 , next in one yearDr Rammacher 09/06/2020 Diverticulitis 728602615 K57.92 Admitted and d/c [facility] 03/24- 03/25/2022 S/p CT A/P 03/23/2022 F/u with G surgery Dr Landry with augmentin On atorvastat in 20mg dailyOn lisinopril 20mg dailyOn lansaprazo le 30mg dailyNot on nisoldipin e 8.5mg dailyOn albuterolO n flonase Leukocytosis 426027601 D 72.829 Get labs Obstructiv e sleep apnea syndrome 82315125 G47.33 Does well Lipoma of back 456941051 D17.1 Noted on the R upper back, about 2 inch soft non tender, mobile, refer to G surgery [id number] Umer serna MD [facility] General Surgery [address] [place] [address] 01/06/2023 11:07:36 01/07/2023 16:28:47 Epidermoid cyst of skin 309180228 L72.0 upper back [id number] Suzette ku MD [facility] Internal Med [place] [address] [facility] [address] [place] [address] 02/12/2023 09:36:14 02/12/2023 10:02:17 Screening - NAD 368174084 Z13.9 Cologuard: 09/27/2019 : Neg, ordered 07/31/2022 [...] understand ing of the above Essential hypertension 95423004 I10 [address] Warner s test 12/03/18: neg ECHO 12/03/18: negSleep study: 12/05/2018 : negLDCT 09/05/2021 : CAD Not on nisoldipin e ER 8.5mg bid 07/31/2022 On lisinopril 10mg daily Hyperlipidemia 91489226 E78.5 On atorvastat in 20mg dailyDoes well Get labs Gastroesop hageal reflux disease without esophagitis 060760356 K21.9 On lansoprazo le does wellTake as needed only Low back pain 290946475 M54.50 XR LS spine 01/06/17: Was rec then to see spine surgeon, he wanted to keep seeing chiropract or Seen by Dr Narayan, does well No more apts with Dr Narayan Not taking the opiates Does well now Chronic ob structive pulmonary disease 66483180 J44.9 On proair, renewed 01/03/2021 On flonaseHe does take claritinDo es well on this Cigarette smoker 1431098 7 F17.210 LDCT 07/22/18: Emphysema, next in one yearLDCT 08/29/2020 : Next in one yearLDCT 09/05/2021 : Next in one yearLDCT 10/07/2022 : Next in one year He has quit smoking Congratula shima! 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 091263705 E11.9 Declines any medication s again today States that he has been drinking beer, advised to wean off and stopDiet and exerciseGe t labs Dr Orozco 08/30/2020 , next in one yearDr Marcio 09/06/2020 Diverticulitis 851540941 K57.92 Admitted and d/c [facility] 03/24- 03/25/2022 S/p CT A/P 03/23/2022 F/u with G surgery Dr Landry with augmentin On atorvastat in 20mg dailyOn lisinopril 20mg dailyOn lansaprazo le 30mg dailyNot on nisoldipin e 8.5mg dailyOn albuterolO n flonase Leukocytosis 956459567 D 72.829 Get labs Obstructiv e sleep apnea syndrome 03545552 G47.33 Does well Lipoma of back 833422005 D17.1 Noted on the R upper back, about 2 inch soft non tender, mobile, refer to G surgery 01/06/2023 : Dr Warren [id number] Suzette ku MD [facility] [place] [address] [facility] [place] [address] 06/17/2023 15:13:40 06/17/2023 15:58:32 Neck pain 83684111 M54.2 Get Xray neck, also get on flexeril and meloxicamM ay need to get PTER if worse, he is very appreciati ve to this plan of care [id number] Suzette ku MD [facility] Internal Med [facility] [address] [facility], [facility] 15 [place] [address] 08/13/2023 09:44:09 08/13/2023 10:23:14 Adult health examination 593195103 Z00.00 Screening for disorder 303425838 Z13.9 Neck pain 38878989 M54.2 Get Xray neck, also get on flexeril and meloxicamM ay need to get PTER if worse, he is very appreciati ve to this plan of care Xr c-spine 06/17/2023 : Ekta garsia PT has declined 08/13/2023 , states that he is very active and does go camping, the neck pain is now intermitte nt Screening - NAD 29350376 3 Z13.9 Cologuard: 09/27/2019 : Neg, ordered 07/31/2022 C-scope in 05/26/2022 Dr Dias Get yearly flu shotCan do TdapGet latest COVID 19 vaccineCan do shingrix vaccineGet PCV #20Get RSV vaccineHas declined all vaccines 02/12/2023 Ex-smoker US AAA at age 67 years RTC in 4 monthsdo labsER if worsehe did verbalized his understand ing of the above Essential hypertension 64441410 I10 Dr Sears 04/17/2023 , f/u in one yearStress test 12/03/18: neg ECHO 12/03/18: negSleep study: 12/05/2018 : negLDCT 09/05/2021 : CADECHO 05/05/2023 : EF 65% Not on nisoldipin e ER 8.5mg bid 07/31/2022 On lisinopril 20mg daily Hyperlipidemia 75324525 E78.5 On atorvastat in 20mg dailyDoes well Get labs Gastroesop hageal reflux disease without esophagitis 777736274 K21.9 On lansoprazo le does wellTake as needed only Low back pain 817135154 M54.50 XR LS spine 01/06/17: Was rec then to see spine surgeon, he wanted to keep seeing chiropract or Seen by Dr Narayan, does well No more apts with Dr Narayan Not taking the opiates Does well now Chronic ob structive pulmonary disease 00829901 J44.9 On proair, renewed 01/03/2021 On flonaseHe does take claritinDo es well on this Cigarette smoker 6355902 7 F17.210 LDCT 07/22/18: Emphysema, next in one yearLDCT 08/29/2020 : Next in one yearLDCT 09/05/2021 : Next in one yearLDCT 10/07/2022 : Next in one year He has quit smoking Congratbrandie ronquillo! 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 437962319 E11.9 Declines any medication s again today States that he has been drinking beer, advised to wean off and stopDiet and exerciseGe t labs Dr Orozco 08/30/2020 , next in one yearDr Rammacher 09/06/2020 Diverticulitis 765234195 K57.92 Admitted and d/c [facility] 03/24- 03/25/2022 S/p CT A/P 03/23/2022 F/u with G surgery Dr Landry with augmentin On atorvastat in 20mg dailyOn lisinopril 20mg dailyOn lansaprazo le 30mg dailyNot on nisoldipin e 8.5mg dailyOn albuterolO n flonase Leukocytosis 214688676 D 72.829 Get labs Obstructiv e sleep apnea syndrome 50895490 G47.33 Does well Lipoma of back 575534362 D17.1 Noted on the R upper back, about 2 inch soft non tender, mobile, refer to G surgery 01/06/2023 : Dr Warren [id number] Suzette ku MD [facility] [place] [address] , [address] [place] [address] 12/29/2023 16:46:09 12/29/2023 18:08:22 Neck pain 78438861 M54.2 Get Xray neck, also get on flexeril and meloxicamM ay need to get PTER if worse, he is very appreciati ve to this plan of care Xr c-spine 06/17/2023 : Ekta garsia PT has declined 08/13/2023 , states that he is very active and does go camping, the neck pain is now intermitte nt Screening - NAD 38503826 3 Z13.9 Cologuard: 09/27/2019 : Neg, ordered 07/31/2022 C-scope in 05/26/2022 Dr Dias Get yearly flu shotCan do TdapGet latest COVID 19 vaccineCan do shingrix vaccineGet PCV #20Get RSV vaccineHas declined all vaccines 02/12/2023 Ex-smoker US AAA at age 67 years RTC in 4 monthsdo labsER if worsehe did verbalized his understand ing of the above Essential hypertension 71836468 I10 Dr Sears 04/17/2023 , f/u in one yearStress test 12/03/18: neg ECHO 12/03/18: negSleep study: 12/05/2018 : negLDCT 09/05/2021 : CADECHO 05/05/2023 : EF 65% Not on nisoldipin e ER 8.5mg bid 07/31/2022 On lisinopril 20mg daily Hyperlipidemia 78143630 E78.5 On atorvastat in 20mg dailyDoes well Get labs Gastroesop hageal reflux disease without esophagitis 864359754 K21.9 On lansoprazo le does wellTake as needed only Low back pain 213900944 M54.50 XR LS spine 01/06/17: Was rec then to see spine surgeon, he wanted to keep seeing chiropract or Seen by Dr Narayan, does well No more apts with Dr Narayan Not taking the opiates Does well now Chronic ob structive pulmonary disease 45891732 J44.9 On proairOn flonaseHe does take claritinDo es well on this Cigarette smoker 0600220 7 F17.210 LDCT 07/22/18: Emphysema, next in one yearLDCT 08/29/2020 : Next in one yearLDCT 09/05/2021 : Next in one yearLDCT 10/07/2022 : Next in one yearLDCT 12/08/2023 : Next in one year He has quit smoking Congratula shima! 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 149105885 E11.9 Declines any medication s again today States that he has been drinking beer, advised to wean off and stopDiet and exerciseGe t labs Dr Orozco 08/30/2020 , next in one yearDr Buckley 09/06/2020 Diverticulitis 942403188 K57.92 Admitted and d/c [facility] 03/24- 03/25/2022 S/p CT A/P 03/23/2022 F/u with G surgery Dr Landry with augmentin On atorvastat in 20mg dailyOn lisinopril 20mg dailyOn lansaprazo le 30mg dailyNot on nisoldipin e 8.5mg dailyOn albuterolO n flonase Admitted and d/c [facility] 12/27/2023 CT A/P 12/24/2023 Rx with zosynD/c on augmentin and flagylWBC 23.5 12/24/2023 -> 7.6 12/27/2023 Does well now Obstructiv e sleep apnea syndrome 12628649 G47.33 Does well Lipoma of back 799887054 D17.1 Noted on the R upper back, about 2 inch soft non tender, mobile, refer to G surgery 01/06/2023 : Dr Warren Transition of care [address] 65792 105 Z75.8 Abdominal aortic aneurysm screening 037107084 Z13.6 [id number] Suzette ku MD [facility] Internal Med [place] [address] [facility], [facility] 15 [place] [address] 03/31/2024 16:47:48 03/31/2024 18:05:52 Neck pain 86909736 M54.2 Get Xray neck, also get on flexeril and meloxicamM ay need to get PTER if worse, he is very appreciati ve to this plan of care Xr c-spine 06/17/2023 : Ekta garsia PT has declined 08/13/2023 , states that he is very active and does go camping, the neck pain is now intermitte nt Screening - NAD 40885021 3 Z13.9 Cologuard: 09/27/2019 : Neg, ordered 07/31/2022 C-scope in 05/26/2022 Dr Dias Get yearly flu shotCan do TdapGet latest COVID 19 vaccineCan do shingrix vaccineGet PCV #20Get RSV vaccineHas declined all vaccines 02/12/2023 , 03/31/2024 Ex-smoker US AAA at age 67 years RTC in 4 monthsdo labsER if worsehe did verbalized his understand ing of the above Essential hypertension 61075495 I10 Dr Sears 04/17/2023 Stress test 12/03/18: neg ECHO 12/03/18: negSleep study: 12/05/2018 : negLDCT 09/05/2021 : CADECHO 05/05/2023 : EF 65% Not on nisoldipin e ER 8.5mg bid 07/31/2022 On lisinopril 20mg dailyIs to sancho apt with Dr Sears Hyperlipidemia 45479135 E78.5 On atorvastat in 20mg dailyDoes well Get labs Gastroesop hageal reflux disease without esophagitis 213785860 K21.9 On lansoprazo le does wellTake as needed only Low back pain 215145061 M54.50 XR LS spine 01/06/17: Was rec then to see spine surgeon, he wanted to keep seeing chiropract or Seen by Dr Narayan, does well No more apts with Dr Narayan Not taking the opiates Does well now Chronic ob structive pulmonary disease 65943048 J44.9 On proairOn flonaseHe does take claritinDo es well on this Cigarette smoker 2681886 7 F17.210 LDCT 07/22/18: Emphysema, next in one yearLDCT 08/29/2020 : Next in one yearLDCT 09/05/2021 : Next in one yearLDCT 10/07/2022 : Next in one yearLDCT 12/08/2023 : Next in one year He has quit smoking Congratula shima! 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 097014347 E11.9 Declines any medication s again today States that he has been drinking beer, advised to wean off and stopDiet and exerciseGe t labs Dr Orozco 08/30/2020 , next in one yearDr Rammacher 09/06/2020 Diverticulitis 166975333 K57.92 Admitted and d/c [facility] 03/24- 03/25/2022 S/p CT A/P 03/23/2022 F/u with G surgery Dr CubaRx with augmentin On atorvastat in 20mg dailyOn lisinopril 20mg dailyOn lansaprazo le 30mg dailyNot on nisoldipin e 8.5mg dailyOn albuterolO n flonase Admitted and d/c [facility] 12/27/2023 CT A/P 12/24/2023 Rx with zosynD/c on augmentin and flagylWBC 23.5 12/24/2023 -> 7.6 12/27/2023 Does well now OV 03/31/2024 :Is to see Dr Cuba and he does need to stop smoking for him to get surgery on 05/02/2024 Obstructiv e sleep apnea syndrome 53315474 G47.33 Does well Lipoma of back 653899634 D17.1 Noted on the R upper back, about 2 inch soft non tender, mobile, refer to G surgery 01/06/2023 : Dr Warren Transition of care 17508 78164 105 Z75.8 Abdominal aortic aneurysm screening 102285442 Z13.6 02/20/2024 : Neg Blood in urine 08807599 R31.9 ResolvedHa d this as he thinks [...] 02/12/2023 1 [facility] (MEDICARE REPLACEMENT/A DVANTAGE - PPO) [id number] Onel Montero [id number] Onel Montero 06/17/2023 1 [facility] (MEDICARE REPLACEMENT/A DVANTAGE - PPO) [id number] Onel Montero [id number] Onel Montero 08/13/2023 1 [facility] (MEDICARE REPLACEMENT/A DVANTAGE - PPO) [id number] Onelolga Montero [id number] Onel Montero 12/29/2023 1 [facility] (MEDICARE REPLACEMENT/A DVANTAGE - PPO) [id number] Onel Montero [id number] Onelolga Montero 03/31/2024 1 [facility] (MEDICARE REPLACEMENT/A DVANTAGE - PPO) [id number] Onel Montero [id number] Onel Montero Notes Date Note Type Note [...] apt, he does well Suzette Ortiz MD [address] [place] [address], [facility] [address], [place], [address], [facility] [facility] 02/12/2023 10:38:07 06/17/2023 text/html Here to amanda joaquina Candido Hx:InsmoniaLBPHTNGE RDReviewed social family surgical historyHe is [...] neck Suzette Ortiz MD [address], [address], [place], [address], [place] [facility] [employer] 06/17/2023 16:13:28 08/13/2023 text/html Here to amanda [...] is going for melody Ortiz MD [address] [facility], [facility] [address], [place], [address], [facility] - [facility] [employer] 08/17/2023 18:39:46 12/29/2023 text/html Here to amanda [...] hospital f/u, s/p d/c from [facility] on 12/27/2023, for diverticulitis, is doing well now Suzette Ortiz MD [address] [place] [address], [facility] [address], [place], [address], [place] [facility] [employer] 12/29/2023 18:23:20 03/31/2024 text/html Here to amanda [...] hospital f/u, s/p d/c from [facility] on 12/27/2023, for diverticulitis, is doing well now OV 03/31/2024: Here for his f/u apt, he is doing well, he did have some blood in the urine, also has ER sided long standing swelling in the testes, he did do the labs Suzette Ortiz MD [address], [address], [place], [address], [place] [facility] 03/31/2024 19:16:10
== END 2024-05-27 09:54 | disposition home or self-care (01) ==
LOC: ANHIMG 09:54
PROVIDERS: PCP Internal Medicine; Visit Provider Urology
DX: R31.0 Gross hematuria (principal)
CPT/HCPCS: 51600; 74430; Q9967

== ENCOUNTER 2024-08-09 08:12 | Outpatient (CLI) | payer MEDICARE, SELFPAY ==
--- NOTE | ~2024-08-09 | CT_ITS ---
Non-contrast CT scan of the Abdomen and Pelvis Clinical indication: Right groin pain Technique: 2.5 mm axial scans were obtained through the abdomen and pelvis without intravenous or or al contrast. Dose reduction technique was used on this scan by utilizing automated exposure control a nd iterative reconstruction technique. The dose-length product (DLP) was 971.33 mGy-cm. COMPARISON: 12/24/2023 Findings: Images through the lung bases reveal no abnormalities. There is no evidence of renal or ureteral calculi. The kidneys and the ureters are nondilated. Small renal cysts are present bilaterally. The liver, spleen, pancreas, and adrenals appear normal. Cholecystectomy clips are present. There is no aortic aneurysm. There is no evidence of bowel obstruction. Rectosigmoid anastomosis is noted. Images through the pelvis were performed. There is no evidence of ascites or lymphadenopathy. Urinary bladder unremarkable. Prostate gland enlarged. Probable fat-containing left inguinal hernia. Impression: Probable fat-containing left inguinal hernia. Enlarged prostate gland. No other significant findings. Reviewed, dictated and finalized at [facility]. Impression: Probable fat-containing left inguinal hernia. Enlarged prostate gland. No other significant findings.
== END 2024-08-09 08:13 | disposition home or self-care (01) ==
PROVIDERS: PCP Surgery; Referring Provider Urology; Visit Provider Internal Medicine
DX: N40.0 Benign prostatic hyperplasia without lower urinary tract symptoms (principal)
CPT/HCPCS: 74176

== ENCOUNTER 2025-02-08 00:21 | Day surgery (SDC) | payer MEDICARE, SELFPAY ==
[2024-12-06 12:07] VITALS: BMI 31.6
--- NOTE | 2025-01-16 14:51 | PC.NURSE ---
Pt updated with new date, time, and instructions for procedure. Prior interview completed on 12/16/2024.
--- OUTSIDE RECORDS SUMMARY | 2025-02-08 00:24 | XMS_ITS | Clinical Summary ---
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 Gender Identity Not on file Sexual Orientation Not on file Plan of Treatment Health Maintenance Due Date Last Done Comments Colorectal Cancer Screening Colonoscopy (10 Years) 1957 Hepatitis C 1975 DTaP, Tdap and Td Vaccines ( 1 - Tdap) 1976 Pneumococcal Vaccine: 50+ Ye ars (1 of 1 - PCV) 2007 Zoster Vaccines (1 of 2) 2007 COVID-19 Vaccine ( - 2024-2 6 season) 2024 Influenza Adult (#1) 2024 RSV Immunization or 60+ Years (1 - 1-dose 75+ series) 2032 Hepatitis A Vaccines Aged Out No long er eligible based on patient's age to complete this topic Meningococcal B Vaccine Aged Out No l onger eligible based on patient's age to complete this topic Meningococcal Vaccine Aged Out No parminder deedee eligible based on patient's age to complete this topic RSV Immunizations Under 20 Months Aged Out No longer eligible based on patient's age to complete this topic
[2025-02-08 06:45] VITALS: BP 140/88; PULSE 73; RESP 20; TEMP 35.7; O2SAT 98; BMI 33.2
--- NOTE | 2025-02-08 06:58 | WPDANESEPPF ---
Anes - Initial Pre Proc Eval Procedure: Operation Date: 02/08/25 07:45 Proposed Procedures p Esophagogastroduodenoscopy EGD - Jh Sosa MD Date/Time: 02/08/25 06:58 Surgeon: Jh Sosa MD Pre Op Diagnosis: Gastro-esophageal reflux disease without esophagit Patient Data Age: 69 Gender: M Height: 1.78 m Weight: 105 kg Last Vital Signs Temp 35.7 C L 02/08/25 06:45 Pulse 73 02/08/25 06:45 Resp 20 02/08/25 06:45 BP 140/88 02/08/25 06:45 Pulse Ox 98 02/08/25 06:45 O2 Del Method Room Air 02/08/25 06:45 Allergies Allergy/AdvReac Type Severity Reaction Status Date / Time codeine AdvReac Unknown Itching Verified 02/08/25 06:44 Home Medications ?Medication ?Instructions ?Recorded ?Confirmed ?Type albuterol sulfate 90 mcg/actuation 2 puff inhalation Q6H PRN 03/23/22 12/06/24 History aerosol inhaler Shortness Of Breath atorvastatin 20 mg tablet 20 mg PO DAILY 03/23/22 02/08/25 History lansoprazole 30 mg capsule,delayed 30 mg PO DAILY 03/23/22 02/08/25 History release lisinopril 20 mg tablet 20 mg PO DAILY 03/23/22 02/08/25 History Patient hx anesthesia problems: none Family hx anesthesia problems: none Results Review: All pre-operative results and documents have been reviewed as part of the pre-operative evaluation. [facility] Past Medical History Medical History Obesity PUD (peptic ulcer disease) EFREN on CPAP COPD (chronic obstructive pulmonary disease) Essential hypertension Hyperlipidemia Smoker Diverticulitis of colon with perforation Surgical History Surgical History S/P laparoscopic-assisted sigmoidectomy 05/19/24 Hand access laparoscopic sigmoidectomy with stapled colorectal anastomosis Dr. Cuba Hx of excision of mass excision 4 cm skin cyst of the back with no margin, 12 cm layered [id number]/23 TRE History of laparoscopic cholecystectomy Peptic ulcer with perforation Surgery for perforated ulcer years ago, midline incision. Social History Social History Smoking packs per day: 0.5 Smoking cigarettes per day: 10.0 Years smoked: 40 Smoking pack-years: 20.00 Smoking status: Current every day smoker Tobacco type: cigarettes Smoking end date: 04/08/24 Additional smoking assessment comments: Just quit smoking Alcohol intake: current Drinks per week: 15 Alcohol use details: socially Substance use: never Substance use type: does not use Current Housing: Decline to Answer Concerned About Future Housing: Decline to Answer Difficulty Paying Gas/Electric Bills: Decline to Answer Difficulty Paying for Meds: Decline to Answer Currently Unemployed: Decline to Answer Education: Decline to Answer Difficulty w/ Childcare or Family Care: Decline to Answer Living arrangements: with family Spiritual care concerns: No Anes - Eval Final PreProcedure Day of Procedure 02/08/25 06:58 Patient weight: obese Heart: regular rate and rhythm Lungs: clear to auscultation Airway: Mallampati scale class II Neurological: alert and oriented Last oral intake: >/= 8 hours ASA classification: III Emergent: no Anesthetic plan: proceed Anesthesia type and monitoring: general GIVS and standard monitoring Results Review: All pre-operative results and documents have been reviewed as part of the pre-operative evaluation. Informed Consent: The patient's anesthetic plan and its attendant risks and benefits were discussed with the patient/family/POA. Questions were solicited and answers provided to the satisfaction of the patient/family/POA.
[2025-02-08] MEDS: LACTATED RINGERS 1,000 ML 150 ML IV CONT (06:59)
--- NOTE | 2025-02-08 07:54 | PM.HPGS ---
History of Present Illness History of Present Illness Consent: Risks, benefits, and alternatives have been discussed and questions answered. Patient agrees to proceed with procedure. Chief complaint: Gastro-esophageal reflux disease without esophagit Narrative: Onel Montero is a 69 year old male here for egd because of gerd on ppi Review of Systems Review of Systems: All systems reviewed & are unremarkable except as noted in HPI and below PMFSH Past Medical History Medical History (Updated 02/08/25 @ 07:55 by Jh Sosa MD) GERD (gastroesophageal reflux disease) Obesity PUD (peptic ulcer disease) EFREN on CPAP COPD (chronic obstructive pulmonary disease) Essential hypertension Hyperlipidemia Smoker Diverticulitis of colon with perforation Surgical History Surgical History S/P laparoscopic-assisted sigmoidectomy 05/19/24 Hand access laparoscopic sigmoidectomy with stapled colorectal anastomosis Dr. [place] Hx of excision of mass excision 4 cm skin cyst of the back with no margin, 12 cm layered [id number]/23 TRE History of laparoscopic cholecystectomy Peptic ulcer with perforation Surgery for perforated ulcer years ago, midline incision. Social History Social History Smoking packs per day: 0.5 Smoking cigarettes per day: 10.0 Years smoked: 40 Smoking pack-years: 20.00 Smoking status: Current every day smoker Tobacco type: cigarettes Smoking end date: 04/08/24 Additional smoking assessment comments: Just quit smoking Alcohol intake: current Drinks per week: 15 Alcohol use details: socially Substance use: never Substance use type: does not use Current Housing: Decline to Answer Concerned About Future Housing: Decline to Answer Difficulty Paying Gas/Electric Bills: Decline to Answer Difficulty Paying for Meds: Decline to Answer Currently Unemployed: Decline to Answer Education: Decline to Answer Difficulty w/ Childcare or Family Care: Decline to Answer Living arrangements: with family Spiritual care concerns: No Meds Home Medications and Allergies Home Medications ?Medication ?Instructions ?Recorded ?Confirmed ?Type albuterol sulfate 90 mcg/actuation 2 puff inhalation Q6H PRN 03/23/22 12/06/24 History aerosol inhaler Shortness Of Breath atorvastatin 20 mg tablet 20 mg PO DAILY 03/23/22 02/08/25 History lansoprazole 30 mg capsule,delayed 30 mg PO DAILY 03/23/22 02/08/25 History release lisinopril 20 mg tablet 20 mg PO DAILY 03/23/22 02/08/25 History Allergies Allergy/AdvReac Type Severity Reaction Status Date / Time codeine AdvReac Unknown Itching Verified 02/08/25 06:44 Vital Signs Vital Signs - 24 hr 02/08/25 06:45 Temperature 96.2 F L Pulse Rate 73 Respiratory Rate 20 Blood Pressure 140/88 Pulse Oximetry 98 Oxygen Delivery Room Air Exam Const: General: comfortable and no acute distress HENMT: Face/Nose/Sinus: Normal nares present Eyes: General: appearance normal, both eyes and all related structures Neck: Neck: no JVD Resp: Auscultation: clear to auscultation bilaterally Cardio: Rate: regular rate Rhythm: regular rhythm GI: Inspection: non-distended GI Palp: Yes Soft to palpation Skin: General skin exam: normal color Extrem: General: normal to inspection Psych: Mental Status: mental status grossly normal Assessment and Plan Assessment and plan (1) GERD (gastroesophageal reflux disease): Code(s): K21.9 - Gastro-esophageal reflux disease without esophagitis Status: Acute Assessment and Plan: egd
--- NOTE | 2025-02-08 07:58 | S_PTH ---
PATIENT: Onel Montero LOC: [facility]#:[id number] AGE/SX: 69/M ROOM: RE02/08/[address]: Jh Sosa MD : 1955 BED: DIS: 02/08/2025 SPEC #: [id number] RECD: 02/08/25 08:35 STATUS: CINDY HERNANDEZ #: [id number] HENRY: 02/08/25 07:[address]: Jh Sosa DEPT: [facility] Surgical RECD BY: Giuliana Squires MLT, ([facility]) ENTERED: 02/08/25 08:35 SP TYPE: Surgical OTHR DR: Suzette OrtizMD Tissues: A - Gastric Biopsy B - Esophageal Biopsy Procedures: Hematoxylin and Eosin Stain Gross and Microscopic Level 4
[2025-02-08 08:05] VITALS: BP 132/77; PULSE 83; RESP 20; O2SAT 96
[2025-02-08 08:15] VITALS: BP 137/81; PULSE 82; RESP 20; O2SAT 98
[2025-02-08 08:25] VITALS: BP 137/79; PULSE 67; RESP 17; O2SAT 98
== END 2025-02-08 08:35 | disposition home or self-care (01) ==
PROVIDERS: PCP Internal Medicine; Visit Provider Internal Medicine Gastroenterology
PROC: 0DJ08ZZ Inspection of Upper Intestinal Tract, Via Natural or Artificial Opening Endoscopic (ICD-10-PCS; CPT 43239; principal; 2025-02-08 07:45)
DX: K21.9 Gastro-esophageal reflux disease without esophagitis (principal); K29.70 Gastritis, unspecified, without bleeding; K22.89 Other specified disease of esophagus; J44.9 Chronic obstructive pulmonary disease, unspecified; E78.5 Hyperlipidemia, unspecified; I10 Essential (primary) hypertension; G47.33 Obstructive sleep apnea (adult) (pediatric); E66.9 Obesity, unspecified; Z68.33 Body mass index [BMI] 33.0-33.9, adult; Z79.51 Long term (current) use of inhaled steroids; Z99.89 Dependence on other enabling machines and devices; Z87.891 Personal history of nicotine dependence; Z87.11 Personal history of peptic ulcer disease; Z87.19 Personal history of other diseases of the digestive system; Z98.890 Other specified postprocedural states; Z98.0 Intestinal bypass and anastomosis status; Z90.49 Acquired absence of other specified parts of digestive tract
CPT/HCPCS: 43239; 88305; J2003; J2704; J7120